=== PATIENT | male | born 1965 | race Hispanic/Latino ===

== ENCOUNTER 2023-04-19 12:43 | Emergency (ER) | payer BC ==
[~2023-04-19] VITALS: Ht 170.2 cm; Wt 105.7 kg
[~2023-04-19 12:43] MED LIST: AEC81 PO; ATOR40TA69 PO; CARV3.1262 PO; FURO40TA7 PO; GLIP1TAB5 PO; GLUC-29 PO; SACU1TAB PO; SPIR25TA6 PO; TRIP30O TP
[2023-04-19 15:43] VITALS: BP 123/72
== END 2023-04-19 15:51 | disposition home or self-care (01) ==
LOC: EDH 12:43
DX: Z89.421 Acquired absence of other right toe(s) (principal); Z48.00 Encounter for change or removal of nonsurgical wound dressing; I11.0 Hypertensive heart disease with heart failure; I50.9 Heart failure, unspecified; E11.9 Type 2 diabetes mellitus without complications; Z79.82 Long term (current) use of aspirin; Z79.899 Other long term (current) drug therapy; Z90.49 Acquired absence of other specified parts of digestive tract; Z98.890 Other specified postprocedural states; Z88.0 Allergy status to penicillin
CPT/HCPCS: 99281; 99282

== ENCOUNTER 2023-12-05 15:11 | Inpatient (IN) | payer BC ==
[~2023-12-05] VITALS: Ht 170.2 cm; Wt 106.7 kg
[~2023-12-05 15:11] MED LIST changes: -AEC81 PO; -ATOR40TA69 PO; +CARV-158 PO; -CARV3.1262 PO; +FURO40TA5 PO; -FURO40TA7 PO; -SPIR25TA6 PO
[2023-12-05 22:46] LABS: BASOPHILS # (AUTO) 0.04 K/uL (0.00-0.20); BASOPHILS % (AUTO) 0.5 % (0.0-5.0); EOSINOPHILS # (AUTO) 0.09 K/uL (0.00-0.70); HEMATOCRIT 47.6 % (42-54); IMMATURE GRANULOCYTE ABSOLUTE 0.05 K/uL (0-1); LYMPHOCYTES # (AUTO) 1.4 K/uL (1.0-4.8); LYMPHOCYTES % (AUTO) 15.7 % (21.0-51.0); MEAN CORPUSCULAR HGB CONC 32.1 g/dL (32.0-36.0); MEAN CORPUSCULAR VOLUME 96.4 fL (79-99); MONOCYTES # (AUTO) 0.8 K/uL (0.1-1.0); MONOCYTES % (AUTO) 8.9 % (3.0-13.0); NEUTROPHILS # (AUTO) 6.4 K/uL (1.8-7.7); NEUTROPHILS % (AUTO) 73.3 % (40.0-77.0); PLATELET COUNT (AUTO) 155 K/uL (130-400); RED BLOOD CELL COUNT(AUTO) 4.94 MIL/uL (4.50-6.20); RED CELL DISTRIBUTION WIDTH 14.4 % (11.0-15.5); WHITE BLOOD COUNT (AUTO) 8.7 K/uL (4.8-10.8)
[2023-12-05] MEDS ORDERED: POTASSIUM CHLORIDE 20MEQ/100ML 100 ML IV PRN (23:00)
[2023-12-05] MEDS ORDERED: POTASSIUM CHLORIDE 10% ELIXIR 20 MEQ/15 ML UDCUP PO PRN (23:00)
[2023-12-05 23:17] LABS: ALBUMIN 3.6 g/dL (3.5-5.0); BILIRUBIN,TOTAL 0.9 mg/dL (0.2-1.0); CREATININE 1.3 mg/dL (0.5-1.5); MAGNESIUM 2.2 mg/dL (1.80-2.40); POTASSIUM 5.9 mmol/L (3.5-5.1); TOTAL PROTEIN, SERUM 7.4 g/dL (6.0-8.3)
[2023-12-05] MEDS ORDERED: DEXTROSE 50%-WATER 50 ML DISP.SYRIN IV PRN (23:30)
[2023-12-05] MEDS ORDERED: GLUCAGON 1MG KIT 1 MG ML IM PRN (23:30)
[2023-12-06] VITALS (13 sets, daily range): BP systolic 114–139; BP diastolic 72–91; PULSE 67–101; RESP 16–20; O2SAT 94–100
[2023-12-06 00:02] LABS: B-TYPE NATRIURETIC PEPTIDE 2720 pg/mL (0-100)
[2023-12-06] MEDS: FUROSEMIDE 100MG VIAL 100 MG in 0.9%NACL 100ML 100 ML IV SCH (01:02)
[2023-12-06] MEDS: FUROSEMIDE 100MG VIAL ONE (01:02)
[2023-12-06 04:58] LABS: BASOPHILS # (AUTO) 0.05 K/uL (0.00-0.20); BASOPHILS % (AUTO) 0.5 % (0.0-5.0); EOSINOPHILS % (AUTO) 1.1 % (0.0-8.0); HEMATOCRIT 48.5 % (42-54); IMMATURE GRANULOCYTE ABSOLUTE 0.05 K/uL (0-1); LYMPHOCYTES # (AUTO) 1.6 K/uL (1.0-4.8); LYMPHOCYTES % (AUTO) 17.2 % (21.0-51.0); MEAN CORPUSCULAR HEMOGLOBIN 31.3 pg (27.0-33.0); MEAN CORPUSCULAR HGB CONC 32.2 g/dL (32.0-36.0); MEAN CORPUSCULAR VOLUME 97.2 fL (79-99); MONOCYTES # (AUTO) 0.9 K/uL (0.1-1.0); MONOCYTES % (AUTO) 10.2 % (3.0-13.0); NEUTROPHILS # (AUTO) 6.4 K/uL (1.8-7.7); NEUTROPHILS % (AUTO) 70.5 % (40.0-77.0); PLATELET COUNT (AUTO) 161 K/uL (130-400); RED BLOOD CELL COUNT(AUTO) 4.99 MIL/uL (4.50-6.20); RED CELL DISTRIBUTION WIDTH 14.6 % (11.0-15.5); WHITE BLOOD COUNT (AUTO) 9.1 K/uL (4.8-10.8)
[2023-12-06 05:11] LABS: ALBUMIN 3.7 g/dL (3.5-5.0); BILIRUBIN,TOTAL 1.2 mg/dL (0.2-1.0); CREATININE 1.3 mg/dL (0.5-1.5); MAGNESIUM 2.2 mg/dL (1.80-2.40); POTASSIUM 5.3 mmol/L (3.5-5.1); TOTAL PROTEIN, SERUM 7.5 g/dL (6.0-8.3)
[2023-12-06 05:22] LABS: B-TYPE NATRIURETIC PEPTIDE 3190 pg/mL (0-100)
[2023-12-06] MEDS: INSULIN HUMULIN R 100 UNIT/ML 3ML SQ SCH (06:32)
[2023-12-06] MEDS ORDERED: FLUT16H NASAL (07:03)
[2023-12-06] MEDS: SACUBITRIL/VALSARTAN 1 EACH TABLET PO ONE (13:03)
[2023-12-07] VITALS (8 sets, daily range): BP systolic 116–123; BP diastolic 78–90; PULSE 84–94; RESP 16–20; O2SAT 97–99
[2023-12-07 04:13] LABS: HEMATOCRIT 47.1 % (42-54); MEAN CORPUSCULAR HEMOGLOBIN 30.8 pg (27.0-33.0); MEAN CORPUSCULAR HGB CONC 32.1 g/dL (32.0-36.0); MEAN CORPUSCULAR VOLUME 95.9 fL (79-99); RED BLOOD CELL COUNT(AUTO) 4.91 MIL/uL (4.50-6.20); RED CELL DISTRIBUTION WIDTH 14.4 % (11.0-15.5); WHITE BLOOD COUNT (AUTO) 9.8 K/uL (4.8-10.8)
[2023-12-07 04:38] LABS: ALBUMIN 3.3 g/dL (3.5-5.0); BILIRUBIN,TOTAL 1.1 mg/dL (0.2-1.0); CREATININE 1.1 mg/dL (0.5-1.5); MAGNESIUM 1.9 mg/dL (1.80-2.40); POTASSIUM 4.5 mmol/L (3.5-5.1); TOTAL PROTEIN, SERUM 7.1 g/dL (6.0-8.3)
[2023-12-08] VITALS (7 sets, daily range): BP systolic 115–131; BP diastolic 70–95; PULSE 87–99; RESP 18–22; O2SAT 100
[2023-12-08 04:53] LABS: HEMATOCRIT 47.5 % (42-54); MEAN CORPUSCULAR HGB CONC 31.8 g/dL (32.0-36.0); MEAN CORPUSCULAR VOLUME 97.5 fL (79-99); RED BLOOD CELL COUNT(AUTO) 4.87 MIL/uL (4.50-6.20); RED CELL DISTRIBUTION WIDTH 14.5 % (11.0-15.5); WHITE BLOOD COUNT (AUTO) 8.7 K/uL (4.8-10.8)
[2023-12-08 05:12] LABS: ALBUMIN 3.3 g/dL (3.5-5.0); BILIRUBIN,TOTAL 1.2 mg/dL (0.2-1.0); CREATININE 1.2 mg/dL (0.5-1.5); MAGNESIUM 1.9 mg/dL (1.80-2.40); POTASSIUM 4.3 mmol/L (3.5-5.1); TOTAL PROTEIN, SERUM 7.1 g/dL (6.0-8.3)
[2023-12-08] MEDS: SACUBITRIL/VALSARTAN 1 EACH TABLET PO SCH (14:23)
[2023-12-08] MEDS: CARVEDILOL 3.125 MG TABLET PO SCH (21:24)
[2023-12-09] VITALS (8 sets, daily range): BP systolic 102–137; BP diastolic 75–88; PULSE 77–89; RESP 18–20; O2SAT 99–100
[2023-12-09 05:40] LABS: HEMATOCRIT 43.4 % (42-54); MEAN CORPUSCULAR HEMOGLOBIN 31.3 pg (27.0-33.0); MEAN CORPUSCULAR HGB CONC 33.4 g/dL (32.0-36.0); MEAN CORPUSCULAR VOLUME 93.7 fL (79-99); RED BLOOD CELL COUNT(AUTO) 4.63 MIL/uL (4.50-6.20); RED CELL DISTRIBUTION WIDTH 14.4 % (11.0-15.5); WHITE BLOOD COUNT (AUTO) 7.4 K/uL (4.8-10.8)
[2023-12-09 06:00] LABS: ALBUMIN 3.1 g/dL (3.5-5.0); BILIRUBIN,TOTAL 1.3 mg/dL (0.2-1.0); MAGNESIUM 1.9 mg/dL (1.80-2.40); POTASSIUM 3.8 mmol/L (3.5-5.1); TOTAL PROTEIN, SERUM 6.6 g/dL (6.0-8.3)
[2023-12-09] MEDS: SACUBITRIL/VALSARTAN 1 EACH TABLET PO SCH (10:12)
[2023-12-09] MEDS: KCL 20 MEQ ERTAB PO PRN (12:27)
[2023-12-09] MEDS: MAGNESIUM 2GM PREMIX 50ML 50 ML IV PRN (16:45)
[2023-12-09] MEDS: FUROSEMIDE 40MG VIAL IV SCH (19:48)
[2023-12-10] VITALS (9 sets, daily range): BP systolic 103–126; BP diastolic 69–89; PULSE 58–94; RESP 17–19; O2SAT 99–100
[2023-12-10 05:42] LABS: HEMATOCRIT 45.7 % (42-54); MEAN CORPUSCULAR HEMOGLOBIN 31.2 pg (27.0-33.0); MEAN CORPUSCULAR HGB CONC 32.6 g/dL (32.0-36.0); MEAN CORPUSCULAR VOLUME 95.8 fL (79-99); RED BLOOD CELL COUNT(AUTO) 4.77 MIL/uL (4.50-6.20); RED CELL DISTRIBUTION WIDTH 14.4 % (11.0-15.5); WHITE BLOOD COUNT (AUTO) 7.6 K/uL (4.8-10.8)
[2023-12-10 06:05] LABS: ALBUMIN 3.2 g/dL (3.5-5.0); BILIRUBIN,TOTAL 1.2 mg/dL (0.2-1.0); CREATININE 1.2 mg/dL (0.5-1.5); MAGNESIUM 2.1 mg/dL (1.80-2.40); TOTAL PROTEIN, SERUM 6.6 g/dL (6.0-8.3)
[2023-12-10] MEDS: FUROSEMIDE 40MG VIAL IV SCH (15:03)
[2023-12-11] VITALS (7 sets, daily range): BP systolic 109–124; BP diastolic 76–88; PULSE 75–84; RESP 16–18; O2SAT 96–97
[2023-12-11 04:34] LABS: BASOPHILS # (AUTO) 0.05 K/uL (0.00-0.20); BASOPHILS % (AUTO) 0.6 % (0.0-5.0); EOSINOPHILS # (AUTO) 0.11 K/uL (0.00-0.70); EOSINOPHILS % (AUTO) 1.4 % (0.0-8.0); HEMATOCRIT 45.7 % (42-54); IMMATURE GRANULOCYTE ABSOLUTE 0.05 K/uL (0-1); LYMPHOCYTES # (AUTO) 1.6 K/uL (1.0-4.8); LYMPHOCYTES % (AUTO) 19.9 % (21.0-51.0); MEAN CORPUSCULAR HGB CONC 32.4 g/dL (32.0-36.0); MEAN CORPUSCULAR VOLUME 95.8 fL (79-99); MONOCYTES # (AUTO) 0.8 K/uL (0.1-1.0); MONOCYTES % (AUTO) 9.7 % (3.0-13.0); NEUTROPHILS # (AUTO) 5.3 K/uL (1.8-7.7); NEUTROPHILS % (AUTO) 67.8 % (40.0-77.0); PLATELET COUNT (AUTO) 142 K/uL (130-400); RED BLOOD CELL COUNT(AUTO) 4.77 MIL/uL (4.50-6.20); RED CELL DISTRIBUTION WIDTH 14.3 % (11.0-15.5); WHITE BLOOD COUNT (AUTO) 7.8 K/uL (4.8-10.8)
[2023-12-11 04:42] LABS: ALBUMIN 3.2 g/dL (3.5-5.0); BILIRUBIN,TOTAL 1.2 mg/dL (0.2-1.0); CREATININE 1.3 mg/dL (0.5-1.5); MAGNESIUM 2.1 mg/dL (1.80-2.40); POTASSIUM 3.9 mmol/L (3.5-5.1); TOTAL PROTEIN, SERUM 6.7 g/dL (6.0-8.3)
[2023-12-11 04:45] LABS: B-TYPE NATRIURETIC PEPTIDE 1340 pg/mL (0-100)
[2023-12-11] MEDS ORDERED: VANCOMYCIN PROTOCOL PER PHARMACY IV SCH (14:00)
[2023-12-11] MEDS: VANCOMYCIN 2GM/500 ML BAG 500 ML IV SCH (14:55)
[2023-12-11] MEDS: FUROSEMIDE 40MG VIAL IV ONE (14:55)
[2023-12-11] MEDS: CEFEPIME HCL 1 GM VIAL IVPB SCH (14:55)
[2023-12-11] MEDS: FUROSEMIDE 80 MG TABLET PO SCH (17:38)
[2023-12-12] VITALS (8 sets, daily range): BP systolic 115–147; BP diastolic 78–94; PULSE 66–85; RESP 18–19; O2SAT 96–99
[2023-12-12] MEDS: SPIRONOLACTONE 25 MG TAB PO SCH (08:34)
[2023-12-12 08:46] LABS: CREATININE 1.1 mg/dL (0.5-1.5); POTASSIUM 3.8 mmol/L (3.5-5.1)
[2023-12-13 04:42] VITALS: BP 122/86; PULSE 76; RESP 18
[2023-12-13 05:11] LABS: BASOPHILS # (AUTO) 0.04 K/uL (0.00-0.20); BASOPHILS % (AUTO) 0.6 % (0.0-5.0); EOSINOPHILS # (AUTO) 0.11 K/uL (0.00-0.70); EOSINOPHILS % (AUTO) 1.6 % (0.0-8.0); HEMATOCRIT 47.4 % (42-54); IMMATURE GRANULOCYTE ABSOLUTE 0.05 K/uL (0-1); LYMPHOCYTES # (AUTO) 0.8 K/uL (1.0-4.8); LYMPHOCYTES % (AUTO) 11.8 % (21.0-51.0); MEAN CORPUSCULAR HGB CONC 32.9 g/dL (32.0-36.0); MEAN CORPUSCULAR VOLUME 94.2 fL (79-99); MONOCYTES # (AUTO) 0.7 K/uL (0.1-1.0); MONOCYTES % (AUTO) 9.7 % (3.0-13.0); NEUTROPHILS # (AUTO) 5.1 K/uL (1.8-7.7); NEUTROPHILS % (AUTO) 75.6 % (40.0-77.0); PLATELET COUNT (AUTO) 118 K/uL (130-400); RED BLOOD CELL COUNT(AUTO) 5.03 MIL/uL (4.50-6.20); RED CELL DISTRIBUTION WIDTH 14.6 % (11.0-15.5); WHITE BLOOD COUNT (AUTO) 6.8 K/uL (4.8-10.8)
[2023-12-13 05:30] LABS: B-TYPE NATRIURETIC PEPTIDE 2330 pg/mL (0-100)
[2023-12-13 05:41] LABS: BILIRUBIN,TOTAL 1.2 mg/dL (0.2-1.0); CREATININE 1.3 mg/dL (0.5-1.5); MAGNESIUM 1.9 mg/dL (1.80-2.40); POTASSIUM 3.8 mmol/L (3.5-5.1); TOTAL PROTEIN, SERUM 6.5 g/dL (6.0-8.3)
[2023-12-13 08:00] VITALS: O2SAT 99
[2023-12-13 08:22] VITALS: BP 117/82; PULSE 81; RESP 18
[2023-12-13] MEDS: MAGNESIUM OXIDE 400 MG TABLET PO SCH (09:43)
[2023-12-13 11:37] VITALS: BP 132/76; PULSE 86; RESP 18
[2023-12-13 16:44] VITALS: BP 116/82; PULSE 76; RESP 18
[2023-12-13 18:18] LABS: INR 1.25 (0.85-1.15); PROTHROMBIN TIME 14.3 SEC (9.6-11.6)
[2023-12-13 20:00] VITALS: BP_SYST 122; BP_SYST 125; BP_DIAS 69; BP_DIAS 86; PULSE 91; PULSE 92; RESP 18; O2SAT 100
== END 2023-12-13 22:06 | DRG 637 ==
LOC: EDH 15:11 → DIRECT 15:12 → 2AH 12-06 03:23 → 4DH 12-09 18:30
PROVIDERS: ADMIT Internal Medicine; ATTEND Internal Medicine
DX: E11.69 Type 2 diabetes mellitus with other specified complication (principal); I50.43 Acute on chronic combined systolic (congestive) and diastolic (congestive) heart failure; M00.9 Pyogenic arthritis, unspecified; L97.919 Non-pressure chronic ulcer of unspecified part of right lower leg with unspecified severity; L97.929 Non-pressure chronic ulcer of unspecified part of left lower leg with unspecified severity; M86.8X6 Other osteomyelitis, lower leg; I11.0 Hypertensive heart disease with heart failure; S91.104A Unspecified open wound of right lesser toe(s) without damage to nail, initial encounter; I25.10 Atherosclerotic heart disease of native coronary artery without angina pectoris; F19.90 Other psychoactive substance use, unspecified, uncomplicated; E66.01 Morbid (severe) obesity due to excess calories; E78.5 Hyperlipidemia, unspecified; Z53.20 Procedure and treatment not carried out because of patient's decision for unspecified reasons; Z82.0 Family history of epilepsy and other diseases of the nervous system; Z79.899 Other long term (current) drug therapy; Z82.3 Family history of stroke; Z82.5 Family history of asthma and other chronic lower respiratory diseases; Z82.49 Family history of ischemic heart disease and other diseases of the circulatory system; Z83.3 Family history of diabetes mellitus; Z89.421 Acquired absence of other right toe(s); Y99.8 Other external cause status; Z68.36 Body mass index [BMI] 36.0-36.9, adult
CPT/HCPCS: 36415; 71045; 73630; 73718; 80048; 80053; 80202; 82948; 83735; 83880; 85025; 85027; 85610; 87070; 87077; 87186; 93970; G0378; J0692; J1815; J1940; J3475; J3370

== ENCOUNTER → 2024-02-25 | Outpatient (CLI) | payer BC ==
[~2024-02-25] MED LIST changes: -CARV-158 PO; +CARV3.1262 PO; +FLUT16H NASAL; -GLUC-29 PO; -TRIP30O TP
[2024-02-25 12:32] LABS: ALBUMIN 3.7 g/dL (3.5-5.0); BILIRUBIN,TOTAL 1.2 mg/dL (0.2-1.0); CREATININE 1.6 mg/dL (0.5-1.3); POTASSIUM 5.3 mmol/L (3.5-5.1); TOTAL PROTEIN, SERUM 7.6 g/dL (6.0-8.3)
== END | disposition home or self-care (01) ==
LOC: LAB 09:46
PROVIDERS: ATTEND Student in an Organized Health Care Education/Training Program
DX: I11.0 Hypertensive heart disease with heart failure (principal); I50.43 Acute on chronic combined systolic (congestive) and diastolic (congestive) heart failure; M25.512 Pain in left shoulder; I25.10 Atherosclerotic heart disease of native coronary artery without angina pectoris; E78.5 Hyperlipidemia, unspecified; I25.5 Ischemic cardiomyopathy
CPT/HCPCS: 36415; 80053; 80061

== ENCOUNTER → 2024-03-17 | Outpatient (CLI) | payer BC ==
[2024-03-17 12:50] LABS: CREATININE 1.5 mg/dL (0.5-1.3); POTASSIUM 5.4 mmol/L (3.5-5.1)
== END | disposition home or self-care (01) ==
LOC: LAB 10:47
PROVIDERS: ATTEND Student in an Organized Health Care Education/Training Program
DX: I10 Essential (primary) hypertension (principal); M25.512 Pain in left shoulder; E78.5 Hyperlipidemia, unspecified
CPT/HCPCS: 36415; 80048

== ENCOUNTER → 2024-03-19 | Outpatient (CLI) | payer BC ==
[~2024-03-19] MED LIST changes: +IOHEXOL 350 MG/ML 100ML INFUS..BTL IV ONE; +METOPROLOL TARTRATE 1 MG/ML 5ML VIAL IV ONE
== END | disposition home or self-care (01) ==
LOC: RAH 08:10
PROVIDERS: ATTEND Student in an Organized Health Care Education/Training Program
DX: I25.10 Atherosclerotic heart disease of native coronary artery without angina pectoris (principal); I25.5 Ischemic cardiomyopathy; M47.815 Spondylosis without myelopathy or radiculopathy, thoracolumbar region; I51.7 Cardiomegaly
CPT/HCPCS: 75574; J3490; Q9967

== ENCOUNTER → 2024-04-16 | Outpatient (CLI) | payer BC ==
[~2024-04-16] MED LIST changes: -IOHEXOL 350 MG/ML 100ML INFUS..BTL IV ONE; -METOPROLOL TARTRATE 1 MG/ML 5ML VIAL IV ONE
== END | disposition home or self-care (01) ==
LOC: RAH 10:44
PROVIDERS: ATTEND Student in an Organized Health Care Education/Training Program
DX: M47.812 Spondylosis without myelopathy or radiculopathy, cervical region (principal); M50.21 Other cervical disc displacement, high cervical region; M48.02 Spinal stenosis, cervical region; M54.6 Pain in thoracic spine; M54.50 Low back pain, unspecified
CPT/HCPCS: 72141

== ENCOUNTER → 2024-04-17 | Outpatient (CLI) | payer BC | END | disposition home or self-care (01) | LOC: RAH 10:30 | PROVIDERS: ATTEND Student in an Organized Health Care Education/Training Program | DX: M47.814 Spondylosis without myelopathy or radiculopathy, thoracic region (principal); M54.6 Pain in thoracic spine; M54.50 Low back pain, unspecified | CPT/HCPCS: 72146 ==

== ENCOUNTER → 2024-06-26 | Outpatient (CLI) | payer BC | END | disposition home or self-care (01) | LOC: RAH 11:12 | PROVIDERS: ATTEND Student in an Organized Health Care Education/Training Program | DX: S46.002A Unspecified injury of muscle(s) and tendon(s) of the rotator cuff of left shoulder, initial encounter (principal); M19.012 Primary osteoarthritis, left shoulder; M25.712 Osteophyte, left shoulder; M25.412 Effusion, left shoulder; X58.XXXA Exposure to other specified factors, initial encounter; Y93.89 Activity, other specified; Y92.89 Other specified places as the place of occurrence of the external cause; Y99.8 Other external cause status | CPT/HCPCS: 73221 ==

== ENCOUNTER → 2024-07-29 | Outpatient (CLI) | payer BC ==
[2024-07-29 12:07] LABS: BASOPHILS # (AUTO) 0.06 K/uL (0.00-0.20); BASOPHILS % (AUTO) 0.7 % (0.0-5.0); EOSINOPHILS # (AUTO) 0.16 K/uL (0.00-0.70); HEMATOCRIT 42.6 % (42-54); IMMATURE GRANULOCYTE ABSOLUTE 0.05 K/uL (0-1); LYMPHOCYTES # (AUTO) 1.4 K/uL (1.0-4.8); LYMPHOCYTES % (AUTO) 17.6 % (21.0-51.0); MEAN CORPUSCULAR HEMOGLOBIN 32.6 pg (27.0-33.0); MEAN CORPUSCULAR HGB CONC 33.1 g/dL (32.0-36.0); MEAN CORPUSCULAR VOLUME 98.4 fL (79-99); MONOCYTES # (AUTO) 0.9 K/uL (0.1-1.0); MONOCYTES % (AUTO) 11.4 % (3.0-13.0); NEUTROPHILS # (AUTO) 5.5 K/uL (1.8-7.7); NEUTROPHILS % (AUTO) 67.7 % (40.0-77.0); PLATELET COUNT (AUTO) 153 K/uL (130-400); RED BLOOD CELL COUNT(AUTO) 4.33 MIL/uL (4.50-6.20); RED CELL DISTRIBUTION WIDTH 13.5 % (11.0-15.5); WHITE BLOOD COUNT (AUTO) 8.1 K/uL (4.8-10.8)
[2024-07-29 12:20] LABS: ALBUMIN 3.4 g/dL (3.5-5.0); BILIRUBIN,TOTAL 1.2 mg/dL (0.2-1.0); CREATININE 1.4 mg/dL (0.5-1.3); MAGNESIUM 1.7 mg/dL (1.80-2.40); POTASSIUM 4.5 mmol/L (3.5-5.1); TOTAL PROTEIN, SERUM 7.1 g/dL (6.0-8.3)
[2024-07-29 12:35] LABS: B-TYPE NATRIURETIC PEPTIDE 1020 pg/mL (0-100)
== END | disposition home or self-care (01) ==
LOC: LAB 10:14
PROVIDERS: ATTEND Student in an Organized Health Care Education/Training Program
DX: I50.21 Acute systolic (congestive) heart failure (principal)
CPT/HCPCS: 36415; 80053; 83735; 83880; 85025

== ENCOUNTER → 2024-08-12 | Outpatient (CLI) | payer BC ==
--- NOTE | 2024-08-12 15:05 | HMCIMG ---
MR KNEE LEFT WO HISTORY: Chronic pain COMPARISON: None TECHNIQUE: MRI of the left knee was performed utilizing multiple pulse sequences in axial, coronal and sagittal planes. Patient was not given contrast through intravenous route. FINDINGS: There are degenerative changes with osteophytes formation. No abnormal signal intensity is seen of the visualized bony structure. There is anterior cruciate ligament tear. There is posterior cruciate ligament sprain. There is medial collateral ligament sprain. Lateral collateral ligament is intact. Quadriceps tendon and patellar tendon are within normal limits. There is intrasubstance tear involving the medial and lateral menisci. There is medial meniscal tear involving posterior horn with both superior and inferior articular extension. Small joint effusion is seen. Small Yeh's cyst is seen. IMPRESSION: 1. Anterior cruciate ligament tear and posterior cruciate ligament and medial collateral ligament sprains. Medial meniscal tear. Small joint effusion. Small Yeh's cyst.
== END | disposition home or self-care (01) ==
LOC: RAH 12:37
PROVIDERS: ATTEND Student in an Organized Health Care Education/Training Program
DX: S83.512A Sprain of anterior cruciate ligament of left knee, initial encounter (principal); S83.522A Sprain of posterior cruciate ligament of left knee, initial encounter; S83.242A Other tear of medial meniscus, current injury, left knee, initial encounter; S83.282A Other tear of lateral meniscus, current injury, left knee, initial encounter; S83.412A Sprain of medial collateral ligament of left knee, initial encounter; M17.12 Unilateral primary osteoarthritis, left knee; M25.462 Effusion, left knee; M71.22 Synovial cyst of popliteal space [Baker], left knee; M25.762 Osteophyte, left knee; G89.29 Other chronic pain; M25.562 Pain in left knee; X58.XXXA Exposure to other specified factors, initial encounter; Y93.89 Activity, other specified; Y92.89 Other specified places as the place of occurrence of the external cause; Y99.8 Other external cause status
CPT/HCPCS: 73721

== ENCOUNTER 2024-10-05 10:00 | Emergency (ER) | payer BC ==
[~2024-10-05] VITALS: Ht 170.2 cm; Wt 103.0 kg
--- NOTE | 2024-10-05 10:14 | ERN ---
ED Note History of Present Illness Stated Complaint: NAUSEA Chief Complaint: Nausea,Vomiting,Diarrhea Time Seen by MD: 10:11 Dictation: PATIENT COMING IN TODAY WITH THE ACUTE ONSET OF NAUSEA APPROXIMATELY 2 HOURS PRIOR TO ARRIVAL. NO ABDOMINAL PAIN NO CHEST PAIN NO BACK PAIN NO SOB. STATES THIS IS THE EXACT SAME WAY WHEN I HAD MY HEART ATTACK 12 YEARS AGO[address] PATIENT HAD [address]. SHANNAN SORIANO Allergies: Coded Allergies: amoxicillin (Unverified Allergy, Unknown, 12/05/21) Home Meds Active Scripts Furosemide (Furosemide) 40 Mg Tablet, 40 MG PO BID for 30 Days, #60 TAB 0 Refills Prov:JT LOVE MD 10/29/23 Sacubitril/Valsartan (Entresto 24 mg-26 mg Tablet) 1 Each Tablet, 1 EACH PO BID for 30 Days, #60 TAB 0 Refills Prov:LAKHWINDER SR MD 12/10/21 Carvedilol (Coreg) 3.125 Mg Tablet, 3.125 MG PO BID for 30 Days, #60 TAB 0 Refills Prov:LAKHWINDER SR MD 12/10/21 Reported Medications Fluticasone Propionate (Flonase Nasal Axson) 50 Mcg/Actuation Axson, 50 MCG NASAL HS, SPRAY 12/06/23 Glipizide/Metformin HCl (Glipizide-Metformin 2.5-500 mg) 1 Each Tablet, 1 EACH PO BIDMEALS, TAB 12/05/21 Past Medical History Past Medical History: CHF, Diabetes-Type II, Heart Disease, MS Surgical History: Cholecystectomy, Other Surgical History Other: RT TOE AMPUTATION Family History: CAD Social History: ETOH, Lives with family RN Note Reviewed/Agreed w/PFSH: Yes Review of System Dictation CONSTITUTIONAL: NEGATIVE EXCEPT FOR HPI HEAD/FACE: NEGATIVE EXCEPT FOR HPI EENT: NEGATIVE EXCEPT FOR HPI RESPIRATORY: NEGATIVE EXCEPT FOR HPI GASTROINTESTINAL/ABDOMINAL: NEGATIVE EXCEPT FOR HPI NAUSEA GENITOURINARY: NEGATIVE EXCEPT FOR HPI MUSCULOSKELETAL: NEGATIVE EXCEPT FOR HPI INTEGUMENTARY: NEGATIVE EXCEPT FOR HPI NEUROLOGICAL/PSYCH: NEGATIVE EXCEPT FOR HPI HEMATOLOGIC/LYMPHATIC: NEGATIVE EXCEPT FOR HPI ALL SYSTEMS NEGATIVE, EXCEPT NOTED ABOVE. 13 POINT REVIEW OF SYSTEMS ASSESSED AND ALL NEGATIVE EXCEPT FOR ABOVE. Initial Vital Sign VS Vital Signs Date Time Temp Pulse Resp B/P (MAP) Pulse Ox O2 Delivery O2 Flow Rate FiO2 12/29/24 10:11 97.5 107 18 147/106 100 Room Air 0 10/05/24 10:16 21 Physical Exam Dictation VITAL SIGNS REVIEWED GENERAL APPEARANCE: ALERT, ORIENTED X 3, NO ACUTE DISTRESS, WELL DEVELOPED, NOURISHED. HEAD AND FACE: NON-TRAUMATIC. EYES: PERRL, PINK CONJUNCTIVAS, EYELID NO TRAUMA, ANTERIOR CHAMBER WITH ARCUS SENILIS. EARS: PINNAS INTACT AND NO SIGNS OF TRAUMA OR ERYTHEMA EAR CANALS CLEAR AND NO DISCHARGE TM NO ERYTHEMA NOSE: NO DISCHARGE, NO BLEEDING. OROPHARYNX: MOUTH NORMAL, TONGUE PINK, PHARYNX CLEAR,NO ERYTHEMA, TONSILS NO EXUDATES, NO ABSCESSES NOTED, MUCOUS MEMBRANE MOIST NECK: SUPPLE, NON-TENDER, NO THYROMEGALY, NO MASSES, NO JVD, NO BRUITS BREAST:DEFERRED CHEST:NO TENDERNESS, NO CREPITUS, NO PARADOXICAL MOVEMENT, NO RETRACTIONS LUNGS:CLEAR, WELL-VENTILATED, SYMMETRIC, NO RALES, NO WHEEZING, NO RHONCHI, NO STRIDOR, GOOD BREATH SOUNDS BILATERALLY HEART: REGULAR RATE, REGULAR RHYTHM, NO MURMUR, NO GALLOPS VASCULAR: NO PERIPHERAL EDEMA, ABDOMEN: SOFT, POSITIVE BOWEL SOUNDS, NONDISTENDED, NO GUARDING, NONTENDER, NO REBOUND, NO MASSES NO HEPATOMEGALY, NO SPLENOMEGALY, NO BUCKNER'S SIGN, NO HERNIAS. RECTAL: DEFERRED GENITAL: DEFERRED NEUROLOGICAL: NORMAL SPEECH, MOTOR FUNCTION INTACT, SENSORY FUNCTION INTACT MUSCULOSKELETAL: NECK NONTENDER, FULL RANGE OF MOTION, BACK NONTENDER, FULL RANGE OF MOTION, EXTREMITIES: NONTENDER, FULL RANGE OF MOTION SKIN: COLOR PINK, DRY, NO TURGOR, NO RASH, NO LACERATIONS, NO ABRASIONS, NO CONTUSIONS. LYMPHATIC: DEFERRED Results (Laboratory/Radiology) Laboratory/Radiology Laboratory Tests Test 10/05/24 10:27 White Blood Count 8.9 K/uL (4.8-10.8) Red Blood Count 4.27 MIL/uL (4.50-6.20) L Hemoglobin 14.1 g/dL (14.0-18.0) Hematocrit 42.6 % (42-54) Mean Corpuscular Volume 99.8 fL (79-99) H Mean Corpuscular Hemoglobin 33.0 pg (27.0-33.0) Mean Corpuscular Hemoglobin Concent 33.1 g/dL (32.0-36.0) Red Cell Distribution Width 13.2 % (11.0-15.5) Platelet Count 145 K/uL (130-400) Mean Platelet Volume 11.5 fL (7.5-10.5) H Immature Granulocyte % (Auto) 0.7 % (0-1) Neutrophils (%) (Auto) 79.5 % (40.0-77.0) H Lymphocytes (%) (Auto) 10.5 % (21.0-51.0) L Monocytes (%) (Auto) 7.7 % (3.0-13.0) Eosinophils (%) (Auto) 1.0 % (0.0-8.0) Basophils (%) (Auto) 0.6 % (0.0-5.0) Neutrophils # (Auto) 7.1 K/uL (1.8-7.7) Lymphocytes # (Auto) 0.9 K/uL (1.0-4.8) L Monocytes # (Auto) 0.7 K/uL (0.1-1.0) Eosinophils # (Auto) 0.09 K/uL (0.00-0.70) Basophils # (Auto) 0.05 K/uL (0.00-0.20) Absolute Immature Granulocyte (auto 0.06 K/uL (0-1) Nucleated Red Blood Cells 0.0 % (0.0-0.19) Sodium Level 144 mmol/L (136-145) Potassium Level 5.5 mmol/L (3.5-5.1) H Chloride Level 108 mmol/L (101-111) Carbon Dioxide Level 26 mmol/L (21-32) Blood Urea Nitrogen 28 mg/dL (7-18) H Creatinine 1.4 mg/dL (0.5-1.3) H Glomerular Filtration Rate Calc 57 mL/min (>90) Random Glucose 175 mg/dL (70-105) H Total Calcium 9.6 mg/dL (8.5-10.1) Troponin I High Sensitivity < 4 ng/L (4-75) L Lipase 32 U/L (16-77) Labs Reviewed?: Yes EKG Comment: EKG SINUS TACHYCARDIA/HEART RATE 106/0 CHANGES NOTED TO LEADS TWO AND THREE. NO ACUTE CHANGE ED Course ED Course Orders Procedure Category Date Status Time Cbc With Differential LAB 10/05/24 Complete 10:11 Troponin I High LAB 10/05/24 Complete Sensitivity 10:11 12 Lead Ekg Tracing- EKG 10/05/24 Logged Technical 10:11 Ondansetron 4mg Inj PHA 10/05/24 Complete (Zofran 4mg Inj) 10:30 Lipase LAB 10/05/24 Complete 10:11 Basic Metabolic Panel LAB 10/05/24 Complete 10:11 Current Medications Medications (Trade) Dose Ordered Sig/Da Route PRN Reason Start Time Stop Time Status Last Admin Dose Admin Ondansetron HCl (zoFRAN 4MG INJ) 4 mg ONCE ONCE IVP 10/05/24 10:30 10/05/24 10:31 DC Vital Signs Date Time Temp Pulse Resp B/P (MAP) Pulse Ox O2 Delivery O2 Flow Rate FiO2 10/05/24 10:16 97.5 107 18 147/106 100 Room Air* 0 21 10/05/24 10:11 97.5 107 18 147/106 100 Room Air 0 1336, PATIENT HEMODYNAMICALLY STABLE CARDIAC WORKUP NEGATIVE PATIENT WILL BE D ISCHARGED HOME WITH NAUSEA ATYPICAL CHEST PAIN TOLD TO FOLLOW UP WITH HIS PRIMARY CARE DOCTOR. HEART Score Response (Comments) Value Age: 45-65yrs (+1) 1 Risk Factors: 3+ risk factors (+2) 2 Initial Troponin: Normal limit (0) 0 Total 3 Medical Decision Making MDM MDM: DIFFERENTIAL DIAGNOSIS: ACS/AMI/ELECTROLYTE IMBALANCE/DEHYDRATION/NAUSEA VOMITING RATIONALE: TESTS CONSIDERED AND ORDERED SECONDARY TO SHARED DECISION MAKING INCLUDE: EKG/LABS PREVIOUS OUTSIDE RECORDS REVIEWED: OLD ER VISITS. REVIEWED RISK OF COMPLICATION AND/OR MORBIDITY OR MORTALITY OF PATIENT MANAGEMENT: NONE MEDICATIONS-PER MEDICATION RECONCILIATION SEE NURSE'S NOTES NEED FOR HOSPITALIZATION: PATIENT DOES NOT MEET CRITERIA FOR HOSPITALIZATION. NO NEED FOR EMERGENCY MAJOR/MINOR SURGERY: NO THERE ARE NO SOCIAL CONCERNS WITH THIS PATIENT. PRESCRIPTION DRUG MANAGEMENT NONE PRESCRIPTIONS WILL INCLUDE SYMPTOMATIC CARE PATIENT'S PRIOR EXTERNAL MEDICAL RECORDS FROM OTHER ER VISITS WERE REVIEWED BY ME INDICATED. PRIOR TESTING AND RESULTS FROM PREVIOUS VISITS WERE REVIEWED. PRIOR TESTS WERE TAKEN INTO ACCOUNT WITH MEDICAL DECISION MAKING AND RESOURCE UTILIZATION, INDEPENDENT HISTORIAN/HISTORIANS WERE USED TO OBTAIN COMPLETE MEDICAL HISTORY. I INDEPENDENTLY INTERPRETED THE TEST THAT WERE PERFORMED, RESULTS WERE REVIEWED BY ME AND CONSIDERED FINDINGS ON RADIOLOGY IF ORDERED. MEDICAL MANAGEMENT AND EXAMINATION INTERPRETATION DISCUSSIONS WERE HAD BY ME WITH OTHER QUALIFIED HEALTHCARE PROFESSIONALS INDICATED FOR THE PATIENT'S CARE. DX & DISP Disposition: Discharge Departure Impression: Primary Impression: Nausea Additional Impressions: Uncontrolled diabetes mellitus, Atypical chest pain, Dehydration Condition: Stable Additional Instructions: FOLLOW-UP WITH PRIMARY CARE PROVIDER IN 1 TO 2 DAYS. TAKE MEDICATIONS D IRECTED HERE IN THE EMERGENCY ROOM. OKAY TO CONTINUE HOME MEDICATIONS UNLESS OTHERWISE DISCUSSED DURING YOUR VISIT IN THE EMERGENCY ROOM TODAY. RETURN TO YOUR NEAREST EMERGENCY ROOM IF SYMPTOMS WORSEN OR IF THERE IS NO IMPROVEMENT. CALL 911 IF YOU NEED IMMEDIATE ASSISTANCE. TAKE TYLENOL OR MOTRIN [id number] NEEDED AND IF NO CONTRAINDICATIONS ARE PRESENT. INCREASE ORAL HYDRATION. A WOUND CULTURE OR URINE CULTURE WAS ORDERED HERE IN THE EMERGENCY ROOM DEPARTMENT PLEASE FOLLOW-UP WITH PRIMARY CARE PROVIDER AND ADVISE THEM TO GET REPEAT PORTS FROM OUR FACILITY. IF YOU HAD ANY BRADLEY WRAP/SPLINTS THAT WERE APPLIED HERE, PLEASE DO NOT REMOVE THEM UNTIL YOU SEE YOUR PRIMARY CARE OR SPECIALTY. SEE YOUR PRIMARY CARE DOCTOR IN 1-2 DAYS FOR FOLLOW UP. Referrals: EMBER SORIANO MD (PCP) Time of Disposition: 13:38 I have reviewed the case, and I agree with, Diagnosis and Plan SHINE BLAKE NP Oct 05, 2024 10:13
[2024-10-05] MEDS: ondanSETRON 4MG INJ IVP ONE (10:30)
[2024-10-05 10:34] LABS: BASOPHILS # (AUTO) 0.05 K/uL (0.00-0.20); BASOPHILS % (AUTO) 0.6 % (0.0-5.0); EOSINOPHILS # (AUTO) 0.09 K/uL (0.00-0.70); HEMATOCRIT 42.6 % (42-54); IMMATURE GRANULOCYTE ABSOLUTE 0.06 K/uL (0-1); LYMPHOCYTES # (AUTO) 0.9 K/uL (1.0-4.8); LYMPHOCYTES % (AUTO) 10.5 % (21.0-51.0); MEAN CORPUSCULAR HGB CONC 33.1 g/dL (32.0-36.0); MEAN CORPUSCULAR VOLUME 99.8 fL (79-99); MONOCYTES # (AUTO) 0.7 K/uL (0.1-1.0); MONOCYTES % (AUTO) 7.7 % (3.0-13.0); NEUTROPHILS # (AUTO) 7.1 K/uL (1.8-7.7); NEUTROPHILS % (AUTO) 79.5 % (40.0-77.0); PLATELET COUNT (AUTO) 145 K/uL (130-400); RED BLOOD CELL COUNT(AUTO) 4.27 MIL/uL (4.50-6.20); RED CELL DISTRIBUTION WIDTH 13.2 % (11.0-15.5); WHITE BLOOD COUNT (AUTO) 8.9 K/uL (4.8-10.8)
[2024-10-05 10:46] LABS: CREATININE 1.4 mg/dL (0.5-1.3); POTASSIUM 5.5 mmol/L (3.5-5.1)
[2024-10-05] MEDS: ondanSETRON 4MG INJ ONE (15:15)
--- NOTE | 2024-10-05 15:27 | EKG ---
[facility] Test Date: 2024-10-05 Test Time: 10:21:12 Pat Name: LILI HUFF Department: ED Room: Gender: M Mobile Home [employer]icer: [id number] : [id number] Requested By: SHINE BLAKE Order Number: [id number] Reading MD: Omar Burgess Measurements Intervals [place] Rate: 106 P: 34 UT: 209 QRS: -42 QRSD: 97 T: 115 QT: 348 QTc: 462 Interpretive Statements Sinus tachycardia Borderline prolonged UT interval Inferior infarct, old Anterolateral infarct, age indeterminate Compared to ECG 12/06/2023 07:00:13 Sinus rhythm no longer present Myocardial infarct finding still present Electronically Signed On 10-05-2024 17:02:32 DAIRY BAR MANAGER by Omar Burgess Please click the below link to view image of tracing.
[2024-10-05 15:56] VITALS: BP 128/75; PULSE 98; RESP 16; TEMP 98; O2SAT 97
== END 2024-10-05 15:57 | disposition home or self-care (01) ==
LOC: EDH 10:00
DX: E11.65 Type 2 diabetes mellitus with hyperglycemia (principal); R11.2 Nausea with vomiting, unspecified; R07.89 Other chest pain; E86.0 Dehydration; I50.9 Heart failure, unspecified; Z79.899 Other long term (current) drug therapy; Z88.0 Allergy status to penicillin; Z90.49 Acquired absence of other specified parts of digestive tract
CPT/HCPCS: 99284; 96374; 84484; 80048; 83690; 85025; 36415; 93005; J2405

== ENCOUNTER → 2024-12-27 | Outpatient (CLI) | payer BC ==
[~2024-12-27] MED LIST changes: +BUME1TAB6 PO; +METF-444 PO; +SPIR25TA6 PO
== END | disposition home or self-care (01) ==
LOC: SHCH 09:35
PROVIDERS: ATTEND Student in an Organized Health Care Education/Training Program
DX: I70.202 Unspecified atherosclerosis of native arteries of extremities, left leg (principal); L98.499 Non-pressure chronic ulcer of skin of other sites with unspecified severity
CPT/HCPCS: 93925

== ENCOUNTER 2025-06-23 00:47 | Inpatient (IN) | payer BC ==
[~2025-06-23] VITALS: Ht 170.2 cm; Wt 109.3 kg
[~2025-06-23 00:47] MED LIST changes: +APIX5TAB PO; -CARV3.1262 PO; -FLUT16H NASAL; -FURO40TA5 PO; -GLIP1TAB5 PO; -METF-444 PO; +METO25TA3 PO; -SACU1TAB PO; -SPIR25TA6 PO
--- NOTE | 2025-06-23 01:02 | NUR ---
SEPSIS ALERT CALLED OVERHEAD FOR ROOM 20; PT WITH TEMP OF 102.3, PULSE OF 128
--- NOTE | 2025-06-23 01:09 | ERN ---
ED Note History of Present Illness Stated Complaint: C/O SWELLING TO LOWER EXTREMITIES,SOB,DIZZINESS Chief Complaint: Lower Extremity Pain/Injury Time Seen by MD: 00:53 Dictation: This is a 59-year-old male who has multiple medical problems presented to the emergency room with the complaints of feeling very dizzy shortness of breath and he has chronic lower extremity swelling. She started developing chills and rigors over the past 24 hours and initially he thought he was having Parkinson's tremors and he decided to come over to the ER for further evaluation. He stated that spironolactone and carvedilol were discontinued due to severe hyperkalemia in the past. Sunday he was instructed by Cardiology to take a dose of spironolactone along with his Bumex. Patient stated that he also changed the dressing of his chronic leg ulcers and he does have pain on the lateral aspect of the right lower extremity ulcer. No nausea vomitings diarrhea. No cough sputum or hemoptysis. No URI symptoms. Temperature 102.3 pulse 128 respirations 24 blood pressure 122/87 with a pulse oximetry of 100% on room air His chronic medical problems include- hypertension, hyperlipidemia, advanced ischemic cardiomyopathy with LVEF less than 20%, stage III CKD, history of multivessel obstructive CAD, history of pulmonary embolism, DVT, history of chronic anticoagulation with [employer]-Dr. Lindy Cartwright. Allergies: Coded Allergies: amoxicillin (Unverified Allergy, Unknown, 12/05/21) Home Meds Active Scripts Metoprolol Succinate (Toprol Xl) 25 Mg Tab.er.24h, 25 MG PO DAILY, #30 TAB Prov:ISIDRO BROWN MD 02/27/25 Bumetanide (Bumetanide) 1 Mg Tablet, 1 MG PO BID, #60 TAB Prov:JUHI DEL CID APRN 02/19/25 Reported Medications Apixaban (Eliquis) 5 Mg Tablet, 5 MG PO BID, TAB 02/15/25 Past Medical History Past Medical History: CHF, Diabetes-Type II, Heart Disease, Hypertension Additional Past Medical Hx: CHRONIC BACK PAIN, pulmonary thromboembolism, DVT, THROMBOSIS Surgical History: Other Surgical History Other: RT 2ND TOE AMPUTATION Family History: CAD Social History: ETOH, Lives with family RN Note Reviewed/Agreed w/PFSH: Yes Review of System Dictation Constitutional: Positive for fever,chills, and denied weight loss Eyes: Negative for injury, pain,redness, and discharge ENT: Negative for injury,pain or swelling Cardiovascular: Negative for chest pain, palpitations, and edema Respiratory: Positive for shortness of breath, denied cough, and wheezing, Abdomen/GI: Negative for abdominal pain, nausea, vomiting, diarrhea, and constipation Back: Negative for injury and pain : Negative for injury, bleeding and discharge MS/Extremity: Negative for injury and deformity positive for bilateral lower extremity edema and pain Skin: Negative for rash, and discoloration Neuro: Negative for headache, weakness, numbness, tingling, and seizure Psych: Negative for suicide ideation, homicidal ideation, and hallucinations Initial Vital Sign VS Vital Signs Date Time Temp Pulse Resp B/P (MAP) Pulse Ox O2 Delivery O2 Flow Rate FiO2 06/23/25 00:51 102.4 128 24 122/87 100 Room Air 06/23/25 01:17 0 21 Physical Exam Dictation General: awake, alert, NAD obese male, PND orthopneic, chronically ill-appearing Head/Face: Normocephalic, atraumatic Eyes: PERRL, EOMI, vision at baseline ENT: oral cavity clear, TMs clear, no signs of infection Neck: Trachea midline, supple, no nuchal rigidity Cardiovascular: RRR, normal S1/S2, No MRGs, positive JVD Respiratory: Decreased breath sounds bilaterally at the bases with a crackle, no respiratory distress, No rales or wheezes Abdomen: Soft, non-tender, non-distended, normal bowel sounds, no guarding or rebound. Skin: Warm, dry, normal turgor, no rash MS/Extremity: Pulses equal, no cyanosis, neurovascular intact, FROM extensive Poncho wrapping on his lower extremities Neuro: COAx4, GCS 15, strength 5/5, CN 2-12 intact, normal cerebellar exam, normal gait, Psych: Normal behavior, mood, and affect normal Extremities-1 to 2+ edema without any palpable cords, Homans sign is negative Results (Laboratory/Radiology) Laboratory/Radiology Laboratory Tests Test 06/23/25 01:16 06/23/25 01:32 06/23/25 02:02 White Blood Count 20.1 K/uL (4.8-10.8) H Red Blood Count 4.61 MIL/uL (4.50-6.20) Hemoglobin 15.3 g/dL (14.0-18.0) Hematocrit 45.4 % (42-54) Mean Corpuscular Volume 98.5 fL (79-99) Mean Corpuscular Hemoglobin 33.2 pg (27.0-33.0) H Mean Corpuscular Hemoglobin Concent 33.7 g/dL (32.0-36.0) Red Cell Distribution Width 15.9 % (11.0-15.5) H Platelet Count 209 K/uL (130-400) Mean Platelet Volume 11.6 fL (7.5-10.5) H Immature Granulocyte % (Auto) 0.6 % (0-1) Neutrophils (%) (Auto) 88.2 % (40.0-77.0) H Lymphocytes (%) (Auto) 4.5 % (21.0-51.0) L Monocytes (%) (Auto) 6.0 % (3.0-13.0) Eosinophils (%) (Auto) 0.2 % (0.0-8.0) Basophils (%) (Auto) 0.5 % (0.0-5.0) Neutrophils # (Auto) 17.7 K/uL (1.8-7.7) H Lymphocytes # (Auto) 0.9 K/uL (1.0-4.8) L Monocytes # (Auto) 1.2 K/uL (0.1-1.0) H Eosinophils # (Auto) 0.05 K/uL (0.00-0.70) Basophils # (Auto) 0.10 K/uL (0.00-0.20) Absolute Immature Granulocyte (auto 0.12 K/uL (0-1) Nucleated Red Blood Cells 0.0 % (0.0-0.19) White Cell Morphology Comment See comments Sodium Level 135 mmol/L (136-145) L Potassium Level 4.6 mmol/L (3.5-5.1) Chloride Level 96 mmol/L (101-111) L Carbon Dioxide Level 24 mmol/L (21-32) Blood Urea Nitrogen 47 mg/dL (7-18) H Creatinine 1.9 mg/dL (0.5-1.3) H Glomerular Filtration Rate Calc 40 mL/min (>90) Random Glucose 174 mg/dL (70-105) H Lactic Acid Level 6.3 mmol/L (0.8-2.5) H Total Calcium 9.1 mg/dL (8.5-10.1) Total Creatine Kinase 107 U/L (21-232) # Troponin I High Sensitivity 9 ng/L (4-75) B-Type Natriuretic Peptide 1550 pg/mL (0-100) H Influenza Type A Antigen Negative For Type A Influenza Type B Antigen Negative For Type B SARS-CoV-2 Antigen (Rapid) PRESUMPTIVE NEGATIVE Group A Streptococcus Rapid negative (NEGATIVE) Urine Color YELLOW (YELLOW) Urine Appearance CLEAR (CLEAR) Urine pH 5.5 (5.0-8.0) Urine Specific [place] 1.017 (1.001-1.031) Urine Protein 30 mg/dL (NEGATIVE) H Urine Glucose (UA) >=1000 mg/dL (NEGATIVE) H Urine Ketones NEGATIVE mg/dL (NEGATIVE) Urine Occult Blood SMALL (NEGATIVE) H Urine Nitrate NEGATIVE (NEGATIVE) Urine Bilirubin NEGATIVE mg/dL (NEGATIVE) Urine Urobilinogen 0.2 mg/dL (0.2-1.0) Urine Leukocyte Esterase NEGATIVE Mack/uL Urine RBC 2-5 /HPF (0-1) H Urine WBC 0-1 /HPF (0-1) Urine Squamous Epithelial Cells RARE /HPF (0-2) Urine Bacteria RARE /HPF (None Seen) Labs Reviewed?: Yes EKG Comment: Twelve lead EKG done on 06/23/2025 at 1:37 a.m. a.m. shows a heart rate of 120 NE interval 91, QRS 107, QT/QTC 4 to 0/594 Impression sinus tachycardia old inferior and anterior infarcts nonspecific STT wave changes in the lateral leads poor progression of the R-waves. Very prolonged QT interval. EKG rhythm strip shows normal sinus rhythm somewhat of a low voltage and prolonged QT interval Interpreted by ER MD Dr. Zepeda X-RAY Comment: REASON: sepsis ORDERING PHYSICIAN: SOLEDAD ZEPEDA MD PROCEDURE: CXR1VW - CHEST 1VW EXAM: CR Chest, 1 view CLINICAL HISTORY: Sepsis. COMPARISON: Chest radiograph dated 02/24/2025. FINDINGS: Mild cardiomegaly. No acute infiltrate, effusion, or pneumothorax. No acute osseous abnormality. IMPRESSION: Interval development of mild cardiomegaly. No acute infiltrate, effusion, or pneumothorax. /[facility] DICTATED BY: TATE MURILLO Jr., MD DATE: 06/23/25307 ELECTRONICALLY SIGNED BY: TATE MURILLO Jr., MD DATE: 06/23/25307 ED Course ED Course Orders Procedure Category Date Status Time Iv Insertion CPOE 06/23/25 Transmitted 01:03 Pulse Ox(Continuous) RT 06/23/25 Transmitted 01:03 Vital Signs Per CPOE 06/23/25 Transmitted Routine 01:03 12 Lead Ekg Tracing- EKG 06/23/25 Logged Technical 01:03 Cbc With Differential LAB 06/23/25 Complete 01:03 Blood Cult JAMIE 06/23/25 In Process 01:03 Urinalysis Profile LAB 06/23/25 Complete 01:03 Culture Urine JAMIE 06/23/25 In Process 01:03 Creatine Kinase, Total LAB 06/23/25 Complete 01:03 Troponin I High LAB 06/23/25 Complete Sensitivity 01:03 Lactic Acid LAB 06/23/25 Complete 01:03 Basic Metabolic Panel LAB 06/23/25 Complete 01:03 0.9%Nacl 1000ml (Ns PHA 06/23/25 In Process 1000ml) 01:30 Chest 1vw RAD 06/23/25 Resulted 01:02 Influenza Type A & B, LAB 06/23/25 Complete Rapid 01:02 Covid19 (Sars Antigen LAB 06/23/25 Complete Rapid) 01:02 Rapid (Group A Strep) LAB 06/23/25 Complete 01:02 B-Type Natriuretic LAB 06/23/25 Complete Peptide 01:07 Acetaminophen 500mg PHA 06/23/25 Complete Tab (Tylenol 500mg T 01:30 Morphine 4mg Syg PHA 06/23/25 Complete (Morphine 4mg Syg) 02:00 Vancomycin 1g/250ml PHA 06/23/25 Complete Kit (Vancomycin 1g/2 02:00 Cefepime Hcl 1 Gm PHA 06/23/25 In Process Vial (Maxipime 1 Gm Vi 02:00 Cefepime Hcl 1 Gm PHA 06/23/25 Complete Vial (Maxipime 1 Gm Vi 02:07 Edm Admit Bridge Order ADM 06/23/25 Verified 02:26 Current Medications Medications (Trade) Dose Ordered Sig/Da Route PRN Reason Start Time Stop Time Status Last Admin Dose Admin Acetaminophen (TYLenol 500MG TAB) 1,000 mg ONCE ONCE PO 06/23/25 01:30 06/23/25 01:31 DC 06/23/25 01:50 Cefepime HCl (MAXipime 1 GM vial) 1 gm ONCE IVPB 06/23/25 02:00 07/03/25 01:59 06/23/25 02:19 Cefepime HCl (MAXipime 1 GM vial) 1 gm STK-MED ONCE .ROUTE 06/23/25 02:07 06/23/25 02:07 DC Morphine Sulfate (morPHINE 4MG SYG) 4 mg ONCE ONCE IVP 06/23/25 02:00 06/23/25 02:01 DC 06/23/25 01:51 Sodium Chloride 3,210 ml @ 1,070 mls/hr ONCE ONCE IV 06/23/25 01:30 06/23/25 04:29 06/23/25 01:49 Vancomycin HCl (Vancomycin 1g/ 250ml Kit) 1 gm ONCE ONCE IV 06/23/25 02:00 06/23/25 02:08 DC 06/23/25 02:22 Vital Signs Date Time Temp Pulse Resp B/P (MAP) Pulse Ox O2 Delivery O2 Flow Rate FiO2 06/23/25 01:50 102.4 06/23/25 01:17 124 18 124/60 100 Room Air* 0 21 06/23/25 00:51 102.4 128 24 122/87 100 Room Air We will perform diagnostic labs, advanced imaging and administer medications according to the patient's complaint. Once the results are available, will review and personally interpreted the labs to rule out any acute life- threatening emergency the trach require immediate intervention and treatment. I will then re-evaluate the patient after treatment and diagnostic exams have return to determine whether the patient requires any further testing, can safely be discharged home or need further admission to hospital for additional treatment and evaluation. 2:00 a.m. labs [place] [address] hemoglobin 15.3 platelets 209. BNP 7 shows a sodium of 135 chloride 96 BUN and creatinine are 47 and 1.9 Lactic acid 6.3, troponins negative. Brain natriuretic peptide 1550. Chest x- ray pain 2:19 a.m. swabs for COVID influenza and strep were all negative. Chest x-ray cardiomegaly but no acute pleural effusions or infiltrate noted. I recommended admission to the hospital in view of systemic inflammatory syndrome and severe sepsis and patient is agreeable Swabs for influenza COVID and strep are all negative. 2:25 a.m. patient accepted by [facility] mid-level provider for [facility] hospitalist group for admission and further management. Medical Decision Making MDM Differential diagnosis: Sepsis secondary to infected lower extremity ulcers, pneumonia, UTI, influenza, COVID, Rationale: Tests considered and ordered secondary to shared decision making include: labs, ECG and radiology Previous outside records reviewed: Old ER visits. Risk of complication and/or morbidity or mortality of patient management: None Medications-Per medication reconciliation Need for hospitalization: Patient does meet criteria for hospitalization. Need for emergency major/minor surgery: No There are no social concerns with this patient. Prescription drug management Prescriptions will include symptomatic care Patient's prior external medical records from other ER visits were reviewed by me as indicated. Prior testing and results from previous visits were reviewed. Prior tests were taken into account with medical decision making and resource utilization, independent historian/historians were used to obtain complete medical history. I independently interpreted the test that were performed, results were reviewed by me and considered findings on radiology if ordered. Medical management and examination interpretation discussions were had by me with other qualified healthcare professionals as indicated for the patient's care. Problem List Problem List: (1) Severe sepsis (2) Infected stasis ulcer of right lower extremity (3) Lactic acidosis (4) Cardiomyopathy (5) Leukocytosis (6) [id number] kidney injury (7) Hyponatremia (8) Hyperkalemia Critical Care Note Critical Time: 45 minutes Comment(s) Life-threatening illness; severe sepsis likely from infected leg ulcers, leukocytosis, dehydration, acute on chronic kidney injury. Risk of morbidity mortality-high Complexity of medical decision making-high (X) high probability of sudden clinically significant deterioration in the patient's condition required the highest level of my preparedness to intervene urgently. I provided critical care services requiring my direct and personal management as noted below; (x) chart data review (x) reviewing nurse's notes and/charts (x) documentation time (x) consultation collaboration on findings and therapy options (x) medication orders and management (x) re-evaluations (x) care, transfer of care, and discharge plans (x) ordering and interpreting studies (x) ordering and reviewing labs (x) obtaining necessary history from family, EMS, residential, private MD, surrogate decision makers because patient was unable to give history due to limitations in the mental status (x) aggregate critical care time was ( 45 ) minutes. This includes only time during which I was engaged in work directly related to the patient's care as described above whether at the bedside or elsewhere in the ER while the patient was critical. My time did not include minutes spent treating any other patients simultaneously or on activities that did not directly contribute to the patient's treatment. It did not include time spent performing other reported procedures or services of residents if any. Soledad Zepeda MDFCCP DX & DISP Disposition: Inpatient Decision to Admit Time: 01:52 Departure Impression: Primary Impression: Severe sepsis Additional Impressions: Infected stasis ulcer of right lower extremity, Lactic acidosis, Leukocytosis, Hyponatremia, Hyperkalemia, Cardiomyopathy, [id number] kidney injury Condition: Stable Additional Instructions: Patient was informed of all the diagnostic labs and procedures conducted in the emergency room today and demonstrated understanding of the results. I personally reviewed and interpreted all the diagnostic exams performed in the ER today. The patient will be admitted to the hospital for further treatment and evaluation. Disposition-admit to facility Condition-stable/guarded Course-uncertain at this time Pain status-decreased Assessment-exam unchanged Admission Certification- I certify that the patients status is appropriate and is based on my best clinical judgment and the patient's condition as documented in the medical records Referrals: MICHI VARGHESE MD (PCP) SOLEDAD ZEPEDA MD Jun 23, 2025 01:09
[2025-06-23 01:30] LABS: IMMATURE GRANULOCYTE ABSOLUTE 0.12 K/uL (0-1); NUCLEATED RED BLOOD CELLS 0.0 % (0.0-0.19); PLATELET COUNT (AUTO) 209 K/uL (130-400); RED BLOOD CELL COUNT(AUTO) 4.61 MIL/uL (4.50-6.20); RED CELL DISTRIBUTION WIDTH 15.9 % (11.0-15.5); WHITE BLOOD COUNT (AUTO) 20.1 K/uL (4.8-10.8)
[2025-06-23 01:40] LABS: CREATININE 1.9 mg/dL (0.5-1.3); GLOMERULAR FILTR. RATE CALC 40.0 mL/min (>90); GLUCOSE,RANDOM 174.0 mg/dL (70-105); SODIUM SERUM 135.0 mmol/L (136-145); UREA NITROGEN, BLOOD 47.0 mg/dL (7-18)
[2025-06-23 01:45] LABS: CREATINE KINASE, TOTAL 107.0 U/L (21-232)
[2025-06-23] MEDS: 0.9%NACL 1000ML 3,210 ML IV ONE (01:49)
[2025-06-23 01:50] VITALS: TEMP 102.4
[2025-06-23 01:55] LABS: RAPID GROUP A STREP negative (NEGATIVE)
[2025-06-23 02:05] LABS: COVID19 (SARS ANTIGEN RAPID) PRESUMPTIVE NEGATIVE (NEGATIVE); INFLUENZA TYPE A Negative For Type A (NEGATIVE); INFLUENZA TYPE B Negative For Type B (NEGATIVE)
--- NOTE | 2025-06-23 02:10 | HMCIMG ---
EXAM: CR Chest, 1 view CLINICAL HISTORY: Sepsis. COMPARISON: Chest radiograph dated 02/24/2025. FINDINGS: Mild cardiomegaly. No acute infiltrate, effusion, or pneumothorax. No acute osseous abnormality. IMPRESSION: Interval development of mild cardiomegaly. No acute infiltrate, effusion, or pneumothorax. /[facility]
[2025-06-23 02:17] LABS: APPEARANCE,URINE CLEAR (CLEAR); GLUCOSE, URINE (UA) >=1000 mg/dL (NEGATIVE); LEUKOCYTE ESTERASE ,URINE NEGATIVE Leu/uL (NEGATIVE); NITRATE,URINE NEGATIVE (NEGATIVE); OCCULT BLOOD,URINE SMALL (NEGATIVE)
[2025-06-23 02:19] LABS: ADD UA MICROSCOPIC YES
[2025-06-23 02:22] LABS: SQUAMOUS EPITHELIAL CELL,UR RARE /HPF (0-2)
[2025-06-23] MEDS: VANCOMYCIN KIT 1 GM/250 ML IV.KIT IV ONE (02:22)
--- NOTE | 2025-06-23 02:26 | HP ---
[facility] HISTORY AND PHYSICAL Date of Service: Jun 23, 2025 Time of Service: 02:26 PCP: Saravanan Ly HISTORY OF PRESENT ILLNESS: This is a 59 year old male,a reliable historian with pasat medical history of hypertension, diabetes, hyperlipidemia, CHF with advanced ischemic cardiomyopathy EF 20% stage 3 CKD multivessel obstructive CAD ,DVT to left leg and pulmonary embolism on chronic Eliquis ,chronic back pain,bilateral lower extremity ulcers and morbid obesity who presents to the ED for complaints of feeling dizzy,shortness of breath and patient has a chronic lower extremity that has ulcers and it has been swollen and oozing fluids.Patient also reports chills and rigors which started today while changing his wound dressing and he first though he was having parkinson's tremors so he decided to come to the ED for evaluation.Patient states he was fairly doing fine unitl 8 days ago last Sunday he stopped taking his Spironolactone and Losartan because it was discontinued byher his safety council director due to severe hyperkalemia .Patient reports he was seen by a safety council director from [place] by the name of and he told the safety council director that he is not voiding much than what he used to ,before he approximately voided 1600 and now it is only 500 and he noticed that his legs are becoming swollen ever since he stopped taking his Spironolactone and Losartan he feels he is gaining more weight and he was advised to take a dose of Spironolactone for today and he did after a few hours he said he felt dizzy and lightheaded and as he was changing his wound dressing he feels the chills and rigors so he decided to come to the ED for evaluation.Upon ER arrival V/SA T102.4,HR 128,BP 122/87 Sat 100% RA RR 24.ECG result revealed Sinus ectopic or atrial Tachycardia HR 120 Prob left atrial enlargement,inferior infarct old,anterior infarct old,nonspecific T abnormalities ,lateral leads prolonged QT interval. Seen and examined patient in the ER awake,alert and coherent,appears comfortable,in no apparent distress.Patient denies cough,shortness of breath,chest pain,palpitation,abdominal pain,nausea,vomiting and syncope.Labs WBC 20 with negative left shift of neutrophils 88,Hgb 15,Hct 45,platelet 209.Na 135,K4.6,K4.6,Chloride 96,BUN47,Creat 1.9,GFR 40,Glucose 174 ,lactic acid 6.3,BNP 1550.Urinalysis remarkable for protein 30,glucose more than 1000,small hematuria and urine RBC 2-5 .Serology test for influenza Type A&B negative SARS COV_2 negative and Group A strep negative.CXR result revealed interval development of mild cardiomegaly.No acute infiltrate ,effusion or pneumothorax.While in the ER patient received Fluid resuscitation of 30ml/kg over 3 hours ,Tylenol 1000 mg po,Morphine 4mg IV, Cefepime and Vancomycin IV.Will admit patient for further medical management. REVIEW OF SYSTEMS CONSTITUTIONAL:complain ed of chills and rigors + fever Denies night sweats. No unintentional weight loss reported. NEUROLOGICAL: complained of dizziness and lightheadedness Denies headache, amaurosis fugax, gait abnormalities, or tremors. ENT: No hearing loss, otalgia, otorrhea, rhinitis, rhinorrhea, hoarseness, or sore throat. CARDIOVASCULAR: Denies any exertional angina, dyspnea on exertion, orthopnea, paroxysmal nocturnal dyspnea, palpitations, life-threatening arrhythmias, claudication. PULMONARY: Denies any shortness of breath, cough, phlegm/sputum, hemoptysis, pleuritic chest pain. SLEEP: Denies morning headaches, daytime somnolence or napping. Denies difficulty falling asleep, staying asleep, waking from sleep. Denies knowledge of snoring. GASTROINTESTINAL: Denies any type of dysphagia to either liquids or solids. Denies nausea, vomiting, pyrosis, early satiety, abdominal pain, diarrhea, constipation, or changes in stool consistency or caliber. Denies coffee-ground emesis, hematemesis, hematochezia, or melanotic stools. GENITOURINARY: Denies frequency, urgency, nocturia, hematuria or incontinence (Storage/Irritative symptoms.) Low urinary stream, straining to void, urinary intermittency or hesitancy, splitting of the voiding stream, terminal dribbling. ENDOCRINOLOGIC: Denies polyuria, polydipsia, polyphagia or heat/cold intolerances. HEMATOLOGIC: Denies thrombophilia/previous clots, or coagulopathy/bleeding disorders. ONCOLOGIC: Denies personal history of malignancy. DERMATOLOGIC: chronic wound ulcer to right lower extremity Denies rashes or pruritus. PSYCHIATRIC: Denies any suicidal or homicidal ideation. Denies hallucinations. PAST MEDICAL HISTORY: [ hypertension, diabetes, hyperlipidemia, CHF with advanced ischemic cardiomyopathy EF 20% stage 3 CKD multivessel obstructive CAD ,DVT to left leg and pulmonary embolism on chronic Eliquis ,chronic back pain,bilateral lower extremity ulcers and morbid obesity ] PAST SURGICAL HISTORY: [ Cholecystectomy bilateral cataract surgery and Right 2nd toe amputation] PAST SOCIAL HISTORY: [ Patient lives with .Patient denies alcohol,cigarette and recreational drug use ] FAMILY HISTORY: [ Diabetes,hypertension,cancer,Alzheimers,COPD & stroke ] Coded Allergies: amoxicillin (Unverified Allergy, Unknown, 12/05/21) PHYSICAL EXAM GENERAL APPEARANCE: The patient is awake, alert, and oriented, in no acute cardiopulmonary distress. NEUROLOGICAL: Cranial nerves II-XII grossly intact. Motor is 5/5 in bilateral upper and lower extremities proximal to distal. No sensory deficits. HEENT: Face is symmetric. Pupils are equal and reactive. Extraocular movements are intact. NECK: Supple. No JVD. No thyromegaly. No submental, submandibular, pre- /postauricular, occipital or supraclavicular lymphadenopathy. CHEST: Normal chest expansion. No Telemetry. LUNGS: crackles to bilateral lower bases per auscultation CARDIOVASCULAR: Tachycardic Regular. S1 and S2 normal. No appreciable rubs, murmurs or gallops. ABDOMEN: Soft, nontender, and nondistended. There is no rebound, voluntary guarding, or rigidity. : Deferred. No [place]. EXTREMITIES: 2=edema to bilateral lower extremities SKIN: Draining Wound ulcers to right lower extremity Vital Sign (Last 24 Hours) 06/23/25 06/23/25 01:17 01:50 Temp 102.4 Pulse 124 Resp 18 B/P (MAP) 124/60 Pulse Ox 100 O2 Delivery Room Air* O2 Flow Rate 0 FiO2 21 LABS: Laboratory: Test 06/23/25 02:02 06/23/25 01:32 06/23/25 01:16 Range/Units Urine Color YELLOW YELLOW Urine Appearance CLEAR CLEAR Urine pH 5.5 5.0-8.0 Urine Specific Maynard 1.017 1.001-1.031 Urine Protein 30 H NEGATIVE mg/dL Urine Glucose (UA) >=1000 H NEGATIVE mg/dL Urine Ketones NEGATIVE NEGATIVE mg/dL Urine Occult Blood SMALL H NEGATIVE Urine Nitrate NEGATIVE NEGATIVE Urine Bilirubin NEGATIVE NEGATIVE mg/dL Urine Urobilinogen 0.2 0.2-1.0 mg/dL Urine Leukocyte Esterase NEGATIVE NEGATIVE Mack/uL Urine RBC 2-5 H 0-1 /HPF Urine WBC 0-1 0-1 /HPF Urine Squamous Epithelial Cells RARE 0-2 /HPF Urine Bacteria RARE None Seen /HPF Influenza Type A Antigen Negative For Type A NEGATIVE Influenza Type B Antigen Negative For Type B NEGATIVE SARS-CoV-2 Antigen (Rapid) PRESUMPTIVE NEGATIVE NEGATIVE Group A Streptococcus Rapid negative NEGATIVE White Blood Count 20.1 H 4.8-10.8 K/uL Red Blood Count 4.61 4.50-6.20 MIL/uL Hemoglobin 15.3 14.0-18.0 g/dL Hematocrit 45.4 42-54 % Mean Corpuscular Volume 98.5 79-99 fL Mean Corpuscular Hemoglobin 33.2 H 27.0-33.0 pg Mean Corpuscular Hemoglobin Concent 33.7 32.0-36.0 g/dL Red Cell Distribution Width 15.9 H 11.0-15.5 % Platelet Count 209 130-400 K/uL Mean Platelet Volume 11.6 H 7.5-10.5 fL Immature Granulocyte % (Auto) 0.6 0-1 % Neutrophils (%) (Auto) 88.2 H 40.0-77.0 % Lymphocytes (%) (Auto) 4.5 L 21.0-51.0 % Monocytes (%) (Auto) 6.0 3.0-13.0 % Eosinophils (%) (Auto) 0.2 0.0-8.0 % Basophils (%) (Auto) 0.5 0.0-5.0 % Neutrophils # (Auto) 17.7 H 1.8-7.7 K/uL Lymphocytes # (Auto) 0.9 L 1.0-4.8 K/uL Monocytes # (Auto) 1.2 H 0.1-1.0 K/uL Eosinophils # (Auto) 0.05 0.00-0.70 K/uL Basophils # (Auto) 0.10 0.00-0.20 K/uL Absolute Immature Granulocyte (auto 0.12 0-1 K/uL Nucleated Red Blood Cells 0.0 0.0-0.19 % White Cell Morphology Comment See comments Sodium Level 135 L 136-145 mmol/L Potassium Level 4.6 3.5-5.1 mmol/L Chloride Level 96 L 101-111 mmol/L Carbon Dioxide Level 24 21-32 mmol/L Blood Urea Nitrogen 47 H 7-18 mg/dL Creatinine 1.9 H 0.5-1.3 mg/dL Glomerular Filtration Rate Calc 40 >90 mL/min Random Glucose 174 H 70-105 mg/dL Lactic Acid Level 6.3 H 0.8-2.5 mmol/L Total Calcium 9.1 8.5-10.1 mg/dL Total Creatine Kinase 107 # 21-232 U/L Troponin I High Sensitivity 9 4-75 ng/L B-Type Natriuretic Peptide 1550 H 0-100 pg/mL Current Medications Medications (Trade) Dose Ordered Sig/Da Route PRN Reason Start Time Stop Time Status Last Admin Dose Admin Cefepime HCl (MAXipime 1 GM vial) 1 gm ONCE IVPB 06/23/25 02:00 07/03/25 01:59 06/23/25 02:19 1 GM DIAGNOSTICS / RADIOLOGY: [ ] ASSESSMENT: Severe sepsis POA Infected stasis ulcer of right lower extremity POA Acute kidney injury on chronic kidney disease POA Acute on chronic CHF with cardiomyopathy POA Acute leukocytosis POA Lactic Acidosis POA Hyponatremia POA Hypochloremia POA Uncontrolled diabetes POA Hypertension POA Hyperlipidemia POA History of Left lower extremity DVT on Eliquis POA History of pulmonary embolism on chronic anticoaguylation POA PLAN: We will admit patient in PCCU We will start on consistent carb diet Patient received fluid resuscitation 30 mL/kilogram over 3 hours while at the ER We will start on famotidine 20 mg p.o. daily for GI prophylaxis We will continue cefepime and vancomycin IV for broad-spectrum coverage We will replace electrolytes as needed per protocol We will start on insulin sliding scale AC & HS with hypoglycemia protocol We will add prn medication for fever,pain,cough , nausea and vomiting We will reconcile home meds once medlist available We will request daily weight and strict I&O We will restrict fluid 1.5 L per day We will request case management service We will seek Infectious Disease consultation We will seek Cardiology consultation We will seek wound care eval and management consultation We will follow up blood culture and urine culture result We will request labs in am Further orders to follow depending on above results Case discussed with attending physician and came up with above treatment and plan of care. ADVANCED CARE PLANNING 1. Which of the following were discussed? Hospice Care - No Therapeutic options - Yes Advance Directives - No Other discussions - 2. Discussed with who? Patient 3. Voluntary nature of this service was explained to the patient? Yes 4. Amount of time spent - _25 min 5. Reviewed by Physician? (if this service was performed by NPP) Yes Patient seen and examined by me. Agree with note by [employer] INST[employer]ER SEE ADDITIONAL ORDERS PER CHART DISCUSSED WITH NURSING STAFF JONAH GOMES TABLE CUT OFF SAW OPERATOR Jun 23, 2025 02:26
[2025-06-23] MEDS ORDERED: PoTASSium chl 10% ELIXIR 20MEQ 20 MEQ/15 ML UDCUP PO PRN (03:30)
[2025-06-23] MEDS ORDERED: MAGNESIUM 2GM PREMIX 50ML 50 ML IV PRN (03:30)
[2025-06-23] MEDS ORDERED: DEXTROSE 50%-WATER 50 ML DISP.SYRIN IV PRN (03:30)
[2025-06-23] MEDS ORDERED: VANCOMYCIN 1G/250ML KIT 250 ML IV SCH (03:30)
[2025-06-23] MEDS ORDERED: GLUCAGON 1MG KIT 1 MG ML IM PRN (03:30)
--- NOTE | 2025-06-23 04:56 | EKG ---
[facility] Test Date: 2025-06-23 Test Time: 01:37:41 Pat Name: LILI HUFF Department: EDHIP Room: ED 20 Gender: M Pricing Intern: [id number] : 1965 Requested By: ZACH FIGUEROA Order Number: [id number] Reading MD: Abdias García Measurements Intervals [place] Rate: 120 P: -89 UT: 91 QRS: -39 QRSD: 107 T: 86 QT: 420 QTc: 594 Interpretive Statements Sinus or ectopic atrial tachycardia Probable left atrial enlargement Inferior infarct, old Anterior infarct, old Nonspecific T abnormalities, lateral leads Prolonged QT interval Compared to ECG 02/25/2025 01:49:22 No significant changes Electronically Signed On 06-23-2025 07:34:48 CDT by Abdias García Please click the below link to view image of tracing.
[2025-06-23] MEDS: VANCOMYCIN 1G/250ML KIT 250 ML IV ONE (06:24)
[2025-06-23 06:30] LABS: IMMATURE GRANULOCYTE ABSOLUTE 0.20 K/uL (0-1); NUCLEATED RED BLOOD CELLS 0.0 % (0.0-0.19); PLATELET COUNT (AUTO) 149 K/uL (130-400); RED BLOOD CELL COUNT(AUTO) 4.18 MIL/uL (4.50-6.20); RED CELL DISTRIBUTION WIDTH 15.9 % (11.0-15.5); WHITE BLOOD COUNT (AUTO) 24.5 K/uL (4.8-10.8)
[2025-06-23 06:47] LABS: ASPARTATE AMINOTRANSFERASE 20.0 U/L (10-37); CREATININE 1.8 mg/dL (0.5-1.3); GLOMERULAR FILTR. RATE CALC 42.0 mL/min (>90); GLUCOSE,RANDOM 116.0 mg/dL (70-105); SODIUM SERUM 135.0 mmol/L (136-145); TOTAL PROTEIN, SERUM 6.4 g/dL (6.0-8.3); UREA NITROGEN, BLOOD 44.0 mg/dL (7-18)
[2025-06-23] MEDS: BUMETANIDE 1 MG TAB PO SCH (09:46)
[2025-06-23] MEDS: FAMOTIDINE 20MG TAB PO SCH (09:46)
--- NOTE | 2025-06-23 11:55 | NUR ---
[facility] Consult: Patient assessed by wound healing team. See wound assessment. Assessment and recommendations provided to primary nurse. Education provided. Addendum: 06/23/25 at 1452 by PHOENIX VILLAFANA RN RN/ Amended: Links added.
--- NOTE | 2025-06-23 14:39 | NUR ---
DCP:HOME Pt currently lives at home with his Mellissa Winters [phone]. Pt does have a walker at home that he uses to ambulate. pt does not have any home health or provider services. Pt is able to complete ADLs independently. PCP is Dr. Malachi Coe and uses [facility] for any RX needs. At [place] pt will want to go home and family can assist with transportation. Addendum: 06/23/25 at 1445 by ESTEBAN HAINES SS Amended: Links added.
--- NOTE | 2025-06-23 16:34 | NUR ---
CALLED AND REPORTED LACTIC ACID OF 4.[address] BROWN, STATED HE "WILL LET TH RESIDENTS KNOW" PATIENT RESTING IN BED, CALL LIGHT IN REACH
--- NOTE | 2025-06-23 16:42 | PN ---
[facility] PROGRESS NOTE Date of Service: Jun 23, 2025 Time of Service: 16:42 SUBJECTIVE: This is a 59 year old male,a reliable historian with pasat medical history of hypertension, diabetes, hyperlipidemia, CHF with advanced ischemic cardiomyopathy EF 20% stage 3 CKD multivessel obstructive CAD ,DVT to left leg and pulmonary embolism on chronic Eliquis ,chronic back pain,bilateral lower extremity ulcers and morbid obesity who presents to the ED for complaints of feeling dizzy,shortness of breath and patient has a chronic lower extremity that has ulcers and it has been swollen and oozing fluids.Patient also reports chills and rigors which started today while changing his wound dressing and he first though he was having parkinson's tremors so he decided to come to the ED for evaluation.Patient states he was fairly doing fine unitl 8 days ago last Sunday he stopped taking his Spironolactone and Losartan because it was discontinued byher his geoscience professor due to severe hyperkalemia .Patient reports he was seen by a geoscience professor from [place] by the name of and he told the geoscience professor that he is not voiding much than what he used to ,before he approximately voided 1600 and now it is only 500 and he noticed that his legs are becoming swollen ever since he stopped taking his Spironolactone and Losartan he feels he is gaining more weight and he was advised to take a dose of Spironolactone for today and he did after a few hours he said he felt dizzy and lightheaded and as he was changing his wound dressing he feels the chills and rigors so he decided to come to the ED for evaluation.Upon ER arrival V/SA T102.4,HR 128,BP 122/87 Sat 100% RA RR 24.ECG result revealed Sinus ectopic or atrial Tachycardia HR 120 Prob left atrial enlargement,inferior infarct old,anterior infarct old,nonspecific T abnormalities ,lateral leads prolonged QT interval. Seen and examined patient in the ER awake,alert and coherent,appears comfortable,in no apparent distress.Patient denies cough,shortness of breath,chest pain,palpitation,abdominal pain,nausea,vomiting and syncope.Labs WBC 20 with negative left shift of neutrophils 88,Hgb 15,Hct 45,platelet 209.Na 135,K4.6,K4.6,Chloride 96,BUN47,Creat 1.9,GFR 40,Glucose 174 ,lactic acid 6.3,BNP 1550.Urinalysis remarkable for protein 30,glucose more than 1000,small hematuria and urine RBC 2-5 .Serology test for influenza Type A&B negative SARS COV_2 negative and Group A strep negative.CXR result revealed interval development of mild cardiomegaly.No acute infiltrate ,effusion or pneumothorax.While in the ER patient received Fluid resuscitation of 30ml/kg over 3 hours ,Tylenol 1000 mg po,Morphine 4mg IV, Cefepime and Vancomycin IV.Will admit patient for further medical management. 06/23/25: Patient is seen at bedside in ER 5. Patient denies cough, chest pain, palpitation, abdominal pain, chills. Patient is started on nasal cannula due to shortness of breath. Patient's remaining vitals stable with temperature at 98.4, pulse at 98, respiratory rate of 22, blood pressure 109/79. Patient's labs showed an increase in WBC to 24.5, hemoglobin at 13.9, sodium at 135, lactic acid improved to 4.3. Continue the patient on vancomycin and cefepime IV. Cardiology and Infectious Disease have been consulted, along with critical care. Patient's BNP has improved to 851. Patient has no new complaints. Patient started on soft hydration. Cardiology ordered a 2D echo and venous Doppler ultrasound bilaterally to rule out DVT. REVIEW OF SYSTEMS CONSTITUTIONAL: No more complaints of chills and rigors Denies night sweats. No unintentional weight loss reported. NEUROLOGICAL: complained of dizziness and lightheadedness Denies headache, amaurosis fugax, gait abnormalities, or tremors. ENT: No hearing loss, otalgia, otorrhea, rhinitis, rhinorrhea, hoarseness, or sore throat. CARDIOVASCULAR: Denies any exertional angina, dyspnea on exertion, orthopnea, paroxysmal nocturnal dyspnea, palpitations, life-threatening arrhythmias, claudication. PULMONARY: Denies any shortness of breath, cough, phlegm/sputum, hemoptysis, pleuritic chest pain. SLEEP: Denies morning headaches, daytime somnolence or napping. Denies difficulty falling asleep, staying asleep, waking from sleep. Denies knowledge of snoring. GASTROINTESTINAL: Denies any type of dysphagia to either liquids or solids. Denies nausea, vomiting, pyrosis, early satiety, abdominal pain, diarrhea, constipation, or changes in stool consistency or caliber. Denies coffee-ground e mesis, hematemesis, hematochezia, or melanotic stools. GENITOURINARY: Denies frequency, urgency, nocturia, hematuria or incontinence (Storage/Irritative symptoms.) Low urinary stream, straining to void, urinary intermittency or hesitancy, splitting of the voiding stream, terminal dribbling. ENDOCRINOLOGIC: Denies polyuria, polydipsia, polyphagia or heat/cold intolerances. HEMATOLOGIC: Denies thrombophilia/previous clots, or coagulopathy/bleeding disorders. ONCOLOGIC: Denies personal history of malignancy. DERMATOLOGIC: chronic wound ulcer to right lower extremity Denies rashes or pruritus. PSYCHIATRIC: Denies any suicidal or homicidal ideation. Denies hallucinations. PHYSICAL EXAM GENERAL APPEARANCE: The patient is awake, alert, and oriented, in no acute cardiopulmonary distress. NEUROLOGICAL: Cranial nerves II-XII grossly intact. Motor is 5/5 in bilateral upper and lower extremities proximal to distal. No sensory deficits. HEENT: Face is symmetric. Pupils are equal and reactive. Extraocular movements are intact. NECK: Supple. No JVD. No thyromegaly. No submental, submandibular, pre- /postauricular, occipital or supraclavicular lymphadenopathy. CHEST: Normal chest expansion. No Telemetry. LUNGS: crackles to bilateral lower bases per auscultation CARDIOVASCULAR: Tachycardic Regular. S1 and S2 normal. No appreciable rubs, murmurs or gallops. ABDOMEN: Soft, nontender, and nondistended. There is no rebound, voluntary guarding, or rigidity. : Deferred. No [place]. EXTREMITIES: 2=edema to bilateral lower extremities SKIN: Draining Wound ulcers to right lower extremity Vital Signs (last 8hr) Date Time Temp Pulse Resp B/P (MAP) Pulse Ox O2 Delivery O2 Flow Rate FiO2 06/23/25 12:00 98.4 98 22 109/79 98 Room Air* 0 21 LABS: Laboratory: Test 06/23/25 16:11 06/23/25 11:31 06/23/25 06:17 06/23/25 02:02 Range/Units Lactic Acid Level 4.6 H 0.8-2.5 mmol/L Whole Blood Glucose 172 H 70-110 MG/DL White Blood Count 24.5 H 4.8-10.8 K/uL Red Blood Count 4.18 L 4.50-6.20 MIL/uL Hemoglobin 13.9 L 14.0-18.0 g/dL Hematocrit 43.2 42-54 % Mean Corpuscular Volume 103.3 H 79-99 fL Mean Corpuscular Hemoglobin 33.3 H 27.0-33.0 pg Mean Corpuscular Hemoglobin Concent 32.2 32.0-36.0 g/dL Red Cell Distribution Width 15.9 H 11.0-15.5 % Platelet Count 149 # 130-400 K/uL Mean Platelet Volume 11.1 H 7.5-10.5 fL Immature Granulocyte % (Auto) 0.8 0-1 % Neutrophils (%) (Auto) 89.5 H 40.0-77.0 % Lymphocytes (%) (Auto) 3.0 L 21.0-51.0 % Monocytes (%) (Auto) 6.4 3.0-13.0 % Eosinophils (%) (Auto) 0.0 0.0-8.0 % Basophils (%) (Auto) 0.3 0.0-5.0 % Neutrophils # (Auto) 21.9 H 1.8-7.7 K/uL Lymphocytes # (Auto) 0.7 L 1.0-4.8 K/uL Monocytes # (Auto) 1.6 H 0.1-1.0 K/uL Eosinophils # (Auto) 0.00 0.00-0.70 K/uL Basophils # (Auto) 0.08 0.00-0.20 K/uL Absolute Immature Granulocyte (auto 0.20 0-1 K/uL Nucleated Red Blood Cells 0.0 0.0-0.19 % Sodium Level 135 L 136-145 mmol/L Potassium Level 3.6 3.5-5.1 mmol/L Chloride Level 99 L 101-111 mmol/L Carbon Dioxide Level 23 21-32 mmol/L Blood Urea Nitrogen 44 H 7-18 mg/dL Creatinine 1.8 H 0.5-1.3 mg/dL Glomerular Filtration Rate Calc 42 >90 mL/min Random Glucose 116 H 70-105 mg/dL Total Calcium 8.4 L 8.5-10.1 mg/dL Magnesium Level 1.90 1.80-2.40 mg/dL Total Bilirubin 1.9 H 0.2-1.0 mg/dL Aspartate Amino Transf (AST/SGOT) 20 10-37 U/L Alanine Aminotransferase (ALT/SGPT) 18 12-78 U/L Alkaline Phosphatase 80 50-136 U/L B-Type Natriuretic Peptide 851 H 0-100 pg/mL Total Protein 6.4 6.0-8.3 g/dL Albumin 2.9 L 3.5-5.0 g/dL Procalcitonin 0.48 0.05-0.5 ng/mL Urine Color YELLOW YELLOW Urine Appearance CLEAR CLEAR Urine pH 5.5 5.0-8.0 Urine Specific [place] 1.017 1.001-1.031 Urine Protein 30 H NEGATIVE mg/dL Urine Glucose (UA) >=1000 H NEGATIVE mg/dL Urine Ketones NEGATIVE NEGATIVE mg/dL Urine Occult Blood SMALL H NEGATIVE Urine Nitrate NEGATIVE NEGATIVE Urine Bilirubin NEGATIVE NEGATIVE mg/dL Urine Urobilinogen 0.2 0.2-1.0 mg/dL Urine Leukocyte Esterase NEGATIVE NEGATIVE Mack/uL Urine RBC 2-5 H 0-1 /HPF Urine WBC 0-1 0-1 /HPF Urine Squamous Epithelial Cells RARE 0-2 /HPF Urine Bacteria RARE None Seen /HPF Test 06/23/25 01:32 06/23/25 01:16 Range/Units Influenza Type A Antigen Negative For Type A NEGATIVE Influenza Type B Antigen Negative For Type B NEGATIVE SARS-CoV-2 Antigen (Rapid) PRESUMPTIVE NEGATIVE NEGATIVE Group A Streptococcus Rapid negative NEGATIVE White Cell Morphology Comment See comments Total Creatine Kinase 107 # 21-232 U/L Troponin I High Sensitivity 9 4-75 ng/L Current Medications Medications (Trade) Dose Ordered Sig/Da Route PRN Reason Start Time Stop Time Status Last Admin Dose Admin Acetaminophen (TYLenol 325MG TAB) 650 mg Q4H PRN PO MILD PAIN (1-3) 06/23/25 03:30 07/23/25 03:29 Acetaminophen (TYLenol 325MG TAB) 650 mg Q6H PRN PO TEMPERATURE GREATER THAN 101.5 06/23/25 03:30 07/23/25 03:29 Apixaban (EliquIS) 5 mg BID PO 06/23/25 09:00 07/23/25 08:59 06/23/25 09:45 5 MG Bumetanide (Bumex 1mg Tab) 1 mg BID PO 06/23/25 09:00 07/23/25 08:59 06/23/25 09:46 1 MG Cefepime HCl (MAXipime 1 GM vial) 1 gm ONCE IVPB 06/23/25 02:00 06/23/25 04:01 DC 06/23/25 02:19 1 GM Cefepime HCl (MAXipime 1 GM vial) 1 gm Q12H IVPB 06/23/25 10:00 07/03/25 09:59 06/23/25 09:53 1 GM Dextrose (D50w) 50 ml AD PRN IV HYPOGLYCEMIA PROTOCOL 06/23/25 03:30 07/23/25 03:29 Famotidine (Pepcid 20mg Tab) 20 mg DAILY PO 06/23/25 09:00 07/23/25 08:59 06/23/25 09:46 20 MG Glucagon (Glucagon 1mg Kit) 1 mg AD PRN IM HYPOGLYCEMIA PROTOCOL 06/23/25 03:30 07/23/25 03:29 Insulin Human Regular (humuLIN R 100 UNIT/ML 3ML) INSULIN SLIDING SCAL... ACHS SQ 06/23/25 07:30 07/23/25 07:29 Leptospermum Honey (Medihoney) 1 APPL DAILY17 TP 06/23/25 17:00 07/23/25 16:59 Magnesium Sulfate 50 ml @ 0 mls/hr PROTOCOL PRN IV OTHER [SEE ORDER COMMENTS] 06/23/25 03:30 07/23/25 03:29 Metoprolol Succinate (TopROL XL) 25 mg DAILY PO 06/23/25 09:00 07/23/25 08:59 06/23/25 12:11 25 MG Morphine Sulfate (morPHINE 2MG SYG) 2 mg Q6H6 PRN IVP PAIN LEVEL 7 TO 10 06/23/25 11:00 06/30/25 10:59 Mupirocin (Bactroban Oint) apply to bilateral lo... DAILY17 TP 06/23/25 17:00 07/23/25 16:59 Ondansetron HCl (zoFRAN 4MG INJ) 4 mg Q6H PRN IV NAUSEA/VOMITING 06/23/25 03:30 07/23/25 03:29 Potassium Chloride 100 ml @ 100 mls/hr AD PRN IV POTASSIUM PROTOCOL 06/23/25 03:30 07/23/25 03:29 Potassium Chloride (K-Dur/Klor-Con 20meq) 20 meq AD PRN PO POTASSIUM PROTOCOL 06/23/25 03:30 07/23/25 03:29 Potassium Chloride (KCl 10% Elixir 20meq/15ml) 20 meq AD PRN PO POTASSIUM PROTOCOL 06/23/25 03:30 07/23/25 03:29 Vancomycin HCl 250 ml @ 125 mls/hr ONCE IV 06/23/25 03:30 06/23/25 03:44 DC Vancomycin HCl 250 ml @ 125 mls/hr Q24H IV 06/24/25 05:00 07/04/25 04:59 DIAGNOSTICS / RADIOLOGY: [facility] [address] [place] [address] IMAGING REPORT Signed PATIENT: LILI HUFF MR#: [id number] : 1965 SEX: M AGE: 59 LOCATION: [facility] ORDER 4 STATUS: REG ER REPORT#: [id number] SERVICE 1 REASON: sepsis ORDERING PHYSICIAN: ZACH FIGUEROA MD PROCEDURE: CXR1VW - CHEST 1VW EXAM: CR Chest, 1 view CLINICAL HISTORY: Sepsis. COMPARISON: Chest radiograph dated 02/24/2025. FINDINGS: Mild cardiomegaly. No acute infiltrate, effusion, or pneumothorax. No acute osseous abnormality. IMPRESSION: Interval development of mild cardiomegaly. No acute infiltrate, effusion, or pneumothorax. /[place] DICTATED BY: TATE MURILLO Jr., MD DATE: 06/23/25307 ELECTRONICALLY SIGNED BY: TATE MURILLO Jr., MD DATE: 06/23/25307 ASSESSMENT: Severe sepsis POA Infected stasis ulcer of right lower extremity POA Acute kidney injury on chronic kidney disease POA Acute on chronic CHF with cardiomyopathy POA Acute leukocytosis POA Lactic Acidosis POA Hyponatremia POA Hypochloremia POA Uncontrolled diabetes POA Hypertension POA Hyperlipidemia POA History of Left lower extremity DVT on Eliquis POA History of pulmonary embolism on chronic anticoaguylation POA PLAN: Severe sepsis POA: * Patient started on vancomycin and cefepime * Patient's lactic acid trending down at 4.3 * Patient started on soft hydrate * We will follow up blood culture and urine culture result * Infectious disease critical care consult placed Infected stasis ulcer of right lower extremity POA: * Cardiology on board and recommended venous Doppler ultrasound bilaterally to rule out DVT * Wound care consult placed * We will follow their recommendations for further treatment Acute kidney injury on chronic kidney disease POA: * Placed on daily weight and strict I&O * Started on soft hydration on 1000 mL at 50 mL/hour * restrict fluid 1.5 L per day Acute on chronic CHF with cardiomyopathy POA: * Cardiology consult placed, who ordered an 2D echo * Patient already on metoprolol succinate and Bumex * Follow the recommendation further treatment We will request case management service We will request labs in am Further orders to follow depending on above results ATTESTATION BY PHYSICIAN I have seen and examined the patient. I reviewed the documentation, medical decision making, and treatment plan as noted by the resident provider above. I agree with the findings and plan of care. Buck Monae MD, ABHINAV MD Jun 23, 2025 16:42
--- NOTE | 2025-06-23 16:55 | CONS ---
CONSULTATION NOTE Date of Service: Jun 23, 2025 Reason for Consultation: [Ulcer to Right lower extremity ] Requesting Physician: [ Victor Manuel VERDUZCO ] HISTORY OF PRESENT ILLNESS: Patient is evaluated at bedside in room ED 20 for wound care consult for ulcer right lower leg. Patient is a 59 year old male with a past medical history of hypertension, diabetes, hyperlipidemia, CHF with advanced ischemic cardiomyopathy EF 20% stage 3 CKD multivessel obstructive CAD ,DVT to left leg and pulmonary embolism on chronic Eliquis ,chronic back pain,bilateral lower extremity ulcers and morbid obesity who presents to the ED with complaints of feeling dizzy,shortness of breath and patient has a chronic lower extremity that has ulcers and it has been swollen and oozing fluids.Patient also reports chills and rigors which started today while changing his wound dressing and he first though he was having Parkinson's tremors so he decided to come to the ED for evaluation.Patient states he was fairly doing fine until [address] opped taking his Spironolactone and Losartan because it was discontinued by his salvage winder and inspector due to severe hyperkalemia. Patient reports he was seen by a salvage winder and inspector from [place] by the name of and he told the salvage winder and inspector that he is not voiding much than what he used to ,before he approximately voided 1600 and now it is only 500 and he noticed that his legs are becoming swollen ever since he stopped taking his Spironolactone and Losartan he feels he is gaining more weight and he was advised to take a dose of Spironolactone for today and he did after a few hours he said he felt dizzy and lightheaded and as he was changing his wound dressing he feels the chills and rigors so he decided to come to the ED for evaluation. Upon ER arrival V/SA T1 02.4,HR 128,BP 122/87 Sat 100% RA RR 24.ECG result revealed Sinus ectopic or atrial Tachycardia HR 120 Prob left atrial enlargement,inferior infarct old,anterior infarct old,nonspecific T abnormalities ,lateral leads prolonged QT interval. Patient was admitted for further medical management. Rt lower leg wound culture collected pending results. REVIEW OF SYSTEMS CONSTITUTIONAL: Positive for fever, chills, or fatigue. HEAD/FACE: No signs of trauma. EENT: Denies eye pain, blurred vision, double vision, or light sensitivity. RESPIRATORY: Denies shortness of breath, cough, wheezing CARDIOVASCULAR: Denies chest pain, palpitation, syncope, +2 edema to bilateral lower legs GASTROINTESTINAL/ABDOMINAL: Denies abdominal pain, constipation, diarrhea, nausea or vomiting GENITOURINARY: Denies dysuria or hematuria. MUSCULOSKELETAL: Denies joint pain, tenderness, or trauma. INTEGUMENTARY: ulcer to lower extremities NEUROLOGICAL/PSYCH: Denies anxiety, depression, heat or cold intolerance. PAST MEDICAL HISTORY: [ hypertension, diabetes, hyperlipidemia, CHF with advanced ischemic cardiomyopathy EF 20% stage 3 CKD multivessel obstructive CAD ,DVT to left leg and pulmonary embolism on chronic Eliquis ,chronic back pain,bilateral lower extremity ulcers and morbid obesity ] PAST SURGICAL HISTORY: [ Cholecystectomy bilateral cataract surgery and Right 2nd toe amputation] PAST SOCIAL HISTORY: [ Patient lives with .Patient denies alcohol,cigarette and recreational drug use ] FAMILY HISTORY: [ Diabetes,hypertension,cancer,Alzheimers,COPD & stroke ] Coded Allergies: amoxicillin (Unverified Allergy, Unknown, 12/05/21) PHYSICAL EXAM EYES: Anicteric. Pupils equal and reactive. HENT: No oral thrush seen, moist Oral mucosa NECK: Supple, no JVD or thyromegaly. LUNGS: Good air entry. No rales, no rhonchi. CARDIOVASCULAR: S1, S2 regular. No murmur heard. ABDOMEN: Soft, non tender, bowel sounds present, no organomegaly CENTRAL NERVOUS SYSTEM: Awake, alert, oriented x 3. No focal deficits. SKIN: Right lower leg noted with ulceration to pretibial, lateral,and medial leg noted with 100% granulation with large amount of serous drainage, no foul odor noted. Left lower leg noted with ulceration to pretibial region with 100% granulation with minimal drainage. LYMPHATICS: No peripheral lymphadenopathy MUSCULOSKELETAL: No joint swelling, erythema or tenderness. EXTREMITIES: +2 edema to bilateral lower extremities. BACK: No deformity, no pressure ulcer. GENITOURINARY: No dysuria or hematuria Vital Sign (Last 24 Hours) 06/23/25 12:00 Temp 98.4 Pulse 98 Resp 22 B/P (MAP) 109/79 Pulse Ox 98 O2 Delivery Room Air* O2 Flow Rate 0 FiO2 21 LABS: Laboratory: Test 06/23/25 16:11 06/23/25 11:31 06/23/25 06:17 06/23/25 02:02 Range/Units Lactic Acid Level 4.6 H 0.8-2.5 mmol/L Whole Blood Glucose 172 H 70-110 MG/DL White Blood Count 24.5 H 4.8-10.8 K/uL Red Blood Count 4.18 L 4.50-6.20 MIL/uL Hemoglobin 13.9 L 14.0-18.0 g/dL Hematocrit 43.2 42-54 % Mean Corpuscular Volume 103.3 H 79-99 fL Mean Corpuscular Hemoglobin 33.3 H 27.0-33.0 pg Mean Corpuscular Hemoglobin Concent 32.2 32.0-36.0 g/dL Red Cell Distribution Width 15.9 H 11.0-15.5 % Platelet Count 149 # 130-400 K/uL Mean Platelet Volume 11.1 H 7.5-10.5 fL Immature Granulocyte % (Auto) 0.8 0-1 % Neutrophils (%) (Auto) 89.5 H 40.0-77.0 % Lymphocytes (%) (Auto) 3.0 L 21.0-51.0 % Monocytes (%) (Auto) 6.4 3.0-13.0 % Eosinophils (%) (Auto) 0.0 0.0-8.0 % Basophils (%) (Auto) 0.3 0.0-5.0 % Neutrophils # (Auto) 21.9 H 1.8-7.7 K/uL Lymphocytes # (Auto) 0.7 L 1.0-4.8 K/uL Monocytes # (Auto) 1.6 H 0.1-1.0 K/uL Eosinophils # (Auto) 0.00 0.00-0.70 K/uL Basophils # (Auto) 0.08 0.00-0.20 K/uL Absolute Immature Granulocyte (auto 0.20 0-1 K/uL Nucleated Red Blood Cells 0.0 0.0-0.19 % Sodium Level 135 L 136-145 mmol/L Potassium Level 3.6 3.5-5.1 mmol/L Chloride Level 99 L 101-111 mmol/L Carbon Dioxide Level 23 21-32 mmol/L Blood Urea Nitrogen 44 H 7-18 mg/dL Creatinine 1.8 H 0.5-1.3 mg/dL Glomerular Filtration Rate Calc 42 >90 mL/min Random Glucose 116 H 70-105 mg/dL Total Calcium 8.4 L 8.5-10.1 mg/dL Magnesium Level 1.90 1.80-2.40 mg/dL Total Bilirubin 1.9 H 0.2-1.0 mg/dL Aspartate Amino Transf (AST/SGOT) 20 10-37 U/L Alanine Aminotransferase (ALT/SGPT) 18 12-78 U/L Alkaline Phosphatase 80 50-136 U/L B-Type Natriuretic Peptide 851 H 0-100 pg/mL Total Protein 6.4 6.0-8.3 g/dL Albumin 2.9 L 3.5-5.0 g/dL Procalcitonin 0.48 0.05-0.5 ng/mL Urine Color YELLOW YELLOW Urine Appearance CLEAR CLEAR Urine pH 5.5 5.0-8.0 Urine Specific [place] 1.017 1.001-1.031 Urine Protein 30 H NEGATIVE mg/dL Urine Glucose (UA) >=1000 H NEGATIVE mg/dL Urine Ketones NEGATIVE NEGATIVE mg/dL Urine Occult Blood SMALL H NEGATIVE Urine Nitrate NEGATIVE NEGATIVE Urine Bilirubin NEGATIVE NEGATIVE mg/dL Urine Urobilinogen 0.2 0.2-1.0 mg/dL Urine Leukocyte Esterase NEGATIVE NEGATIVE Mack/uL Urine RBC 2-5 H 0-1 /HPF Urine WBC 0-1 0-1 /HPF Urine Squamous Epithelial Cells RARE 0-2 /HPF Urine Bacteria RARE None Seen /HPF Test 06/23/25 01:32 06/23/25 01:16 Range/Units Influenza Type A Antigen Negative For Type A NEGATIVE Influenza Type B Antigen Negative For Type B NEGATIVE SARS-CoV-2 Antigen (Rapid) PRESUMPTIVE NEGATIVE NEGATIVE Group A Streptococcus Rapid negative NEGATIVE White Cell Morphology Comment See comments Total Creatine Kinase 107 # 21-232 U/L Troponin I High Sensitivity 9 4-75 ng/L PROBLEM LIST : Medical Problems: Chronic venous hypertension with ulcer to bilateral lower extremities Non pressure chronic ulcer to right lower extremity Non pressure chronic ulcer to left lower extremity Bilateral lower extremities cellulitis. PLAN: Wound care to Bilateral lower extremities: Cleanse with normal saline, pat dry, apply medihoney and mupirocin 1:1, cover with adaptic/vaseline gauze, gauze, wrap with kerlix secure with tape change daily and prn Keep wounds clean and dry Offloading/reposition q 2 hours Continue IV antibiotics per ID Comorbidities per primary care team Further Management per hospital course. Thank You for the consult and allowing us to participate in the care of this patient. ATTESTATION BY PHYSICIAN I have seen and examined the patient. I reviewed the documentation, medical decision making, and treatment plan as noted by the mid-level provider above. I agree with the findings and plan of care. ERIKA MONCADA MD, MICHELLE A NP Jun 23, 2025 16:55 ERIKA MONCADA MD Jul 06, 2025 14:29
[2025-06-23] MEDS: HONEY 1 APPL/ML TUBE TP SCH (17:00)
[2025-06-23] MEDS: MUPIROCIN OINTMENT 22 GM TUBE TP SCH (17:00)
[2025-06-23] MEDS: 0.9%NACL 1000ML 1,000 ML IV SCH (17:19)
--- NOTE | 2025-06-23 17:21 | CONS ---
[facility] CARDIOLOGY CONSULTATION NOTE Date Patient Seen: Jun 23, 2025 Time of Visit: 17:12 Reason for Consultation: [Possible CHF exacerbation ] History of Present Illness: [This is a 59 year old male with past medical history of hypertension, diabetes, hyperlipidemia, CHF with advanced ischemic cardiomyopathy EF 20%, stage 3 CKD, multivessel obstructive CAD not amendable to revascularization, DVT to left leg and pulmonary embolism on chronic Eliquis ,chronic back pain, bilateral lower extremity ulcers and morbid obesity who presents to the ED for complaints of feeling dizzy,shortness of breath and patient has a chronic lower extremity that has ulcers and it has been swollen and oozing fluids. Patient also reports chills and rigors which started yesterday. Upon ER arrival V/SA T102.4,HR 128,BP 122/87 Sat 100% RA RR 24. ECG result revealed Sinus ectopic or atrial Tachycardia HR 120 Prob left atrial enlargement,inferior infarct old,anterior infarct old,nonspecific T abnormalities ,lateral leads prolonged QT interval. Labs WBC 20 with negative left shift of neutrophils 88,Hgb 15,Hct 45,platelet 209.Na 135,K4.6,K4.6,Chloride 96,BUN47,Creat 1.9,GFR 40,Glucose 174 ,lactic acid 6.3,BNP 1550.Urinalysis remarkable for protein 30,glucose more than 1000,small hematuria and urine RBC 2-5 .Serology test for influenza Type A&B negative SARS COV_2 negative and Group A strep negative. CXR result revealed interval development of mild cardiomegaly.No acute infiltrate ,effusion or pneumothorax. Past Medical History: [ ] Past Surgical History: [ ] Family History: [ ] Social History: [ ] Habits: [Never] smoker. [Denies] alcohol consumption. [Denies] illicit drug use Home Meds: [ ] Current Meds: [ ] Review of Systems: CONSTITUTIONAL:complain ed of chills and rigors + fever Denies night sweats. No unintentional weight loss reported. NEUROLOGICAL: complained of dizziness and lightheadedness Denies headache, amaurosis fugax, gait abnormalities, or tremors. ENT: No hearing loss, otalgia, otorrhea, rhinitis, rhinorrhea, hoarseness, or sore throat. CARDIOVASCULAR: Denies any exertional angina, dyspnea on exertion, orthopnea, paroxysmal nocturnal dyspnea, palpitations, life-threatening arrhythmias, claudication. PULMONARY: Denies any shortness of breath, cough, phlegm/sputum, hemoptysis, pleuritic chest pain. SLEEP: Denies morning headaches, daytime somnolence or napping. Denies difficulty falling asleep, staying asleep, waking from sleep. Denies knowledge of snoring. GASTROINTESTINAL: Denies any type of dysphagia to either liquids or solids. Denies nausea, vomiting, pyrosis, early satiety, abdominal pain, diarrhea, constipation, or changes in stool consistency or caliber. Denies coffee-ground emesis, hematemesis, hematochezia, or melanotic stools. GENITOURINARY: Denies frequency, urgency, nocturia, hematuria or incontinence (Storage/Irritative symptoms.) Low urinary stream, straining to void, urinary intermittency or hesitancy, splitting of the voiding stream, terminal dribbling. ENDOCRINOLOGIC: Denies polyuria, polydipsia, polyphagia or heat/cold intolerances. HEMATOLOGIC: Denies thrombophilia/previous clots, or coagulopathy/bleeding dis orders. ONCOLOGIC: Denies personal history of malignancy. DERMATOLOGIC: chronic wound ulcer to right lower extremity Denies rashes or pruritus. PSYCHIATRIC: Denies any suicidal or homicidal ideation. Denies hallucinations. ] Physical Examination: GENERAL: [No acute distress.] HEAD: [Normal with no signs of head trauma.] EYES: [PERRLA, EOMI, conjunctiva and sclera normal.] ENT: [Hearing grossly intact, normal oropharynx.] NECK: [Supple without JVD. There is no tenderness, lymphadenopathy, or masses. No thyromegaly. Normal carotid upstrokes without bruits.] LUNGS: [Clear breath sounds bilaterally. There are right basilar rales one third of the way up the chest. No wheezes, or rhonchi.] HEART: [Normal rate and rhythm. Normal S1 and S2 without mumurs, gallop or rub.] VASC: [Peripheral pulses +2 bilaterally.] ABD: [Bowel sounds normal, soft, nontender, no masses, no organomegaly. No audible bruits.] : [Not examined] LYMPH: [No lymphadenopathy noted.] EXT: [bilateral lower extremity edema, stable wounds.] NEURO: [Awake, alert, and oriented x3. No focal sensory or strength deficits noted.] Vital Signs (last 8hr) Date Time Temp Pulse Resp B/P (MAP) Pulse Ox O2 Delivery O2 Flow Rate FiO2 06/23/25 12:00 98.4 98 22 109/79 98 Room Air* 0 21 Laboratory: [ ] Hematology Labs: Test 06/23/25 06:17 06/23/25 01:16 Range/Units White Blood Count 24.5 H 4.8-10.8 K/uL Red Blood Count 4.18 L 4.50-6.20 MIL/uL Hemoglobin 13.9 L 14.0-18.0 g/dL Hematocrit 43.2 42-54 % Mean Corpuscular Volume 103.3 H 79-99 fL Mean Corpuscular Hemoglobin 33.3 H 27.0-33.0 pg Mean Corpuscular Hemoglobin Concent 32.2 32.0-36.0 g/dL Red Cell Distribution Width 15.9 H 11.0-15.5 % Platelet Count 149 # 130-400 K/uL Mean Platelet Volume 11.1 H 7.5-10.5 fL Immature Granulocyte % (Auto) 0.8 0-1 % Neutrophils (%) (Auto) 89.5 H 40.0-77.0 % Lymphocytes (%) (Auto) 3.0 L 21.0-51.0 % Monocytes (%) (Auto) 6.4 3.0-13.0 % Eosinophils (%) (Auto) 0.0 0.0-8.0 % Basophils (%) (Auto) 0.3 0.0-5.0 % Neutrophils # (Auto) 21.9 H 1.8-7.7 K/uL Lymphocytes # (Auto) 0.7 L 1.0-4.8 K/uL Monocytes # (Auto) 1.6 H 0.1-1.0 K/uL Eosinophils # (Auto) 0.00 0.00-0.70 K/uL Basophils # (Auto) 0.08 0.00-0.20 K/uL Absolute Immature Granulocyte (auto 0.20 0-1 K/uL Nucleated Red Blood Cells 0.0 0.0-0.19 % White Cell Morphology Comment See comments Chemistry Labs: Test 06/23/25 16:11 06/23/25 11:31 06/23/25 06:17 06/23/25 01:16 Range/Units Lactic Acid Level 4.6 H 0.8-2.5 mmol/L Whole Blood Glucose 172 H 70-110 MG/DL Sodium Level 135 L 136-145 mmol/L Potassium Level 3.6 3.5-5.1 mmol/L Chloride Level 99 L 101-111 mmol/L Carbon Dioxide Level 23 21-32 mmol/L Blood Urea Nitrogen 44 H 7-18 mg/dL Creatinine 1.8 H 0.5-1.3 mg/dL Glomerular Filtration Rate Calc 42 >90 mL/min Random Glucose 116 H 70-105 mg/dL Total Calcium 8.4 L 8.5-10.1 mg/dL Magnesium Level 1.90 1.80-2.40 mg/dL Total Bilirubin 1.9 H 0.2-1.0 mg/dL Aspartate Amino Transf (AST/SGOT) 20 10-37 U/L Alanine Aminotransferase (ALT/SGPT) 18 12-78 U/L Alkaline Phosphatase 80 50-136 U/L B-Type Natriuretic Peptide 851 H 0-100 pg/mL Total Protein 6.4 6.0-8.3 g/dL Albumin 2.9 L 3.5-5.0 g/dL Procalcitonin 0.48 0.05-0.5 ng/mL Total Creatine Kinase 107 # 21-232 U/L Troponin I High Sensitivity 9 4-75 ng/L Diagnostics / Radiology: [Copy/Paste Echos/Imaging Report here] Assessment: [ ] Plan: [ #RLE edema and pain -ordered venous US to rule out DVT #Leukocytosis -recently recovered from two sinus infections -2d echo ordered -F/u urine Cx -f/u wound cx -consider imaging of spine given ongoing lower back pain #HFrEF, severe 20% LVEF -hold losartan -bumex 1 mg bid, jardiance 1/2 tablet 5 mg bid -BNP 847 02/2025, now it is 851, stable #H/o PE -c/w eliquis 5 mg bid Lindy Cartwright MD] LINDY CARTWRIGHT MD Jun 23, 2025 17:21
--- NOTE | 2025-06-23 17:33 | PN ---
[facility] PROGRESS NOTE Date of Service: Jun 23, 2025 Time of Service: 17:33 SUBJECTIVE: [ ] REVIEW OF SYSTEMS CONSTITUTIONAL:complain ed of chills and rigors + fever Denies night sweats. No unintentional weight loss reported. NEUROLOGICAL: complained of dizziness and lightheadedness Denies headache, amaurosis fugax, gait abnormalities, or tremors. ENT: No hearing loss, otalgia, otorrhea, rhinitis, rhinorrhea, hoarseness, or sore throat. CARDIOVASCULAR: Denies any exertional angina, dyspnea on exertion, orthopnea, p aroxysmal nocturnal dyspnea, palpitations, life-threatening arrhythmias, claudication. PULMONARY: Denies any shortness of breath, cough, phlegm/sputum, hemoptysis, pleuritic chest pain. SLEEP: Denies morning headaches, daytime somnolence or napping. Denies difficulty falling asleep, staying asleep, waking from sleep. Denies knowledge of snoring. GASTROINTESTINAL: Denies any type of dysphagia to either liquids or solids. Denies nausea, vomiting, pyrosis, early satiety, abdominal pain, diarrhea, constipation, or changes in stool consistency or caliber. Denies coffee-ground emesis, hematemesis, hematochezia, or melanotic stools. GENITOURINARY: Denies frequency, urgency, nocturia, hematuria or incontinence (Storage/Irritative symptoms.) Low urinary stream, straining to void, urinary intermittency or hesitancy, splitting of the voiding stream, terminal dribbling. ENDOCRINOLOGIC: Denies polyuria, polydipsia, polyphagia or heat/cold intolerances. HEMATOLOGIC: Denies thrombophilia/previous clots, or coagulopathy/bleeding disorders. ONCOLOGIC: Denies personal history of malignancy. DERMATOLOGIC: chronic wound ulcer to right lower extremity Denies rashes or pruritus. PSYCHIATRIC: Denies any suicidal or homicidal ideation. Denies hallucinations. PHYSICAL EXAM GENERAL APPEARANCE: The patient is awake, alert, and oriented, in no acute cardiopulmonary distress. NEUROLOGICAL: Cranial nerves II-XII grossly intact. Motor is 5/5 in bilateral upper and lower extremities proximal to distal. No sensory deficits. HEENT: Face is symmetric. Pupils are equal and reactive. Extraocular movements are intact. NECK: Supple. No JVD. No thyromegaly. No submental, submandibular, pre- /postauricular, occipital or supraclavicular lymphadenopathy. CHEST: Normal chest expansion. No Telemetry. LUNGS: crackles to bilateral lower bases per auscultation CARDIOVASCULAR: Tachycardic Regular. S1 and S2 normal. No appreciable rubs, murmurs or gallops. ABDOMEN: Soft, nontender, and nondistended. There is no rebound, voluntary guarding, or rigidity. : Deferred. No [place]. EXTREMITIES: 2=edema to bilateral lower extremities SKIN: Draining Wound ulcers to right lower extremity Vital Signs (last 8hr) Date Time Temp Pulse Resp B/P (MAP) Pulse Ox O2 Delivery O2 Flow Rate FiO2 06/23/25 12:00 98.4 98 22 109/79 98 Room Air* 0 21 LABS: Laboratory: Test 06/23/25 17:12 06/23/25 16:11 06/23/25 06:17 06/23/25 02:02 Range/Units Whole Blood Glucose 203 H 70-110 MG/DL Lactic Acid Level 4.6 H 0.8-2.5 mmol/L White Blood Count 24.5 H 4.8-10.8 K/uL Red Blood Count 4.18 L 4.50-6.20 MIL/uL Hemoglobin 13.9 L 14.0-18.0 g/dL Hematocrit 43.2 42-54 % Mean Corpuscular Volume 103.3 H 79-99 fL Mean Corpuscular Hemoglobin 33.3 H 27.0-33.0 pg Mean Corpuscular Hemoglobin Concent 32.2 32.0-36.0 g/dL Red Cell Distribution Width 15.9 H 11.0-15.5 % Platelet Count 149 # 130-400 K/uL Mean Platelet Volume 11.1 H 7.5-10.5 fL Immature Granulocyte % (Auto) 0.8 0-1 % Neutrophils (%) (Auto) 89.5 H 40.0-77.0 % Lymphocytes (%) (Auto) 3.0 L 21.0-51.0 % Monocytes (%) (Auto) 6.4 3.0-13.0 % Eosinophils (%) (Auto) 0.0 0.0-8.0 % Basophils (%) (Auto) 0.3 0.0-5.0 % Neutrophils # (Auto) 21.9 H 1.8-7.7 K/uL Lymphocytes # (Auto) 0.7 L 1.0-4.8 K/uL Monocytes # (Auto) 1.6 H 0.1-1.0 K/uL Eosinophils # (Auto) 0.00 0.00-0.70 K/uL Basophils # (Auto) 0.08 0.00-0.20 K/uL Absolute Immature Granulocyte (auto 0.20 0-1 K/uL Nucleated Red Blood Cells 0.0 0.0-0.19 % Sodium Level 135 L 136-145 mmol/L Potassium Level 3.6 3.5-5.1 mmol/L Chloride Level 99 L 101-111 mmol/L Carbon Dioxide Level 23 21-32 mmol/L Blood Urea Nitrogen 44 H 7-18 mg/dL Creatinine 1.8 H 0.5-1.3 mg/dL Glomerular Filtration Rate Calc 42 >90 mL/min Random Glucose 116 H 70-105 mg/dL Total Calcium 8.4 L 8.5-10.1 mg/dL Magnesium Level 1.90 1.80-2.40 mg/dL Total Bilirubin 1.9 H 0.2-1.0 mg/dL Aspartate Amino Transf (AST/SGOT) 20 10-37 U/L Alanine Aminotransferase (ALT/SGPT) 18 12-78 U/L Alkaline Phosphatase 80 50-136 U/L B-Type Natriuretic Peptide 851 H 0-100 pg/mL Total Protein 6.4 6.0-8.3 g/dL Albumin 2.9 L 3.5-5.0 g/dL Procalcitonin 0.48 0.05-0.5 ng/mL Urine Color YELLOW YELLOW Urine Appearance CLEAR CLEAR Urine pH 5.5 5.0-8.0 Urine Specific [place] 1.017 1.001-1.031 Urine Protein 30 H NEGATIVE mg/dL Urine Glucose (UA) >=1000 H NEGATIVE mg/dL Urine Ketones NEGATIVE NEGATIVE mg/dL Urine Occult Blood SMALL H NEGATIVE Urine Nitrate NEGATIVE NEGATIVE Urine Bilirubin NEGATIVE NEGATIVE mg/dL Urine Urobilinogen 0.2 0.2-1.0 mg/dL Urine Leukocyte Esterase NEGATIVE NEGATIVE Mack/uL Urine RBC 2-5 H 0-1 /HPF Urine WBC 0-1 0-1 /HPF Urine Squamous Epithelial Cells RARE 0-2 /HPF Urine Bacteria RARE None Seen /HPF Test 06/23/25 01:32 06/23/25 01:16 Range/Units Influenza Type A Antigen Negative For Type A NEGATIVE Influenza Type B Antigen Negative For Type B NEGATIVE SARS-CoV-2 Antigen (Rapid) PRESUMPTIVE NEGATIVE NEGATIVE Group A Streptococcus Rapid negative NEGATIVE White Cell Morphology Comment See comments Total Creatine Kinase 107 # 21-232 U/L Troponin I High Sensitivity 9 4-75 ng/L Current Medications Medications (Trade) Dose Ordered Sig/Da Route PRN Reason Start Time Stop Time Status Last Admin Dose Admin Acetaminophen (TYLenol 325MG TAB) 650 mg Q4H PRN PO MILD PAIN (1-3) 06/23/25 03:30 07/23/25 03:29 Acetaminophen (TYLenol 325MG TAB) 650 mg Q6H PRN PO TEMPERATURE GREATER THAN 101.5 06/23/25 03:30 07/23/25 03:29 Apixaban (EliquIS) 5 mg BID PO 06/23/25 09:00 07/23/25 08:59 06/23/25 09:45 5 MG Bumetanide (Bumex 1mg Tab) 1 mg BID PO 06/23/25 09:00 07/23/25 08:59 06/23/25 09:46 1 MG Cefepime HCl (MAXipime 1 GM vial) 1 gm ONCE IVPB 06/23/25 02:00 06/23/25 04:01 DC 06/23/25 02:19 1 GM Cefepime HCl (MAXipime 1 GM vial) 1 gm Q12H IVPB 06/23/25 10:00 07/03/25 09:59 06/23/25 09:53 1 GM Dextrose (D50w) 50 ml AD PRN IV HYPOGLYCEMIA PROTOCOL 06/23/25 03:30 07/23/25 03:29 Famotidine (Pepcid 20mg Tab) 20 mg DAILY PO 06/23/25 09:00 07/23/25 08:59 06/23/25 09:46 20 MG Glucagon (Glucagon 1mg Kit) 1 mg AD PRN IM HYPOGLYCEMIA PROTOCOL 06/23/25 03:30 07/23/25 03:29 Insulin Human Regular (humuLIN R 100 UNIT/ML 3ML) INSULIN SLIDING SCAL... ACHS SQ 06/23/25 07:30 07/23/25 07:29 06/23/25 17:18 3 UNIT Leptospermum Honey ([facility]) 1 APPL DAILY17 TP 06/23/25 17:00 07/23/25 16:59 Magnesium Sulfate 50 ml @ 0 mls/hr PROTOCOL PRN IV OTHER [SEE ORDER COMMENTS] 06/23/25 03:30 07/23/25 03:29 Metoprolol Succinate (TopROL XL) 25 mg DAILY PO 06/23/25 09:00 07/23/25 08:59 06/23/25 12:11 25 MG Morphine Sulfate (morPHINE 2MG SYG) 2 mg Q6H6 PRN IVP PAIN LEVEL 7 TO 10 06/23/25 11:00 06/30/25 10:59 Mupirocin (Bactroban Oint) apply to bilateral lo... DAILY17 TP 06/23/25 17:00 07/23/25 16:59 Ondansetron HCl (zoFRAN 4MG INJ) 4 mg Q6H PRN IV NAUSEA/VOMITING 06/23/25 03:30 07/23/25 03:29 Potassium Chloride 100 ml @ 100 mls/hr AD PRN IV POTASSIUM PROTOCOL 06/23/25 03:30 07/23/25 03:29 Potassium Chloride (K-Dur/Klor-Con 20meq) 20 meq AD PRN PO POTASSIUM PROTOCOL 06/23/25 03:30 07/23/25 03:29 Potassium Chloride (KCl 10% Elixir 20meq/15ml) 20 meq AD PRN PO POTASSIUM PROTOCOL 06/23/25 03:30 07/23/25 03:29 Sodium Chloride 1,000 ml @ 50 mls/hr Q20H IV 06/23/25 17:30 07/23/25 17:29 06/23/25 17:19 50 MLS/HR Vancomycin HCl 250 ml @ 125 mls/hr ONCE IV 06/23/25 03:30 06/23/25 03:44 DC Vancomycin HCl 250 ml @ 125 mls/hr Q24H IV 06/24/25 05:00 07/04/25 04:59 DIAGNOSTICS / RADIOLOGY: [ ] ASSESSMENT: Severe sepsis POA Infected stasis ulcer of right lower extremity POA Acute kidney injury on chronic kidney disease POA Acute on chronic CHF with cardiomyopathy POA Acute leukocytosis POA Lactic Acidosis POA Hyponatremia POA Hypochloremia POA Uncontrolled diabetes POA Hypertension POA Hyperlipidemia POA History of Left lower extremity DVT on Eliquis POA History of pulmonary embolism on chronic anticoaguylation POA PLAN: We will admit patient in PCCU We will start on consistent carb diet Patient received fluid resuscitation 30 mL/kilogram over 3 hours while at the ER We will start on famotidine 20 mg p.o. daily for GI prophylaxis We will continue cefepime and vancomycin IV for broad-spectrum coverage We will replace electrolytes as needed per protocol We will start on insulin sliding scale AC & HS with hypoglycemia protocol We will add prn medication for fever,pain,cough , nausea and vomiting We will reconcile home meds once medlist available We will request daily weight and strict I&O We will restrict fluid 1.5 L per day We will request case management service We will seek Infectious Disease consultation We will seek Cardiology consultation We will seek wound care eval and management consultation We will follow up blood culture and urine culture result We will request labs in am Further orders to follow depending on above results Case discussed with attending physician and came up with above treatment and plan of care. LISS MANN MD Jun 23, 2025 17:33
--- NOTE | 2025-06-23 18:33 | HMCIMG ---
EXAM: US Duplex Right Lower Extremity Veins. CLINICAL HISTORY: 59-year-old male with leg swelling. TECHNIQUE: Real-time ultrasound scan of the veins of the right lower extremity with color Doppler flow, spectral waveform analysis and compression. COMPARISON: Compared to prior US venous Doppler from 12/06/2023 at 4:28 pm, the findings are similar. FINDINGS: DEEP VEINS: The common femoral, femoral, and popliteal veins are echolucent and compressible. These vessels demonstrate respiratory variation and augmentation. There is normal color Doppler flow throughout, however, pulsatile flow is noted. The visualized calf veins are also patent. SUPERFICIAL VEINS: The visualized greater saphenous vein is patent. SOFT TISSUES: No popliteal fossa cyst or other abnormalities. IMPRESSION: 1. No deep venous thrombosis in the right lower extremity. 2. Pulsatile flow, similar to prior study from 12/06/2023. EXAM: US Duplex Left Lower Extremity Veins. CLINICAL HISTORY: 59-year-old male with leg swelling. TECHNIQUE: Real-time ultrasound scan of the veins of the left lower extremity with color Doppler flow, spectral waveform analysis and compression. COMPARISON: Compared to prior US venous Doppler from 12/06/2023 at 4:28 pm, the findings are similar. FINDINGS: DEEP VEINS: The common femoral, femoral, and popliteal veins are echolucent and compressible. These vessels demonstrate respiratory variation and augmentation. There is normal color Doppler flow throughout, however, pulsatile flow is noted. The visualized calf veins are also patent. SUPERFICIAL VEINS: The visualized greater saphenous vein is patent. SOFT TISSUES: No popliteal fossa cyst or other abnormalities. IMPRESSION: 1. No deep venous thrombosis in the left lower extremity. 2. Pulsatile flow, similar to prior study from 12/06/2023. /[place]
[2025-06-23] MEDS ORDERED: MULT-1203 PO (19:39)
[2025-06-23] MEDS ORDERED: EMPA10TA PO (19:39)
[2025-06-23] MEDS ORDERED: GLIP1TAB5 PO (19:39)
[2025-06-23] MEDS ORDERED: LOSA25TA41 PO (19:39)
[2025-06-23] MEDS ORDERED: METF-444 PO (19:39)
--- NOTE | 2025-06-23 20:49 | NUR ---
CALLED HOSPITALIST MOTION PICTURE SET GRIP REGARDING PT'S LACTIC ACID OF 5.7. PER RICK VERDUZCO, GIVE 1983ML NS FLUID TO BE GIVEN OVER 6 HRS. Addendum: 06/23/25 at 2052 by GONZALES CORRECTION: 1983 ML LACTATED RINGERS TO BE GIVEN OVER 6 HRS
[2025-06-23] MEDS: LACTATED RINGERS 1000ML 1,983 ML IV ONE (21:09)
[2025-06-24] MEDS: VANCOMYCIN 1.25 GM/250 ML BAG 250 ML IV SCH (05:52)
[2025-06-24 06:47] LABS: IMMATURE GRANULOCYTE ABSOLUTE 0.12 K/uL (0-1); NUCLEATED RED BLOOD CELLS 0.0 % (0.0-0.19); PLATELET COUNT (AUTO) 175 K/uL (130-400); RED BLOOD CELL COUNT(AUTO) 4.20 MIL/uL (4.50-6.20); RED CELL DISTRIBUTION WIDTH 15.7 % (11.0-15.5); WHITE BLOOD COUNT (AUTO) 18.4 K/uL (4.8-10.8)
[2025-06-24 07:20] LABS: ASPARTATE AMINOTRANSFERASE 254.0 U/L (10-37); CREATININE 1.9 mg/dL (0.5-1.3); GLOMERULAR FILTR. RATE CALC 40.0 mL/min (>90); GLUCOSE,RANDOM 128.0 mg/dL (70-105); SODIUM SERUM 133.0 mmol/L (136-145); TOTAL PROTEIN, SERUM 6.5 g/dL (6.0-8.3); UREA NITROGEN, BLOOD 51.0 mg/dL (7-18)
--- NOTE | 2025-06-24 10:16 | PN ---
[facility] PROGRESS NOTE Date of Service: Jun 24, 2025 Time of Service: 10:12 SUBJECTIVE: This is a 59 year old male,a reliable historian with pasat medical history of hypertension, diabetes, hyperlipidemia, CHF with advanced ischemic cardiomyopathy EF 20% stage 3 CKD multivessel obstructive CAD ,DVT to left leg and pulmonary embolism on chronic Eliquis ,chronic back pain,bilateral lower extremity ulcers and morbid obesity who presents to the ED for complaints of feeling dizzy,shortness of breath and patient has a chronic lower extremity that has ulcers and it has been swollen and oozing fluids.Patient also reports chills and rigors which started today while changing his wound dressing and he first though he was having parkinson's tremors so he decided to come to the ED for evaluation.Patient states he was fairly doing fine unitl 8 days ago last Sunday he stopped taking his Spironolactone and Losartan because it was discontinued byher his director e learning due to severe hyperkalemia .Patient reports he was seen by a director e learning from [place] by the name of and he told the director e learning that he is not voiding much than what he used to ,before he approximately voided 1600 and now it is only 500 and he noticed that his legs are becoming swollen ever since he stopped taking his Spironolactone and Losartan he feels he is gaining more weight and he was advised to take a dose of Spironolactone for today and he did after a few hours he said he felt dizzy and lightheaded and as he was changing his wound dressing he feels the chills and rigors so he decided to come to the ED for evaluation.Upon ER arrival V/SA T102.4,HR 128,BP 122/87 Sat 100% RA RR 24.ECG result revealed Sinus ectopic or atrial Tachycardia HR 120 Prob left atrial enlargement,inferior infarct old,anterior infarct old,nonspecific T abnormalities ,lateral leads prolonged QT interval. Seen and examined patient in the ER awake,alert and coherent,appears comfortable,in no apparent distress.Patient denies cough,shortness of breath,chest pain,palpitation,abdominal pain,nausea,vomiting and syncope.Labs WBC 20 with negative left shift of neutrophils 88,Hgb 15,Hct 45,platelet 209.Na 135,K4.6,K4.6,Chloride 96,BUN47,Creat 1.9,GFR 40,Glucose 174 ,lactic acid 6.3,BNP 1550.Urinalysis remarkable for protein 30,glucose more than 1000,small hematuria and urine RBC 2-5 .Serology test for influenza Type A&B negative SARS COV_2 negative and Group A strep negative.CXR result revealed interval development of mild cardiomegaly.No acute infiltrate ,effusion or pneumothorax.While in the ER patient received Fluid resuscitation of 30ml/kg over 3 hours ,Tylenol 1000 mg po,Morphine 4mg IV, Cefepime and Vancomycin IV.Will admit patient for further medical management. 06/23/25: Patient is seen at bedside in ER 5. Patient denies cough, chest pain, palpitation, abdominal pain, chills. Patient is started on nasal cannula due to shortness of breath. Patient's remaining vitals stable with temperature at 98.4, pulse at 98, respiratory rate of 22, blood pressure 109/79. Patient's labs showed an increase in WBC to 24.5, hemoglobin at 13.9, sodium at 135, lactic acid improved to 4.3. Continue the patient on vancomycin and cefepime IV. Cardiology and Infectious Disease have been consulted, along with critical care. Patient's BNP has improved to 851. Patient has no new complaints. Patient started on soft hydration. Cardiology ordered a 2D echo and venous Doppler ultrasound bilaterally to rule out DVT. 06/24/25: Patient is seen at bedside in ER 5. Patient is doing much better, off of nasal cannula and breathing room air. Patient denies cough, chest pain, palpitations, abdominal pain, chills. Patient's temperature currently at 98.8, pulse at 89 respiratory rate at 18, blood pressure 102/58. Patient's labs have improved with his WBC trending down to 18.4, his creatinine remains around 1.9, his lactic acid has trended down to 2.7. He does have an increase in his liver function tests with AST going up to 254 and ALT increasing to 152. His BNP has also increased to to 2110. Cardiology recommended to hold losartan, start him on Bumex 1 mg b.i.d., Jardiance half tablet 5 mg b.i.d. and continue with Eliquis 5 mg b.i.d. His venous Doppler study showed no DVTs bilaterally. Patient's urine culture came back positive for Gram-negative rods, going to wait for specificity and sensitivity to change his medication. He is currently on vancomycin and cefepime. REVIEW OF SYSTEMS CONSTITUTIONAL: No more complaints of chills and rigors Denies night sweats. No unintentional weight loss reported. NEUROLOGICAL: Denies headache, gait abnormalities, or tremors. ENT: No hearing loss, otalgia, otorrhea, rhinitis, rhinorrhea, hoarseness, or sore throat. CARDIOVASCULAR: Denies any exertional angina, dyspnea on exertion, orthopnea, paroxysmal nocturnal dyspnea, palpitations, life-threatening arrhythmias, claudication. PULMONARY: Denies any shortness of breath, cough, phlegm/sputum, hemoptysis, pleuritic chest pain. SLEEP: Denies morning headaches, daytime somnolence or napping. Denies difficulty falling asleep, staying asleep, waking from sleep. Denies knowledge of snoring. GASTROINTESTINAL: Denies any type of dysphagia to either liquids or solids. Denies nausea, vomiting, pyrosis, early satiety, abdominal pain, diarrhea, constipation, or changes in stool consistency or caliber. GENITOURINARY: Denies frequency, urgency, nocturia, hematuria or incontinence ENDOCRINOLOGIC: Denies polyuria, polydipsia, polyphagia or heat/cold intolerances. HEMATOLOGIC: Denies thrombophilia/previous clots, or coagulopathy/bleeding disorders. ONCOLOGIC: Denies personal history of malignancy. DERMATOLOGIC: chronic wound ulcer to right lower extremity Denies rashes or pruritus. PSYCHIATRIC: Denies any suicidal or homicidal ideation. Denies hallucinations. PHYSICAL EXAM GENERAL APPEARANCE: The patient is awake, alert, and oriented, in no acute cardiopulmonary distress. NEUROLOGICAL: Cranial nerves II-XII grossly intact. Motor is 5/5 in bilateral upper and lower extremities proximal to distal. No sensory deficits. HEENT: Face is symmetric. Pupils are equal and reactive. Extraocular movements are intact. NECK: Supple. No JVD. No thyromegaly. No submental, submandibular, pre- /postauricular, occipital or supraclavicular lymphadenopathy. CHEST: Normal chest expansion. No Telemetry. LUNGS: Sound clear CARDIOVASCULAR: Tachycardic Regular. S1 and S2 normal. No appreciable rubs, murmurs or gallops. ABDOMEN: Soft, nontender, and nondistended. There is no rebound, voluntary guarding, or rigidity. : Deferred. No [place]. EXTREMITIES: 2+edema to bilateral lower extremities SKIN: Draining Wound ulcers to right lower extremity Vital Signs (last 8hr) Date Time Temp Pulse Resp B/P (MAP) Pulse Ox O2 Delivery O2 Flow Rate FiO2 06/24/25 08:45 98.8 89 18 102/58 99 Nasal Cannula* 2 28 06/24/25 06:50 98 25 98/69 100 Nasal Cannula* 3 32 06/24/25 03:36 102 29 108/79 100 Nasal Cannula* 3 32 LABS: Laboratory: Test 06/24/25 06:58 06/24/25 06:25 06/23/25 20:59 06/23/25 06:17 Range/Units Sodium Level 133 L 136-145 mmol/L Potassium Level 3.7 3.5-5.1 mmol/L Chloride Level 97 L 101-111 mmol/L Carbon Dioxide Level 25 21-32 mmol/L Blood Urea Nitrogen 51 H 7-18 mg/dL Creatinine 1.9 H 0.5-1.3 mg/dL Glomerular Filtration Rate Calc 40 >90 mL/min Random Glucose 128 H 70-105 mg/dL Total Calcium 8.8 8.5-10.1 mg/dL Total Bilirubin 2.1 H 0.2-1.0 mg/dL Aspartate Amino Transf (AST/SGOT) 254 H 10-37 U/L Alanine Aminotransferase (ALT/SGPT) 152 H 12-78 U/L Alkaline Phosphatase 89 50-136 U/L Total Protein 6.5 6.0-8.3 g/dL Albumin 2.9 L 3.5-5.0 g/dL White Blood Count 18.4 H 4.8-10.8 K/uL Red Blood Count 4.20 L 4.50-6.20 MIL/uL Hemoglobin 13.7 L 14.0-18.0 g/dL Hematocrit 41.4 L 42-54 % Mean Corpuscular Volume 98.6 79-99 fL Mean Corpuscular Hemoglobin 32.6 27.0-33.0 pg Mean Corpuscular Hemoglobin Concent 33.1 32.0-36.0 g/dL Red Cell Distribution Width 15.7 H 11.0-15.5 % Platelet Count 175 130-400 K/uL Mean Platelet Volume 11.5 H 7.5-10.5 fL Immature Granulocyte % (Auto) 0.7 0-1 % Neutrophils (%) (Auto) 87.0 H 40.0-77.0 % Lymphocytes (%) (Auto) 4.1 L 21.0-51.0 % Monocytes (%) (Auto) 7.8 3.0-13.0 % Eosinophils (%) (Auto) 0.1 0.0-8.0 % Basophils (%) (Auto) 0.3 0.0-5.0 % Neutrophils # (Auto) 16.0 H 1.8-7.7 K/uL Lymphocytes # (Auto) 0.8 L 1.0-4.8 K/uL Monocytes # (Auto) 1.4 H 0.1-1.0 K/uL Eosinophils # (Auto) 0.01 0.00-0.70 K/uL Basophils # (Auto) 0.06 0.00-0.20 K/uL Absolute Immature Granulocyte (auto 0.12 0-1 K/uL Nucleated Red Blood Cells 0.0 0.0-0.19 % Lactic Acid Level 3.7 H 0.8-2.5 mmol/L B-Type Natriuretic Peptide 2110 H 0-100 pg/mL Whole Blood Glucose 204 H 70-110 MG/DL Magnesium Level 1.90 1.80-2.40 mg/dL Procalcitonin 0.48 0.05-0.5 ng/mL Test 06/23/25 02:02 06/23/25 01:32 06/23/25 01:16 Range/Units Urine Color YELLOW YELLOW Urine Appearance CLEAR CLEAR Urine pH 5.5 5.0-8.0 Urine Specific [facility] 1.017 1.001-1.031 Urine Protein 30 H NEGATIVE mg/dL Urine Glucose (UA) >=1000 H NEGATIVE mg/dL Urine Ketones NEGATIVE NEGATIVE mg/dL Urine Occult Blood SMALL H NEGATIVE Urine Nitrate NEGATIVE NEGATIVE Urine Bilirubin NEGATIVE NEGATIVE mg/dL Urine Urobilinogen 0.2 0.2-1.0 mg/dL Urine Leukocyte Esterase NEGATIVE NEGATIVE Mack/uL Urine RBC 2-5 H 0-1 /HPF Urine WBC 0-1 0-1 /HPF Urine Squamous Epithelial Cells RARE 0-2 /HPF Urine Bacteria RARE None Seen /HPF Influenza Type A Antigen Negative For Type A NEGATIVE Influenza Type B Antigen Negative For Type B NEGATIVE SARS-CoV-2 Antigen (Rapid) PRESUMPTIVE NEGATIVE NEGATIVE Group A Streptococcus Rapid negative NEGATIVE White Cell Morphology Comment See comments Total Creatine Kinase 107 # 21-232 U/L Troponin I High Sensitivity 9 4-75 ng/L Current Medications Medications (Trade) Dose Ordered Sig/Da Route PRN Reason Start Time Stop Time Status Last Admin Dose Admin Acetaminophen (TYLenol 325MG TAB) 650 mg Q4H PRN PO MILD PAIN (1-3) 06/23/25 03:30 07/23/25 03:29 Acetaminophen (TYLenol 325MG TAB) 650 mg Q6H PRN PO TEMPERATURE GREATER THAN 101.5 06/23/25 03:30 07/23/25 03:29 Apixaban (EliquIS) 5 mg BID PO 06/23/25 09:00 07/23/25 08:59 06/24/25 09:24 5 MG Bumetanide (Bumex 1mg Tab) 1 mg BID PO 06/23/25 09:00 07/23/25 08:59 06/24/25 09:21 1 MG Cefepime HCl (MAXipime 1 GM vial) 1 gm ONCE IVPB 06/23/25 02:00 06/23/25 04:01 DC 06/23/25 02:19 1 GM Cefepime HCl (MAXipime 1 GM vial) 1 gm Q12H IVPB 06/23/25 10:00 07/03/25 09:59 06/24/25 09:26 1 GM Dextrose (D50w) 50 ml AD PRN IV HYPOGLYCEMIA PROTOCOL 06/23/25 03:30 07/23/25 03:29 Empaglifozin (Jardiance 10mg) 5 mg BID PO 06/24/25 21:00 07/24/25 20:59 Famotidine (Pepcid 20mg Tab) 20 mg DAILY PO 06/23/25 09:00 07/23/25 08:59 06/24/25 09:25 20 MG Glucagon (Glucagon 1mg Kit) 1 mg AD PRN IM HYPOGLYCEMIA PROTOCOL 06/23/25 03:30 07/23/25 03:29 Insulin Human Regular (humuLIN R 100 UNIT/ML 3ML) INSULIN SLIDING SCAL... ACHS SQ 06/23/25 07:30 07/23/25 07:29 06/23/25 21:09 3 UNIT Leptospermum Honey ([facility]) 1 APPL DAILY17 TP 06/23/25 17:00 07/23/25 16:59 Magnesium Sulfate 50 ml @ 0 mls/hr PROTOCOL PRN IV OTHER [SEE ORDER COMMENTS] 06/23/25 03:30 07/23/25 03:29 Metoprolol Succinate (TopROL XL) 25 mg DAILY PO 06/23/25 09:00 07/23/25 08:59 06/24/25 09:25 25 MG Morphine Sulfate (morPHINE 2MG SYG) 2 mg Q6H6 PRN IVP PAIN LEVEL 7 TO 10 06/23/25 11:00 06/30/25 10:59 Multivitamins Therapeutic (Multivitamin Tablet) 1 tab DAILY PO 06/25/25 09:00 07/25/25 08:59 Mupirocin (Bactroban Oint) apply to bilateral lo... DAILY17 TP 06/23/25 17:00 07/23/25 16:59 Ondansetron HCl (zoFRAN 4MG INJ) 4 mg Q6H PRN IV NAUSEA/VOMITING 06/23/25 03:30 07/23/25 03:29 Potassium Chloride 100 ml @ 100 mls/hr AD PRN IV POTASSIUM PROTOCOL 06/23/25 03:30 07/23/25 03:29 Potassium Chloride (K-Dur/Klor-Con 20meq) 20 meq AD PRN PO POTASSIUM PROTOCOL 06/23/25 03:30 07/23/25 03:29 Potassium Chloride (KCl 10% Elixir 20meq/15ml) 20 meq AD PRN PO POTASSIUM PROTOCOL 06/23/25 03:30 07/23/25 03:29 Sodium Chloride 1,000 ml @ 50 mls/hr Q20H IV 06/23/25 17:30 06/24/25 09:35 DC 06/23/25 17:19 50 MLS/HR Vancomycin HCl 250 ml @ 125 mls/hr ONCE IV 06/23/25 03:30 06/23/25 03:44 DC Vancomycin HCl 250 ml @ 125 mls/hr Q24H IV 06/24/25 05:00 07/04/25 04:59 06/24/25 05:52 125 MLS/HR DIAGNOSTICS / RADIOLOGY: [place] [address] [place] [id number] IMAGING REPORT Signed PATIENT: LILI HUFF MR#: [id number] : 1965 SEX: M AGE: 59 LOCATION: [facility] ORDER 14 [facility] REPORT#: [id number] SERVICE 13 REASON: rule out dvt ORDERING PHYSICIAN: EMBER SORIANO MD PROCEDURE: VENOUS ZACH - US VENOUS DOPPLER BILATERAL EXAM: US Duplex Right Lower Extremity Veins. CLINICAL HISTORY: 59-year-old male with leg swelling. TECHNIQUE: Real-time ultrasound scan of the veins of the right lower extremity with color Doppler flow, spectral waveform analysis and compression. COMPARISON: Compared to prior US venous Doppler from 12/06/2023 at 4:28 pm, the findings are similar. FINDINGS: DEEP VEINS: The common femoral, femoral, and popliteal veins are echolucent and compressible. These vessels demonstrate respiratory variation and augmentation. There is normal color Doppler flow throughout, however, pulsatile flow is noted. The visualized calf veins are also patent. SUPERFICIAL VEINS: The visualized greater saphenous vein is patent. SOFT TISSUES: No popliteal fossa cyst or other abnormalities. IMPRESSION: 1. No deep venous thrombosis in the right lower extremity. 2. Pulsatile flow, similar to prior study from 12/06/2023. EXAM: US Duplex Left Lower Extremity Veins. CLINICAL HISTORY: 59-year-old male with leg swelling. TECHNIQUE: Real-time ultrasound scan of the veins of the left lower extremity with color Doppler flow, spectral waveform analysis and compression. COMPARISON: Compared to prior US venous Doppler from 12/06/2023 at 4:28 pm, the findings are similar. FINDINGS: DEEP VEINS: The common femoral, femoral, and popliteal veins are echolucent and compressible. These vessels demonstrate respiratory variation and augmentation. There is normal color Doppler flow throughout, however, pulsatile flow is noted. The visualized calf veins are also patent. SUPERFICIAL VEINS: The visualized greater saphenous vein is patent. SOFT TISSUES: No popliteal fossa cyst or other abnormalities. IMPRESSION: 1. No deep venous thrombosis in the left lower extremity. 2. Pulsatile flow, similar to prior study from 12/06/2023. /[facility] DICTATED BY: VERENA ALLAN MD DATE: 06/23/251931 ELECTRONICALLY SIGNED BY: VERENA ALLAN MD DATE: 06/23/251931 ASSESSMENT: Severe sepsis POA UTI, POA Infected stasis ulcer of right lower extremity POA Acute kidney injury on chronic kidney disease POA Acute on chronic CHF with cardiomyopathy POA Acute leukocytosis POA Lactic Acidosis POA Hyponatremia POA Hypochloremia POA Transaminases elevated Uncontrolled diabetes POA Hypertension POA Hyperlipidemia POA History of Left lower extremity DVT on Eliquis POA History of pulmonary embolism on chronic anticoaguylation POA PLAN: Severe sepsis POA: * Patient started on vancomycin and cefepime * Patient's lactic acid trending down at 2.7 * We will follow up blood culture and urine culture result, initial urine cult ure shows Gram-negative rods, we will wait for sensitivity and specificity to change medication * Infectious disease and critical care consult placed Infected stasis ulcer of right lower extremity POA: * Cardiology on board and recommended venous Doppler ultrasound bilaterally to rule out DVT, ultrasound came back negative for DVT bilaterally * Wound care consult placed * We will follow their recommendations for further treatment Acute kidney injury on chronic kidney disease POA: * Placed on daily weight and strict I&O * Stopped fluids * restrict fluid 1.5 L per day Acute on chronic CHF with cardiomyopathy POA: * Cardiology consult placed, who ordered an 2D echo * Cardiology also recommended to hold losartan, start him on Bumex 1 mg b.i.d., Jardiance half tablet 5 mg b.i.d. and continue with Eliquis 5 mg b.i.d. * Follow the recommendations for further treatment UTI, POA: * Patient's urine culture came back positive for Gram-negative rods * Waiting on sensitivity and specificity for further treatment changes We will request case management service We will request labs in am Further orders to follow depending on above results ATTESTATION BY PHYSICIAN I have seen and examined the patient. I reviewed the documentation, medical decision making, and treatment plan as noted by the resident provider above. I agree with the findings and plan of care. Buck Monae MD, ABHINAV MD Jun 24, 2025 10:16
--- NOTE | 2025-06-24 13:55 | HMCSR ---
APPROVED REPORT EXAM: Two-dimensional and M-mode echocardiogram with Doppler and color Doppler. INDICATION ICD: Congestive heart failure 2D Dimensions RVDd4.9 cmLVEF(%)12.9 (>50%)LVED Vol(simp.)223.0 mL IVSd0.9 (0.7-1.1cm)FS(%)6 %LVES Vol(simp.)197.0 mL LVDd6.5 (3.8-5.6cm)LA (2D)5.2 (1.6-4.0cm)LVEF(%, simp.)11 % PWd0.9 (0.7-1.1cm)Ao Root(2D)3.4 (2.0-3.7cm)LA ESV INDEX (BP)36.36 mL/m2 IVSs1.1 cmLVOT diam2.4 (1.8-2.4cm) LVDs6.1 (2.5-4.0cm)IVC diam2.6 cm PWs0.9 cm Deformation Strain Apical 4-2.8 % Apical 2-4.4 % Apical 3-1.3 % Global Strain-2.9 % M-Mode Dimensions EPSS2.0 cm LA (MM)5.1 (1.6-4.0cm) Ao Root(MM)3.4 (2.0-3.7cm) Aortic Valve AoV Vmax0.8 m/Gisela Peak GR2.8 mmHgLVOT Vmax0.4 m/s AoV VTI0.1 mAo Mean GR1.7 mmHgLVOT VTI0.05 m STEVEN (VMAX)2.10 cm2AVA (VTI) 1.8 cm2 Mitral Valve MV E Vmax63.9 cm/sDECEL Cdfc431 ms P 1/2 T29 ms MVA (PHT)7.5 cm2 TDI E/E' Qdpfbr09.9E/E' Ipwglgt03.5 Medial E' Peak V2.29 cm/sLateral E' Peak V5.13 cm/s Pulmonary Valve PV Vmax0.5 m/sPI End Deidra. Jone 151.0 cm/s PV Peak GR1.1 mmHg Tricuspid Valve TR Vmax2.9 m/sRAP (EST) 15 pbKpHSYI68.6 mmHg TR Peak GR36.6 mmHg Left Ventricle The left ventricle is severely dilated. Severely reduced GLS -3.0% Severe global hypokinesis left krystyna tricular wall motion. There is normal left ventricular wall thickness. Severely reduced LVEF is <20%. The left ventricular diastolic function is normal. Right Ventricle The right ventricle is severely dilated. Right ventricular systolic function is severely reduced. Atria The left atrium size is normal. The right atrium is moderately dilated. Aortic Valve Aortic valve is trileaflet, thickened and opens well. Nodular calcification on the right coronary cus p leaflet. No aortic regurgitation is present. There is no aortic valvular stenosis. Mitral Valve The mitral valve is normal in structure. There is trace of mitral valve regurgitation noted. There is no mitral valve stenosis. Tricuspid Valve The tricuspid valve is normal in structure. There is moderate tricuspid valve regurgitation noted by color flow Doppler. RVSP 52mmHg. Pulmonic Valve The pulmonary valve is normal in structure. There is mild pulmonic valvular regurgitation. Great Vessels The aortic root is normal in size. IVC is dilated and collapses <50% with inspiration. Pericardium There is no pericardial effusion. Other Information Quality : Adequate Conclusion The left ventricle is severely dilated. Severely reduced LVEF is <20%. Severely reduced GLS -3.0% Severe global hypokinesis left ventricular wall motion. The right ventricle is severely dilated. Right ventricular systolic function is severely reduced. Aortic valve is trileaflet, thickened and opens well. Nodular calcification on the right coronary cus p leaflet. There is no aortic valvular stenosis. There is trace of mitral valve regurgitation noted. There is moderate tricuspid valve regurgitation noted by color flow Doppler. RVSP 52mmHg. There is mild pulmonic valvular regurgitation.
--- NOTE | 2025-06-24 14:06 | CONS ---
[facility] CONSULTATION NOTE Date Patient Seen: Jun 24, 2025 Time of Visit: 14:04 Supervising Physician: Dr Bri Garcia Reason for Consultation: Medical management Primary Care Physician: [ ] Outpatient Specialists: [ ] Inpatient Consults: [ ] PROBLEM LIST: Severe sepsis HFrEF, severe 20% LVEF Infected stasis ulcer of right lower extremity Acute kidney injury on chronic kidney disease Hyponatremia POA Hypochloremia POA Uncontrolled diabetes POA Hypertension POA Hyperlipidemia POA History of Left lower extremity DVT on Eliquis History of pulmonary embolism HPI: 59 year old male history of hypertension, diabetes, hyperlipidemia, CHF with advanced ischemic cardiomyopathy EF 20% stage 3 CKD multivessel obstructive CAD ,DVT to left leg and pulmonary embolism on chronic Eliquis ,chronic back pain,bilateral lower extremity ulcers and morbid obesity who presents to the ED for complaints of feeling dizzy,shortness of breath and patient has a chronic lower extremity that has ulcers and it has been swollen and oozing fluids.Patient also reports chills and rigors which started today while changing his wound dressing. Cardiology and Infectious Disease have been consulted, along with critical care. Patient's BNP has improved to 851. Patient has no new complaints. Patient started on soft hydration. Cardiology ordered a 2D echo and venous Doppler ultrasound bilaterally to rule out DVT. PAST MEDICAL HX: see above PAST SURGICAL HX: noncontributory SOCIAL HISTORY: No tobacco, ETOH, or illicit drug use Coded Allergies: amoxicillin (Unverified Allergy, Unknown, 12/05/21) REVIEW OF SYSTEMS: 12 point ROS reviewed with patient. Pertinent positives mentioned above. Otherwise negative. PHYSICAL EXAM: GENERAL: alert, weak, awake oriented x 3 HEENT: EOMI, Sclera non icteric, moist mucosa NECK: Supple, no JVD, trachea midline LUNGS: Clear breath sounds bilaterally. No wheezes HEART: Regular rate and rhythm. Normal S1 and S2, without murmurs ABD: Abdomen soft, nontender. Bowel sounds present EXT: No clubbing cyanosis or edema NEURO: Alert and oriented to person, follows commands Vital Signs (last 8hr) Date Time Temp Pulse Resp B/P (MAP) Pulse Ox O2 Delivery O2 Flow Rate FiO2 06/24/25 08:45 98.8 89 18 102/58 99 Nasal Cannula* 2 28 06/24/25 06:50 98 25 98/69 100 Nasal Cannula* 3 32 LABS: Hematology Labs: Test 06/24/25 06:25 06/23/25 01:16 Range/Units White Blood Count 18.4 H 4.8-10.8 K/uL Red Blood Count 4.20 L 4.50-6.20 MIL/uL Hemoglobin 13.7 L 14.0-18.0 g/dL Hematocrit 41.4 L 42-54 % Mean Corpuscular Volume 98.6 79-99 fL Mean Corpuscular Hemoglobin 32.6 27.0-33.0 pg Mean Corpuscular Hemoglobin Concent 33.1 32.0-36.0 g/dL Red Cell Distribution Width 15.7 H 11.0-15.5 % Platelet Count 175 130-400 K/uL Mean Platelet Volume 11.5 H 7.5-10.5 fL Immature Granulocyte % (Auto) 0.7 0-1 % Neutrophils (%) (Auto) 87.0 H 40.0-77.0 % Lymphocytes (%) (Auto) 4.1 L 21.0-51.0 % Monocytes (%) (Auto) 7.8 3.0-13.0 % Eosinophils (%) (Auto) 0.1 0.0-8.0 % Basophils (%) (Auto) 0.3 0.0-5.0 % Neutrophils # (Auto) 16.0 H 1.8-7.7 K/uL Lymphocytes # (Auto) 0.8 L 1.0-4.8 K/uL Monocytes # (Auto) 1.4 H 0.1-1.0 K/uL Eosinophils # (Auto) 0.01 0.00-0.70 K/uL Basophils # (Auto) 0.06 0.00-0.20 K/uL Absolute Immature Granulocyte (auto 0.12 0-1 K/uL Nucleated Red Blood Cells 0.0 0.0-0.19 % White Cell Morphology Comment See comments Chemistry Labs: Test 06/24/25 10:03 06/24/25 06:58 06/24/25 06:25 06/23/25 20:59 Range/Units Lactic Acid Level 2.7 H 0.8-2.5 mmol/L Sodium Level 133 L 136-145 mmol/L Potassium Level 3.7 3.5-5.1 mmol/L Chloride Level 97 L 101-111 mmol/L Carbon Dioxide Level 25 21-32 mmol/L Blood Urea Nitrogen 51 H 7-18 mg/dL Creatinine 1.9 H 0.5-1.3 mg/dL Glomerular Filtration Rate Calc 40 >90 mL/min Random Glucose 128 H 70-105 mg/dL Total Calcium 8.8 8.5-10.1 mg/dL Total Bilirubin 2.1 H 0.2-1.0 mg/dL Aspartate Amino Transf (AST/SGOT) 254 H 10-37 U/L Alanine Aminotransferase (ALT/SGPT) 152 H 12-78 U/L Alkaline Phosphatase 89 50-136 U/L Total Protein 6.5 6.0-8.3 g/dL Albumin 2.9 L 3.5-5.0 g/dL B-Type Natriuretic Peptide 2110 H 0-100 pg/mL Whole Blood Glucose 204 H 70-110 MG/DL Test 06/23/25 06:17 06/23/25 01:16 Range/Units Magnesium Level 1.90 1.80-2.40 mg/dL Procalcitonin 0.48 0.05-0.5 ng/mL Total Creatine Kinase 107 # 21-232 U/L Troponin I High Sensitivity 9 4-75 ng/L DIAGNOSTICS / RADIOLOGY RESULTS: [ ] PLAN Follow cardiology recs Wound care Antibiotics Follow I&Os, continue diuresis, repeat labs, Follow pending ultrasound follow echocardiogram NEURO: Minimize central acting medications as possible. Fall Precautions. Well lighted room through the day and minimize interruptions through the night to prevent acute delirium. PULMONARY: Supplemental 02 as needed Titrate Fio2 to keep Spo2 > or = 90% DuoNebs and CPT as needed IS hourly while awake for pulmonary hygiene Out of bed to chair as tolerated VAP Bundle Vent/BIPAP Settings: [ ] Driving pressure: [ ] P Plat: [ ] Static C: [ ] Static R: [ ] P/F Ratio: [ ] CARDIOVASCULAR: Follow hemodynamics. Titrate vasopressor to keep MAP >65 or systolic blood pressure >95mmHg DIPS: [ ] LINES: [ ] GI & NUTRITION: Continue nutritional support Aspirations precautions Prokinetic agents and laxatives as needed KIDNEYS & ELECTROLYTES: Strict monitoring of intake and output Daily weights Avoid nephrotoxic agents Monitor electrolytes and replace as needed Goal urine output of 30mL/hr or 0.5mL/kg/hr Urine output: [ ] Fluid Balance: [ ] ENDOCRINE: Maintain blood glucose between 100-180 at all times. Insulin sliding scale for blood glucose management INFECTIOUS DISEASE: Trend temperature. Leigh-culture if febrile. Micro: [ ] Antibiotics: [ ] HEMATOLOGY & COAGULATION: Monitor H&H. Keep Hgb > 7 Transfuse 1 unit of PRBC for Hgb < 7 Transfuse 1 pack of platelets of platelets < 20, 000 Watch for any signs and symptoms of bleeding SKIN: Pressure ulcer prevention per facility protocol Rehab: PT/OT Prophylaxis: GI: [ ] DVT: [ ] Code Status: Full Resuscitation Disposition: [ ] Other: Total patient care time exceeds 35 minutes excluding all procedures. Case was discussed and seen with my supervising physician. The above plan was formulated and agreed upon. BRIA LEWIS Jun 24, 2025 14:06
[2025-06-24] MEDS: DOXYCYCLINE 100MG+NS 250ML 250 ML IV SCH (16:37)
--- NOTE | 2025-06-24 17:44 | PN ---
[facility] CARDIOLOGY PROGRESS NOTE Date Patient Seen: Jun 24, 2025 Time of Visit: 17:42 Interval History: [ LA and WBC improved] Physical Examination: GENERAL: [No acute distress.] HEAD: [Normal with no signs of head trauma.] EYES: [PERRLA, EOMI, conjunctiva and sclera normal.] ENT: [Hearing grossly intact, normal oropharynx.] NECK: [Supple without JVD. There is no tenderness, lymphadenopathy, or masses. No thyromegaly. Normal carotid upstrokes without bruits.] LUNGS: [Clear breath sounds bilaterally. There are right basilar rales one third of the way up the chest. No wheezes, or rhonchi.] HEART: [Normal rate and rhythm. Normal S1 and S2 without mumurs, gallop or rub.] VASC: [Peripheral pulses +2 bilaterally.] ABD: [Bowel sounds normal, soft, nontender, no masses, no organomegaly. No audible bruits.] : [Not examined] LYMPH: [No lymphadenopathy noted.] EXT: [bilateral lower extremity edema, stable wounds.] NEURO: [Awake, alert, and oriented x3. No focal sensory or strength deficits noted.] Laboratory: [ ] Hematology Labs: Test 06/24/25 06:25 06/23/25 01:16 Range/Units White Blood Count 18.4 H 4.8-10.8 K/uL Red Blood Count 4.20 L 4.50-6.20 MIL/uL Hemoglobin 13.7 L 14.0-18.0 g/dL Hematocrit 41.4 L 42-54 % Mean Corpuscular Volume 98.6 79-99 fL Mean Corpuscular Hemoglobin 32.6 27.0-33.0 pg Mean Corpuscular Hemoglobin Concent 33.1 32.0-36.0 g/dL Red Cell Distribution Width 15.7 H 11.0-15.5 % Platelet Count 175 130-400 K/uL Mean Platelet Volume 11.5 H 7.5-10.5 fL Immature Granulocyte % (Auto) 0.7 0-1 % Neutrophils (%) (Auto) 87.0 H 40.0-77.0 % Lymphocytes (%) (Auto) 4.1 L 21.0-51.0 % Monocytes (%) (Auto) 7.8 3.0-13.0 % Eosinophils (%) (Auto) 0.1 0.0-8.0 % Basophils (%) (Auto) 0.3 0.0-5.0 % Neutrophils # (Auto) 16.0 H 1.8-7.7 K/uL Lymphocytes # (Auto) 0.8 L 1.0-4.8 K/uL Monocytes # (Auto) 1.4 H 0.1-1.0 K/uL Eosinophils # (Auto) 0.01 0.00-0.70 K/uL Basophils # (Auto) 0.06 0.00-0.20 K/uL Absolute Immature Granulocyte (auto 0.12 0-1 K/uL Nucleated Red Blood Cells 0.0 0.0-0.19 % White Cell Morphology Comment See comments Chemistry Labs: Test 06/24/25 16:53 06/24/25 10:03 06/24/25 06:58 06/24/25 06:25 Range/Units Whole Blood Glucose 163 H 70-110 MG/DL Lactic Acid Level 2.7 H 0.8-2.5 mmol/L Sodium Level 133 L 136-145 mmol/L Potassium Level 3.7 3.5-5.1 mmol/L Chloride Level 97 L 101-111 mmol/L Carbon Dioxide Level 25 21-32 mmol/L Blood Urea Nitrogen 51 H 7-18 mg/dL Creatinine 1.9 H 0.5-1.3 mg/dL Glomerular Filtration Rate Calc 40 >90 mL/min Random Glucose 128 H 70-105 mg/dL Total Calcium 8.8 8.5-10.1 mg/dL Total Bilirubin 2.1 H 0.2-1.0 mg/dL Aspartate Amino Transf (AST/SGOT) 254 H 10-37 U/L Alanine Aminotransferase (ALT/SGPT) 152 H 12-78 U/L Alkaline Phosphatase 89 50-136 U/L Total Protein 6.5 6.0-8.3 g/dL Albumin 2.9 L 3.5-5.0 g/dL B-Type Natriuretic Peptide 2110 H 0-100 pg/mL Test 06/23/25 06:17 06/23/25 01:16 Range/Units Magnesium Level 1.90 1.80-2.40 mg/dL Procalcitonin 0.48 0.05-0.5 ng/mL Total Creatine Kinase 107 # 21-232 U/L Troponin I High Sensitivity 9 4-75 ng/L Diagnostics / Radiology: [Copy/Paste Echos/Imaging Report here] Impression and Plan: [#RLE edema and pain -venous US negative for DVT #Leukocytosis -recently recovered from two sinus infections -F/u urine Cx -f/u wound cx -consider imaging of spine given ongoing lower back pain -agree with IVF 50 cc/hr #End stage heart failure 20% LVEF due to Ischemic CM not amendable to PCI -hold losartan -bumex 1 mg bid, jardiance 1/2 tablet 5 mg bid -BNP 847 02/2025, now it is 851, stable -2d echo with severe BiV failure #H/o PE -c/w eliquis 5 mg bid Lindy Cartwright MD] ] LINDY CARTWRIGHT MD Jun 24, 2025 17:44
[2025-06-24] MEDS: EMPAGLIFLOZIN 10MG TABLET PO SCH (21:13)
[2025-06-24 22:54] VITALS: BP 134/77; PULSE 102; RESP 18; TEMP 98.4
[2025-06-24 23:00] VITALS: O2SAT 98
--- NOTE | 2025-06-25 | HMCIMG ---
EXAM: CR Chest, single view CLINICAL HISTORY: PP COMPARISON: Prior chest radiograph dated June 23, 2025. FINDINGS: The lungs show no infiltrate or other acute findings. No pleural effusion or pneumothorax. Borderline cardiomegaly. No acute osseous abnormality. IMPRESSION: Borderline cardiomegaly. No acute infiltrates or effusion. Compared to the prior study, there is no significant interval change. /[place]
[2025-06-25 03:30] VITALS: BP 107/57; PULSE 93; RESP 18; TEMP 98.1
[2025-06-25 04:18] LABS: IMMATURE GRANULOCYTE ABSOLUTE 0.16 K/uL (0-1); NUCLEATED RED BLOOD CELLS 0.0 % (0.0-0.19); PLATELET COUNT (AUTO) 191 K/uL (130-400); RED BLOOD CELL COUNT(AUTO) 4.45 MIL/uL (4.50-6.20); RED CELL DISTRIBUTION WIDTH 15.4 % (11.0-15.5); WHITE BLOOD COUNT (AUTO) 16.2 K/uL (4.8-10.8)
[2025-06-25 04:27] LABS: ASPARTATE AMINOTRANSFERASE 367.0 U/L (10-37); CREATININE 2.0 mg/dL (0.5-1.3); GLOMERULAR FILTR. RATE CALC 37.0 mL/min (>90); GLUCOSE,RANDOM 155.0 mg/dL (70-105); SODIUM SERUM 134.0 mmol/L (136-145); TOTAL PROTEIN, SERUM 7.1 g/dL (6.0-8.3); UREA NITROGEN, BLOOD 57.0 mg/dL (7-18)
--- NOTE | 2025-06-25 07:43 | CONS ---
INFECTIOUS DISEASE CONSULTATION NOTE DATE OF SERVICE: 06/24/2025. REQUESTING PHYSICIAN: Vidya Rush NP. REASON FOR CONSULTATION: Sepsis and leg ulcer. HISTORY OF PRESENT ILLNESS: This is a 59-year-old male with history of hypertension, diabetes mellitus, CHF, ischemic cardiomyopathy and chronic kidney disease, who presented to the hospital with shortness of breath, fever, and bilateral leg swelling. The patient's symptoms started suddenly. The patient has a history of ischemic cardiomyopathy with EF of about 20%. The patient also complains of chills and fever. T-max in the Emergency Room was 102. BP was 97/79. No sick contact, no recent travel. No dysuria. No diarrhea. No abdominal pain. No bleeding tendencies. No rashes. PAST MEDICAL HISTORY: * Hypertension. * Diabetes mellitus. * Dyslipidemia. * CHF. * Ischemic cardiomyopathy. * Chronic kidney disease. * Coronary artery disease. * Left pulmonary embolism. * Obesity. * DVT. PAST SURGICAL HISTORY: * Cholecystectomy. * Cataract surgery. * Right second toe amputation. ALLERGIES: AMOXICILLIN. CURRENT MEDICATIONS: Reviewed, include: * Vancomycin. * Cefepime. * Bumex. * Eliquis. * Toprol. * Insulin. * Tylenol. SOCIAL HISTORY: No alcohol, tobacco, or illicit drug use. FAMILY HISTORY: Positive for diabetes mellitus. REVIEW OF SYSTEMS: Greater than 10 systems were reviewed, negative except as documented above. PHYSICAL EXAMINATION: GENERAL: Elderly male, awake. VITAL SIGNS: Temperature 98.8, pulse 80, respiratory rate 18, BP 102/58. EYES: No icterus. Pupils equal and reactive. HENT: No oral thrush seen. Moist oral mucosa. NECK: Supple. No JVD or thyromegaly. LUNGS: Good air entry. Few crackles bilaterally. CARDIOVASCULAR SYSTEM: S1 and S2, regular. No murmur heard. ABDOMEN: Obese, soft, nontender. Bowel sound is present. CENTRAL NERVOUS SYSTEM: Awake, alert, oriented x 3. No focal deficits. SKIN: No rashes. No itchiness. LYMPHATIC: No peripheral lymphadenopathy. BACK: No deformity. No pressure ulcer. EXTREMITIES: Ulcer involving both lower legs with some drainage. HEMATOLOGIC: No bleeding or petechial lesions present. LABORATORY DATA: WBC 18.5, hemoglobin 13.7, platelets 175. Sodium 132, potassium 3.7, BUN 51, creatinine 1.9. Urinalysis negative. Influenza antigen negative. Blood culture, no growth for one day. RADIOLOGY: Chest x-ray unremarkable. show no venous thrombosis. ASSESSMENT: A 59-year-old male admitted with fever and swelling of the leg. CURRENT PROBLEMS: Include: * Severe sepsis. * Left leg ulcer. * Right leg ulcer. * Bilateral lower extremities cellulitis. * Hypoxemic respiratory failure. * Acute on chronic heart failure. * Debility. PLAN: * Continue vancomycin. * Continue wound care. * Continue pain management. * Continue nutritional support. * Monitor electrolyte. * Continue DVT prophylaxis. * Followup culture. * Continue Eliquis. * Monitor renal function. * The patient will be followed up closely. Thank you for allowing me to participate in the care of this patient. TID: [id number] RECEIPT: [id number]
[2025-06-25 07:53] VITALS: BP 107/81; PULSE 90; RESP 20; TEMP 97.8
[2025-06-25 08:00] VITALS: O2SAT 99
--- NOTE | 2025-06-25 08:07 | PN ---
[facility] CARDIOLOGY PROGRESS NOTE Date Patient Seen: Jun 25, 2025 Time of Visit: 08:05 Interval History: [ LA and WBC improved] Physical Examination: GENERAL: [No acute distress.] HEAD: [Normal with no signs of head trauma.] EYES: [PERRLA, EOMI, conjunctiva and sclera normal.] ENT: [Hearing grossly intact, normal oropharynx.] NECK: [Supple without JVD. There is no tenderness, lymphadenopathy, or masses. No thyromegaly. Normal carotid upstrokes without bruits.] LUNGS: [Clear breath sounds bilaterally. There are right basilar rales one third of the way up the chest. No wheezes, or rhonchi.] HEART: [Normal rate and rhythm. Normal S1 and S2 without mumurs, gallop or rub.] VASC: [Peripheral pulses +2 bilaterally.] ABD: [Bowel sounds normal, soft, nontender, no masses, no organomegaly. No audible bruits.] : [Not examined] LYMPH: [No lymphadenopathy noted.] EXT: [bilateral lower extremity edema, stable wounds.] NEURO: [Awake, alert, and oriented x3. No focal sensory or strength deficits noted.] Laboratory: [ ] Hematology Labs: Test 06/25/25 03:41 Range/Units White Blood Count 16.2 H 4.8-10.8 K/uL Red Blood Count 4.45 L 4.50-6.20 MIL/uL Hemoglobin 14.5 14.0-18.0 g/dL Hematocrit 44.8 42-54 % Mean Corpuscular Volume 100.7 H 79-99 fL Mean Corpuscular Hemoglobin 32.6 27.0-33.0 pg Mean Corpuscular Hemoglobin Concent 32.4 32.0-36.0 g/dL Red Cell Distribution Width 15.4 11.0-15.5 % Platelet Count 191 130-400 K/uL Mean Platelet Volume 11.3 H 7.5-10.5 fL Immature Granulocyte % (Auto) 1.0 0-1 % Neutrophils (%) (Auto) 82.6 H 40.0-77.0 % Lymphocytes (%) (Auto) 6.2 L 21.0-51.0 % Monocytes (%) (Auto) 9.6 3.0-13.0 % Eosinophils (%) (Auto) 0.2 0.0-8.0 % Basophils (%) (Auto) 0.4 0.0-5.0 % Neutrophils # (Auto) 13.4 H 1.8-7.7 K/uL Lymphocytes # (Auto) 1.0 1.0-4.8 K/uL Monocytes # (Auto) 1.6 H 0.1-1.0 K/uL Eosinophils # (Auto) 0.04 0.00-0.70 K/uL Basophils # (Auto) 0.07 0.00-0.20 K/uL Absolute Immature Granulocyte (auto 0.16 0-1 K/uL Nucleated Red Blood Cells 0.0 0.0-0.19 % Chemistry Labs: Test 06/25/25 05:19 06/25/25 03:41 06/24/25 10:03 06/24/25 06:25 Range/Units Whole Blood Glucose 160 H 70-110 MG/DL Sodium Level 134 L 136-145 mmol/L Potassium Level 3.6 3.5-5.1 mmol/L Chloride Level 97 L 101-111 mmol/L Carbon Dioxide Level 24 21-32 mmol/L Blood Urea Nitrogen 57 H 7-18 mg/dL Creatinine 2.0 H 0.5-1.3 mg/dL Glomerular Filtration Rate Calc 37 >90 mL/min Random Glucose 155 H 70-105 mg/dL Total Calcium 9.2 8.5-10.1 mg/dL Total Bilirubin 2.0 H 0.2-1.0 mg/dL Aspartate Amino Transf (AST/SGOT) 367 H 10-37 U/L Alanine Aminotransferase (ALT/SGPT) 302 #H 12-78 U/L Alkaline Phosphatase 142 #H 50-136 U/L Total Protein 7.1 6.0-8.3 g/dL Albumin 3.1 L 3.5-5.0 g/dL Lactic Acid Level 2.7 H 0.8-2.5 mmol/L B-Type Natriuretic Peptide 2110 H 0-100 pg/mL Diagnostics / Radiology: [Copy/Paste Echos/Imaging Report here] Impression and Plan: [#RLE edema and pain -venous US negative for DVT #Leukocytosis -recently recovered from two sinus infections -+ urine Cx Klebsiella, ID following -f/u wound cx -agree with IVF 50 cc/hr #End stage heart failure 20% LVEF due to Ischemic CM not amendable to PCI -hold losartan -bumex 1 mg bid, jardiance 1/2 tablet 5 mg bid, metoprolol succ 25 mg qd -BNP 847 02/2025, now it is 851, stable -2d echo with severe BiV failure #H/o PE -c/w eliquis 5 mg bid Lindy Cartwright MD] ] LINDY CARTWRIGHT MD Jun 25, 2025 08:07
[2025-06-25] MEDS ORDERED: BUMETANIDE 1MG/4ML VIAL IVP SCH (09:00)
[2025-06-25] MEDS: BUMETANIDE 1MG/4ML VIAL IVP SCH (09:01)
[2025-06-25] MEDS: MULTIVITAMIN TABLET PO SCH (09:01)
[2025-06-25 12:00] VITALS: BP 111/83; PULSE 66; RESP 20; TEMP 97.8
--- NOTE | 2025-06-25 12:50 | PN ---
[facility] PROGRESS NOTE Date of Service: Jun 25, 2025 Time of Service: 12:50 SUBJECTIVE: This is a 59 year old male,a reliable historian with pasat medical history of hypertension, diabetes, hyperlipidemia, CHF with advanced ischemic cardiomyopathy EF 20% stage 3 CKD multivessel obstructive CAD ,DVT to left leg and pulmonary embolism on chronic Eliquis ,chronic back pain,bilateral lower extremity ulcers and morbid obesity who presents to the ED for complaints of feeling dizzy,shortness of breath and patient has a chronic lower extremity that has ulcers and it has been swollen and oozing fluids.Patient also reports chills and rigors which started today while changing his wound dressing and he first though he was having parkinson's tremors so he decided to come to the ED for evaluation.Patient states he was fairly doing fine unitl 8 days ago last Sunday he stopped taking his Spironolactone and Losartan because it was discontinued byher his edi coordinator due to severe hyperkalemia .Patient reports he was seen by a edi coordinator from [facility] by the name of and he told the edi coordinator that he is not voiding much than what he used to ,before he approximately voided 1600 and now it is only 500 and he noticed that his legs are becoming swollen ever since he stopped taking his Spironolactone and Losartan he feels he is gaining more weight and he was advised to take a dose of Spironolactone for today and he did after a few hours he said he felt dizzy and lightheaded and as he was changing his wound dressing he feels the chills and rigors so he decided to come to the ED for evaluation.Upon ER arrival V/SA T102.4,HR 128,BP 122/87 Sat 100% RA RR 24.ECG result revealed Sinus ectopic or atrial Tachycardia HR 120 Prob left atrial enlargement,inferior infarct old,anterior infarct old,nonspecific T abnormalities ,lateral leads prolonged QT interval. Seen and examined patient in the ER awake,alert and coherent,appears comfortable,in no apparent distress.Patient denies cough,shortness of breath,chest pain,palpitation,abdominal pain,nausea,vomiting and syncope.Labs WBC 20 with negative left shift of neutrophils 88,Hgb 15,Hct 45,platelet 209.Na 135,K4.6,K4.6,Chloride 96,BUN47,Creat 1.9,GFR 40,Glucose 174 ,lactic acid 6.3,BNP 1550.Urinalysis remarkable for protein 30,glucose more than 1000,small hematuria and urine RBC 2-5 .Serology test for influenza Type A&B negative SARS COV_2 negative and Group A strep negative.CXR result revealed interval development of mild cardiomegaly.No acute infiltrate ,effusion or pneumothorax.While in the ER patient received Fluid resuscitation of 30ml/kg over 3 hours ,Tylenol 1000 mg po,Morphine 4mg IV, Cefepime and Vancomycin IV.Will admit patient for further medical management. 06/23/25: Patient is seen at bedside in ER 5. Patient denies cough, chest pain, palpitation, abdominal pain, chills. Patient is started on nasal cannula due to shortness of breath. Patient's remaining vitals stable with temperature at 98.4, pulse at 98, respiratory rate of 22, blood pressure 109/79. Patient's labs showed an increase in WBC to 24.5, hemoglobin at 13.9, sodium at 135, lactic acid improved to 4.3. Continue the patient on vancomycin and cefepime IV. Cardiology and Infectious Disease have been consulted, along with critical care. Patient's BNP has improved to 851. Patient has no new complaints. Patient started on soft hydration. Cardiology ordered a 2D echo and venous Doppler ultrasound bilaterally to rule out DVT. 06/24/25: Patient is seen at bedside in ER 5. Patient is doing much better, off of nasal cannula and breathing room air. Patient denies cough, chest pain, palpitations, abdominal pain, chills. Patient's temperature currently at 98.8, pulse at 89 respiratory rate at 18, blood pressure 102/58. Patient's labs have improved with his WBC trending down to 18.4, his creatinine remains around 1.9, his lactic acid has trended down to 2.7. He does have an increase in his liver function tests with AST going up to 254 and ALT increasing to 152. His BNP has also increased to to 2110. Cardiology recommended to hold losartan, start him on Bumex 1 mg b.i.d., Jardiance half tablet 5 mg b.i.d. and continue with Eliquis 5 mg b.i.d. His venous Doppler study showed no DVTs bilaterally. Patient's urine culture came back positive for Gram-negative rods, going to wait for specificity and sensitivity to change his medication. He is currently on vancomycin and cefepime. 06/25/25: Patient is seen at bedside now in room 227. Patient is seen by infectious disease doctor who recommended to continue vancomycin follow up with wound culture. Cardiology increase the patient's Bumex to t.i.d. patient's lactic acid remained at 2.7 His BNP increased to 2206. An ankle-brachial index test has been ordered. Patient's urine culture showed Klebsiella pneumoniae sensitive to most antibiotics. His preliminary wound care results show Gram- negative rods. Blood culture still no growth after 48 hours. Continuing the patient's vancomycin and cefepime. Patient's WBC went down to 16.2 today. He continues to have an increase in his liver function tests with AST going up to 367 and ALT increasing to 302. His alkaline phosphatase also increased to 142 today. We will keep an eye on his liver functions. REVIEW OF SYSTEMS CONSTITUTIONAL: Denies chills, fever and night sweats. unintentional weight gain reported. Complains of back pain which is chronic NEUROLOGICAL: Denies headache, gait abnormalities, or tremors. ENT: No hearing loss, otalgia, otorrhea, rhinitis, rhinorrhea, hoarseness, or sore throat. CARDIOVASCULAR: dyspnea on exertion, orthopnea, paroxysmal nocturnal dyspnea. Denies any exertional angina, palpitations, life-threatening arrhythmias. PULMONARY: Shortness of breath improved. denies cough, phlegm/sputum, hemoptysis, pleuritic chest pain. GASTROINTESTINAL: Denies any type of dysphagia to either liquids or solids. Denies nausea, vomiting, abdominal pain, diarrhea, constipation, or changes in stool consistency or caliber. GENITOURINARY: Denies frequency, urgency, nocturia, hematuria or incontinence ENDOCRINOLOGIC: Denies polyuria, polydipsia, polyphagia or heat/cold intolerances. ONCOLOGIC: Denies personal history of malignancy. DERMATOLOGIC: chronic wound ulcer to right lower extremity Denies rashes or pruritus. PHYSICAL EXAM GENERAL APPEARANCE: The patient is awake, alert, and oriented, in no acute cardiopulmonary distress. NEUROLOGICAL: Cranial nerves II-XII grossly intact. Motor is 5/5 in bilateral upper and lower extremities proximal to distal. No sensory deficits. HEENT: Face is symmetric. Pupils are equal and reactive. Extraocular movements are intact. NECK: Supple. No JVD. No thyromegaly. No submental, submandibular, pre- /postauricular, occipital or supraclavicular lymphadenopathy. CHEST: Normal chest expansion. No Telemetry. LUNGS: Sound clear CARDIOVASCULAR: Tachycardic improved Regular. S1 and S2 normal. No appreciable rubs, murmurs or gallops. ABDOMEN: Soft, nontender, and nondistended. There is no rebound, voluntary guarding, or rigidity. : Deferred. No Strat[place]. EXTREMITIES: 2+edema to bilateral lower extremities SKIN: Draining Wound ulcers to right lower extremity Vital Signs (last 8hr) Date Time Temp Pulse Resp B/P (MAP) Pulse Ox O2 Delivery O2 Flow Rate FiO2 06/25/25 12:00 97.9 66 20 111/83 98 Room Air 06/25/25 07:53 97.9 90 20 107/81 99 Room Air LABS: Laboratory: Test 06/25/25 11:52 06/25/25 09:10 06/25/25 03:41 Range/Units Whole Blood Glucose 193 H 70-110 MG/DL Lactic Acid Level 2.7 H 0.8-2.5 mmol/L White Blood Count 16.2 H 4.8-10.8 K/uL Red Blood Count 4.45 L 4.50-6.20 MIL/uL Hemoglobin 14.5 14.0-18.0 g/dL Hematocrit 44.8 42-54 % Mean Corpuscular Volume 100.7 H 79-99 fL Mean Corpuscular Hemoglobin 32.6 27.0-33.0 pg Mean Corpuscular Hemoglobin Concent 32.4 32.0-36.0 g/dL Red Cell Distribution Width 15.4 11.0-15.5 % Platelet Count 191 130-400 K/uL Mean Platelet Volume 11.3 H 7.5-10.5 fL Immature Granulocyte % (Auto) 1.0 0-1 % Neutrophils (%) (Auto) 82.6 H 40.0-77.0 % Lymphocytes (%) (Auto) 6.2 L 21.0-51.0 % Monocytes (%) (Auto) 9.6 3.0-13.0 % Eosinophils (%) (Auto) 0.2 0.0-8.0 % Basophils (%) (Auto) 0.4 0.0-5.0 % Neutrophils # (Auto) 13.4 H 1.8-7.7 K/uL Lymphocytes # (Auto) 1.0 1.0-4.8 K/uL Monocytes # (Auto) 1.6 H 0.1-1.0 K/uL Eosinophils # (Auto) 0.04 0.00-0.70 K/uL Basophils # (Auto) 0.07 0.00-0.20 K/uL Absolute Immature Granulocyte (auto 0.16 0-1 K/uL Nucleated Red Blood Cells 0.0 0.0-0.19 % Sodium Level 134 L 136-145 mmol/L Potassium Level 3.6 3.5-5.1 mmol/L Chloride Level 97 L 101-111 mmol/L Carbon Dioxide Level 24 21-32 mmol/L Blood Urea Nitrogen 57 H 7-18 mg/dL Creatinine 2.0 H 0.5-1.3 mg/dL Glomerular Filtration Rate Calc 37 >90 mL/min Random Glucose 155 H 70-105 mg/dL Total Calcium 9.2 8.5-10.1 mg/dL Total Bilirubin 2.0 H 0.2-1.0 mg/dL Aspartate Amino Transf (AST/SGOT) 367 H 10-37 U/L Alanine Aminotransferase (ALT/SGPT) 302 #H 12-78 U/L Alkaline Phosphatase 142 #H 50-136 U/L B-Type Natriuretic Peptide 2200 H 0-100 pg/mL Total Protein 7.1 6.0-8.3 g/dL Albumin 3.1 L 3.5-5.0 g/dL Current Medications Medications (Trade) Dose Ordered Sig/Da Route PRN Reason Start Time Stop Time Status Last Admin Dose Admin Acetaminophen (TYLenol 325MG TAB) 650 mg Q4H PRN PO MILD PAIN (1-3) 06/23/25 03:30 07/23/25 03:29 Acetaminophen (TYLenol 325MG TAB) 650 mg Q6H PRN PO TEMPERATURE GREATER THAN 101.5 06/23/25 03:30 07/23/25 03:29 Apixaban (EliquIS) 5 mg BID PO 06/23/25 09:00 07/23/25 08:59 06/25/25 09:01 5 MG Bumetanide (Bumex 1mg Tab) 1 mg BID PO 06/23/25 09:00 06/25/25 08:32 DC 06/24/25 21:13 1 MG Bumetanide (Bumex 1mg Vial) 1 mg BID IVP 06/25/25 09:00 06/25/25 08:41 DC Bumetanide (Bumex 1mg Vial) 1 mg TID IVP 06/25/25 09:00 07/25/25 08:59 06/25/25 09:01 1 MG Cefepime HCl (MAXipime 1 GM vial) 1 gm ONCE IVPB 06/23/25 02:00 06/23/25 04:01 DC 06/23/25 02:19 1 GM Cefepime HCl (MAXipime 1 GM vial) 1 gm Q12H IVPB 06/23/25 10:00 07/03/25 09:59 06/25/25 09:02 1 GM Dextrose (D50w) 50 ml AD PRN IV HYPOGLYCEMIA PROTOCOL 06/23/25 03:30 07/23/25 03:29 Dobutamine HCl/ Dextrose 250 ml @ 0 mls/hr PROTOCOL IV 06/24/25 16:00 07/24/25 15:59 Doxycycline Hyclate 250 ml @ 125 mls/hr Q12H IV 06/24/25 16:00 07/04/25 15:59 06/25/25 03:32 125 MLS/HR Empaglifozin (Jardiance 10mg) 5 mg BID PO 06/24/25 21:00 07/24/25 20:59 06/25/25 09:01 5 MG Famotidine (Pepcid 20mg Tab) 20 mg DAILY PO 06/23/25 09:00 07/23/25 08:59 06/25/25 09:01 20 MG Glucagon (Glucagon 1mg Kit) 1 mg AD PRN IM HYPOGLYCEMIA PROTOCOL 06/23/25 03:30 07/23/25 03:29 Insulin Human Regular (humuLIN R 100 UNIT/ML 3ML) INSULIN SLIDING SCAL... ACHS SQ 06/23/25 07:30 07/23/25 07:29 06/25/25 12:18 2 UNIT Leptospermum Honey ([facility]) 1 APPL DAILY17 TP 06/23/25 17:00 07/23/25 16:59 06/24/25 17:15 1 APPL Magnesium Sulfate 50 ml @ 0 mls/hr PROTOCOL PRN IV OTHER [SEE ORDER COMMENTS] 06/23/25 03:30 07/23/25 03:29 Metoprolol Succinate (TopROL XL) 25 mg DAILY PO 06/23/25 09:00 07/23/25 08:59 06/25/25 09:01 25 MG Morphine Sulfate (morPHINE 2MG SYG) 2 mg Q6H6 PRN IVP PAIN LEVEL 7 TO 10 06/23/25 11:00 06/30/25 10:59 06/24/25 16:03 2 MG Multivitamins Therapeutic (Multivitamin Tablet) 1 tab DAILY PO 06/25/25 09:00 07/25/25 08:59 06/25/25 09:01 1 TAB Mupirocin (Bactroban Oint) apply to bilateral lo... DAILY17 TP 06/23/25 17:00 07/23/25 16:59 06/24/25 17:15 1 APPL Ondansetron HCl (zoFRAN 4MG INJ) 4 mg Q6H PRN IV NAUSEA/VOMITING 06/23/25 03:30 07/23/25 03:29 Oxycodone HCl (ROXicoDONE) 10 mg Q8H PRN PO SEVERE PAIN (7-10) 06/25/25 11:00 06/30/25 10:59 06/25/25 11:47 10 MG Potassium Chloride 100 ml @ 100 mls/hr AD PRN IV POTASSIUM PROTOCOL 06/23/25 03:30 07/23/25 03:29 Potassium Chloride (K-Dur/Klor-Con 20meq) 20 meq AD PRN PO POTASSIUM PROTOCOL 06/23/25 03:30 07/23/25 03:29 Potassium Chloride (KCl 10% Elixir 20meq/15ml) 20 meq AD PRN PO POTASSIUM PROTOCOL 06/23/25 03:30 07/23/25 03:29 Sodium Chloride 1,000 ml @ 50 mls/hr Q20H IV 06/23/25 17:30 06/24/25 09:35 DC 06/23/25 17:19 50 MLS/HR Vancomycin HCl 250 ml @ 125 mls/hr ONCE IV 06/23/25 03:30 06/23/25 03:44 DC Vancomycin HCl 250 ml @ 125 mls/hr Q24H IV 06/24/25 05:00 07/04/25 04:59 06/25/25 05:21 125 MLS/HR DIAGNOSTICS / RADIOLOGY: [place] [id number] [address] IMAGING REPORT Signed PATIENT: LILI HUFF MR#: [id number] : 1965 SEX: M AGE: 59 LOCATION: 2DH ORDER 2300 STATUS: ADM IN REPORT#: [id number] SERVICE 0600 REASON: pp ORDERING PHYSICIAN: BRIA LEWIS PROCEDURE: CXR1VW - CHEST 1VW CHEST 1VW REASON: pp COMPARISON: Radiograph from 06/24/2025 is available. FINDINGS: Single view of the chest was obtained. Lungs are clear there is mild global cardiomegaly which is unchanged from prior study.. There is no pulmonary vascular congestion. Mediastinum and bony thorax appear unremarkable. IMPRESSION: 1. Mild global cardiomegaly 2. No evidence of airspace consolidation or pulmonary venous congestion DICTATED BY: MIRYAM HOSKINS MD DATE: 06/25/251544 ELECTRONICALLY SIGNED BY: MIRYAM HOSKINS MD DATE: 06/25/251548 ASSESSMENT: Severe sepsis POA UTI, POA Infected stasis ulcer of right lower extremity POA Acute kidney injury on chronic kidney disease POA Acute on chronic systolic CHF with cardiomyopathy POA Acute leukocytosis POA Lactic Acidosis POA Hyponatremia POA Hypochloremia POA Transaminases elevated Uncontrolled diabetes POA Hypertension POA Hyperlipidemia POA History of Left lower extremity DVT on Eliquis POA History of pulmonary embolism on chronic anticoaguylation POA PLAN: Severe sepsis POA: * Patient started on vancomycin and cefepime * Patient's lactic acid trending down at 2.7 * We will follow up blood culture and urine culture result, initial urine culture shows Gram-negative rods, we will wait for sensitivity and specificity to change medication * Infectious disease and critical care consult placed Infected stasis ulcer of right lower extremity POA: * Cardiology on board and recommended venous Doppler ultrasound bilaterally to rule out DVT, ultrasound came back negative for DVT bilaterally * Wound care consult placed * We will follow their recommendations for further treatment Acute kidney injury on chronic kidney disease POA: * Placed on daily weight and strict I&O * Stopped fluids * restrict fluid 1.5 L per day Acute on chronic systolic CHF with cardiomyopathy POA: * Cardiology consult placed, who ordered an 2D echo which showed severely reduced LVEF of less than 20% * Cardiology also recommended to hold losartan, start him on Bumex 1 mg b.i.d., Jardiance half tablet 5 mg b.i.d. and continue with Eliquis 5 mg b.i.d. increased the frequency of Bumex to t.i.d. * Follow the recommendations for further treatment UTI, POA: * Patient's urine culture came back positive for Gram-negative rods * Sensitivity and specificity showed Klebsiella pneumoniae sensitive to most antibiotics * Continuing the patient on vancomycin and cefepime We will request labs in am Further orders to follow depending on above results ATTESTATION BY PHYSICIAN I have seen and examined the patient. I reviewed the documentation, medical decision making, and treatment plan as noted by the resident provider above. I a gree with the findings and plan of care. Buck Monae MD, ABHINAV MD Jun 25, 2025 12:50
--- NOTE | 2025-06-25 15:49 | HMCIMG ---
CHEST 1VW REASON: pp COMPARISON: Radiograph from 06/24/2025 is available. FINDINGS: Single view of the chest was obtained. Lungs are clear there is mild global cardiomegaly which is unchanged from prior study.. There is no pulmonary vascular congestion. Mediastinum and bony thorax appear unremarkable. IMPRESSION: 1. Mild global cardiomegaly 2. No evidence of airspace consolidation or pulmonary venous congestion
[2025-06-25 16:00] VITALS: BP 109/75; PULSE 65; RESP 20; TEMP 98.7
--- NOTE | 2025-06-25 17:51 | PN ---
INFECTIOUS DISEASE PROGRESS NOTE Date of Service: Jun 25, 2025 SUBJECTIVE: This is a 59-year-old male patient with a history of congestive heart failure with advanced ischemic cardiomyopathy with EF of 20%, multivessel CAD, chronic back pain, DVT to the left lower extremity and pulmonary embolism who presented to the hospital with chief complaint of dizziness, shortness of breaths and chronic lower extremity ulcers with swelling. Patient was found with a fever of 102.4, a WBC of 20.1 and a lactic acid of 6.3. The BNP was elevated at 1550. Patient is currently on Bumex. Patient is saturating 98% on room air. The right lower extremity preliminary wound cultures is growing Gram-negative rods. No fever today, temperature is 97.9 and the WBC is still slightly elevated at 16.2. We will follow up on the final culture results. PHYSICAL EXAM EYES: Anicteric. Pupils equal and reactive. HENT: No oral thrush seen, moist Oral mucosa. NECK: Supple, no JVD or thyromegaly. LUNGS: Good air entry. No rales, no rhonchi. CARDIOVASCULAR: S1, S2 regular. No murmur heard. ABDOMEN: Soft, non tender, bowel sounds present, no organomegaly. CENTRAL NERVOUS SYSTEM: Awake, alert, oriented x 3. SKIN: Bilateral lower extremity wounds. LYMPHATICS: No peripheral lymphadenopathy. MUSCULOSKELETAL: No joint swelling, erythema or tenderness. EXTREMITIES: No cyanosis or clubbing. Bilateral lower extremity edema. BACK: No deformity, no pressure ulcer. GENITOURINARY: No dysuria or hematuria. Vital Sign (Last 12 Hours) 06/25/25 06/25/25 06/25/25 06/25/25 07:53 08:00 12:00 16:00 Temp 97.9 97.9 98.8 Pulse 90 66 65 Resp 20 20 20 B/P (MAP) 107/81 111/83 109/75 Pulse Ox 99 99 98 98 O2 Delivery Room Air Room Air* Room Air Room Air O2 Flow Rate 0 FiO2 21 Intake & Output (last 24hrs) 06/24/25 06/24/25 06/25/25 15:00 23:00 07:00 Intake Total 500.0 ml Output Total 700 ml Balance -200.0 ml LABS: Laboratory: Test 06/25/25 15:53 06/25/25 12:54 9/18/25 03:41 Range/Units Whole Blood Glucose 197 H 70-110 MG/DL Lactic Acid Level 3.4 H 0.8-2.5 mmol/L White Blood Count 16.2 H 4.8-10.8 K/uL Red Blood Count 4.45 L 4.50-6.20 MIL/uL Hemoglobin 14.5 14.0-18.0 g/dL Hematocrit 44.8 42-54 % Mean Corpuscular Volume 100.7 H 79-99 fL Mean Corpuscular Hemoglobin 32.6 27.0-33.0 pg Mean Corpuscular Hemoglobin Concent 32.4 32.0-36.0 g/dL Red Cell Distribution Width 15.4 11.0-15.5 % Platelet Count 191 130-400 K/uL Mean Platelet Volume 11.3 H 7.5-10.5 fL Immature Granulocyte % (Auto) 1.0 0-1 % Neutrophils (%) (Auto) 82.6 H 40.0-77.0 % Lymphocytes (%) (Auto) 6.2 L 21.0-51.0 % Monocytes (%) (Auto) 9.6 3.0-13.0 % Eosinophils (%) (Auto) 0.2 0.0-8.0 % Basophils (%) (Auto) 0.4 0.0-5.0 % Neutrophils # (Auto) 13.4 H 1.8-7.7 K/uL Lymphocytes # (Auto) 1.0 1.0-4.8 K/uL Monocytes # (Auto) 1.6 H 0.1-1.0 K/uL Eosinophils # (Auto) 0.04 0.00-0.70 K/uL Basophils # (Auto) 0.07 0.00-0.20 K/uL Absolute Immature Granulocyte (auto 0.16 0-1 K/uL Nucleated Red Blood Cells 0.0 0.0-0.19 % Sodium Level 134 L 136-145 mmol/L Potassium Level 3.6 3.5-5.1 mmol/L Chloride Level 97 L 101-111 mmol/L Carbon Dioxide Level 24 21-32 mmol/L Blood Urea Nitrogen 57 H 7-18 mg/dL Creatinine 2.0 H 0.5-1.3 mg/dL Glomerular Filtration Rate Calc 37 >90 mL/min Random Glucose 155 H 70-105 mg/dL Total Calcium 9.2 8.5-10.1 mg/dL Total Bilirubin 2.0 H 0.2-1.0 mg/dL Aspartate Amino Transf (AST/SGOT) 367 H 10-37 U/L Alanine Aminotransferase (ALT/SGPT) 302 #H 12-78 U/L Alkaline Phosphatase 142 #H 50-136 U/L B-Type Natriuretic Peptide 2200 H 0-100 pg/mL Total Protein 7.1 6.0-8.3 g/dL Albumin 3.1 L 3.5-5.0 g/dL DIAGNOSTICS / RADIOLOGY: PATIENT: LILI HUFF ACCT: [id number] LOC: [facility] U: [id number] AGE/SX: 59/M ROOM: [facility] RE06/23/[address]: CHELA ARGUETA MD : 1965 BED: 1 DIS: STATUS: ADM IN TLOC: SPEC: [id number] ANDREINA: 06/23/25 STATUS: COMP REQ: [id number] RECD: 06/24/[address]: ZACH FIGUEROA MD SOURCE: [facility] 06/24/[address]: MICHI VARGHESE MD SPDESC: CLEAN CAT ORDERED: AERO ID & SENS Procedure Result Nemesio Date-Time AEROBIC ID & SENSITIVITIES Final 06/25/25-0734 [facility] DESCRIPTION: DAY 1: COLONY COUNT: >100,000 CFU/ML GRAM NEGATIVE RODS IDENTIFICATION AND SENSITIVITY TO FOLLOW KLEBSIELLA PNEUMONIAE K PNEUMO M.I.C. RX --------- ---- AZTREONAM <=4 S CEFAZOLIN <=2 S CEFTAZIDIME/AVIBACTAM <=8 S GENTAMICIN <=2 S LEVOFLOXACIN <=0.5 S NITROFURANTOIN 64 I MEROPENEM <=1 S PIPERACILLIN/TAZOBACTAM <=8 S TRIMETHOPRIM/SUFLAMETHOXAZOLE <=2/38 S PATIENT: LILI HUFF ACCT: [id number] LOC: [facility] U: [id number] AGE/SX: 59/M ROOM: [facility] RE06/23/[address]: CHELA ARGUETA MD : 1965 BED: 1 DIS: STATUS: ADM IN TLOC: SPEC: [id number] ANDREINA: 06/23/25 STATUS: RES REQ: [id number] RECD: 06/23/25-[address]: ERIKA MONCADA MD SOURCE: [facility]: 06/23/[address] [facility] [address]: CLAUDIA FRANKEL MD SPDESC: RIGHT CHELA ARGUETA MD, ASIM MD MAGNO, FERDINAND L MD STONE, DANIELLE M MD ORDERED: NAIF CULTURE, AEROBIC CULTURE Procedure Result Nemesio Date-Time ANAEROBIC CULTURE Preliminary 06/25/25 [facility] DESCRIPTION: REPORT 1: NO ANAEROBES AT 24-35 HOURS; STUDIES TO CONTINUE Test(s) performed by: [facility] [address] [place] [address] AEROBIC CULTURE Preliminary 06/25/25 [facility] DESCRIPTION: REPORT 1: 2+ GRAM NEGATIVE RODS IDENTIFICATION AND SENSITIVITY TO FOLLOW ASSESSMENT: Acute hypoxic respiratory failure. Bilateral lower extremity ulcers. Bilateral lower extremities cellulitis. Sepsis. Leukocytosis. Urinary tract infection with Klebsiella pneumoniae. Acute on chronic renal failure. Diabetes mellitus. Congestive heart failure. Generalized debility. PLAN: Continue cefepime. Continue doxycycline. Continue pain management. Continue diuretics. Continue GI prophylaxis. Continue wound care. Continue oxygen support as needed. This case was reviewed and discussed with my supervising physician Dr. Frankel and the above assessment and plan was formulated and agreed upon. ATTESTATION BY PHYSICIAN I have seen and examined the patient. I reviewed the documentation, medical decision making, and treatment plan as noted by the mid-level provider above. I agree with the findings and plan of care. CLAUDIA FRANKEL MD, MIRTA L [facility] Jun 25, 2025 17:51
--- NOTE | 2025-06-25 18:49 | NUR ---
Patient encouraged and offered assistance to shower or cleanse with CHG wipes. Patient refused x2.
[2025-06-25 20:00] VITALS: BP 107/59; PULSE 58; RESP 18; TEMP 97.3; O2SAT 98
[2025-06-26] VITALS (9 sets, daily range): BP systolic 112–126; BP diastolic 69–91; PULSE 65–98; RESP 18–22; TEMP 97–98.7; O2SAT 96–99
[2025-06-26 04:33] LABS: IMMATURE GRANULOCYTE ABSOLUTE 0.17 K/uL (0-1); NUCLEATED RED BLOOD CELLS 0.2 % (0.0-0.19); PLATELET COUNT (AUTO) 198 K/uL (130-400); RED BLOOD CELL COUNT(AUTO) 4.68 MIL/uL (4.50-6.20); RED CELL DISTRIBUTION WIDTH 15.9 % (11.0-15.5); WHITE BLOOD COUNT (AUTO) 13.0 K/uL (4.8-10.8)
[2025-06-26 04:49] LABS: ASPARTATE AMINOTRANSFERASE 201.0 U/L (10-37); CREATININE 1.9 mg/dL (0.5-1.3); GLOMERULAR FILTR. RATE CALC 40.0 mL/min (>90); GLUCOSE,RANDOM 152.0 mg/dL (70-105); SODIUM SERUM 137.0 mmol/L (136-145); TOTAL PROTEIN, SERUM 7.0 g/dL (6.0-8.3); UREA NITROGEN, BLOOD 57.0 mg/dL (7-18); VANCOMYCIN TROUGH 24.2 UG/ML (10.0-20.0)
--- NOTE | 2025-06-26 05:08 | NUR ---
HELD 0500 VANCOMYCIN DUE TO HIGH TROUGH.
[2025-06-26] MEDS: PoTASSium chloRIDE 20MEQ ER 20 MEQ ERTAB PO PRN (06:12)
--- NOTE | 2025-06-26 07:29 | PN ---
[facility] CARDIOLOGY PROGRESS NOTE Date Patient Seen: Jun 26, 2025 Time of Visit: 07:28 Interval History: [ LA and WBC improved] Physical Examination: GENERAL: [No acute distress.] HEAD: [Normal with no signs of head trauma.] EYES: [PERRLA, EOMI, conjunctiva and sclera normal.] ENT: [Hearing grossly intact, normal oropharynx.] NECK: [Supple without JVD. There is no tenderness, lymphadenopathy, or masses. No thyromegaly. Normal carotid upstrokes without bruits.] LUNGS: [Clear breath sounds bilaterally. There are right basilar rales one third of the way up the chest. No wheezes, or rhonchi.] HEART: [Normal rate and rhythm. Normal S1 and S2 without mumurs, gallop or rub.] VASC: [Peripheral pulses +2 bilaterally.] ABD: [Bowel sounds normal, soft, nontender, no masses, no organomegaly. No audible bruits.] : [Not examined] LYMPH: [No lymphadenopathy noted.] EXT: [bilateral lower extremity edema, stable wounds.] NEURO: [Awake, alert, and oriented x3. No focal sensory or strength deficits noted.] Laboratory: [ ] Hematology Labs: Test 06/26/25 04:26 Range/Units White Blood Count 13.0 H 4.8-10.8 K/uL Red Blood Count 4.68 4.50-6.20 MIL/uL Hemoglobin 15.2 14.0-18.0 g/dL Hematocrit 46.6 42-54 % Mean Corpuscular Volume 99.6 H 79-99 fL Mean Corpuscular Hemoglobin 32.5 27.0-33.0 pg Mean Corpuscular Hemoglobin Concent 32.6 32.0-36.0 g/dL Red Cell Distribution Width 15.9 H 11.0-15.5 % Platelet Count 198 130-400 K/uL Mean Platelet Volume 11.2 H 7.5-10.5 fL Immature Granulocyte % (Auto) 1.3 H 0-1 % Neutrophils (%) (Auto) 79.8 H 40.0-77.0 % Lymphocytes (%) (Auto) 8.2 L 21.0-51.0 % Monocytes (%) (Auto) 8.8 3.0-13.0 % Eosinophils (%) (Auto) 1.2 0.0-8.0 % Basophils (%) (Auto) 0.7 0.0-5.0 % Neutrophils # (Auto) 10.4 H 1.8-7.7 K/uL Lymphocytes # (Auto) 1.1 1.0-4.8 K/uL Monocytes # (Auto) 1.1 H 0.1-1.0 K/uL Eosinophils # (Auto) 0.15 0.00-0.70 K/uL Basophils # (Auto) 0.09 0.00-0.20 K/uL Absolute Immature Granulocyte (auto 0.17 0-1 K/uL Nucleated Red Blood Cells 0.2 H 0.0-0.19 % Chemistry Labs: Test 06/26/25 06:02 06/26/25 04:26 Range/Units Whole Blood Glucose 138 H 70-110 MG/DL Sodium Level 137 136-145 mmol/L Potassium Level 3.4 L 3.5-5.1 mmol/L Chloride Level 101 101-111 mmol/L Carbon Dioxide Level 25 21-32 mmol/L Blood Urea Nitrogen 57 H 7-18 mg/dL Creatinine 1.9 H 0.5-1.3 mg/dL Glomerular Filtration Rate Calc 40 >90 mL/min Random Glucose 152 H 70-105 mg/dL Lactic Acid Level 3.1 H 0.8-2.5 mmol/L Total Calcium 8.9 8.5-10.1 mg/dL Total Bilirubin 1.4 H 0.2-1.0 mg/dL Aspartate Amino Transf (AST/SGOT) 201 H 10-37 U/L Alanine Aminotransferase (ALT/SGPT) 284 H 12-78 U/L Alkaline Phosphatase 168 H 50-136 U/L B-Type Natriuretic Peptide 3330 H 0-100 pg/mL Total Protein 7.0 6.0-8.3 g/dL Albumin 2.9 L 3.5-5.0 g/dL Diagnostics / Radiology: [Copy/Paste Echos/Imaging Report here] Impression and Plan: [#RLE edema and pain -venous US negative for DVT #Leukocytosis -recently recovered from two sinus infections -+ urine Cx Klebsiella, ID following -f/u wound cx -agree with IVF 50 cc/hr #End stage heart failure 20% LVEF due to Ischemic CM not amendable to PCI -hold losartan -bumex 1 mg bid po changed yesterday to IV bumex 1 mg tid -jardiance 1/2 tablet 5 mg bid, metoprolol succ 25 mg qd -BNP 847 02/2025, now it is 851, stable -2d echo with severe BiV failure #H/o PE -c/w eliquis 5 mg bid Lindy Cartwright MD] ] LINDY CARTWRIGHT MD Jun 26, 2025 07:29
[2025-06-26] MEDS: BUMETANIDE 1MG/4ML VIAL IVP SCH (10:21)
--- NOTE | 2025-06-26 12:37 | PN ---
[facility] PROGRESS NOTE Date of Service: Jun 26, 2025 Time of Service: 12:14 SUBJECTIVE: This is a 59 year old male,a reliable historian with pasat medical history of hypertension, diabetes, hyperlipidemia, CHF with advanced ischemic cardiomyopathy EF 20% stage 3 CKD multivessel obstructive CAD ,DVT to left leg and pulmonary embolism on chronic Eliquis ,chronic back pain,bilateral lower extremity ulcers and morbid obesity who presents to the ED for complaints of feeling dizzy,shortness of breath and patient has a chronic lower extremity that has ulcers and it has been swollen and oozing fluids.Patient also reports chills and rigors which started today while changing his wound dressing and he first though he was having parkinson's tremors so he decided to come to the ED for evaluation.Patient states he was fairly doing fine unitl 8 days ago last Sunday he stopped taking his Spironolactone and Losartan because it was discontinued byher his electronics engineering professor due to severe hyperkalemia .Patient reports he was seen by a electronics engineering professor from [place] by the name of and he told the electronics engineering professor that he is not voiding much than what he used to ,before he approximately voided 1600 and now it is only 500 and he noticed that his legs are becoming swollen ever since he stopped taking his Spironolactone and Losartan he feels he is gaining more weight and he was advised to take a dose of Spironolactone for today and he did after a few hours he said he felt dizzy and lightheaded and as he was changing his wound dressing he feels the chills and rigors so he decided to come to the ED for evaluation.Upon ER arrival V/SA T102.4,HR 128,BP 122/87 Sat 100% RA RR 24.ECG result revealed Sinus ectopic or atrial Tachycardia HR 120 Prob left atrial enlargement,inferior infarct old,anterior infarct old,nonspecific T abnormalities ,lateral leads prolonged QT interval. Seen and examined patient in the ER awake,alert and coherent,appears comfortable,in no apparent distress.Patient denies cough,shortness of breath,chest pain,palpitation,abdominal pain,nausea,vomiting and syncope.Labs WBC 20 with negative left shift of neutrophils 88,Hgb 15,Hct 45,platelet 209.Na 135,K4.6,K4.6,Chloride 96,BUN47,Creat 1.9,GFR 40,Glucose 174 ,lactic acid 6.3,BNP 1550.Urinalysis remarkable for protein 30,glucose more than 1000,small hematuria and urine RBC 2-5 .Serology test for influenza Type A&B negative SARS COV_2 negative and Group A strep negative.CXR result revealed interval development of mild cardiomegaly.No acute infiltrate ,effusion or pneumothorax.While in the ER patient received Fluid resuscitation of 30ml/kg over 3 hours ,Tylenol 1000 mg po,Morphine 4mg IV, Cefepime and Vancomycin IV.Will admit patient for further medical management. 06/23/25: Patient is seen at bedside in ER 5. Patient denies cough, chest pain, palpitation, abdominal pain, chills. Patient is started on nasal cannula due to shortness of breath. Patient's remaining vitals stable with temperature at 98.4, pulse at 98, respiratory rate of 22, blood pressure 109/79. Patient's labs showed an increase in WBC to 24.5, hemoglobin at 13.9, sodium at 135, lactic acid improved to 4.3. Continue the patient on vancomycin and cefepime IV. Cardiology and Infectious Disease have been consulted, along with critical care. Patient's BNP has improved to 851. Patient has no new complaints. Patient started on soft hydration. Cardiology ordered a 2D echo and venous Doppler ultrasound bilaterally to rule out DVT. 06/24/25: Patient is seen at bedside in ER 5. Patient is doing much better, off of nasal cannula and breathing room air. Patient denies cough, chest pain, palpitations, abdominal pain, chills. Patient's temperature currently at 98.8, pulse at 89 respiratory rate at 18, blood pressure 102/58. Patient's labs have improved with his WBC trending down to 18.4, his creatinine remains around 1.9, his lactic acid has trended down to 2.7. He does have an increase in his liver function tests with AST going up to 254 and ALT increasing to 152. His BNP has also increased to to 2110. Cardiology recommended to hold losartan, start him on Bumex 1 mg b.i.d., Jardiance half tablet 5 mg b.i.d. and continue with Eliquis 5 mg b.i.d. His venous Doppler study showed no DVTs bilaterally. Patient's urine culture came back positive for Gram-negative rods, going to wait for specificity and sensitivity to change his medication. He is currently on vancomycin and cefepime. 06/25/25: Patient is seen at bedside now in room 227. Patient is seen by infectious disease doctor who recommended to continue vancomycin follow up with wound culture. Cardiology increase the patient's Bumex to t.i.d. patient's lactic acid remained at 2.7 His BNP increased to 2206. An ankle-brachial index test has been ordered. Patient's urine culture showed Klebsiella pneumoniae sensitive to most antibiotics. His preliminary wound care results show Gram- negative rods. Blood culture still no growth after 48 hours. Continuing the patient's vancomycin and cefepime. Patient's WBC went down to 16.2 today. He continues to have an increase in his liver function tests with AST going up to 367 and ALT increasing to 302. His alkaline phosphatase also increased to 142 today. We will keep an eye on his liver functions. : Patient is seen and examined at bedside in room 227. Patient stable breathing comfortably on room air. Patient still complains of orthopnea, dyspnea on exertion, paroxysmal nocturnal dyspnea. Cardiology followed up with the patient and increased his Bumex to 2 mg b.i.d. Patient is on a strict in and out of 1.5 L. patient's wound culture came back positive for Serratia marcescens susceptible to most antibiotics. We will let Infectious Disease decide if they want to change antibiotics. Ankle-brachial index test has been ordered yesterday waiting on results. Chest x-ray has been ordered along with thoracic and lumbar spine CT. Patient's liver functions have improved with AST dropping to 201 and ALT dropping to 284. Patient's BNP is high at 3330. REVIEW OF SYSTEMS CONSTITUTIONAL: Denies chills, fever and night sweats. unintentional weight gain reported. Complains of back pain which is chronic NEUROLOGICAL: Denies headache, gait abnormalities, or tremors. ENT: No hearing loss, otalgia, otorrhea, rhinitis, rhinorrhea, hoarseness, or sore throat. CARDIOVASCULAR: dyspnea on exertion, orthopnea, paroxysmal nocturnal dyspnea. Denies any exertional angina, palpitations, life-threatening arrhythmias. PULMONARY: Shortness of breath improved. denies cough, phlegm/sputum, hemoptysis, pleuritic chest pain. GASTROINTESTINAL: Denies any type of dysphagia to either liquids or solids. Denies nausea, vomiting, abdominal pain, diarrhea, constipation, or changes in stool consistency or caliber. GENITOURINARY: Denies frequency, urgency, nocturia, hematuria or incontinence ENDOCRINOLOGIC: Denies polyuria, polydipsia, polyphagia or heat/cold intolerances. ONCOLOGIC: Denies personal history of malignancy. DERMATOLOGIC: chronic wound ulcer to right lower extremity Denies rashes or pruritus. PHYSICAL EXAM GENERAL APPEARANCE: The patient is awake, alert, and oriented, in no acute cardiopulmonary distress. NEUROLOGICAL: Cranial nerves II-XII grossly intact. Motor is 5/5 in bilateral upper and lower extremities proximal to distal. No sensory deficits. HEENT: Face is symmetric. Pupils are equal and reactive. Extraocular movements are intact. NECK: Supple. No JVD. No thyromegaly. No submental, submandibular, pre- /postauricular, occipital or supraclavicular lymphadenopathy. CHEST: Normal chest expansion. No Telemetry. LUNGS: Sounds clear CARDIOVASCULAR: Regular rate and rhythm. S1 and S2 normal. No appreciable rubs, murmurs or gallops. ABDOMEN: Soft, nontender, and nondistended. There is no rebound, voluntary guarding, or rigidity. : Deferred. No [place]. EXTREMITIES: 2+edema to bilateral lower extremities SKIN: Draining Wound ulcers to right lower extremity Vital Signs (last 8hr) Date Time Temp Pulse Resp B/P (MAP) Pulse Ox O2 Delivery O2 Flow Rate FiO2 06/26/25 07:55 97.9 65 20 120/75 96 Room Air LABS: Laboratory: Test 06/26/25 11:00 06/26/25 10:01 06/26/25 04:26 Range/Units Whole Blood Glucose 218 #H 70-110 MG/DL Lactic Acid Level 3.3 H 0.8-2.5 mmol/L White Blood Count 13.0 H 4.8-10.8 K/uL Red Blood Count 4.68 4.50-6.20 MIL/uL Hemoglobin 15.2 14.0-18.0 g/dL Hematocrit 46.6 42-54 % Mean Corpuscular Volume 99.6 H 79-99 fL Mean Corpuscular Hemoglobin 32.5 27.0-33.0 pg Mean Corpuscular Hemoglobin Concent 32.6 32.0-36.0 g/dL Red Cell Distribution Width 15.9 H 11.0-15.5 % Platelet Count 198 130-400 K/uL Mean Platelet Volume 11.2 H 7.5-10.5 fL Immature Granulocyte % (Auto) 1.3 H 0-1 % Neutrophils (%) (Auto) 79.8 H 40.0-77.0 % Lymphocytes (%) (Auto) 8.2 L 21.0-51.0 % Monocytes (%) (Auto) 8.8 3.0-13.0 % Eosinophils (%) (Auto) 1.2 0.0-8.0 % Basophils (%) (Auto) 0.7 0.0-5.0 % Neutrophils # (Auto) 10.4 H 1.8-7.7 K/uL Lymphocytes # (Auto) 1.1 1.0-4.8 K/uL Monocytes # (Auto) 1.1 H 0.1-1.0 K/uL Eosinophils # (Auto) 0.15 0.00-0.70 K/uL Basophils # (Auto) 0.09 0.00-0.20 K/uL Absolute Immature Granulocyte (auto 0.17 0-1 K/uL Nucleated Red Blood Cells 0.2 H 0.0-0.19 % Sodium Level 137 136-145 mmol/L Potassium Level 3.4 L 3.5-5.1 mmol/L Chloride Level 101 101-111 mmol/L Carbon Dioxide Level 25 21-32 mmol/L Blood Urea Nitrogen 57 H 7-18 mg/dL Creatinine 1.9 H 0.5-1.3 mg/dL Glomerular Filtration Rate Calc 40 >90 mL/min Random Glucose 152 H 70-105 mg/dL Total Calcium 8.9 8.5-10.1 mg/dL Total Bilirubin 1.4 H 0.2-1.0 mg/dL Aspartate Amino Transf (AST/SGOT) 201 H 10-37 U/L Alanine Aminotransferase (ALT/SGPT) 284 H 12-78 U/L Alkaline Phosphatase 168 H 50-136 U/L B-Type Natriuretic Peptide 3330 H 0-100 pg/mL Total Protein 7.0 6.0-8.3 g/dL Albumin 2.9 L 3.5-5.0 g/dL Vancomycin Level Trough 24.2 #H 10.0-20.0 UG/ML Current Medications Medications (Trade) Dose Ordered Sig/Da Route PRN Reason Start Time Stop Time Status Last Admin Dose Admin Acetaminophen (TYLenol 325MG TAB) 650 mg Q4H PRN PO MILD PAIN (1-3) 06/23/25 03:30 07/23/25 03:29 Acetaminophen (TYLenol 325MG TAB) 650 mg Q6H PRN PO TEMPERATURE GREATER THAN 101.5 06/23/25 03:30 07/23/25 03:29 Apixaban (EliquIS) 5 mg BID PO 06/23/25 09:00 07/23/25 08:59 06/26/25 10:20 5 MG Bumetanide (Bumex 1mg Tab) 1 mg BID PO 06/23/25 09:00 06/25/25 08:32 DC 06/24/25 21:13 1 MG Bumetanide (Bumex 1mg Vial) 1 mg BID IVP 06/25/25 09:00 06/25/25 08:41 DC Bumetanide (Bumex 1mg Vial) 1 mg TID IVP 06/25/25 09:00 06/26/25 08:34 DC 06/25/25 21:29 1 MG Bumetanide (Bumex 1mg Vial) 2 mg BID IVP 06/26/25 09:00 07/25/25 08:59 06/26/25 10:21 2 MG Cefepime HCl (MAXipime 1 GM vial) 1 gm ONCE IVPB 06/23/25 02:00 06/23/25 04:01 DC 06/23/25 02:19 1 GM Cefepime HCl (MAXipime 1 GM vial) 1 gm Q12H IVPB 06/23/25 10:00 07/03/25 09:59 06/26/25 10:21 1 GM Dextrose (D50w) 50 ml AD PRN IV HYPOGLYCEMIA PROTOCOL 06/23/25 03:30 07/23/25 03:29 Dobutamine HCl/ Dextrose 250 ml @ 0 mls/hr PROTOCOL IV 06/24/25 16:00 07/24/25 15:59 Doxycycline Hyclate 250 ml @ 125 mls/hr Q12H IV 06/24/25 16:00 07/04/25 15:59 06/26/25 03:23 125 MLS/HR Empaglifozin (Jardiance 10mg) 5 mg BID PO 06/24/25 21:00 07/24/25 20:59 06/26/25 10:20 5 MG Famotidine (Pepcid 20mg Tab) 20 mg DAILY PO 06/23/25 09:00 07/23/25 08:59 06/26/25 10:20 20 MG Glucagon (Glucagon 1mg Kit) 1 mg AD PRN IM HYPOGLYCEMIA PROTOCOL 06/23/25 03:30 07/23/25 03:29 Insulin Human Regular (humuLIN R 100 UNIT/ML 3ML) INSULIN SLIDING SCAL... ACHS SQ 06/23/25 07:30 07/23/25 07:29 06/26/25 12:08 3 UNIT Leptospermum Honey (Medihoney) 1 APPL DAILY17 TP 06/23/25 17:00 07/23/25 16:59 06/25/25 17:55 1 APPL Magnesium Sulfate 50 ml @ 0 mls/hr PROTOCOL PRN IV OTHER [SEE ORDER COMMENTS] 06/23/25 03:30 07/23/25 03:29 Metoprolol Succinate (TopROL XL) 25 mg DAILY PO 06/23/25 09:00 07/23/25 08:59 06/26/25 10:20 25 MG Morphine Sulfate (morPHINE 2MG SYG) 2 mg Q6H6 PRN IVP PAIN LEVEL 7 TO 10 06/23/25 11:00 06/30/25 10:59 06/24/25 16:03 2 MG Multivitamins Therapeutic (Multivitamin Tablet) 1 tab DAILY PO 06/25/25 09:00 07/25/25 08:59 06/26/25 10:20 1 TAB Mupirocin (Bactroban Oint) apply to bilateral lo... DAILY17 TP 06/23/25 17:00 07/23/25 16:59 06/25/25 17:55 1 APPL Ondansetron HCl (zoFRAN 4MG INJ) 4 mg Q6H PRN IV NAUSEA/VOMITING 06/23/25 03:30 07/23/25 03:29 Oxycodone HCl (ROXicoDONE) 10 mg Q8H PRN PO SEVERE PAIN (7-10) 06/25/25 11:00 06/30/25 10:59 06/25/25 11:47 10 MG Potassium Chloride 100 ml @ 100 mls/hr AD PRN IV POTASSIUM PROTOCOL 06/23/25 03:30 07/23/25 03:29 Potassium Chloride (K-Dur/Klor-Con 20meq) 20 meq AD PRN PO POTASSIUM PROTOCOL 06/23/25 03:30 07/23/25 03:29 06/26/25 10:19 20 MEQ Potassium Chloride (KCl 10% Elixir 20meq/15ml) 20 meq AD PRN PO POTASSIUM PROTOCOL 06/23/25 03:30 07/23/25 03:29 Sodium Chloride 1,000 ml @ 50 mls/hr Q20H IV 06/23/25 17:30 06/24/25 09:35 DC 06/23/25 17:19 50 MLS/HR Vancomycin HCl 250 ml @ 125 mls/hr ONCE IV 06/23/25 03:30 06/23/25 03:44 DC Vancomycin HCl 250 ml @ 125 mls/hr Q24H IV 06/24/25 05:00 07/04/25 04:59 Hold 06/25/25 05:21 125 MLS/HR DIAGNOSTICS / RADIOLOGY: [ ] ASSESSMENT: Severe sepsis POA UTI, POA Infected stasis ulcer of right lower extremity POA Acute kidney injury on chronic kidney disease POA Acute on chronic systolic CHF with cardiomyopathy POA Acute leukocytosis POA Lactic Acidosis POA Hyponatremia POA Hypochloremia POA Transaminases elevated Uncontrolled diabetes POA Hypertension POA Hyperlipidemia POA History of Left lower extremity DVT on Eliquis POA History of pulmonary embolism on chronic anticoaguylation POA PLAN: Severe sepsis POA: * Continue patient on vancomycin and cefepime, doxycycline * Patient's lactic acid trending down at 2.7 * We will follow up blood culture and urine culture result, initial urine cult ure shows Gram-negative rods, we will wait for sensitivity and specificity to change medication * Infectious disease and critical care consult placed Infected stasis ulcer of right lower extremity POA: * Cardiology on board and recommended venous Doppler ultrasound bilaterally to rule out DVT, ultrasound came back negative for DVT bilaterally * Wound care culture came back positive for Serratia marcescens a Gram-negative bacteria susceptible to most antibiotics * We will follow their recommendations for further treatment * Infectious disease is on the case Acute kidney injury on chronic kidney disease POA: * Placed on daily weight and strict I&O * Stopped fluids * restrict fluid 1.5 L per day Acute on chronic systolic CHF with cardiomyopathy POA: * Cardiology consult placed, who ordered an 2D echo which showed severely reduced LVEF of less than 20% * Cardiology also recommended to hold losartan, start him on Bumex 1 mg b.i.d., Jardiance half tablet 5 mg b.i.d. and continue with Eliquis 5 mg b.i.d. increased the frequency of Bumex to 2 mg b.i.d. * Follow the recommendations for further treatment UTI, POA: * Patient's urine culture came back positive for Gram-negative rods * Sensitivity and specificity showed Klebsiella pneumoniae sensitive to most antibiotics * Continuing the patient on vancomycin and cefepime * Infectious disease is on the case We will request labs in am Further orders to follow depending on above results ATTESTATION BY PHYSICIAN I have seen and examined the patient. I reviewed the documentation, medical decision making, and treatment plan as noted by the resident provider above. I agree with the findings and plan of care. Buck Monae MD, ABHINAV MD Jun 26, 2025 12:37
--- NOTE | 2025-06-26 12:38 | HMCIMG ---
CHEST 1VW REASON: pulmonary edema COMPARISON: None. FINDINGS: Single view of the chest was obtained. Lungs are clear. There is mild to moderate cardiomegaly with left ventricular contour. There is uncoiling atherosclerotic change of thoracic ureter. There is no pulmonary vascular congestion. Mediastinum and bony thorax appear unremarkable. IMPRESSION: 1. Mild to moderate cardiomegaly 2. No evidence of airspace consolidation or pulmonary venous congestion.
--- NOTE | 2025-06-26 15:25 | NUR ---
[facility] Follow-up: Patient re-assessed by wound healing team, Wound improving. Assessment and recommendations provided to primary nurse Education provided. Addendum: 06/26/25 at 1716 by PHOENIX VILLAFANA RN RN/ Amended: Links added.
--- NOTE | 2025-06-26 16:04 | HMCIMG ---
EXAM: CT Thoracic Spine Without IV contrast. CLINICAL HISTORY: spinal stenosis TECHNIQUE: Axial computed tomography images of the thoracic spine without intravenous contrast. Sagittal and coronal reformatted images were generated. CONTRAST: None. COMPARISON: None provided. FINDINGS: BONES: No acute fracture or aggressive appearing osseous lesion. ALIGNMENT: Bony alignment is anatomic. DEGENERATIVE CHANGES: Degenerative changes in the form of multilevel Schmorl's nodes, vacuum phenomenon and anterior vertebral spurring. Reduced disc spaces and endplate irregularities in the visualized lower cervical spine. No significant central canal or neural foraminal stenosis. SOFT TISSUES: Mild right sided pleural effusion. The soft tissues are unremarkable. IMPRESSION: No acute fracture or dislocation in the thoracic spine. Mild degenerative change. No significant central canal or neural foraminal stenosis. Mild right-sided pleural effusion. /[place]
--- NOTE | 2025-06-26 17:42 | PN ---
PROGRESS NOTE Date of Service: Jun 26, 2025 Time of Service: 17:42 SUBJECTIVE: Patient is being evaluated at bedside in room 227 for wound care evaluation of chronic wounds to bilateral lower extremities. Patient is awake, alert, and oriented. Patient denies any complaints at this time. No signs of distress noted. Wound culture of right lower leg positive for serratia marcescens. REVIEW OF SYSTEMS CONSTITUTIONAL: Denies fever, chills, or fatigue. HEAD/FACE: No signs of trauma. EENT: Denies eye pain, blurred vision, double vision, or light sensitivity. RESPIRATORY: Denies shortness of breath, cough, wheezing CARDIOVASCULAR: Denies chest pain, palpitation, syncope, + 2 edema to bilateral lower legs GASTROINTESTINAL/ABDOMINAL: Denies abdominal pain, constipation, diarrhea, nausea or vomiting GENITOURINARY: Denies dysuria or hematuria. MUSCULOSKELETAL: Denies joint pain, tenderness, or trauma. INTEGUMENTARY: Denies rash or itchiness NEUROLOGICAL/PSYCH: Denies anxiety, depression, heat or cold intolerance. PHYSICAL EXAM EYES: Anicteric. Pupils equal and reactive. HENT: No oral thrush seen, moist Oral mucosa NECK: Supple, no JVD or thyromegaly. LUNGS: Good air entry. No rales, no rhonchi. CARDIOVASCULAR: S1, S2 regular. No murmur heard. ABDOMEN: Soft, non tender, bowel sounds present, no organomegaly CENTRAL NERVOUS SYSTEM: Awake, alert, oriented x 3. No focal deficits. SKIN: Right lower leg noted with ulceration to pretibial, latera, and medial leg noted with 100% granulation with moderate amount of serous drainage, no foul odor noted. Left lower leg noted with ulceration to pretibial region with 100% granulation with minimal drainage. LYMPHATICS: No peripheral lymphadenopathy MUSCULOSKELETAL: No joint swelling, erythema or tenderness. EXTREMITIES: + 2 edema noted to bilateral lower legs. BACK: No deformity, no pressure ulcer. GENITOURINARY: No dysuria or hematuria Vital Signs (last 8hr) Date Time Temp Pulse Resp B/P (MAP) Pulse Ox O2 Delivery O2 Flow Rate FiO2 06/26/25 16:00 98.8 76 20 124/91 99 Room Air 06/26/25 12:00 98.8 76 20 124/91 99 Room Air LABS: Laboratory: Test 06/26/25 17:05 06/26/25 16:09 06/26/25 10:01 06/26/25 04:26 Range/Units Vancomycin Level Trough 18.6 # 10.0-20.0 UG/ML Whole Blood Glucose 192 H 70-110 MG/DL Lactic Acid Level 3.3 H 0.8-2.5 mmol/L White Blood Count 13.0 H 4.8-10.8 K/uL Red Blood Count 4.68 4.50-6.20 MIL/uL Hemoglobin 15.2 14.0-18.0 g/dL Hematocrit 46.6 42-54 % Mean Corpuscular Volume 99.6 H 79-99 fL Mean Corpuscular Hemoglobin 32.5 27.0-33.0 pg Mean Corpuscular Hemoglobin Concent 32.6 32.0-36.0 g/dL Red Cell Distribution Width 15.9 H 11.0-15.5 % Platelet Count 198 130-400 K/uL Mean Platelet Volume 11.2 H 7.5-10.5 fL Immature Granulocyte % (Auto) 1.3 H 0-1 % Neutrophils (%) (Auto) 79.8 H 40.0-77.0 % Lymphocytes (%) (Auto) 8.2 L 21.0-51.0 % Monocytes (%) (Auto) 8.8 3.0-13.0 % Eosinophils (%) (Auto) 1.2 0.0-8.0 % Basophils (%) (Auto) 0.7 0.0-5.0 % Neutrophils # (Auto) 10.4 H 1.8-7.7 K/uL Lymphocytes # (Auto) 1.1 1.0-4.8 K/uL Monocytes # (Auto) 1.1 H 0.1-1.0 K/uL Eosinophils # (Auto) 0.15 0.00-0.70 K/uL Basophils # (Auto) 0.09 0.00-0.20 K/uL Absolute Immature Granulocyte (auto 0.17 0-1 K/uL Nucleated Red Blood Cells 0.2 H 0.0-0.19 % Sodium Level 137 136-145 mmol/L Potassium Level 3.4 L 3.5-5.1 mmol/L Chloride Level 101 101-111 mmol/L Carbon Dioxide Level 25 21-32 mmol/L Blood Urea Nitrogen 57 H 7-18 mg/dL Creatinine 1.9 H 0.5-1.3 mg/dL Glomerular Filtration Rate Calc 40 >90 mL/min Random Glucose 152 H 70-105 mg/dL Total Calcium 8.9 8.5-10.1 mg/dL Total Bilirubin 1.4 H 0.2-1.0 mg/dL Aspartate Amino Transf (AST/SGOT) 201 H 10-37 U/L Alanine Aminotransferase (ALT/SGPT) 284 H 12-78 U/L Alkaline Phosphatase 168 H 50-136 U/L B-Type Natriuretic Peptide 3330 H 0-100 pg/mL Total Protein 7.0 6.0-8.3 g/dL Albumin 2.9 L 3.5-5.0 g/dL PROBLEM LIST : Medical Problems: Chronic venous hypertension with ulcer to bilateral lower extremities Non pressure chronic ulcer to right lower extremity Non pressure chronic ulcer to left lower extremity Bilateral lower extremities cellulitis. PLAN: Change Wound care to Bilateral lower extremities: Cleanse with normal saline, pat dry, apply medihoney and gentamicin 1:1, cover with adaptic/vaseline gauze, gauze, wrap with kerlix secure with tape change daily and prn Keep wounds clean and dry Offloading/reposition q 2 hours Continue IV antibiotics per ID Comorbidities per primary care team Further Management per hospital course. Thank You for the consult and allowing us to participate in the care of this patient. ATTESTATION BY PHYSICIAN I have seen and examined the patient. I reviewed the documentation, medical decision making, and treatment plan as noted by the mid-level provider above. I agree with the findings and plan of care. ERIKA MONCADA MD, MICHELLE A NP Jun 26, 2025 17:42 ERIKA MONCADA MD Jul 06, 2025 14:30
--- NOTE | 2025-06-26 19:49 | HMCIMG ---
EXAM: CT Lumbar Spine Without IV contrast. CLINICAL HISTORY: spinal stenosis TECHNIQUE: Axial computed tomography images of the lumbar spine without intravenous contrast. Sagittal and coronal reformatted images were generated. COMPARISON: None provided. FINDINGS: ALIGNMENT: Bony alignment is anatomic. DISCS/DEGENERATIVE CHANGES: Reduced disc space with vacuum phenomena at the L5-S1 and T12-L1 level with minimal retrolisthesis of L5 over S1. Multilevel Schmorl's node present No significant degenerative disease. BONES: No acute fracture or aggressive appearing osseous lesion. SOFT TISSUES: The soft tissues are unremarkable. IMPRESSION: 1. No acute osseous injury. 2. Reduced disc space with vacuum phenomena at L5-S1 and T12-L1 levels, with minimal retrolisthesis of L5 over S1. /[place]
[2025-06-26] MEDS: VANCOMYCIN 1G/250ML KIT 250 ML IV SCH (22:09)
--- NOTE | 2025-06-26 22:13 | PN ---
INFECTIOUS DISEASE PROGRESS NOTE Date of Service: Jun 26, 2025 SUBJECTIVE: This is a 59-year-old male patient who was seen and examined at bedside in room 227. Patient is awake, alert and oriented x3. Sitting up on the edge of the bed and no dyspnea observe. Continues with swelling to bilateral lower extremities, the Bumex was increased. Patient is pending an ankle and brachial index study. The final wound culture results from the right leg came back positive for Serratia marcescens. No more fevers reported and the WBC has trended down to 13.0. We will continue on cefepime and vancomycin. PHYSICAL EXAM EYES: Anicteric. Pupils equal and reactive. HENT: No oral thrush seen, moist Oral mucosa. NECK: Supple, no JVD or thyromegaly. LUNGS: Good air entry. No rales, no rhonchi. CARDIOVASCULAR: S1, S2 regular. No murmur heard. ABDOMEN: Soft, non tender, bowel sounds present, no organomegaly. CENTRAL NERVOUS SYSTEM: Awake, alert, oriented x 3. SKIN: Bilateral lower extremity wounds. LYMPHATICS: No peripheral lymphadenopathy. MUSCULOSKELETAL: No joint swelling, erythema or tenderness. EXTREMITIES: No cyanosis or clubbing. Bilateral lower extremity edema. BACK: No deformity, no pressure ulcer. GENITOURINARY: No dysuria or hematuria. Vital Sign (Last 12 Hours) 06/26/25 06/26/25 12:00 16:00 Temp 98.8 98.8 Pulse 76 76 Resp 20 20 B/P (MAP) 124/91 124/91 Pulse Ox 99 99 O2 Delivery Room Air Room Air Intake & Output (last 24hrs) 06/25/25 06/25/25 06/26/25 15:00 23:00 07:00 Intake Total 0 ml 1550.0 ml 490.0 ml Output Total 800 ml 1800 ml Balance 0 ml 750.0 ml -1310.0 ml LABS: Laboratory: Test 06/26/25 21:01 06/26/25 17:05 06/26/25 10:01 06/26/25 04:26 Range/Units Whole Blood Glucose 170 H 70-110 MG/DL Vancomycin Level Trough 18.6 # 10.0-20.0 UG/ML Lactic Acid Level 3.3 H 0.8-2.5 mmol/L White Blood Count 13.0 H 4.8-10.8 K/uL Red Blood Count 4.68 4.50-6.20 MIL/uL Hemoglobin 15.2 14.0-18.0 g/dL Hematocrit 46.6 42-54 % Mean Corpuscular Volume 99.6 H 79-99 fL Mean Corpuscular Hemoglobin 32.5 27.0-33.0 pg Mean Corpuscular Hemoglobin Concent 32.6 32.0-36.0 g/dL Red Cell Distribution Width 15.9 H 11.0-15.5 % Platelet Count 198 130-400 K/uL Mean Platelet Volume 11.2 H 7.5-10.5 fL Immature Granulocyte % (Auto) 1.3 H 0-1 % Neutrophils (%) (Auto) 79.8 H 40.0-77.0 % Lymphocytes (%) (Auto) 8.2 L 21.0-51.0 % Monocytes (%) (Auto) 8.8 3.0-13.0 % Eosinophils (%) (Auto) 1.2 0.0-8.0 % Basophils (%) (Auto) 0.7 0.0-5.0 % Neutrophils # (Auto) 10.4 H 1.8-7.7 K/uL Lymphocytes # (Auto) 1.1 1.0-4.8 K/uL Monocytes # (Auto) 1.1 H 0.1-1.0 K/uL Eosinophils # (Auto) 0.15 0.00-0.70 K/uL Basophils # (Auto) 0.09 0.00-0.20 K/uL Absolute Immature Granulocyte (auto 0.17 0-1 K/uL Nucleated Red Blood Cells 0.2 H 0.0-0.19 % Sodium Level 137 136-145 mmol/L Potassium Level 3.4 L 3.5-5.1 mmol/L Chloride Level 101 101-111 mmol/L Carbon Dioxide Level 25 21-32 mmol/L Blood Urea Nitrogen 57 H 7-18 mg/dL Creatinine 1.9 H 0.5-1.3 mg/dL Glomerular Filtration Rate Calc 40 >90 mL/min Random Glucose 152 H 70-105 mg/dL Total Calcium 8.9 8.5-10.1 mg/dL Total Bilirubin 1.4 H 0.2-1.0 mg/dL Aspartate Amino Transf (AST/SGOT) 201 H 10-37 U/L Alanine Aminotransferase (ALT/SGPT) 284 H 12-78 U/L Alkaline Phosphatase 168 H 50-136 U/L B-Type Natriuretic Peptide 3330 H 0-100 pg/mL Total Protein 7.0 6.0-8.3 g/dL Albumin 2.9 L 3.5-5.0 g/dL DIAGNOSTICS / RADIOLOGY: PATIENT: LILI HUFF ACCT: [id number] LOC: [facility] U: [id number] AGE/SX: 59/M ROOM: 227 RE06/23/[address]: CHELA ARGUETA MD : 1965 BED: 1 DIS: STATUS: ADM IN TLOC: ----- ------- SPEC: [id number] ANDREINA: 06/23/25 STATUS: RES REQ: [id number] RECD: 06/23/25-[address]: ERIKA MONCADA MD SOURCE: LEG ENTR: 06/23/25-[address] [facility] [address]: CLAUDIA FRANKEL MD SPDESC: RIGHT CHELA ARGUETA MD, ASIM MD MAGNO, FERDINAND L MD STONE, DANIELLE M MD ORDERED: NAIF CULTURE, AEROBIC CULTURE Procedure Result [place] Date-Time ANAEROBIC CULTURE Preliminary 06/26/25 [facility] DESCRIPTION: REPORT 1: NO ANAEROBES AT 24-35 HOURS; STUDIES TO CONTINUE REPORT 2: NO ANAEROBES AT 48-59 HOURS; STUDIES TO CONTINUE Test(s) performed by: [facility] [address] [place] [address] AEROBIC CULTURE Final 06/26/25 [facility] DESCRIPTION: REPORT 1: 2+ GRAM NEGATIVE RODS IDENTIFICATION AND SENSITIVITY TO FOLLOW REPORT 2: NO FURTHER WORK-UP DONE [facility]ATIA [facility] RX --------- ---- AZTREONAM <=4 S CEFTAZIDIME <=1 S CEFTAZIDIME/AVIBACTAM <=8 S GENTAMICIN <=2 S LEVOFLOXACIN <=0.5 S MEROPENEM <=1 S PIPERACILLIN/TAZOBACTAM <=8 S TRIMETHOPRIM/SUFLAMETHOXAZOLE <=2/38 S ASSESSMENT: Acute hypoxic respiratory failure. Right lower extremity ulcer infection with Serratia marcescens.. Bilateral lower extremities cellulitis. Sepsis. Leukocytosis. Urinary tract infection with Klebsiella pneumoniae. Acute on chronic renal failure. Diabetes mellitus. Congestive heart failure. Generalized debility. PLAN: Continue cefepime. Continue doxycycline. Continue pain management. Continue diuretics. Continue GI prophylaxis. Continue wound care. Continue oxygen support as needed. This case was reviewed and discussed with my supervising physician Dr. Frankel and the above assessment and plan was formulated and agreed upon. ATTESTATION BY PHYSICIAN I have seen and examined the patient. I reviewed the documentation, medical decision making, and treatment plan as noted by the mid-level provider above. I agree with the findings and plan of care. CLAUDIA FRANKEL MD, MIRTA L [facility] Jun 26, 2025 22:13
[2025-06-27 03:45] VITALS: BP 125/86; PULSE 82; RESP 20; TEMP 97.4
[2025-06-27 05:34] LABS: IMMATURE GRANULOCYTE ABSOLUTE 0.20 K/uL (0-1); NUCLEATED RED BLOOD CELLS 0.2 % (0.0-0.19); PLATELET COUNT (AUTO) 187 K/uL (130-400); RED BLOOD CELL COUNT(AUTO) 4.38 MIL/uL (4.50-6.20); RED CELL DISTRIBUTION WIDTH 15.8 % (11.0-15.5); WHITE BLOOD COUNT (AUTO) 11.6 K/uL (4.8-10.8)
[2025-06-27 06:05] LABS: ASPARTATE AMINOTRANSFERASE 168.0 U/L (10-37); CREATININE 1.8 mg/dL (0.5-1.3); GLOMERULAR FILTR. RATE CALC 42.0 mL/min (>90); GLUCOSE,RANDOM 153.0 mg/dL (70-105); SODIUM SERUM 138.0 mmol/L (136-145); TOTAL PROTEIN, SERUM 6.6 g/dL (6.0-8.3); UREA NITROGEN, BLOOD 52.0 mg/dL (7-18)
[2025-06-27 08:11] VITALS: BP 105/78; PULSE 91; RESP 16; TEMP 97
[2025-06-27 08:40] VITALS: O2SAT 100
[2025-06-27 12:11] VITALS: BP 116/81; PULSE 74; RESP 16; TEMP 97.6
--- NOTE | 2025-06-27 12:30 | PN ---
[facility] PROGRESS NOTE Date of Service: Jun 27, 2025 Time of Service: 11:54 SUBJECTIVE: This is a 59 year old male,a reliable historian with pasat medical history of hypertension, diabetes, hyperlipidemia, CHF with advanced ischemic cardiomyopathy EF 20% stage 3 CKD multivessel obstructive CAD ,DVT to left leg and pulmonary embolism on chronic Eliquis ,chronic back pain,bilateral lower extremity ulcers and morbid obesity who presents to the ED for complaints of feeling dizzy,shortness of breath and patient has a chronic lower extremity that has ulcers and it has been swollen and oozing fluids.Patient also reports chills and rigors which started today while changing his wound dressing and he first though he was having parkinson's tremors so he decided to come to the ED for evaluation.Patient states he was fairly doing fine unitl 8 days ago last Sunday he stopped taking his Spironolactone and Losartan because it was discontinued byher his circular saw operator due to severe hyperkalemia .Patient reports he was seen by a circular saw operator from [place] by the name of and he told the circular saw operator that he is not voiding much than what he used to ,before he approximately voided 1600 and now it is only 500 and he noticed that his legs are becoming swollen ever since he stopped taking his Spironolactone and Losartan he feels he is gaining more weight and he was advised to take a dose of Spironolactone for today and he did after a few hours he said he felt dizzy and lightheaded and as he was changing his wound dressing he feels the chills and rigors so he decided to come to the ED for evaluation.Upon ER arrival V/SA T102.4,HR 128,BP 122/87 Sat 100% RA RR 24.ECG result revealed Sinus ectopic or atrial Tachycardia HR 120 Prob left atrial enlargement,inferior infarct old,anterior infarct old,nonspecific T abnormalities ,lateral leads prolonged QT interval. Seen and examined patient in the ER awake,alert and coherent,appears comfortable,in no apparent distress.Patient denies cough,shortness of breath,chest pain,palpitation,abdominal pain,nausea,vomiting and syncope.Labs WBC 20 with negative left shift of neutrophils 88,Hgb 15,Hct 45,platelet 209.Na 135,K4.6,K4.6,Chloride 96,BUN47,Creat 1.9,GFR 40,Glucose 174 ,lactic acid 6.3,BNP 1550.Urinalysis remarkable for protein 30,glucose more than 1000,small hematuria and urine RBC 2-5 .Serology test for influenza Type A&B negative SARS COV_2 negative and Group A strep negative.CXR result revealed interval development of mild cardiomegaly.No acute infiltrate ,effusion or pneumothorax.While in the ER patient received Fluid resuscitation of 30ml/kg over 3 hours ,Tylenol 1000 mg po,Morphine 4mg IV, Cefepime and Vancomycin IV.Will admit patient for further medical management. 06/23/25: Patient is seen at bedside in ER 5. Patient denies cough, chest pain, palpitation, abdominal pain, chills. Patient is started on nasal cannula due to shortness of breath. Patient's remaining vitals stable with temperature at 98.4, pulse at 98, respiratory rate of 22, blood pressure 109/79. Patient's labs showed an increase in WBC to 24.5, hemoglobin at 13.9, sodium at 135, lactic acid improved to 4.3. Continue the patient on vancomycin and cefepime IV. Cardiology and Infectious Disease have been consulted, along with critical care. Patient's BNP has improved to 851. Patient has no new complaints. Patient started on soft hydration. Cardiology ordered a 2D echo and venous Doppler ultrasound bilaterally to rule out DVT. 06/24/25: Patient is seen at bedside in ER 5. Patient is doing much better, off of nasal cannula and breathing room air. Patient denies cough, chest pain, palpitations, abdominal pain, chills. Patient's temperature currently at 98.8, pulse at 89 respiratory rate at 18, blood pressure 102/58. Patient's labs have improved with his WBC trending down to 18.4, his creatinine remains around 1.9, his lactic acid has trended down to 2.7. He does have an increase in his liver function tests with AST going up to 254 and ALT increasing to 152. His BNP has also increased to to 2110. Cardiology recommended to hold losartan, start him on Bumex 1 mg b.i.d., Jardiance half tablet 5 mg b.i.d. and continue with Eliquis 5 mg b.i.d. His venous Doppler study showed no DVTs bilaterally. Patient's urine culture came back positive for Gram-negative rods, going to wait for specificity and sensitivity to change his medication. He is currently on vancomycin and cefepime. 06/25/25: Patient is seen at bedside now in room 227. Patient is seen by infectious disease doctor who recommended to continue vancomycin follow up with wound culture. Cardiology increase the patient's Bumex to t.i.d. patient's lactic acid remained at 2.7 His BNP increased to 2206. An ankle-brachial index test has been ordered. Patient's urine culture showed Klebsiella pneumoniae sensitive to most antibiotics. His preliminary wound care results show Gram- negative rods. Blood culture still no growth after 48 hours. Continuing the patient's vancomycin and cefepime. Patient's WBC went down to 16.2 today. He continues to have an increase in his liver function tests with AST going up to 367 and ALT increasing to 302. His alkaline phosphatase also increased to 142 today. We will keep an eye on his liver functions. : Patient is seen and examined at bedside in room 227. Patient stable breathing comfortably on room air. Patient still complains of orthopnea, dyspnea on exertion, paroxysmal nocturnal dyspnea. Cardiology followed up with the patient and increased his Bumex to 2 mg b.i.d. Patient is on a strict in and out of 1.5 L. patient's wound culture came back positive for Serratia marcescens susceptible to most antibiotics. We will let Infectious Disease decide if they want to change antibiotics. Ankle-brachial index test has been ordered yesterday waiting on results. Chest x-ray has been ordered along with thoracic and lumbar spine CT. Patient's liver functions have improved with AST dropping to 201 and ALT dropping to 284. Patient's BNP is high at 3330. 06/27/25: Patient seen and examined today morning at bedside. The patient ex pressed concern about gaining extra weight and his clothes won't even fit him well. Intake 2590. Patient says his breathing is better when he is sitting or lying in bed at 45 degrees. Labs showed decreased in WBC from 13 to 11.6, platelets 187, BUN 52 and creatinine 1.8. Total bilirubin 1.3, AST came down to 168 from 201, ALT 263 from 284, ALP 178. BNP is down to 2700 from 3330. Lactic acid went up from 2.3-2.7. Infectious Disease recommended to continue vanco and cefepime. Cardio recommended to continue Bumex IV 2 mg b.i.d. REVIEW OF SYSTEMS CONSTITUTIONAL: Denies chills, fever and night sweats. unintentional weight gain reported. Complains of back pain which is chronic NEUROLOGICAL: Denies headache, gait abnormalities, or tremors. ENT: No hearing loss, otalgia, otorrhea, rhinitis, rhinorrhea, hoarseness, or sore throat. CARDIOVASCULAR: dyspnea on exertion, orthopnea, paroxysmal nocturnal dyspnea. Denies any exertional angina, palpitations, life-threatening arrhythmias. PULMONARY: Shortness of breath improved. denies cough, phlegm/sputum, hemoptysis, pleuritic chest pain. GASTROINTESTINAL: Denies any type of dysphagia to either liquids or solids. Denies nausea, vomiting, abdominal pain, diarrhea, constipation, or changes in stool consistency or caliber. GENITOURINARY: Denies frequency, urgency, nocturia, hematuria or incontinence ENDOCRINOLOGIC: Denies polyuria, polydipsia, polyphagia or heat/cold intolerances. ONCOLOGIC: Denies personal history of malignancy. DERMATOLOGIC: chronic wound ulcer to right lower extremity Denies rashes or pruritus. PHYSICAL EXAM GENERAL APPEARANCE: The patient is awake, alert, and oriented, in no acute cardiopulmonary distress. NEUROLOGICAL: Cranial nerves II-XII grossly intact. Motor is 5/5 in bilateral upper and lower extremities proximal to distal. No sensory deficits. HEENT: Face is symmetric. Pupils are equal and reactive. Extraocular movements are intact. NECK: Supple. No JVD. No thyromegaly. No submental, submandibular, pre- /postauricular, occipital or supraclavicular lymphadenopathy. CHEST: Normal chest expansion. No Telemetry. LUNGS: Sounds clear CARDIOVASCULAR: Regular rate and rhythm. S1 and S2 normal. No appreciable rubs, murmurs or gallops. ABDOMEN: Soft, nontender, and nondistended. There is no rebound, voluntary guarding, or rigidity. : Deferred. No [place]. EXTREMITIES: 2+edema to bilateral lower extremities SKIN: Draining Wound ulcers to right lower extremity Vital Signs (last 8hr) Date Time Temp Pulse Resp B/P (MAP) Pulse Ox O2 Delivery O2 Flow Rate FiO2 06/27/25 08:40 100 Room Air* 0 21 06/27/25 08:11 97.0 91 16 105/78 99 Room Air LABS: Laboratory: Test 06/27/25 11:12 06/27/25 09:09 06/27/25 05:23 06/26/25 17:05 Range/Units Whole Blood Glucose 158 H 70-110 MG/DL Lactic Acid Level 2.7 H 0.8-2.5 mmol/L White Blood Count 11.6 H 4.8-10.8 K/uL Red Blood Count 4.38 L 4.50-6.20 MIL/uL Hemoglobin 14.2 14.0-18.0 g/dL Hematocrit 44.4 42-54 % Mean Corpuscular Volume 101.4 H 79-99 fL Mean Corpuscular Hemoglobin 32.4 27.0-33.0 pg Mean Corpuscular Hemoglobin Concent 32.0 32.0-36.0 g/dL Red Cell Distribution Width 15.8 H 11.0-15.5 % Platelet Count 187 130-400 K/uL Mean Platelet Volume 11.1 H 7.5-10.5 fL Immature Granulocyte % (Auto) 1.7 H 0-1 % Neutrophils (%) (Auto) 78.6 H 40.0-77.0 % Lymphocytes (%) (Auto) 7.8 L 21.0-51.0 % Monocytes (%) (Auto) 10.2 3.0-13.0 % Eosinophils (%) (Auto) 1.1 0.0-8.0 % Basophils (%) (Auto) 0.6 0.0-5.0 % Neutrophils # (Auto) 9.1 H 1.8-7.7 K/uL Lymphocytes # (Auto) 0.9 L 1.0-4.8 K/uL Monocytes # (Auto) 1.2 H 0.1-1.0 K/uL Eosinophils # (Auto) 0.13 0.00-0.70 K/uL Basophils # (Auto) 0.07 0.00-0.20 K/uL Absolute Immature Granulocyte (auto 0.20 0-1 K/uL Nucleated Red Blood Cells 0.2 H 0.0-0.19 % Sodium Level 138 136-145 mmol/L Potassium Level 4.5 3.5-5.1 mmol/L Chloride Level 101 101-111 mmol/L Carbon Dioxide Level 26 21-32 mmol/L Blood Urea Nitrogen 52 H 7-18 mg/dL Creatinine 1.8 H 0.5-1.3 mg/dL Glomerular Filtration Rate Calc 42 >90 mL/min Random Glucose 153 H 70-105 mg/dL Total Calcium 8.8 8.5-10.1 mg/dL Total Bilirubin 1.3 H 0.2-1.0 mg/dL Aspartate Amino Transf (AST/SGOT) 168 H 10-37 U/L Alanine Aminotransferase (ALT/SGPT) 265 H 12-78 U/L Alkaline Phosphatase 178 H 50-136 U/L B-Type Natriuretic Peptide 2700 H 0-100 pg/mL Total Protein 6.6 6.0-8.3 g/dL Albumin 2.8 L 3.5-5.0 g/dL Vancomycin Level Trough 18.6 # 10.0-20.0 UG/ML Current Medications Medications (Trade) Dose Ordered Sig/Da Route PRN Reason Start Time Stop Time Status Last Admin Dose Admin Acetaminophen (TYLenol 325MG TAB) 650 mg Q4H PRN PO MILD PAIN (1-3) 06/23/25 03:30 07/23/25 03:29 Acetaminophen (TYLenol 325MG TAB) 650 mg Q6H PRN PO TEMPERATURE GREATER THAN 101.5 06/23/25 03:30 07/23/25 03:29 Apixaban (EliquIS) 5 mg BID PO 06/23/25 09:00 07/23/25 08:59 06/27/25 08:32 5 MG Bumetanide (Bumex 1mg Tab) 1 mg BID PO 06/23/25 09:00 06/25/25 08:32 DC 06/24/25 21:13 1 MG Bumetanide (Bumex 1mg Vial) 1 mg BID IVP 06/25/25 09:00 06/25/25 08:41 DC Bumetanide (Bumex 1mg Vial) 1 mg TID IVP 06/25/25 09:00 06/26/25 08:34 DC 06/25/25 21:29 1 MG Bumetanide (Bumex 1mg Vial) 2 mg BID IVP 06/26/25 09:00 07/25/25 08:59 06/27/25 08:30 2 MG Cefepime HCl (MAXipime 1 GM vial) 1 gm ONCE IVPB 06/23/25 02:00 06/23/25 04:01 DC 06/23/25 02:19 1 GM Cefepime HCl (MAXipime 1 GM vial) 1 gm Q12H IVPB 06/23/25 10:00 07/03/25 09:59 06/27/25 08:36 1 GM Dextrose (D50w) 50 ml AD PRN IV HYPOGLYCEMIA PROTOCOL 06/23/25 03:30 07/23/25 03:29 Dobutamine HCl/ Dextrose 250 ml @ 0 mls/hr PROTOCOL IV 06/24/25 16:00 07/24/25 15:59 Doxycycline Hyclate 250 ml @ 125 mls/hr Q12H IV 06/24/25 16:00 07/04/25 15:59 06/27/25 03:55 125 MLS/HR Empaglifozin (Jardiance 10mg) 5 mg BID PO 06/24/25 21:00 07/24/25 20:59 06/27/25 08:31 5 MG Famotidine (Pepcid 20mg Tab) 20 mg DAILY PO 06/23/25 09:00 07/23/25 08:59 06/27/25 08:31 20 MG Gentamicin Sulfate (GENTAmicin SULFate 15 gm cream) APPLY DIRECTED DAILY18 TP 06/26/25 18:00 07/10/25 17:59 06/26/25 17:26 1 APPL Glucagon (Glucagon 1mg Kit) 1 mg AD PRN IM HYPOGLYCEMIA PROTOCOL 06/23/25 03:30 07/23/25 03:29 Insulin Human Regular (humuLIN R 100 UNIT/ML 3ML) INSULIN SLIDING SCAL... ACHS SQ 06/23/25 07:30 07/23/25 07:29 06/26/25 17:42 2 UNIT Leptospermum Honey ([facility]) 1 APPL DAILY17 TP 06/23/25 17:00 07/23/25 16:59 06/26/25 16:15 1 APPL Magnesium Sulfate 50 ml @ 0 mls/hr PROTOCOL PRN IV OTHER [SEE ORDER COMMENTS] 06/23/25 03:30 07/23/25 03:29 Metoprolol Succinate (TopROL XL) 25 mg DAILY PO 06/23/25 09:00 07/23/25 08:59 06/27/25 08:32 25 MG Morphine Sulfate (morPHINE 2MG SYG) 2 mg Q6H6 PRN IVP PAIN LEVEL 7 TO 10 06/23/25 11:00 06/30/25 10:59 06/24/25 16:03 2 MG Multivitamins Therapeutic (Multivitamin Tablet) 1 tab DAILY PO 06/25/25 09:00 07/25/25 08:59 06/27/25 08:32 1 TAB Mupirocin (Bactroban Oint) apply to bilateral lo... DAILY17 TP 06/23/25 17:00 06/26/25 16:51 DC 06/26/25 16:15 1 APPL Ondansetron HCl (zoFRAN 4MG INJ) 4 mg Q6H PRN IV NAUSEA/VOMITING 06/23/25 03:30 07/23/25 03:29 Oxycodone HCl (ROXicoDONE) 10 mg Q8H PRN PO SEVERE PAIN (7-10) 06/25/25 11:00 06/30/25 10:59 06/26/25 16:01 10 MG Potassium Chloride 100 ml @ 100 mls/hr AD PRN IV POTASSIUM PROTOCOL 06/23/25 03:30 07/23/25 03:29 Potassium Chloride (K-Dur/Klor-Con 20meq) 20 meq AD PRN PO POTASSIUM PROTOCOL 06/23/25 03:30 07/23/25 03:29 06/26/25 10:19 20 MEQ Potassium Chloride (KCl 10% Elixir 20meq/15ml) 20 meq AD PRN PO POTASSIUM PROTOCOL 06/23/25 03:30 07/23/25 03:29 Sodium Chloride 1,000 ml @ 50 mls/hr Q20H IV 06/23/25 17:30 06/24/25 09:35 DC 06/23/25 17:19 50 MLS/HR Vancomycin HCl 250 ml @ 125 mls/hr HS IV 06/26/25 21:00 07/06/25 20:59 06/26/25 22:09 125 MLS/HR Vancomycin HCl 250 ml @ 125 mls/hr ONCE IV 06/23/25 03:30 06/23/25 03:44 DC Vancomycin HCl 250 ml @ 125 mls/hr Q24H IV 06/24/25 05:00 06/26/25 20:09 DC 06/25/25 05:21 125 MLS/HR DIAGNOSTICS / RADIOLOGY: [facility] [address] [place], [place] [id number] IMAGING REPORT Signed PATIENT: LILI HUFF MR#: [id number] : 1965 SEX: M AGE: 59 LOCATION: 2DH ORDER 0934 STATUS: ADM IN REPORT#: [id number] SERVICE 3 REASON: pulmonary edema ORDERING PHYSICIAN: LISS MANN MD PROCEDURE: CXR1VW - CHEST 1VW CHEST 1VW REASON: pulmonary edema COMPARISON: None. FINDINGS: Single view of the chest was obtained. Lungs are clear. There is mild to moderate cardiomegaly with left ventricular contour. There is uncoiling atherosclerotic change of thoracic ureter. There is no pulmonary vascular congestion. Mediastinum and bony thorax appear unremarkable. IMPRESSION: 1. Mild to moderate cardiomegaly 2. No evidence of airspace consolidation or pulmonary venous congestion. DICTATED BY: MIRYAM HOSKINS MD DATE: 06/26/25 1233 ELECTRONICALLY SIGNED BY: MIRYAM HOSKINS MD DATE: 06/26/25 1238 [facility] [address] [place] [id number] IMAGING REPORT Signed PATIENT: LILI HUFF MR#: [id number] : 1965 SEX: M AGE: 59 LOCATION: 2DH ORDER 0833 STATUS: ADM IN REPORT#: [id number] SERVICE 0831 REASON: spinal stenosis ORDERING PHYSICIAN: EMBER SORIANO MD PROCEDURE: T SPINE WO - CT THORACIC SPINE W/O CONTRAST EXAM: CT Thoracic Spine Without IV contrast. CLINICAL HISTORY: spinal stenosis TECHNIQUE: Axial computed tomography images of the thoracic spine without intravenous contrast. Sagittal and coronal reformatted images were generated. CONTRAST: None. COMPARISON: None provided. FINDINGS: BONES: No acute fracture or aggressive appearing osseous lesion. ALIGNMENT: Bony alignment is anatomic. DEGENERATIVE CHANGES: Degenerative changes in the form of multilevel Schmorl's nodes, vacuum phenomenon and anterior vertebral spurring. Reduced disc spaces and endplate irregularities in the visualized lower cervical spine. No significant central canal or neural foraminal stenosis. SOFT TISSUES: Mild right sided pleural effusion. The soft tissues are unremarkable. IMPRESSION: No acute fracture or dislocation in the thoracic spine. Mild degenerative change. No significant central canal or neural foraminal stenosis. Mild right-sided pleural effusion. /[place] DICTATED BY: ARIA CAMPOS MD DATE: 06/26/251702 ELECTRONICALLY SIGNED BY: ARIA CAMPOS MD DATE: 06/26/251702 [place] [address] IMAGING REPORT Signed PATIENT: LILI HUFF MR#: [id number] : 1965 SEX: M AGE: 59 LOCATION: [facility] ORDER 2 [facility] REPORT#: [id number] SERVICE 0 REASON: spinal stenosis ORDERING PHYSICIAN: EMBER SORIANO MD PROCEDURE: L SPIN WO - CT LUMBAR SPINE W/O CONTRAST EXAM: CT Lumbar Spine Without IV contrast. CLINICAL HISTORY: spinal stenosis TECHNIQUE: Axial computed tomography images of the lumbar spine without intravenous contrast. Sagittal and coronal reformatted images were generated. COMPARISON: None provided. FINDINGS: ALIGNMENT: Bony alignment is anatomic. DISCS/DEGENERATIVE CHANGES: Reduced disc space with vacuum phenomena at the L5-S1 and T12-L1 level with minimal retrolisthesis of L5 over S1. Multilevel Schmorl's node present No significant degenerative disease. BONES: No acute fracture or aggressive appearing osseous lesion. SOFT TISSUES: The soft tissues are unremarkable. IMPRESSION: 1. No acute osseous injury. 2. Reduced disc space with vacuum phenomena at L5-S1 and T12-L1 levels, with minimal retrolisthesis of L5 over S1. /[place] DICTATED BY: ARIA CAMPOS MD DATE: 06/26/252047 ELECTRONICALLY SIGNED BY: ARIA CAMPOS MD DATE: 06/26/252047 ASSESSMENT: Severe sepsis POA UTI, POA Infected stasis ulcer of right lower extremity POA Acute kidney injury on chronic kidney disease POA Acute on chronic systolic CHF with cardiomyopathy POA Acute leukocytosis POA Lactic Acidosis POA Transaminases elevated Lumbar spondylosis/degenerative changes Hyponatremia POA Hypochloremia POA Uncontrolled diabetes POA Hypertension POA Hyperlipidemia POA History of Left lower extremity DVT on Eliquis POA History of pulmonary embolism on chronic anticoagulation POA PLAN: Severe sepsis POA: * Continue patient on vancomycin and cefepime, doxycycline * Patient's lactic acid trending up from 2.3 to 2.7 today. WBC came down to 11.6 from 13. * Blood culture negative, urine culture positive for Klebsiella pneumoniae. * Infectious disease and critical care consult appreciated and will follow their recommendations. Infected stasis ulcer of right lower extremity POA: * Cardiology on board and recommended venous Doppler ultrasound bilaterally to rule out DVT, ultrasound came back negative for DVT bilaterally * Wound care culture came back positive for Serratia marcescens a Gram-negative bacteria susceptible to most antibiotics * We will follow their recommendations for further treatment * Infectious disease recommended to continue IV cefepime and vancomycin. Acute kidney injury on chronic kidney disease POA: * Placed on daily weight and strict I&O * BUN 52, creatinine 1.8. * restrict fluid 1.5 L per day * Avoid NSAIDs or nephrotoxic agents. Acute on chronic systolic CHF with cardiomyopathy POA: * Cardiology consult placed, who ordered an 2D echo which showed severely reduced LVEF of less than 20% * Cardiology also recommended to hold losartan, Jardiance half tablet 5 mg b.i.d. and continue with Eliquis 5 mg b.i.d. increased Bumex to 2 mg b.i.d. * Follow the recommendations for further treatment. * I will add 5 mg Metolazone before his night dose Bumex and again 1 in tomorrow morning. UTI, POA: * Patient's urine culture came back positive for Gram-negative rods * Sensitivity and specificity showed Klebsiella pneumoniae sensitive to most antibiotics * Continuing the patient on vancomycin and cefepime * Infectious disease is on the case Lumbar spondylosis/degenerative changes : * CT lumbar showed lumbar degerative disc disease with reduced disc space and vacuum phenomenon at L5-S1 and T12-L1 levels with minimal retrolisthesis of L5 on S1. * Continue with PRN pain medications. We will request labs in am Further orders to follow depending on above results ATTESTATION BY PHYSICIAN I have seen and examined the patient. I reviewed the documentation, medical decision making, and treatment plan as noted by the resident provider above. I agree with the findings and plan of care. ISIDRO BROWN MD, KRUPALI P MD Jun 27, 2025 12:30
--- NOTE | 2025-06-27 13:48 | PN ---
[facility] CARDIOLOGY PROGRESS NOTE Date Patient Seen: Jun 27, 2025 Time of Visit: 13:28 Interval History: This is a 59 year old Latin-Z[place]an male with a past medical history of hypertension, type 2 diabetes, hyperlipidemia, chronic kidney disease stage 3, end-stage ischemic cardiomyopathy with an LVEF of less than 20% (refused LifeVest) and followed also by Dr. 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 He reports his carvedilol, spironolactone and Entresto were previously withdrawn due to severe hyperkalemia. He had been transitioned over to losartan but feels losartan and his diuretic therapy was not as effective as Entresto and diuretic therapy as he noted less urine output. He began developing lower extremity edema. On admission, he also complained of chills. He has been managed for right lower extremity cellulitis and acute on chronic HFrEF. His Bumex has been intensified to 2 mg IV q.12 hours due to weight gain and evidence of anasarca. He reports he used to take metolazone 2.5 mg on an as-needed basis as an outpatient. He offers no chest pain, palpitations or any significant orthopnea. Physical Examination: GENERAL: No acute distress. HEAD: Normal with no signs of head trauma. EYES: PERRLA, EOMI, conjunctiva and sclera normal. NECK: Supple without JVD. There is no tenderness, lymphadenopathy, or masses. No thyromegaly. Normal carotid upstrokes without bruits. LUNGS: Bibasilar rales. HEART: Normal rate and rhythm. Normal S1 and S2 without murmurs, gallop or rub. VASC: Peripheral pulses not palpable, his feet are cool and there is chronic discoloration. There are dressings to the pretibial areas bilaterally with sero us drainage to the right lower extremity. EXT: No clubbing, cyanosis, there is pitting edema to the sacrum and lower abdomen and 2+ to the thighs NEURO: Awake, alert, and oriented x3. No focal neurological deficits noted. Laboratory: Hematology Labs: Test 06/27/25 05:23 Range/Units White Blood Count 11.6 H 4.8-10.8 K/uL Red Blood Count 4.38 L 4.50-6.20 MIL/uL Hemoglobin 14.2 14.0-18.0 g/dL Hematocrit 44.4 42-54 % Mean Corpuscular Volume 101.4 H 79-99 fL Mean Corpuscular Hemoglobin 32.4 27.0-33.0 pg Mean Corpuscular Hemoglobin Concent 32.0 32.0-36.0 g/dL Red Cell Distribution Width 15.8 H 11.0-15.5 % Platelet Count 187 130-400 K/uL Mean Platelet Volume 11.1 H 7.5-10.5 fL Immature Granulocyte % (Auto) 1.7 H 0-1 % Neutrophils (%) (Auto) 78.6 H 40.0-77.0 % Lymphocytes (%) (Auto) 7.8 L 21.0-51.0 % Monocytes (%) (Auto) 10.2 3.0-13.0 % Eosinophils (%) (Auto) 1.1 0.0-8.0 % Basophils (%) (Auto) 0.6 0.0-5.0 % Neutrophils # (Auto) 9.1 H 1.8-7.7 K/uL Lymphocytes # (Auto) 0.9 L 1.0-4.8 K/uL Monocytes # (Auto) 1.2 H 0.1-1.0 K/uL Eosinophils # (Auto) 0.13 0.00-0.70 K/uL Basophils # (Auto) 0.07 0.00-0.20 K/uL Absolute Immature Granulocyte (auto 0.20 0-1 K/uL Nucleated Red Blood Cells 0.2 H 0.0-0.19 % Chemistry Labs: Test 06/27/25 11:12 06/27/25 09:09 06/27/25 05:23 Range/Units Whole Blood Glucose 158 H 70-110 MG/DL Lactic Acid Level 2.7 H 0.8-2.5 mmol/L Sodium Level 138 136-145 mmol/L Potassium Level 4.5 3.5-5.1 mmol/L Chloride Level 101 101-111 mmol/L Carbon Dioxide Level 26 21-32 mmol/L Blood Urea Nitrogen 52 H 7-18 mg/dL Creatinine 1.8 H 0.5-1.3 mg/dL Glomerular Filtration Rate Calc 42 >90 mL/min Random Glucose 153 H 70-105 mg/dL Total Calcium 8.8 8.5-10.1 mg/dL Total Bilirubin 1.3 H 0.2-1.0 mg/dL Aspartate Amino Transf (AST/SGOT) 168 H 10-37 U/L Alanine Aminotransferase (ALT/SGPT) 265 H 12-78 U/L Alkaline Phosphatase 178 H 50-136 U/L B-Type Natriuretic Peptide 2700 H 0-100 pg/mL Total Protein 6.6 6.0-8.3 g/dL Albumin 2.8 L 3.5-5.0 g/dL Diagnostics / Radiology: 2D echocardiogram 06/24/2025: Conclusion The left ventricle is severely dilated. Severely reduced LVEF is <20%. Severely reduced GLS -3.0% Severe global hypokinesis left ventricular wall motion. The right ventricle is severely dilated. Right ventricular systolic function is severely reduced. Aortic valve is trileaflet, thickened and opens well. Nodular calcification on the right coronary cusp leaflet. There is no aortic valvular stenosis. There is trace of mitral valve regurgitation noted. There is moderate tricuspid valve regurgitation noted by color flow Doppler. RVSP 52mmHg. There is mild pulmonic valvular regurgitation. Impression and Plan: Sepsis: Bilateral lower extremity cellulitis: Right lower extremity ulcer infection with Serratia marcescens: -continue antibiotic therapy Acute on chronic HFrEF (LVEF of less than 20%): End-stage ischemic cardiomyopathy with an LVEF of less than 20% by follow-up 2D echocardiogram 06/24/2025, followed by Dr. Chalino Shaw (advanced heart failure management program): -agree with continued IV Bumex 2 mg b.i.d. -a follow-up chest x-ray today demonstrates slightly improved CHF changes -continues with edema to the lower abdomen and sacral area -metolazone 2.5 mg today and monitor urine output -begin Milrinone infusion at 0.25 mcg/kg per minute fixed rate -attempt accurate I&Os and standing daily weights -has refused LifeVest in the past -we will trend basic metabolic panel and consider resumption of Entresto in 24- 48 hours but we will hold on resumption of spironolactone given concern for prior hyperkalemia -trend CMP Multivessel coronary artery disease felt not amendable to revascularization: -continue beta-anastasiia therapy -has continued on long-term anticoagulation with Eliquis for prior history of DVT and PE -statin therapy on hold given elevated LFTs Transaminitis likely secondary to acute on chronic HFrEF: -continue to trend Comorbidities: Chronic kidney disease stage 3 Type 2 diabetes mellitus Hypertension Hyperlipidemia Multivessel coronary artery disease not amenable to revascularization Prior DVT to the left lower extremity and PE on long-term Eliquis anti coagulation Chronic back pain PHYSICIAN ATTESTATION OF PHYSICIAN ADMINISTRATIVE OPERATIONS COORDINATOR DOCUMENTATION: I attest that I was physically present for the serra portions of the service and evaluated the patient with the Physician Hull And Deck Remover, and I reviewed and discussed the case with the Physician Hull And Deck Remover and made modifications to the Physician Hull And Deck Remover's findings and plans of care as documented above KALIN KYLE Jun 27, 2025 13:48 SUSAN PETIT MD Jun 28, 2025 14:06
[2025-06-27 16:15] VITALS: BP 106/65; PULSE 62; RESP 16; TEMP 97.4
[2025-06-27] MEDS: MILRINONE-D5W 20 MG/100 ML 100 ML IV SCH (16:33)
[2025-06-27 20:00] VITALS: BP 108/80; PULSE 100; RESP 20; TEMP 98; O2SAT 98
[2025-06-27 22:15] LABS: INR 1.69 (0.85-1.15)
[2025-06-28] VITALS (9 sets, daily range): BP systolic 103–135; BP diastolic 52–86; PULSE 62–109; RESP 16–20; TEMP 97.5–98; O2SAT 98
--- NOTE | 2025-06-28 02:06 | HMCIMG ---
EXAM: CR Chest, 1 view CLINICAL HISTORY: PICC line placement. COMPARISON: Chest radiograph dated 06/27/2025. FINDINGS: The left side PICC line tip overlies the distal SVC. Mild to moderate cardiomegaly. The bilateral CP angles are occluded from the image. The lungs show no infiltrates or other acute findings. No pleural effusion or pneumothorax. No acute osseous abnormality. IMPRESSION: The left side PICC line tip overlies the distal SVC. Mild to moderate cardiomegaly. Compared to the prior study, there is no significant interval change. /[place]
[2025-06-28 04:35] LABS: IMMATURE GRANULOCYTE ABSOLUTE 0.26 K/uL (0-1); NUCLEATED RED BLOOD CELLS 0.2 % (0.0-0.19); PLATELET COUNT (AUTO) 194 K/uL (130-400); RED BLOOD CELL COUNT(AUTO) 4.20 MIL/uL (4.50-6.20); RED CELL DISTRIBUTION WIDTH 15.3 % (11.0-15.5); WHITE BLOOD COUNT (AUTO) 12.5 K/uL (4.8-10.8)
[2025-06-28 04:54] LABS: ASPARTATE AMINOTRANSFERASE 117.0 U/L (10-37); CREATININE 1.5 mg/dL (0.5-1.3); GLOMERULAR FILTR. RATE CALC 53.0 mL/min (>90); GLUCOSE,RANDOM 117.0 mg/dL (70-105); SODIUM SERUM 139.0 mmol/L (136-145); TOTAL PROTEIN, SERUM 6.3 g/dL (6.0-8.3); UREA NITROGEN, BLOOD 49.0 mg/dL (7-18)
--- NOTE | 2025-06-28 08:40 | HMCIMG ---
EXAM: CR Chest, 1 View. CLINICAL HISTORY: elevated BNP and lactic acid COMPARISON: Radiograph from June 26, 2025. FINDINGS: LUNGS: The lungs show no infiltrate or other acute finding. PLEURAL SPACES: No evidence of pleural effusion or pneumothorax. MEDIASTINUM: Stable cardiomegaly. Pulmonary vasculature and interstitial markings are within normal limits. BONES: No aggressive appearing osseous lesion seen. IMPRESSION: 1. No acute cardiopulmonary findings. 2. Cardiomegaly. /[place]
--- NOTE | 2025-06-28 08:51 | PN ---
INFECTIOUS DISEASE FOLLOWUP NOTE DATE OF SERVICE: 06/27/2025 SUBJECTIVE: The patient is seen and examined at bedside today. The patient has no fever. No . No nausea or vomiting. Continued shortness of breath. The patient has been started on the Primacor infusion. PHYSICAL EXAMINATION: VITAL SIGNS: Temperature today 98.7. EYES: No icterus. Pupils are equal and reactive. HENT: No oral thrush seen. Moist oral mucosa. NECK: Supple. No JVD or thyromegaly. LUNGS: Good air entry. Crackles bilaterally. CARDIOVASCULAR: S1 and S2, regular. No murmur heard. ABDOMEN: Obese, soft, nontender. Bowel sounds are present. CENTRAL NERVOUS SYSTEM: Awake, alert, and oriented x3. No focal deficits. SKIN: No rashes, no itchiness. LYMPHATIC: Bilateral inguinal lymphadenopathy. BACK: No deformity. No pressure ulcers. EXTREMITIES: Ulcer involving both lower extremities. ASSESSMENT: A 59-year-old male with multiple problems, which include: * Sepsis. * Urinary tract infection. * Bilateral leg ulcers. * Acute on chronic heart failure. * Cellulitis. * Hypoxemic respiratory failure. PLAN: * Continue wound care. * Continue Cefepime. * Continue vancomycin. * Continue Eliquis. * Continue doxycycline. * Continue milrinone infusion. * Monitor electrolytes. * The patient will be followed with me closely. TID: [id number] RECEIPT: [id number]
--- NOTE | 2025-06-28 10:35 | PN ---
[facility] CARDIOLOGY PROGRESS NOTE Date Patient Seen: Jun 28, 2025 Time of Visit: 10:30 Interval History: This is a 59 year old Latin-Russian male with a past medical history of hypertension, type 2 diabetes, hyperlipidemia, chronic kidney disease stage 3, end-stage ischemic cardiomyopathy with an LVEF of less than 20% (refused LifeVest) and followed also by Dr. Chalino Shaw advanced heart failure specialist in the [facility], chronic HFrEF, chronic kidney disease stage 3, multivessel coronary artery disease not amenable to revascularization, prior DVT to the left lower extremity and PE on long-term Eliquis anticoagulation, chronic back pain and bilateral lower extremity ulcerations presented to the hospital with worsening lower extremity edema and weeping lesions particularly to the right lower extremity. He reports his carvedilol, spironolactone and Entresto were previously withdrawn due to severe hyperkalemia. He had been transitioned over to losartan but feels losartan and his diuretic therapy was not as effective as Entresto and diuretic therapy as he noted less urine output. He began developing lower extremity edema. On admission, he also complained of chills. He has been managed for right lower extremity cellulitis and acute on chronic HFrEF. His Bumex has been intensified to 2 mg IV q.12 hours due to weight gain and evidence of anasarca. On 06/27/2025, he was initiated on Milrinone at 0.25 mcg/kg per minute and was treated with p.o. metolazone. He actually received 7.5 mg of metolazone and continued on Bumex 2 mg IV q.12 hours. He has diuresed 6 L overnight with continues to have anasarca to the lower abdomen and upper thighs and lower extremity edema. Telemetry has demonstrated a sinus rhythm with a heart rate of 100 beats per minute with occasional PACs and PVCs. Physical Examination: GENERAL: No acute distress. HEAD: Normal with no signs of head trauma. EYES: PERRLA, EOMI, conjunctiva and sclera normal. NECK: Supple without JVD. There is no tenderness, lymphadenopathy, or masses. No thyromegaly. Normal carotid upstrokes without bruits. LUNGS: Only trace bibasilar rales HEART: Normal rate and rhythm. Normal S1 and S2 without murmurs, gallop or rub. VASC: Peripheral pulses not palpable, his feet are cool and there is chronic discoloration. There are dressings to the pretibial areas bilaterally with serous drainage to the right lower extremity. EXT: No clubbing, cyanosis, +2 edema to the thighs and lower abdomen edema NEURO: Awake, alert, and oriented x3. No focal neurological deficits noted. Laboratory: Hematology Labs: Test 06/28/25 04:25 Range/Units White Blood Count 12.5 H 4.8-10.8 K/uL Red Blood Count 4.20 L 4.50-6.20 MIL/uL Hemoglobin 13.7 L 14.0-18.0 g/dL Hematocrit 40.5 L 42-54 % Mean Corpuscular Volume 96.4 79-99 fL Mean Corpuscular Hemoglobin 32.6 27.0-33.0 pg Mean Corpuscular Hemoglobin Concent 33.8 32.0-36.0 g/dL Red Cell Distribution Width 15.3 11.0-15.5 % Platelet Count 194 130-400 K/uL Mean Platelet Volume 10.7 H 7.5-10.5 fL Immature Granulocyte % (Auto) 2.1 H 0-1 % Neutrophils (%) (Auto) 80.0 H 40.0-77.0 % Lymphocytes (%) (Auto) 5.9 L 21.0-51.0 % Monocytes (%) (Auto) 10.2 3.0-13.0 % Eosinophils (%) (Auto) 1.1 0.0-8.0 % Basophils (%) (Auto) 0.7 0.0-5.0 % Neutrophils # (Auto) 10.0 H 1.8-7.7 K/uL Lymphocytes # (Auto) 0.7 L 1.0-4.8 K/uL Monocytes # (Auto) 1.3 H 0.1-1.0 K/uL Eosinophils # (Auto) 0.14 0.00-0.70 K/uL Basophils # (Auto) 0.09 0.00-0.20 K/uL Absolute Immature Granulocyte (auto 0.26 0-1 K/uL Nucleated Red Blood Cells 0.2 H 0.0-0.19 % Chemistry Labs: Test 06/28/25 05:34 06/28/25 04:25 Range/Units Whole Blood Glucose 114 H 70-110 MG/DL Sodium Level 139 136-145 mmol/L Potassium Level 3.0 *L 3.5-5.1 mmol/L Chloride Level 100 L 101-111 mmol/L Carbon Dioxide Level 27 21-32 mmol/L Blood Urea Nitrogen 49 H 7-18 mg/dL Creatinine 1.5 H 0.5-1.3 mg/dL Glomerular Filtration Rate Calc 53 >90 mL/min Random Glucose 117 H 70-105 mg/dL Lactic Acid Level 2.0 0.8-2.5 mmol/L Total Calcium 9.2 8.5-10.1 mg/dL Magnesium Level 1.90 1.80-2.40 mg/dL Total Bilirubin 1.6 #H 0.2-1.0 mg/dL Aspartate Amino Transf (AST/SGOT) 117 H 10-37 U/L Alanine Aminotransferase (ALT/SGPT) 225 H 12-78 U/L Alkaline Phosphatase 160 H 50-136 U/L B-Type Natriuretic Peptide 2130 H 0-100 pg/mL Total Protein 6.3 6.0-8.3 g/dL Albumin 2.7 L 3.5-5.0 g/dL Coagulation Labs: Test 06/27/25 21:56 Range/Units Prothrombin Time 17.0 H 9.6-11.6 SEC Prothromb Time International Ratio 1.69 H 0.85-1.15 Activated Partial Thromboplast Time 35.1 26.3-35.5 SEC Diagnostics / Radiology: 2D echocardiogram 06/24/2025: Conclusion The left ventricle is severely dilated. Severely reduced LVEF is <20%. Severely reduced GLS -3.0% Severe global hypokinesis left ventricular wall motion. The right ventricle is severely dilated. Right ventricular systolic function is severely reduced. Aortic valve is trileaflet, thickened and opens well. Nodular calcification on the right coronary cusp leaflet. There is no aortic valvular stenosis. There is trace of mitral valve regurgitation noted. There is moderate tricuspid valve regurgitation noted by color flow Doppler. RVSP 52mmHg. There is mild pulmonic valvular regurgitation. Impression and Plan: Sepsis: Bilateral lower extremity cellulitis: Right lower extremity ulcer infection with Serratia marcescens: -continue antibiotic therapy Acute on chronic HFrEF (LVEF of less than 20%): End-stage ischemic cardiomyopathy with an LVEF of less than 20% by follow-up 2D echocardiogram 06/24/2025, followed by Dr. Chalino Shaw (advanced heart failure management program): -continue Milrinone infusion at 0.25 mcg/kg per minute for another 24 hours -no further metolazone at this time. Continue slow gradual diuresis. -continue Bumex 2 mg IV q.12 hours -continue with daily weights and intake and output -has refused LifeVest in the past -we will trend basic metabolic panel and consider resumption of Entresto in 24- 48 hours but we will hold on resumption of spironolactone given concern for prior hyperkalemia -trend CMP Multivessel coronary artery disease felt not amendable to revascularization: -continue beta-anastasiia therapy -has continued on long-term anticoagulation with Eliquis for prior history of DVT and PE -statin therapy on hold given elevated LFTs Transaminitis likely secondary to acute on chronic HFrEF: -continue to trend, improving with management of his heart failure History of DVT and PE on long-term Eliquis: -continue therapy unchanged with Eliquis anticoagulation Comorbidities: Chronic kidney disease stage 3 Type 2 diabetes mellitus Hypertension Hyperlipidemia Chronic back pain PHYSICIAN ATTESTATION OF PHYSICIAN REGISTERED PUBLIC SURVEYOR DOCUMENTATION: I attest that I was physically present for the serra portions of the service and evaluated the patient with the Physician Environmental Scientist, and I reviewed and discussed the case with the Physician Environmental Scientist and made modifications to the Physician Environmental Scientist's findings and plans of care as documented above KALIN KYLE Jun 28, 2025 10:34 SUSAN PETIT MD Jun 28, 2025 13:32
--- NOTE | 2025-06-28 13:11 | PN ---
[facility] PROGRESS NOTE Date of Service: Jun 28, 2025 Time of Service: 13:10 SUBJECTIVE: This is a 59 year old male,a reliable historian with pasat medical history of hypertension, diabetes, hyperlipidemia, CHF with advanced ischemic cardiomyopathy EF 20% stage 3 CKD multivessel obstructive CAD ,DVT to left leg and pulmonary embolism on chronic Eliquis ,chronic back pain,bilateral lower extremity ulcers and morbid obesity who presents to the ED for complaints of feeling dizzy,shortness of breath and patient has a chronic lower extremity that has ulcers and it has been swollen and oozing fluids.Patient also reports chills and rigors which started today while changing his wound dressing and he first though he was having parkinson's tremors so he decided to come to the ED for evaluation.Patient states he was fairly doing fine unitl 8 days ago last Sunday he stopped taking his Spironolactone and Losartan because it was discontinued byher his thermal intelligence analyst due to severe hyperkalemia .Patient reports he was seen by a thermal intelligence analyst from [place] by the name of and he told the thermal intelligence analyst that he is not voiding much than what he used to ,before he approximately voided 1600 and now it is only 500 and he noticed that his legs are becoming swollen ever since he stopped taking his Spironolactone and Losartan he feels he is gaining more weight and he was advised to take a dose of Spironolactone for today and he did after a few hours he said he felt dizzy and lightheaded and as he was changing his wound dressing he feels the chills and rigors so he decided to come to the ED for evaluation.Upon ER arrival V/SA T102.4,HR 128,BP 122/87 Sat 100% RA RR 24.ECG result revealed Sinus ectopic or atrial Tachycardia HR 120 Prob left atrial enlargement,inferior infarct old,anterior infarct old,nonspecific T abnormalities ,lateral leads prolonged QT interval. Seen and examined patient in the ER awake,alert and coherent,appears comfortable,in no apparent distress.Patient denies cough,shortness of breath,chest pain,palpitation,abdominal pain,nausea,vomiting and syncope.Labs WBC 20 with negative left shift of neutrophils 88,Hgb 15,Hct 45,platelet 209.Na 135,K4.6,K4.6,Chloride 96,BUN47,Creat 1.9,GFR 40,Glucose 174 ,lactic acid 6.3,BNP 1550.Urinalysis remarkable for protein 30,glucose more than 1000,small hematuria and urine RBC 2-5 .Serology test for influenza Type A&B negative SARS COV_2 negative and Group A strep negative.CXR result revealed interval development of mild cardiomegaly.No acute infiltrate ,effusion or pneumothorax.While in the ER patient received Fluid resuscitation of 30ml/kg over 3 hours ,Tylenol 1000 mg po,Morphine 4mg IV, Cefepime and Vancomycin IV.Will admit patient for further medical management. 06/23/25: Patient is seen at bedside in ER 5. Patient denies cough, chest pain, palpitation, abdominal pain, chills. Patient is started on nasal cannula due to shortness of breath. Patient's remaining vitals stable with temperature at 98.4, pulse at 98, respiratory rate of 22, blood pressure 109/79. Patient's labs showed an increase in WBC to 24.5, hemoglobin at 13.9, sodium at 135, lactic acid improved to 4.3. Continue the patient on vancomycin and cefepime IV. Cardiology and Infectious Disease have been consulted, along with critical care. Patient's BNP has improved to 851. Patient has no new complaints. Patient started on soft hydration. Cardiology ordered a 2D echo and venous Doppler ultrasound bilaterally to rule out DVT. 06/24/25: Patient is seen at bedside in ER 5. Patient is doing much better, off of nasal cannula and breathing room air. Patient denies cough, chest pain, palpitations, abdominal pain, chills. Patient's temperature currently at 98.8, pulse at 89 respiratory rate at 18, blood pressure 102/58. Patient's labs have improved with his WBC trending down to 18.4, his creatinine remains around 1.9, his lactic acid has trended down to 2.7. He does have an increase in his liver function tests with AST going up to 254 and ALT increasing to 152. His BNP has also increased to to 2110. Cardiology recommended to hold losartan, start him on Bumex 1 mg b.i.d., Jardiance half tablet 5 mg b.i.d. and continue with Eliquis 5 mg b.i.d. His venous Doppler study showed no DVTs bilaterally. Patient's urine culture came back positive for Gram-negative rods, going to wait for specificity and sensitivity to change his medication. He is currently on vancomycin and cefepime. 06/25/25: Patient is seen at bedside now in room 227. Patient is seen by infectious disease doctor who recommended to continue vancomycin follow up with wound culture. Cardiology increase the patient's Bumex to t.i.d. patient's lactic acid remained at 2.7 His BNP increased to 2206. An ankle-brachial index test has been ordered. Patient's urine culture showed Klebsiella pneumoniae sensitive to most antibiotics. His preliminary wound care results show Gram- negative rods. Blood culture still no growth after 48 hours. Continuing the patient's vancomycin and cefepime. Patient's WBC went down to 16.2 today. He continues to have an increase in his liver function tests with AST going up to 367 and ALT increasing to 302. His alkaline phosphatase also increased to 142 today. We will keep an eye on his liver functions. : Patient is seen and examined at bedside in room 227. Patient stable breathing comfortably on room air. Patient still complains of orthopnea, dyspnea on exertion, paroxysmal nocturnal dyspnea. Cardiology followed up with the patient and increased his Bumex to 2 mg b.i.d. Patient is on a strict in and out of 1.5 L. patient's wound culture came back positive for Serratia marcescens susceptible to most antibiotics. We will let Infectious Disease decide if they want to change antibiotics. Ankle-brachial index test has been ordered yesterday waiting on results. Chest x-ray has been ordered along with thoracic and lumbar spine CT. Patient's liver functions have improved with AST dropping to 201 and ALT dropping to 284. Patient's BNP is high at 3330. 06/27/25: Patient seen and examined today morning at bedside. The patient ex pressed concern about gaining extra weight and his clothes won't even fit him well. Intake 2590. Patient says his breathing is better when he is sitting or lying in bed at 45 degrees. Labs showed decreased in WBC from 13 to 11.6, platelets 187, BUN 52 and creatinine 1.8. Total bilirubin 1.3, AST came down to 168 from 201, ALT 263 from 284, ALP 178. BNP is down to 2700 from 3330. Lactic acid went up from 2.3-2.7. Infectious Disease recommended to continue vanco and cefepime. Cardio recommended to continue Bumex IV 2 mg b.i.d. 06/28/25: Patient is seen and examined today at bedside in room 227. Patient is improving he is now able to lie back on the bed without any shortness of breath, his leg edema has also improved. His BNP is down to 2130 from 2700. His lactic acid has also gone down to 2.0 from 2.7, AST came down to 117 from 168, ALT 225 from 265, his total bilirubin did go up to 1.6 from 1.3. He had a short episode where his potassium went down to 3.0 but patient already on potassium protocol so was given potassium. Patient given metolazone and also started Milrinone drip yesterday. He is already on Bumex 2 mg b.i.d. He has diuresed 6 L overnight with continues to have anasarca to the lower abdomen and upper thighs and lower extremity edema. Continuing the patient on vancomycin and cefepime. REVIEW OF SYSTEMS CONSTITUTIONAL: Denies chills, fever and night sweats. unintentional weight gain reported. Complains of back pain which is chronic NEUROLOGICAL: Denies headache, gait abnormalities, or tremors. ENT: No hearing loss, otalgia, otorrhea, rhinitis, rhinorrhea, hoarseness, or sore throat. CARDIOVASCULAR: dyspnea on exertion, orthopnea, paroxysmal nocturnal dyspnea. Denies any exertional angina, palpitations, life-threatening arrhythmias. PULMONARY: Shortness of breath improved. denies cough, phlegm/sputum, hemoptysis, pleuritic chest pain. GASTROINTESTINAL: Denies any type of dysphagia to either liquids or solids. Denies nausea, vomiting, abdominal pain, diarrhea, constipation, or changes in stool consistency or caliber. GENITOURINARY: Denies frequency, urgency, nocturia, hematuria or incontinence ENDOCRINOLOGIC: Denies polyuria, polydipsia, polyphagia or heat/cold intolerances. ONCOLOGIC: Denies personal history of malignancy. DERMATOLOGIC: chronic wound ulcer to right lower extremity Denies rashes or pruritus. PHYSICAL EXAM GENERAL APPEARANCE: The patient is awake, alert, and oriented, in no acute cardiopulmonary distress. NEUROLOGICAL: Cranial nerves II-XII grossly intact. Motor is 5/5 in bilateral upper and lower extremities proximal to distal. No sensory deficits. HEENT: Face is symmetric. Pupils are equal and reactive. Extraocular movements are intact. NECK: Supple. No JVD. No thyromegaly. No submental, submandibular, pre- /postauricular, occipital or supraclavicular lymphadenopathy. CHEST: Normal chest expansion. No Telemetry. LUNGS: Sounds clear CARDIOVASCULAR: Regular rate and rhythm. S1 and S2 normal. No appreciable rubs, murmurs or gallops. ABDOMEN: Soft, nontender, and nondistended. There is no rebound, voluntary guarding, or rigidity. : Deferred. No [place]. EXTREMITIES: 2+edema to bilateral lower extremities SKIN: Draining Wound ulcers to right lower extremity Vital Signs (last 8hr) Date Time Temp Pulse Resp B/P (MAP) Pulse Ox O2 Delivery O2 Flow Rate FiO2 06/28/25 12:00 98.1 109 19 112/80 99 Room Air 06/28/25 11:24 98 Room Air* 0 21 06/28/25 08:00 106 19 135/71 98 Room Air LABS: Laboratory: Test 06/28/25 12:00 06/28/25 04:25 06/27/25 21:56 06/26/25 17:05 Range/Units Whole Blood Glucose 195 #H 70-110 MG/DL White Blood Count 12.5 H 4.8-10.8 K/uL Red Blood Count 4.20 L 4.50-6.20 MIL/uL Hemoglobin 13.7 L 14.0-18.0 g/dL Hematocrit 40.5 L 42-54 % Mean Corpuscular Volume 96.4 79-99 fL Mean Corpuscular Hemoglobin 32.6 27.0-33.0 pg Mean Corpuscular Hemoglobin Concent 33.8 32.0-36.0 g/dL Red Cell Distribution Width 15.3 11.0-15.5 % Platelet Count 194 130-400 K/uL Mean Platelet Volume 10.7 H 7.5-10.5 fL Immature Granulocyte % (Auto) 2.1 H 0-1 % Neutrophils (%) (Auto) 80.0 H 40.0-77.0 % Lymphocytes (%) (Auto) 5.9 L 21.0-51.0 % Monocytes (%) (Auto) 10.2 3.0-13.0 % Eosinophils (%) (Auto) 1.1 0.0-8.0 % Basophils (%) (Auto) 0.7 0.0-5.0 % Neutrophils # (Auto) 10.0 H 1.8-7.7 K/uL Lymphocytes # (Auto) 0.7 L 1.0-4.8 K/uL Monocytes # (Auto) 1.3 H 0.1-1.0 K/uL Eosinophils # (Auto) 0.14 0.00-0.70 K/uL Basophils # (Auto) 0.09 0.00-0.20 K/uL Absolute Immature Granulocyte (auto 0.26 0-1 K/uL Nucleated Red Blood Cells 0.2 H 0.0-0.19 % Sodium Level 139 136-145 mmol/L Potassium Level 3.0 *L 3.5-5.1 mmol/L Chloride Level 100 L 101-111 mmol/L Carbon Dioxide Level 27 21-32 mmol/L Blood Urea Nitrogen 49 H 7-18 mg/dL Creatinine 1.5 H 0.5-1.3 mg/dL Glomerular Filtration Rate Calc 53 >90 mL/min Random Glucose 117 H 70-105 mg/dL Lactic Acid Level 2.0 0.8-2.5 mmol/L Total Calcium 9.2 8.5-10.1 mg/dL Magnesium Level 1.90 1.80-2.40 mg/dL Total Bilirubin 1.6 #H 0.2-1.0 mg/dL Aspartate Amino Transf (AST/SGOT) 117 H 10-37 U/L Alanine Aminotransferase (ALT/SGPT) 225 H 12-78 U/L Alkaline Phosphatase 160 H 50-136 U/L B-Type Natriuretic Peptide 2130 H 0-100 pg/mL Total Protein 6.3 6.0-8.3 g/dL Albumin 2.7 L 3.5-5.0 g/dL Prothrombin Time 17.0 H 9.6-11.6 SEC Prothromb Time International Ratio 1.69 H 0.85-1.15 Activated Partial Thromboplast Time 35.1 26.3-35.5 SEC Vancomycin Level Trough 18.6 # 10.0-20.0 UG/ML Current Medications Medications (Trade) Dose Ordered Sig/Da Route PRN Reason Start Time Stop Time Status Last Admin Dose Admin Acetaminophen (TYLenol 325MG TAB) 650 mg Q4H PRN PO MILD PAIN (1-3) 06/23/25 03:30 07/23/25 03:29 Acetaminophen (TYLenol 325MG TAB) 650 mg Q6H PRN PO TEMPERATURE GREATER THAN 101.5 06/23/25 03:30 07/23/25 03:29 Apixaban (EliquIS) 5 mg BID PO 06/23/25 09:00 07/23/25 08:59 06/28/25 08:48 5 MG Bumetanide (Bumex 1mg Tab) 1 mg BID PO 06/23/25 09:00 06/25/25 08:32 DC 06/24/25 21:13 1 MG Bumetanide (Bumex 1mg Vial) 1 mg BID IVP 06/25/25 09:00 06/25/25 08:41 DC Bumetanide (Bumex 1mg Vial) 1 mg TID IVP 06/25/25 09:00 06/26/25 08:34 DC 06/25/25 21:29 1 MG Bumetanide (Bumex 1mg Vial) 2 mg BID IVP 06/26/25 09:00 07/25/25 08:59 06/28/25 08:47 2 MG Cefepime HCl (MAXipime 1 GM vial) 1 gm ONCE IVPB 06/23/25 02:00 06/23/25 04:01 DC 06/23/25 02:19 1 GM Cefepime HCl (MAXipime 1 GM vial) 1 gm Q12H IVPB 06/23/25 10:00 07/03/25 09:59 06/28/25 08:49 1 GM Dextrose (D50w) 50 ml AD PRN IV HYPOGLYCEMIA PROTOCOL 06/23/25 03:30 07/23/25 03:29 Dobutamine HCl/ Dextrose 250 ml @ 0 mls/hr PROTOCOL IV 06/24/25 16:00 06/27/25 15:00 DC Doxycycline Hyclate 250 ml @ 125 mls/hr Q12H IV 06/24/25 16:00 06/27/25 13:35 DC 06/27/25 03:55 125 MLS/HR Empaglifozin (Jardiance 10mg) 5 mg BID PO 06/24/25 21:00 07/24/25 20:59 06/28/25 08:47 5 MG Famotidine (Pepcid 20mg Tab) 20 mg DAILY PO 06/23/25 09:00 07/23/25 08:59 06/28/25 08:46 20 MG Gentamicin Sulfate (GENTAmicin SULFate 15 gm cream) APPLY DIRECTED DAILY18 TP 06/26/25 18:00 07/10/25 17:59 06/27/25 16:34 1 APPL Glucagon (Glucagon 1mg Kit) 1 mg AD PRN IM HYPOGLYCEMIA PROTOCOL 06/23/25 03:30 07/23/25 03:29 Insulin Human Regular (humuLIN R 100 UNIT/ML 3ML) INSULIN SLIDING SCAL... ACHS SQ 06/23/25 07:30 07/23/25 07:29 06/28/25 12:28 2 UNIT Leptospermum Honey (Medihoney) 1 APPL DAILY17 TP 06/23/25 17:00 07/23/25 16:59 06/27/25 16:34 1 APPL Magnesium Sulfate 50 ml @ 0 mls/hr PROTOCOL PRN IV OTHER [SEE ORDER COMMENTS] 06/23/25 03:30 07/23/25 03:29 Metoprolol Succinate (TopROL XL) 25 mg DAILY PO 06/23/25 09:00 07/23/25 08:59 06/28/25 08:47 25 MG Milrinone Lactate/ Dextrose 100 ml @ 0 mls/hr PROTOCOL IV 06/27/25 16:00 07/27/25 15:59 06/28/25 08:45 12.98 MLS/HR Morphine Sulfate (morPHINE 2MG SYG) 2 mg Q6H6 PRN IVP PAIN LEVEL 7 TO 10 06/23/25 11:00 06/30/25 10:59 06/24/25 16:03 2 MG Multivitamins Therapeutic (Multivitamin Tablet) 1 tab DAILY PO 06/25/25 09:00 07/25/25 08:59 06/28/25 08:47 1 TAB Mupirocin (Bactroban Oint) apply to bilateral lo... DAILY17 TP 06/23/25 17:00 06/26/25 16:51 DC 06/26/25 16:15 1 APPL Ondansetron HCl (zoFRAN 4MG INJ) 4 mg Q6H PRN IV NAUSEA/VOMITING 06/23/25 03:30 07/23/25 03:29 Oxycodone HCl (ROXicoDONE) 10 mg Q8H PRN PO SEVERE PAIN (7-10) 06/25/25 11:00 06/30/25 10:59 06/26/25 16:01 10 MG Potassium Chloride 100 ml @ 100 mls/hr AD PRN IV POTASSIUM PROTOCOL 06/23/25 03:30 07/23/25 03:29 Potassium Chloride (K-Dur/Klor-Con 20meq) 20 meq AD PRN PO POTASSIUM PROTOCOL 06/23/25 03:30 07/23/25 03:29 06/28/25 06:57 20 MEQ Potassium Chloride (KCl 10% Elixir 20meq/15ml) 20 meq AD PRN PO POTASSIUM PROTOCOL 06/23/25 03:30 07/23/25 03:29 Sodium Chloride 1,000 ml @ 50 mls/hr Q20H IV 06/23/25 17:30 06/24/25 09:35 DC 06/23/25 17:19 50 MLS/HR Vancomycin HCl 250 ml @ 125 mls/hr HS IV 06/26/25 21:00 07/06/25 20:59 06/27/25 20:35 125 MLS/HR Vancomycin HCl 250 ml @ 125 mls/hr ONCE IV 06/23/25 03:30 06/23/25 03:44 DC Vancomycin HCl 250 ml @ 125 mls/hr Q24H IV 06/24/25 05:00 06/26/25 20:09 DC 06/25/25 05:21 125 MLS/HR DIAGNOSTICS / RADIOLOGY: [place] [address] IMAGING REPORT Signed PATIENT: LILI HUFF MR#: [id number] : 1965 SEX: M AGE: 59 LOCATION: 2DH ORDER STATUS: ADM IN REPORT#: [id number] SERVICE REASON: S/P PICC LINE PLACEMENT ORDERING PHYSICIAN: JONAH GOMES AIRCRAFT ENGINE TECHNICIAN PROCEDURE: CXR1VW - CHEST 1VW EXAM: CR Chest, 1 view CLINICAL HISTORY: PICC line placement. COMPARISON: Chest radiograph dated 06/27/2025. FINDINGS: The left side PICC line tip overlies the distal SVC. Mild to moderate cardiomegaly. The bilateral CP angles are occluded from the image. The lungs show no infiltrates or other acute findings. No pleural effusion or pneumothorax. No acute osseous abnormality. IMPRESSION: The left side PICC line tip overlies the distal SVC. Mild to moderate cardiomegaly. Compared to the prior study, there is no significant interval change. /[place] DICTATED BY: TATE MURLILO Jr., MD DATE: 06/28/25304 ELECTRONICALLY SIGNED BY: TATE MURILLO Jr., MD DATE: 06/28/25304 ASSESSMENT: Severe sepsis POA UTI, POA Infected stasis ulcer of right lower extremity POA Acute kidney injury on chronic kidney disease POA Acute on chronic systolic CHF with cardiomyopathy POA Acute leukocytosis POA Lactic Acidosis POA Transaminases elevated Lumbar spondylosis/degenerative changes Hyponatremia POA Hypochloremia POA Uncontrolled diabetes POA Hypertension POA Hyperlipidemia POA History of Left lower extremity DVT on Eliquis POA History of pulmonary embolism on chronic anticoagulation POA PLAN: Severe sepsis POA: * Continue patient on vancomycin and cefepime, doxycycline * Patient's lactic acid improved to 2.0. WBC at 12.5 * Blood culture negative, urine culture positive for Klebsiella pneumoniae, Wound culture came back positive for Serratia marcescens * Infectious disease and wound care consult appreciated and will follow their recommendations. Infected stasis ulcer of right lower extremity POA: * Cardiology on board and recommended venous Doppler ultrasound bilaterally to rule out DVT, ultrasound came back negative for DVT bilaterally * Wound culture came back positive for Serratia marcescens a Gram-negative bacteria susceptible to most antibiotics * We will follow their recommendations for further treatment * Infectious disease recommended to continue IV cefepime and vancomycin. Acute kidney injury on chronic kidney disease POA: * Placed on daily weight and strict I&O * BUN 49, creatinine 1.5. * restrict fluid 1.5 L per day * Avoid NSAIDs or nephrotoxic agents. Acute on chronic systolic CHF with cardiomyopathy POA: * Cardiology consult placed, who ordered an 2D echo which showed severely reduced LVEF of less than 20% * Cardiology also recommended to hold losartan, Jardiance half tablet 5 mg b.i.d. and continue with Eliquis 5 mg b.i.d. increased Bumex to 2 mg b.i.d. * Follow the recommendations for further treatment. * I will add 5 mg Metolazone before his night dose Bumex and again 1 in tomorrow morning. Also started the patient on Milrinone drip. UTI, POA: * Patient's urine culture came back positive for Gram-negative rods * Sensitivity and specificity showed Klebsiella pneumoniae sensitive to most antibiotics * Continuing the patient on vancomycin and cefepime * Infectious disease is on the case Lumbar spondylosis/degenerative changes : * CT lumbar showed lumbar degerative disc disease with reduced disc space and vacuum phenomenon at L5-S1 and T12-L1 levels with minimal retrolisthesis of L5 on S1. * Continue with PRN pain medications. We will request labs in am Further orders to follow depending on above results ATTESTATION BY PHYSICIAN I have seen and examined the patient. I reviewed the documentation, medical decision making, and treatment plan as noted by the resident provider above. I agree with the findings and plan of care. ISIDRO BROWN MD, ABHINAV MD Jun 28, 2025 13:11
[2025-06-29] VITALS (8 sets, daily range): BP systolic 102–132; BP diastolic 62–81; PULSE 70–110; RESP 18–21; TEMP 97.3–97.9; O2SAT 97–98
[2025-06-29 04:54] LABS: IMMATURE GRANULOCYTE ABSOLUTE 0.27 K/uL (0-1); NUCLEATED RED BLOOD CELLS 0.0 % (0.0-0.19); PLATELET COUNT (AUTO) 211 K/uL (130-400); RED BLOOD CELL COUNT(AUTO) 4.12 MIL/uL (4.50-6.20); RED CELL DISTRIBUTION WIDTH 15.2 % (11.0-15.5); WHITE BLOOD COUNT (AUTO) 12.0 K/uL (4.8-10.8)
[2025-06-29 05:54] LABS: CREATININE 1.7 mg/dL (0.5-1.3); GLOMERULAR FILTR. RATE CALC 45.0 mL/min (>90); GLUCOSE,RANDOM 181.0 mg/dL (70-105); SODIUM SERUM 135.0 mmol/L (136-145); UREA NITROGEN, BLOOD 46.0 mg/dL (7-18)
[2025-06-29 05:58] LABS: ASPARTATE AMINOTRANSFERASE 90.0 U/L (10-37); TOTAL PROTEIN, SERUM 6.4 g/dL (6.0-8.3)
--- NOTE | 2025-06-29 07:03 | PN ---
INFECTIOUS DISEASE FOLLOWUP NOTE DATE OF SERVICE: 06/28/2025 SUBJECTIVE: The patient is seen and examined at bedside today. The patient has had no fever, no chills. No nausea, vomiting. No sore throat, no rhinorrhea. No bleeding tendency. Denies depression or suicidal ideation. ____ on antibiotic. The patient also is still on Primacor infusion. PHYSICAL EXAMINATION: VITAL SIGNS: Temperature 97.3. EYES: No icterus. Pupils equal and reactive. HENT: No oral thrush seen. Moist oral mucosa. NECK: Supple. No JVD or thyromegaly. LUNGS: Good air entry. Crackles bilaterally. CARDIOVASCULAR: S1 and S2, regular. No murmur heard. ABDOMEN: Full, soft, nontender. Obese. No organomegaly. CENTRAL NERVOUS SYSTEM: Awake, alert and oriented x 3. No focal deficits. SKIN: No rashes, no itchiness. LYMPHATIC: No peripheral lymphadenopathy. BACK: No deformity or pressure ulcer. EXTREMITIES: Ulcer involving both lower legs. There is drainage. ASSESSMENT: A 59-year-old male with multiple problems including: * Urinary tract infection. * [id number] heart failure. * Bilateral leg ulcers. * Urinary tract infection. * Obesity. * Cellulitis, bilateral legs. PLAN: * Continue wound care. * Continue pain management. * Continue cefepime. * Continue nutritional support. * Continue GI prophylaxis. * Monitor electrolytes. * Continue DVT prophylaxis. * Continue Eliquis. TID: [id number] RECEIPT: [id number]
[2025-06-29] MEDS ORDERED: VANCOMYCIN 750MG VIAL IVPB SCH (09:00)
--- NOTE | 2025-06-29 15:26 | PN ---
[facility] PROGRESS NOTE Date of Service: Jun 29, 2025 Time of Service: 14:44 SUBJECTIVE: This is a 59 year old male,a reliable historian with pasat medical history of hypertension, diabetes, hyperlipidemia, CHF with advanced ischemic cardiomyopathy EF 20% stage 3 CKD multivessel obstructive CAD ,DVT to left leg and pulmonary embolism on chronic Eliquis ,chronic back pain,bilateral lower extremity ulcers and morbid obesity who presents to the ED for complaints of feeling dizzy,shortness of breath and patient has a chronic lower extremity that has ulcers and it has been swollen and oozing fluids.Patient also reports chills and rigors which started today while changing his wound dressing and he first though he was having parkinson's tremors so he decided to come to the ED for evaluation.Patient states he was fairly doing fine unitl 8 days ago last Sunday he stopped taking his Spironolactone and Losartan because it was discontinued byher his agriculture department chair due to severe hyperkalemia .Patient reports he was seen by a agriculture department chair from [place] by the name of and he told the agriculture department chair that he is not voiding much than what he used to ,before he approximately voided 1600 and now it is only 500 and he noticed that his legs are becoming swollen ever since he stopped taking his Spironolactone and Losartan he feels he is gaining more weight and he was advised to take a dose of Spironolactone for today and he did after a few hours he said he felt dizzy and lightheaded and as he was changing his wound dressing he feels the chills and rigors so he decided to come to the ED for evaluation.Upon ER arrival V/SA T102.4,HR 128,BP 122/87 Sat 100% RA RR 24.ECG result revealed Sinus ectopic or atrial Tachycardia HR 120 Prob left atrial enlargement,inferior infarct old,anterior infarct old,nonspecific T abnormalities ,lateral leads prolonged QT interval. Seen and examined patient in the ER awake,alert and coherent,appears comfortable,in no apparent distress.Patient denies cough,shortness of breath,chest pain,palpitation,abdominal pain,nausea,vomiting and syncope.Labs WBC 20 with negative left shift of neutrophils 88,Hgb 15,Hct 45,platelet 209.Na 135,K4.6,K4.6,Chloride 96,BUN47,Creat 1.9,GFR 40,Glucose 174 ,lactic acid 6.3,BNP 1550.Urinalysis remarkable for protein 30,glucose more than 1000,small hematuria and urine RBC 2-5 .Serology test for influenza Type A&B negative SARS COV_2 negative and Group A strep negative.CXR result revealed interval development of mild cardiomegaly.No acute infiltrate ,effusion or pneumothorax.While in the ER patient received Fluid resuscitation of 30ml/kg over 3 hours ,Tylenol 1000 mg po,Morphine 4mg IV, Cefepime and Vancomycin IV.Will admit patient for further medical management. 06/23/25: Patient is seen at bedside in ER 5. Patient denies cough, chest pain, palpitation, abdominal pain, chills. Patient is started on nasal cannula due to shortness of breath. Patient's remaining vitals stable with temperature at 98.4, pulse at 98, respiratory rate of 22, blood pressure 109/79. Patient's labs showed an increase in WBC to 24.5, hemoglobin at 13.9, sodium at 135, lactic acid improved to 4.3. Continue the patient on vancomycin and cefepime IV. Cardiology and Infectious Disease have been consulted, along with critical care. Patient's BNP has improved to 851. Patient has no new complaints. Patient started on soft hydration. Cardiology ordered a 2D echo and venous Doppler ultrasound bilaterally to rule out DVT. 06/24/25: Patient is seen at bedside in ER 5. Patient is doing much better, off of nasal cannula and breathing room air. Patient denies cough, chest pain, palpitations, abdominal pain, chills. Patient's temperature currently at 98.8, pulse at 89 respiratory rate at 18, blood pressure 102/58. Patient's labs have improved with his WBC trending down to 18.4, his creatinine remains around 1.9, his lactic acid has trended down to 2.7. He does have an increase in his liver function tests with AST going up to 254 and ALT increasing to 152. His BNP has also increased to to 2110. Cardiology recommended to hold losartan, start him on Bumex 1 mg b.i.d., Jardiance half tablet 5 mg b.i.d. and continue with Eliquis 5 mg b.i.d. His venous Doppler study showed no DVTs bilaterally. Patient's urine culture came back positive for Gram-negative rods, going to wait for specificity and sensitivity to change his medication. He is currently on vancomycin and cefepime. 06/25/25: Patient is seen at bedside now in room 227. Patient is seen by infectious disease doctor who recommended to continue vancomycin follow up with wound culture. Cardiology increase the patient's Bumex to t.i.d. patient's lactic acid remained at 2.7 His BNP increased to 2206. An ankle-brachial index test has been ordered. Patient's urine culture showed Klebsiella pneumoniae sensitive to most antibiotics. His preliminary wound care results show Gram- negative rods. Blood culture still no growth after 48 hours. Continuing the patient's vancomycin and cefepime. Patient's WBC went down to 16.2 today. He continues to have an increase in his liver function tests with AST going up to 367 and ALT increasing to 302. His alkaline phosphatase also increased to 142 today. We will keep an eye on his liver functions. : Patient is seen and examined at bedside in room 227. Patient stable breathing comfortably on room air. Patient still complains of orthopnea, dyspnea on exertion, paroxysmal nocturnal dyspnea. Cardiology followed up with the patient and increased his Bumex to 2 mg b.i.d. Patient is on a strict in and out of 1.5 L. patient's wound culture came back positive for Serratia marcescens susceptible to most antibiotics. We will let Infectious Disease decide if they want to change antibiotics. Ankle-brachial index test has been ordered yesterday waiting on results. Chest x-ray has been ordered along with thoracic and lumbar spine CT. Patient's liver functions have improved with AST dropping to 201 and ALT dropping to 284. Patient's BNP is high at 3330. 06/27/25: Patient seen and examined today morning at bedside. The patient ex pressed concern about gaining extra weight and his clothes won't even fit him well. Intake 2590. Patient says his breathing is better when he is sitting or lying in bed at 45 degrees. Labs showed decreased in WBC from 13 to 11.6, platelets 187, BUN 52 and creatinine 1.8. Total bilirubin 1.3, AST came down to 168 from 201, ALT 263 from 284, ALP 178. BNP is down to 2700 from 3330. Lactic acid went up from 2.3-2.7. Infectious Disease recommended to continue vanco and cefepime. Cardio recommended to continue Bumex IV 2 mg b.i.d. 06/28/25: Patient is seen and examined today at bedside in room 227. Patient is improving he is now able to lie back on the bed without any shortness of breath, his leg edema has also improved. His BNP is down to 2130 from 2700. His lactic acid has also gone down to 2.0 from 2.7, AST came down to 117 from 168, ALT 225 from 265, his total bilirubin did go up to 1.6 from 1.3. He had a short episode where his potassium went down to 3.0 but patient already on potassium protocol so was given potassium. Patient given metolazone and also started Milrinone drip yesterday. He is already on Bumex 2 mg b.i.d. He has diuresed 6 L overnight with continues to have anasarca to the lower abdomen and upper thighs and lower extremity edema. Continuing the patient on vancomycin and cefepime. 06/29/25: Patient is seen and examined at bedside in room 227. Patient continues to improve, his leg edema has gone down. His BP is down to 1530 from 2130. His WBCs trending down to 12.0 today. His potassium is low at 3.2 but he is on potassium protocol. Patient's liver functions have improved his AST today is at 90, ALT at 191, alkaline phosphatase at 145. His lactic acid remains at 2. Patient is currently on bumetanide 2 mg and Milrinone drip. He has negative balance today is in is around 4000 ml. He is on vancomycin and cefepime for his UTI and bilateral leg wound infection. REVIEW OF SYSTEMS CONSTITUTIONAL: Denies chills, fever and night sweats. unintentional weight gain reported. Complains of back pain which is chronic. Patient is now losing weight. NEUROLOGICAL: Denies headache, gait abnormalities, or tremors. ENT: No hearing loss, otalgia, otorrhea, rhinitis, rhinorrhea, hoarseness, or sore throat. CARDIOVASCULAR: dyspnea on exertion, orthopnea, paroxysmal nocturnal dyspnea, improving. Denies any exertional angina, palpitations, life-threatening arrhythmias. PULMONARY: Shortness of breath improved. denies cough, phlegm/sputum, hemoptysis, pleuritic chest pain. GASTROINTESTINAL: Denies any type of dysphagia to either liquids or solids. Denies nausea, vomiting, abdominal pain, diarrhea, constipation, or changes in stool consistency or caliber. GENITOURINARY: Denies frequency, urgency, nocturia, hematuria or incontinence ENDOCRINOLOGIC: Denies polyuria, polydipsia, polyphagia or heat/cold intolerances. ONCOLOGIC: Denies personal history of malignancy. DERMATOLOGIC: chronic wound ulcer to right lower extremity Denies rashes or pruritus. PHYSICAL EXAM GENERAL APPEARANCE: The patient is awake, alert, and oriented, in no acute cardiopulmonary distress. NEUROLOGICAL: Cranial nerves II-XII grossly intact. Motor is 5/5 in bilateral upper and lower extremities proximal to distal. No sensory deficits. HEENT: Face is symmetric. Pupils are equal and reactive. Extraocular movements are intact. NECK: Supple. No JVD. No thyromegaly. No submental, submandibular, pre- /postauricular, occipital or supraclavicular lymphadenopathy. CHEST: Normal chest expansion. No Telemetry. LUNGS: Sounds clear CARDIOVASCULAR: Regular rate and rhythm. S1 and S2 normal. No appreciable rubs, murmurs or gallops. ABDOMEN: Soft, nontender, and nondistended. There is no rebound, voluntary guarding, or rigidity. : Deferred. No [place]. EXTREMITIES: 2+edema to bilateral lower extremities SKIN: Draining Wound ulcers to right lower extremity Vital Signs (last 8hr) Date Time Temp Pulse Resp B/P (MAP) Pulse Ox O2 Delivery O2 Flow Rate FiO2 06/29/25 11:00 97.7 110 20 108/68 93 Room Air 06/29/25 10:29 98 Room Air* 0 21 06/29/25 07:00 97.7 78 20 119/81 99 Room Air LABS: Laboratory: Test 06/29/25 11:36 06/29/25 08:31 06/29/25 04:30 06/28/25 20:00 Range/Units Whole Blood Glucose 230 H 70-110 MG/DL Bedside Glucose Comment Notified Nurse Lactic Acid Level 2.0 0.8-2.5 mmol/L Vancomycin Level 21.7 20.0-30.0 mcg/mL White Blood Count 12.0 H 4.8-10.8 K/uL Red Blood Count 4.12 L 4.50-6.20 MIL/uL Hemoglobin 13.3 L 14.0-18.0 g/dL Hematocrit 39.5 L 42-54 % Mean Corpuscular Volume 95.9 79-99 fL Mean Corpuscular Hemoglobin 32.3 27.0-33.0 pg Mean Corpuscular Hemoglobin Concent 33.7 32.0-36.0 g/dL Red Cell Distribution Width 15.2 11.0-15.5 % Platelet Count 211 130-400 K/uL Mean Platelet Volume 10.8 H 7.5-10.5 fL Immature Granulocyte % (Auto) 2.2 H 0-1 % Neutrophils (%) (Auto) 78.6 H 40.0-77.0 % Lymphocytes (%) (Auto) 7.5 L 21.0-51.0 % Monocytes (%) (Auto) 9.8 3.0-13.0 % Eosinophils (%) (Auto) 1.3 0.0-8.0 % Basophils (%) (Auto) 0.6 0.0-5.0 % Neutrophils # (Auto) 9.4 H 1.8-7.7 K/uL Lymphocytes # (Auto) 0.9 L 1.0-4.8 K/uL Monocytes # (Auto) 1.2 H 0.1-1.0 K/uL Eosinophils # (Auto) 0.16 0.00-0.70 K/uL Basophils # (Auto) 0.07 0.00-0.20 K/uL Absolute Immature Granulocyte (auto 0.27 0-1 K/uL Nucleated Red Blood Cells 0.0 0.0-0.19 % Sodium Level 135 L 136-145 mmol/L Potassium Level 3.2 L 3.5-5.1 mmol/L Chloride Level 95 L 101-111 mmol/L Carbon Dioxide Level 30 21-32 mmol/L Blood Urea Nitrogen 46 H 7-18 mg/dL Creatinine 1.7 H 0.5-1.3 mg/dL Glomerular Filtration Rate Calc 45 >90 mL/min Random Glucose 181 H 70-105 mg/dL Total Calcium 9.1 8.5-10.1 mg/dL Total Bilirubin 1.8 H 0.2-1.0 mg/dL Aspartate Amino Transf (AST/SGOT) 90 H 10-37 U/L Alanine Aminotransferase (ALT/SGPT) 191 H 12-78 U/L Alkaline Phosphatase 145 H 50-136 U/L B-Type Natriuretic Peptide 1530 H 0-100 pg/mL Total Protein 6.4 6.0-8.3 g/dL Albumin 2.7 L 3.5-5.0 g/dL Vancomycin Level Trough 24.3 #H 10.0-20.0 UG/ML Test 06/28/25 04:25 06/27/25 21:56 Range/Units Magnesium Level 1.90 1.80-2.40 mg/dL Prothrombin Time 17.0 H 9.6-11.6 SEC Prothromb Time International Ratio 1.69 H 0.85-1.15 Activated Partial Thromboplast Time 35.1 26.3-35.5 SEC Current Medications Medications (Trade) Dose Ordered Sig/Da Route PRN Reason Start Time Stop Time Status Last Admin Dose Admin Acetaminophen (TYLenol 325MG TAB) 650 mg Q4H PRN PO MILD PAIN (1-3) 06/23/25 03:30 07/23/25 03:29 Acetaminophen (TYLenol 325MG TAB) 650 mg Q6H PRN PO TEMPERATURE GREATER THAN 101.5 06/23/25 03:30 07/23/25 03:29 Apixaban (EliquIS) 5 mg BID PO 06/23/25 09:00 07/23/25 08:59 06/29/25 08:52 5 MG Bumetanide (Bumex 1mg Tab) 1 mg BID PO 06/23/25 09:00 06/25/25 08:32 DC 06/24/25 21:13 1 MG Bumetanide (Bumex 1mg Vial) 1 mg BID IVP 06/25/25 09:00 06/25/25 08:41 DC Bumetanide (Bumex 1mg Vial) 1 mg TID IVP 06/25/25 09:00 06/26/25 08:34 DC 06/25/25 21:29 1 MG Bumetanide (Bumex 1mg Vial) 2 mg BID IVP 06/26/25 09:00 07/25/25 08:59 06/29/25 08:55 2 MG Cefepime HCl (MAXipime 1 GM vial) 1 gm ONCE IVPB 06/23/25 02:00 06/23/25 04:01 DC 06/23/25 02:19 1 GM Cefepime HCl (MAXipime 1 GM vial) 1 gm Q12H IVPB 06/23/25 10:00 07/03/25 09:59 06/29/25 10:35 1 GM Dextrose (D50w) 50 ml AD PRN IV HYPOGLYCEMIA PROTOCOL 06/23/25 03:30 07/23/25 03:29 Dobutamine HCl/ Dextrose 250 ml @ 0 mls/hr PROTOCOL IV 06/24/25 16:00 06/27/25 15:00 DC Doxycycline Hyclate 250 ml @ 125 mls/hr Q12H IV 06/24/25 16:00 06/27/25 13:35 DC 06/27/25 03:55 125 MLS/HR Empaglifozin (Jardiance 10mg) 5 mg BID PO 06/24/25 21:00 07/24/25 20:59 06/29/25 08:53 5 MG Famotidine (Pepcid 20mg Tab) 20 mg DAILY PO 06/23/25 09:00 07/23/25 08:59 06/29/25 08:53 20 MG Gentamicin Sulfate (GENTAmicin SULFate 15 gm cream) APPLY DIRECTED DAILY18 TP 06/26/25 18:00 07/10/25 17:59 06/29/25 11:16 1 APPL Glucagon (Glucagon 1mg Kit) 1 mg AD PRN IM HYPOGLYCEMIA PROTOCOL 06/23/25 03:30 07/23/25 03:29 Insulin Human Regular (humuLIN R 100 UNIT/ML 3ML) INSULIN SLIDING SCAL... ACHS SQ 06/23/25 07:30 07/23/25 07:29 06/29/25 11:53 4 UNIT Leptospermum Honey ([facility]) 1 APPL DAILY17 TP 06/23/25 17:00 07/23/25 16:59 06/29/25 11:16 1 APPL Magnesium Sulfate 50 ml @ 0 mls/hr PROTOCOL PRN IV OTHER [SEE ORDER COMMENTS] 06/23/25 03:30 07/23/25 03:29 Metoprolol Succinate (TopROL XL) 25 mg DAILY PO 06/23/25 09:00 07/23/25 08:59 06/29/25 08:54 25 MG Milrinone Lactate/ Dextrose 100 ml @ 0 mls/hr PROTOCOL IV 06/27/25 16:00 07/27/25 15:59 06/29/25 10:42 8.65 MLS/HR Morphine Sulfate (morPHINE 2MG SYG) 2 mg Q6H6 PRN IVP PAIN LEVEL 7 TO 10 06/23/25 11:00 06/28/25 13:59 DC 06/24/25 16:03 2 MG Multivitamins Therapeutic (Multivitamin Tablet) 1 tab DAILY PO 06/25/25 09:00 07/25/25 08:59 06/29/25 08:54 1 TAB Mupirocin (Bactroban Oint) apply to bilateral lo... DAILY17 TP 06/23/25 17:00 06/26/25 16:51 DC 06/26/25 16:15 1 APPL Ondansetron HCl (zoFRAN 4MG INJ) 4 mg Q6H PRN IV NAUSEA/VOMITING 06/23/25 03:30 07/23/25 03:29 Oxycodone HCl (ROXicoDONE) 10 mg Q8H PRN PO SEVERE PAIN (7-10) 06/25/25 11:00 06/30/25 10:59 06/26/25 16:01 10 MG Potassium Chloride 100 ml @ 100 mls/hr AD PRN IV POTASSIUM PROTOCOL 06/23/25 03:30 07/23/25 03:29 Potassium Chloride (K-Dur/Klor-Con 20meq) 20 meq AD PRN PO POTASSIUM PROTOCOL 06/23/25 03:30 07/23/25 03:29 06/29/25 06:59 20 MEQ Potassium Chloride (KCl 10% Elixir 20meq/15ml) 20 meq AD PRN PO POTASSIUM PROTOCOL 06/23/25 03:30 07/23/25 03:29 Sodium Chloride 1,000 ml @ 50 mls/hr Q20H IV 06/23/25 17:30 06/24/25 09:35 DC 06/23/25 17:19 50 MLS/HR Vancomycin HCl 250 ml @ 125 mls/hr HS IV 06/26/25 21:00 06/28/25 20:59 DC 06/27/25 20:35 125 MLS/HR Vancomycin HCl 250 ml @ 125 mls/hr ONCE IV 06/23/25 03:30 06/23/25 03:44 DC Vancomycin HCl 250 ml @ 125 mls/hr Q24H IV 06/24/25 05:00 06/26/25 20:09 DC 06/25/25 05:21 125 MLS/HR Vancomycin HCl (Vancomycin 750mg) 750 mg Q24H IVPB 06/29/25 09:00 06/29/25 09:07 DC Vancomycin HCl (Vancomycin 750mg) 750 mg Q24H IVPB 06/30/25 09:00 07/10/25 08:59 DIAGNOSTICS / RADIOLOGY: [ ] ASSESSMENT: Severe sepsis POA UTI, POA Infected stasis ulcer of right lower extremity POA Acute kidney injury on chronic kidney disease POA Acute on chronic systolic CHF with cardiomyopathy POA Acute leukocytosis POA Lactic Acidosis POA Transaminases elevated Lumbar spondylosis/degenerative changes Hyponatremia POA Hypochloremia POA Uncontrolled diabetes POA Hypertension POA Hyperlipidemia POA History of Left lower extremity DVT on Eliquis POA History of pulmonary embolism on chronic anticoagulation POA PLAN: Severe sepsis POA: * Continue patient on vancomycin and cefepime, doxycycline * Patient's lactic acid improved to 2.0. WBC at 12.0 * Blood culture negative, urine culture positive for Klebsiella pneumoniae, Wound culture came back positive for Serratia marcescens * Infectious disease and wound care consult appreciated and will follow their recommendations. Infected stasis ulcer of right lower extremity POA: * Cardiology on board and recommended venous Doppler ultrasound bilaterally to rule out DVT, ultrasound came back negative for DVT bilaterally * Wound culture came back positive for Serratia marcescens a Gram-negative bacteria susceptible to most antibiotics * We will follow their recommendations for further treatment * Infectious disease recommended to continue IV cefepime and vancomycin. Acute kidney injury on chronic kidney disease POA: * Placed on daily weight and strict I&O * BUN 46, creatinine 1.7. * Avoid NSAIDs or nephrotoxic agents. Acute on chronic systolic CHF with cardiomyopathy POA: * Cardiology consult placed, who ordered an 2D echo which showed severely reduced LVEF of less than 20% * Cardiology also recommended to hold losartan, Jardiance half tablet 5 mg b.i.d. and continue with Eliquis 5 mg b.i.d. increased Bumex to 2 mg b.i.d. * Follow the recommendations for further treatment, restrict fluid 750 ml per day per cardiology * Continue patient on Milrinone drip and Bumex 2 mg UTI, POA: * Patient's urine culture came back positive for Gram-negative rods * Sensitivity and specificity showed Klebsiella pneumoniae sensitive to most antibiotics * Continuing the patient on vancomycin and cefepime * Infectious disease is on the case Lumbar spondylosis/degenerative changes : * CT lumbar showed lumbar degerative disc disease with reduced disc space and vacuum phenomenon at L5-S1 and T12-L1 levels with minimal retrolisthesis of L5 on S1. * Continue with PRN pain medications. We will request labs in am Further orders to follow depending on above results ATTESTATION BY PHYSICIAN I have seen and examined the patient. I reviewed the documentation, medical decision making, and treatment plan as noted by the resident provider above. I agree with the findings and plan of care. ISIDRO BROWN MD, ABHINAV MD Jun 29, 2025 15:26
--- NOTE | 2025-06-29 18:14 | PN ---
[facility] CARDIOLOGY PROGRESS NOTE Date Patient Seen: Jun 29, 2025 Time of Visit: 18:09 Interval History: [ LA and WBC improved] Physical Examination: GENERAL: [No acute distress.] HEAD: [Normal with no signs of head trauma.] EYES: [PERRLA, EOMI, conjunctiva and sclera normal.] ENT: [Hearing grossly intact, normal oropharynx.] NECK: [Supple without JVD. There is no tenderness, lymphadenopathy, or masses. No thyromegaly. Normal carotid upstrokes without bruits.] LUNGS: [Clear breath sounds bilaterally. There are right basilar rales one third of the way up the chest. No wheezes, or rhonchi.] HEART: [Normal rate and rhythm. Normal S1 and S2 without mumurs, gallop or rub.] VASC: [Peripheral pulses +2 bilaterally.] ABD: [Bowel sounds normal, soft, nontender, no masses, no organomegaly. No audible bruits.] : [Not examined] LYMPH: [No lymphadenopathy noted.] EXT: [bilateral lower extremity edema, stable wounds.] NEURO: [Awake, alert, and oriented x3. No focal sensory or strength deficits noted.] Laboratory: [ ] Hematology Labs: Test 06/29/25 04:30 Range/Units White Blood Count 12.0 H 4.8-10.8 K/uL Red Blood Count 4.12 L 4.50-6.20 MIL/uL Hemoglobin 13.3 L 14.0-18.0 g/dL Hematocrit 39.5 L 42-54 % Mean Corpuscular Volume 95.9 79-99 fL Mean Corpuscular Hemoglobin 32.3 27.0-33.0 pg Mean Corpuscular Hemoglobin Concent 33.7 32.0-36.0 g/dL Red Cell Distribution Width 15.2 11.0-15.5 % Platelet Count 211 130-400 K/uL Mean Platelet Volume 10.8 H 7.5-10.5 fL Immature Granulocyte % (Auto) 2.2 H 0-1 % Neutrophils (%) (Auto) 78.6 H 40.0-77.0 % Lymphocytes (%) (Auto) 7.5 L 21.0-51.0 % Monocytes (%) (Auto) 9.8 3.0-13.0 % Eosinophils (%) (Auto) 1.3 0.0-8.0 % Basophils (%) (Auto) 0.6 0.0-5.0 % Neutrophils # (Auto) 9.4 H 1.8-7.7 K/uL Lymphocytes # (Auto) 0.9 L 1.0-4.8 K/uL Monocytes # (Auto) 1.2 H 0.1-1.0 K/uL Eosinophils # (Auto) 0.16 0.00-0.70 K/uL Basophils # (Auto) 0.07 0.00-0.20 K/uL Absolute Immature Granulocyte (auto 0.27 0-1 K/uL Nucleated Red Blood Cells 0.0 0.0-0.19 % Chemistry Labs: Test 06/29/25 16:14 06/29/25 08:31 06/29/25 04:30 06/28/25 04:25 Range/Units Whole Blood Glucose 215 H 70-110 MG/DL Bedside Glucose Comment Notified Nurse Lactic Acid Level 2.0 0.8-2.5 mmol/L Sodium Level 135 L 136-145 mmol/L Potassium Level 3.2 L 3.5-5.1 mmol/L Chloride Level 95 L 101-111 mmol/L Carbon Dioxide Level 30 21-32 mmol/L Blood Urea Nitrogen 46 H 7-18 mg/dL Creatinine 1.7 H 0.5-1.3 mg/dL Glomerular Filtration Rate Calc 45 >90 mL/min Random Glucose 181 H 70-105 mg/dL Total Calcium 9.1 8.5-10.1 mg/dL Total Bilirubin 1.8 H 0.2-1.0 mg/dL Aspartate Amino Transf (AST/SGOT) 90 H 10-37 U/L Alanine Aminotransferase (ALT/SGPT) 191 H 12-78 U/L Alkaline Phosphatase 145 H 50-136 U/L B-Type Natriuretic Peptide 1530 H 0-100 pg/mL Total Protein 6.4 6.0-8.3 g/dL Albumin 2.7 L 3.5-5.0 g/dL Magnesium Level 1.90 1.80-2.40 mg/dL Coagulation Labs: Test 06/27/25 21:56 Range/Units Prothrombin Time 17.0 H 9.6-11.6 SEC Prothromb Time International Ratio 1.69 H 0.85-1.15 Activated Partial Thromboplast Time 35.1 26.3-35.5 SEC Diagnostics / Radiology: [Copy/Paste Echos/Imaging Report here] Impression and Plan: [Sepsis: Bilateral lower extremity cellulitis: Right lower extremity ulcer infection with Serratia marcescens: -continue antibiotic therapy Acute on chronic HFrEF (LVEF of less than 20%): End-stage ischemic cardiomyopathy with an LVEF of less than 20% by follow-up 2D echocardiogram 06/24/2025, followed by Dr. Chalino Shaw (advanced heart failure management program): -I have stopped Milrinone infusion at 0.25 mcg/kg per minute, LFTs improved -no further metolazone at this time. Continue slow gradual diuresis. -due to rise in Cr, i have stopped Bumex 2 mg IV q.12 hours. Will resume in AM pending urine output and Cr -continue with daily weights and intake and output -has refused LifeVest in the past -we will trend basic metabolic panel and consider resumption of Entresto in 24- 48 hours but we will hold on resumption of spironolactone given concern for prior hyperkalemia -trend CMP Multivessel coronary artery disease felt not amendable to revascularization: -continue beta-anastasiia therapy -has continued on long-term anticoagulation with Eliquis for prior history of DVT and PE -statin therapy on hold given elevated LFTs Transaminitis likely secondary to acute on chronic HFrEF: -continue to trend, improving with management of his heart failure History of DVT and PE on long-term Eliquis: -continue therapy unchanged with Eliquis anticoagulation Comorbidities: Chronic kidney disease stage 3 Type 2 diabetes mellitus Hypertension Hyperlipidemia Chronic back pain EMBER SORIANO MD Jun 29, 2025 18:14
--- NOTE | 2025-06-29 21:53 | PN ---
INFECTIOUS DISEASE PROGRESS NOTE Date of Service: Jun 29, 2025 SUBJECTIVE: Patient was seen in room 227. Resting comfortably in bed and no dyspnea observe. No fever, temperature is 97.7. Patient is currently on Milrinone drip. No reports of nausea or vomiting. We will continue on cefepime and vancomycin. PHYSICAL EXAM EYES: Anicteric. Pupils equal and reactive. HENT: No oral thrush seen, moist Oral mucosa. NECK: Supple, no JVD or thyromegaly. LUNGS: Good air entry. No rales, no rhonchi. CARDIOVASCULAR: S1, S2 regular. No murmur heard. ABDOMEN: Soft, non tender, bowel sounds present, no organomegaly. CENTRAL NERVOUS SYSTEM: Awake, alert, oriented x 3. SKIN: Bilateral lower extremity wounds. LYMPHATICS: No peripheral lymphadenopathy. MUSCULOSKELETAL: No joint swelling, erythema or tenderness. EXTREMITIES: No cyanosis or clubbing. Bilateral lower extremity edema. BACK: No deformity, no pressure ulcer. GENITOURINARY: No dysuria or hematuria. Vital Sign (Last 12 Hours) 06/29/25 06/29/25 06/29/25 06/29/25 10:29 11:00 16:00 19:58 Temp 97.7 97.3 97.7 Pulse 110 99 106 Resp 20 20 21 B/P (MAP) 108/68 102/71 103/68 Pulse Ox 98 93 99 94 O2 Delivery Room Air* Room Air Room Air Room Air O2 Flow Rate 0 FiO2 21 Intake & Output (last 24hrs) 06/28/25 06/28/25 06/29/25 15:00 23:00 07:00 Intake Total 273.8 ml 223.8 ml Output Total 700 ml 1650 ml 2950 ml Balance -700 ml -1376.2 ml -2726.2 ml LABS: Laboratory: Test 06/29/25 19:32 06/29/25 16:14 06/29/25 08:31 06/29/25 04:30 Range/Units Whole Blood Glucose 222 H 70-110 MG/DL Bedside Glucose Comment Notified Nurse Lactic Acid Level 2.0 0.8-2.5 mmol/L Vancomycin Level 21.7 20.0-30.0 mcg/mL White Blood Count 12.0 H 4.8-10.8 K/uL Red Blood Count 4.12 L 4.50-6.20 MIL/uL Hemoglobin 13.3 L 14.0-18.0 g/dL Hematocrit 39.5 L 42-54 % Mean Corpuscular Volume 95.9 79-99 fL Mean Corpuscular Hemoglobin 32.3 27.0-33.0 pg Mean Corpuscular Hemoglobin Concent 33.7 32.0-36.0 g/dL Red Cell Distribution Width 15.2 11.0-15.5 % Platelet Count 211 130-400 K/uL Mean Platelet Volume 10.8 H 7.5-10.5 fL Immature Granulocyte % (Auto) 2.2 H 0-1 % Neutrophils (%) (Auto) 78.6 H 40.0-77.0 % Lymphocytes (%) (Auto) 7.5 L 21.0-51.0 % Monocytes (%) (Auto) 9.8 3.0-13.0 % Eosinophils (%) (Auto) 1.3 0.0-8.0 % Basophils (%) (Auto) 0.6 0.0-5.0 % Neutrophils # (Auto) 9.4 H 1.8-7.7 K/uL Lymphocytes # (Auto) 0.9 L 1.0-4.8 K/uL Monocytes # (Auto) 1.2 H 0.1-1.0 K/uL Eosinophils # (Auto) 0.16 0.00-0.70 K/uL Basophils # (Auto) 0.07 0.00-0.20 K/uL Absolute Immature Granulocyte (auto 0.27 0-1 K/uL Nucleated Red Blood Cells 0.0 0.0-0.19 % Sodium Level 135 L 136-145 mmol/L Potassium Level 3.2 L 3.5-5.1 mmol/L Chloride Level 95 L 101-111 mmol/L Carbon Dioxide Level 30 21-32 mmol/L Blood Urea Nitrogen 46 H 7-18 mg/dL Creatinine 1.7 H 0.5-1.3 mg/dL Glomerular Filtration Rate Calc 45 >90 mL/min Random Glucose 181 H 70-105 mg/dL Total Calcium 9.1 8.5-10.1 mg/dL Total Bilirubin 1.8 H 0.2-1.0 mg/dL Aspartate Amino Transf (AST/SGOT) 90 H 10-37 U/L Alanine Aminotransferase (ALT/SGPT) 191 H 12-78 U/L Alkaline Phosphatase 145 H 50-136 U/L B-Type Natriuretic Peptide 1530 H 0-100 pg/mL Total Protein 6.4 6.0-8.3 g/dL Albumin 2.7 L 3.5-5.0 g/dL Test 06/28/25 20:00 06/28/25 04:25 06/27/25 21:56 Range/Units Vancomycin Level Trough 24.3 #H 10.0-20.0 UG/ML Magnesium Level 1.90 1.80-2.40 mg/dL Prothrombin Time 17.0 H 9.6-11.6 SEC Prothromb Time International Ratio 1.69 H 0.85-1.15 Activated Partial Thromboplast Time 35.1 26.3-35.5 SEC ASSESSMENT: Acute hypoxic respiratory failure. Urinary tract infection with Klebsiella pneumoniae. Right lower extremity ulcer infection with Serratia marcescens.. Bilateral lower extremities cellulitis. Sepsis. Leukocytosis. Acute on chronic renal failure. Diabetes mellitus. Acute on chronic heart failure. Generalized debility. PLAN: Continue cefepime. Continue doxycycline. Currently on Milrinone drip. Continue pain management. Continues on diuretics. Continue GI prophylaxis. Continue wound care. Continue oxygen support as needed. This case was reviewed and discussed with my supervising physician Dr. Frankel and the above assessment and plan was formulated and agreed upon. ATTESTATION BY PHYSICIAN I have seen and examined the patient. I reviewed the documentation, medical decision making, and treatment plan as noted by the mid-level provider above. I agree with the findings and plan of care. CLAUDIA FRANKEL MD, [facility] Jun 29, 2025 21:53
[2025-06-30] VITALS (8 sets, daily range): BP systolic 90–158; BP diastolic 67–77; PULSE 66–99; RESP 20; TEMP 97.5–98.8; O2SAT 95–100
[2025-06-30 05:01] LABS: NUCLEATED RED BLOOD CELLS 0.0 % (0.0-0.19); PLATELET COUNT (AUTO) 195.0 K/uL (130-400); RED BLOOD CELL COUNT(AUTO) 4.24 MIL/uL (4.50-6.20); RED CELL DISTRIBUTION WIDTH 15.3 % (11.0-15.5); WHITE BLOOD COUNT (AUTO) 11.8 K/uL (4.8-10.8)
[2025-06-30 05:30] LABS: ASPARTATE AMINOTRANSFERASE 63.0 U/L (10-37); CREATININE 1.8 mg/dL (0.5-1.3); GLOMERULAR FILTR. RATE CALC 42.0 mL/min (>90); GLUCOSE,RANDOM 135.0 mg/dL (70-105); SODIUM SERUM 135.0 mmol/L (136-145); TOTAL PROTEIN, SERUM 6.5 g/dL (6.0-8.3); UREA NITROGEN, BLOOD 51.0 mg/dL (7-18)
--- NOTE | 2025-06-30 08:43 | HMCIMG ---
EXAM: CR Chest, 1 View. CLINICAL HISTORY: chf COMPARISON: None provided. FINDINGS: LUNGS: There is no mass, infiltrate, or acute pulmonary abnormality. PLEURAL SPACES: No evidence of pleural effusion or pneumothorax. MEDIASTINUM: Cardiomegaly. BONES: No acute osseous abnormality. MISCELLANEOUS: Left-sided PICC IMPRESSION: 1. Cardiomegaly. 2. Left-sided PICC line in place. /[place]
[2025-06-30] MEDS: VANCOMYCIN 750MG VIAL IVPB SCH (09:44)
--- NOTE | 2025-06-30 12:34 | HMCIMG ---
EXAM: CR Chest, 1 views. CLINICAL HISTORY: Cough. COMPARISON: None provided. FINDINGS: The lungs show no infiltrate or other acute findings. No pleural effusion or pneumothorax. Mild cardiomegaly is noted. No acute osseous abnormality. IMPRESSION: Mild cardiomegaly is noted. /[place]
--- NOTE | 2025-06-30 13:28 | PN ---
[facility] CARDIOLOGY PROGRESS NOTE Date Patient Seen: Jun 30, 2025 Time of Visit: 13:27 Interval History: [ LA and WBC improved. LFTs downtrended and good urine output, but Cr up to 1.8, holding diuresis] Physical Examination: GENERAL: [No acute distress.] HEAD: [Normal with no signs of head trauma.] EYES: [PERRLA, EOMI, conjunctiva and sclera normal.] ENT: [Hearing grossly intact, normal oropharynx.] NECK: [Supple without JVD. There is no tenderness, lymphadenopathy, or masses. No thyromegaly. Normal carotid upstrokes without bruits.] LUNGS: [Clear breath sounds bilaterally. There are right basilar rales one third of the way up the chest. No wheezes, or rhonchi.] HEART: [Normal rate and rhythm. Normal S1 and S2 without mumurs, gallop or rub.] VASC: [Peripheral pulses +2 bilaterally.] ABD: [Bowel sounds normal, soft, nontender, no masses, no organomegaly. No audible bruits.] : [Not examined] LYMPH: [No lymphadenopathy noted.] EXT: [bilateral lower extremity edema, stable wounds.] NEURO: [Awake, alert, and oriented x3. No focal sensory or strength deficits noted.] Laboratory: [ ] Hematology Labs: Test 06/30/25 04:38 06/29/25 04:30 Range/Units White Blood Count 11.8 H 4.8-10.8 K/uL Red Blood Count 4.24 L 4.50-6.20 MIL/uL Hemoglobin 13.7 L 14.0-18.0 g/dL Hematocrit 40.4 L 42-54 % Mean Corpuscular Volume 95.3 79-99 fL Mean Corpuscular Hemoglobin 32.3 27.0-33.0 pg Mean Corpuscular Hemoglobin Concent 33.9 32.0-36.0 g/dL Red Cell Distribution Width 15.3 11.0-15.5 % Platelet Count 195 130-400 K/uL Mean Platelet Volume 10.9 H 7.5-10.5 fL Nucleated Red Blood Cells 0.0 0.0-0.19 % Immature Granulocyte % (Auto) 2.2 H 0-1 % Neutrophils (%) (Auto) 78.6 H 40.0-77.0 % Lymphocytes (%) (Auto) 7.5 L 21.0-51.0 % Monocytes (%) (Auto) 9.8 3.0-13.0 % Eosinophils (%) (Auto) 1.3 0.0-8.0 % Basophils (%) (Auto) 0.6 0.0-5.0 % Neutrophils # (Auto) 9.4 H 1.8-7.7 K/uL Lymphocytes # (Auto) 0.9 L 1.0-4.8 K/uL Monocytes # (Auto) 1.2 H 0.1-1.0 K/uL Eosinophils # (Auto) 0.16 0.00-0.70 K/uL Basophils # (Auto) 0.07 0.00-0.20 K/uL Absolute Immature Granulocyte (auto 0.27 0-1 K/uL Chemistry Labs: Test 06/30/25 11:14 06/30/25 04:38 06/29/25 16:14 Range/Units Whole Blood Glucose 259 #H 70-110 MG/DL Sodium Level 135 L 136-145 mmol/L Potassium Level 3.4 L 3.5-5.1 mmol/L Chloride Level 95 L 101-111 mmol/L Carbon Dioxide Level 30 21-32 mmol/L Blood Urea Nitrogen 51 H 7-18 mg/dL Creatinine 1.8 H 0.5-1.3 mg/dL Glomerular Filtration Rate Calc 42 >90 mL/min Random Glucose 135 H 70-105 mg/dL Lactic Acid Level 2.0 0.8-2.5 mmol/L Total Calcium 9.2 8.5-10.1 mg/dL Total Bilirubin 1.4 H 0.2-1.0 mg/dL Aspartate Amino Transf (AST/SGOT) 63 H 10-37 U/L Alanine Aminotransferase (ALT/SGPT) 152 H 12-78 U/L Alkaline Phosphatase 137 H 50-136 U/L B-Type Natriuretic Peptide 2060 H 0-100 pg/mL Total Protein 6.5 6.0-8.3 g/dL Albumin 2.8 L 3.5-5.0 g/dL Bedside Glucose Comment Notified Nurse Diagnostics / Radiology: [Copy/Paste Echos/Imaging Report here] Impression and Plan: [Sepsis: Bilateral lower extremity cellulitis: Right lower extremity ulcer infection with Serratia marcescens: -continue antibiotic therapy Acute on chronic HFrEF (LVEF of less than 20%): End-stage ischemic cardiomyopathy with an LVEF of less than 20% by follow-up 2D echocardiogram 06/24/2025, followed by Dr. Chalino Shaw (advanced heart failure management program): -06/29: I have stopped Milrinone infusion at 0.25 mcg/kg per minute, LFTs improved -no further metolazone at this time. Continue slow gradual diuresis. -due to rise in Cr, i have stopped Bumex 2 mg IV q.12 hours. Will resume in AM pending urine output and Cr -continue with daily weights and intake and output -has refused LifeVest in the past -we will trend basic metabolic panel and consider resumption of Entresto in 24- 48 hours but we will hold on resumption of spironolactone given concern for prior hyperkalemia -trend CMP Multivessel coronary artery disease felt not amendable to revascularization: -continue beta-anastasiia therapy -has continued on long-term anticoagulation with Eliquis for prior history of DVT and PE -statin therapy on hold given elevated LFTs Transaminitis likely secondary to acute on chronic HFrEF: -continue to trend, improving with management of his heart failure 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
--- NOTE | 2025-06-30 14:21 | PN ---
[facility] PROGRESS NOTE Date of Service: Jun 30, 2025 Time of Service: 14:09 SUBJECTIVE: This is a 59 year old male,a reliable historian with past medical history of hypertension, diabetes, hyperlipidemia, CHF with advanced ischemic cardiomyopathy EF 20% stage 3 CKD multivessel obstructive CAD ,DVT to left leg and pulmonary embolism on chronic Eliquis ,chronic back pain,bilateral lower extremity ulcers and morbid obesity who presents to the ED for complaints of feeling dizzy,shortness of breath and patient has a chronic lower extremity that has ulcers and it has been swollen and oozing fluids.Patient also reports chills and rigors which started today while changing his wound dressing and he first though he was having parkinson's tremors so he decided to come to the ED for evaluation.Patient states he was fairly doing fine unitl 8 days ago last Sunday he stopped taking his Spironolactone and Losartan because it was discontinued byher his box machine operator due to severe hyperkalemia .Patient reports he was seen by a box machine operator from [place] by the name of and he told the box machine operator that he is not voiding much than what he used to ,before he approximately voided 1600 and now it is only 500 and he noticed that his legs are becoming swollen ever since he stopped taking his Spironolactone and Losartan he feels he is gaining more weight and he was advised to take a dose of Spironolactone for today and he did after a few hours he said he felt dizzy and lightheaded and as he was changing his wound dressing he feels the chills and rigors so he decided to come to the ED for evaluation.Upon ER arrival V/SA T102.4,HR 128,BP 122/87 Sat 100% RA RR 24.ECG result revealed Sinus ectopic or atrial Tachycardia HR 120 Prob left atrial enlargement,inferior infarct old,anterior infarct old,nonspecific T abnormalities ,lateral leads prolonged QT interval. Seen and examined patient in the ER awake,alert and coherent,appears comfortable,in no apparent distress.Patient denies cough,shortness of breath,chest pain,palpitation,abdominal pain,nausea,vomiting and syncope.Labs WBC 20 with negative left shift of neutrophils 88,Hgb 15,Hct 45,platelet 209.Na 135,K4.6,K4.6,Chloride 96,BUN47,Creat 1.9,GFR 40,Glucose 174 ,lactic acid 6.3,BNP 1550.Urinalysis remarkable for protein 30,glucose more than 1000,small hematuria and urine RBC 2-5 .Serology test for influenza Type A&B negative SARS COV_2 negative and Group A strep negative.CXR result revealed interval development of mild cardiomegaly.No acute infiltrate ,effusion or pneumothorax.While in the ER patient received Fluid resuscitation of 30ml/kg over 3 hours ,Tylenol 1000 mg po,Morphine 4mg IV, Cefepime and Vancomycin IV.Will admit patient for further medical management. 06/23/25: Patient is seen at bedside in ER 5. Patient denies cough, chest pain, palpitation, abdominal pain, chills. Patient is started on nasal cannula due to shortness of breath. Patient's remaining vitals stable with temperature at 98.4, pulse at 98, respiratory rate of 22, blood pressure 109/79. Patient's labs showed an increase in WBC to 24.5, hemoglobin at 13.9, sodium at 135, lactic acid improved to 4.3. Continue the patient on vancomycin and cefepime IV. Cardiology and Infectious Disease have been consulted, along with critical care. Patient's BNP has improved to 851. Patient has no new complaints. Patient started on soft hydration. Cardiology ordered a 2D echo and venous Doppler ultrasound bilaterally to rule out DVT. 06/24/25: Patient is seen at bedside in ER 5. Patient is doing much better, off of nasal cannula and breathing room air. Patient denies cough, chest pain, palpitations, abdominal pain, chills. Patient's temperature currently at 98.8, pulse at 89 respiratory rate at 18, blood pressure 102/58. Patient's labs have improved with his WBC trending down to 18.4, his creatinine remains around 1.9, his lactic acid has trended down to 2.7. He does have an increase in his liver function tests with AST going up to 254 and ALT increasing to 152. His BNP has also increased to to 2110. Cardiology recommended to hold losartan, start him on Bumex 1 mg b.i.d., Jardiance half tablet 5 mg b.i.d. and continue with Eliquis 5 mg b.i.d. His venous Doppler study showed no DVTs bilaterally. Patient's urine culture came back positive for Gram-negative rods, going to wait for specificity and sensitivity to change his medication. He is currently on vancomycin and cefepime. 06/25/25: Patient is seen at bedside now in room 227. Patient is seen by infectious disease doctor who recommended to continue vancomycin follow up with wound culture. Cardiology increase the patient's Bumex to t.i.d. patient's lactic acid remained at 2.7 His BNP increased to 2206. An ankle-brachial index test has been ordered. Patient's urine culture showed Klebsiella pneumoniae sensitive to most antibiotics. His preliminary wound care results show Gram- negative rods. Blood culture still no growth after 48 hours. Continuing the patient's vancomycin and cefepime. Patient's WBC went down to 16.2 today. He continues to have an increase in his liver function tests with AST going up to 367 and ALT increasing to 302. His alkaline phosphatase also increased to 142 today. We will keep an eye on his liver functions. : Patient is seen and examined at bedside in room 227. Patient stable breathing comfortably on room air. Patient still complains of orthopnea, dyspnea on exertion, paroxysmal nocturnal dyspnea. Cardiology followed up with the patient and increased his Bumex to 2 mg b.i.d. Patient is on a strict in and out of 1.5 L. patient's wound culture came back positive for Serratia marcescens susceptible to most antibiotics. We will let Infectious Disease decide if they want to change antibiotics. Ankle-brachial index test has been ordered yesterday waiting on results. Chest x-ray has been ordered along with thoracic and lumbar spine CT. Patient's liver functions have improved with AST dropping to 201 and ALT dropping to 284. Patient's BNP is high at 3330. 06/27/25: Patient seen and examined today morning at bedside. The patient exp ressed concern about gaining extra weight and his clothes won't even fit him well. Intake 2590. Patient says his breathing is better when he is sitting or lying in bed at 45 degrees. Labs showed decreased in WBC from 13 to 11.6, platelets 187, BUN 52 and creatinine 1.8. Total bilirubin 1.3, AST came down to 168 from 201, ALT 263 from 284, ALP 178. BNP is down to 2700 from 3330. Lactic acid went up from 2.3-2.7. Infectious Disease recommended to continue vanco and cefepime. Cardio recommended to continue Bumex IV 2 mg b.i.d. 06/28/25: Patient is seen and examined today at bedside in room 227. Patient is improving he is now able to lie back on the bed without any shortness of breath, his leg edema has also improved. His BNP is down to 2130 from 2700. His lactic acid has also gone down to 2.0 from 2.7, AST came down to 117 from 168, ALT 225 from 265, his total bilirubin did go up to 1.6 from 1.3. He had a short episode where his potassium went down to 3.0 but patient already on potassium protocol so was given potassium. Patient given metolazone and also started Milrinone drip yesterday. He is already on Bumex 2 mg b.i.d. He has diuresed 6 L overnight with continues to have anasarca to the lower abdomen and upper thighs and lower extremity edema. Continuing the patient on vancomycin and cefepime. 06/29/25: Patient is seen and examined at bedside in room 227. Patient continues to improve, his leg edema has gone down. His BP is down to 1530 from 2130. His WBCs trending down to 12.0 today. His potassium is low at 3.2 but he is on potassium protocol. Patient's liver functions have improved his AST today is at 90, ALT at 191, alkaline phosphatase at 145. His lactic acid remains at 2. Patient is currently on bumetanide 2 mg and Milrinone drip. He has negative balance today is in is around 4000 ml. He is on vancomycin and cefepime for his UTI and bilateral leg wound infection. 06/30/25: Patient is seen and examined at bedside in room 227. Patient continues to improve, his leg edema has gone down. His WBCs trending down to 11.8 today. Patient's BNP has gone up to 2060 today. Patient has a negative output of about 5000 mL. Patient's weight is at 107.4 kg down from 109.8 yesterday. Patient is improving clinically. Patient off Bumetanide and Milrinone drip per Cardiology. Bumetanide might be restarted tomorrow if his creatinine improves. Patient has chronic kidney disease stage 3 so his creatinine might be baseline. We will talk to Cardiology regarding this tomorrow. Patient continues to be on vancomycin and cefepime for his UTI and bilateral leg wound infection. REVIEW OF SYSTEMS CONSTITUTIONAL: Denies chills, fever and night sweats. unintentional weight gain reported. Complains of back pain which is chronic. Patient is now losing weight. NEUROLOGICAL: Denies headache, gait abnormalities, or tremors. ENT: No hearing loss, otalgia, otorrhea, rhinitis, rhinorrhea, hoarseness, or sore throat. CARDIOVASCULAR: dyspnea on exertion, orthopnea, paroxysmal nocturnal dyspnea, improving. Denies any exertional angina, palpitations, life-threatening arrhythmias. PULMONARY: Shortness of breath improved. denies cough, phlegm/sputum, hemoptysis, pleuritic chest pain. GASTROINTESTINAL: Denies any type of dysphagia to either liquids or solids. Denies nausea, vomiting, abdominal pain, diarrhea, constipation, or changes in stool consistency or caliber. GENITOURINARY: Denies frequency, urgency, nocturia, hematuria or incontinence ENDOCRINOLOGIC: Denies polyuria, polydipsia, polyphagia or heat/cold intolerances. ONCOLOGIC: Denies personal history of malignancy. DERMATOLOGIC: chronic wound ulcer to right lower extremity Denies rashes or pruritus. PHYSICAL EXAM GENERAL APPEARANCE: The patient is awake, alert, and oriented, in no acute cardiopulmonary distress. NEUROLOGICAL: Cranial nerves II-XII grossly intact. Motor is 5/5 in bilateral upper and lower extremities proximal to distal. No sensory deficits. HEENT: Face is symmetric. Pupils are equal and reactive. Extraocular movements are intact. NECK: Supple. No JVD. No thyromegaly. No submental, submandibular, pre- /postauricular, occipital or supraclavicular lymphadenopathy. CHEST: Normal chest expansion. No Telemetry. LUNGS: Sounds clear CARDIOVASCULAR: Regular rate and rhythm. S1 and S2 normal. No appreciable rubs, murmurs or gallops. ABDOMEN: Soft, nontender, and nondistended. There is no rebound, voluntary guarding, or rigidity. : Deferred. No [place]. EXTREMITIES: 2+edema to bilateral lower extremities SKIN: Draining Wound ulcers to right lower extremity Vital Signs (last 8hr) Date Time Temp Pulse Resp B/P (MAP) Pulse Ox O2 Delivery O2 Flow Rate FiO2 06/30/25 11:49 98.6 79 20 106/77 95 Room Air 06/30/25 08:00 95 Room Air* 0 21 06/30/25 07:46 98.1 94 20 91/67 95 Room Air LABS: Laboratory: Test 06/30/25 11:14 06/30/25 08:22 06/30/25 04:38 06/29/25 16:14 Range/Units Whole Blood Glucose 259 #H 70-110 MG/DL Vancomycin Level 15.9 #L 20.0-30.0 mcg/mL White Blood Count 11.8 H 4.8-10.8 K/uL Red Blood Count 4.24 L 4.50-6.20 MIL/uL Hemoglobin 13.7 L 14.0-18.0 g/dL Hematocrit 40.4 L 42-54 % Mean Corpuscular Volume 95.3 79-99 fL Mean Corpuscular Hemoglobin 32.3 27.0-33.0 pg Mean Corpuscular Hemoglobin Concent 33.9 32.0-36.0 g/dL Red Cell Distribution Width 15.3 11.0-15.5 % Platelet Count 195 130-400 K/uL Mean Platelet Volume 10.9 H 7.5-10.5 fL Nucleated Red Blood Cells 0.0 0.0-0.19 % Sodium Level 135 L 136-145 mmol/L Potassium Level 3.4 L 3.5-5.1 mmol/L Chloride Level 95 L 101-111 mmol/L Carbon Dioxide Level 30 21-32 mmol/L Blood Urea Nitrogen 51 H 7-18 mg/dL Creatinine 1.8 H 0.5-1.3 mg/dL Glomerular Filtration Rate Calc 42 >90 mL/min Random Glucose 135 H 70-105 mg/dL Lactic Acid Level 2.0 0.8-2.5 mmol/L Total Calcium 9.2 8.5-10.1 mg/dL Total Bilirubin 1.4 H 0.2-1.0 mg/dL Aspartate Amino Transf (AST/SGOT) 63 H 10-37 U/L Alanine Aminotransferase (ALT/SGPT) 152 H 12-78 U/L Alkaline Phosphatase 137 H 50-136 U/L B-Type Natriuretic Peptide 2060 H 0-100 pg/mL Total Protein 6.5 6.0-8.3 g/dL Albumin 2.8 L 3.5-5.0 g/dL Bedside Glucose Comment Notified Nurse Test 06/29/25 04:30 06/28/25 20:00 Range/Units Immature Granulocyte % (Auto) 2.2 H 0-1 % Neutrophils (%) (Auto) 78.6 H 40.0-77.0 % Lymphocytes (%) (Auto) 7.5 L 21.0-51.0 % Monocytes (%) (Auto) 9.8 3.0-13.0 % Eosinophils (%) (Auto) 1.3 0.0-8.0 % Basophils (%) (Auto) 0.6 0.0-5.0 % Neutrophils # (Auto) 9.4 H 1.8-7.7 K/uL Lymphocytes # (Auto) 0.9 L 1.0-4.8 K/uL Monocytes # (Auto) 1.2 H 0.1-1.0 K/uL Eosinophils # (Auto) 0.16 0.00-0.70 K/uL Basophils # (Auto) 0.07 0.00-0.20 K/uL Absolute Immature Granulocyte (auto 0.27 0-1 K/uL Vancomycin Level Trough 24.3 #H 10.0-20.0 UG/ML Current Medications Medications (Trade) Dose Ordered Sig/Da Route PRN Reason Start Time Stop Time Status Last Admin Dose Admin Acetaminophen (TYLenol 325MG TAB) 650 mg Q4H PRN PO MILD PAIN (1-3) 06/23/25 03:30 07/23/25 03:29 Acetaminophen (TYLenol 325MG TAB) 650 mg Q6H PRN PO TEMPERATURE GREATER THAN 101.5 06/23/25 03:30 07/23/25 03:29 Apixaban (EliquIS) 5 mg BID PO 06/23/25 09:00 07/23/25 08:59 06/30/25 08:58 5 MG Bumetanide (Bumex 1mg Tab) 1 mg BID PO 06/23/25 09:00 06/25/25 08:32 DC 06/24/25 21:13 1 MG Bumetanide (Bumex 1mg Vial) 1 mg BID IVP 06/25/25 09:00 06/25/25 08:41 DC Bumetanide (Bumex 1mg Vial) 1 mg TID IVP 06/25/25 09:00 06/26/25 08:34 DC 06/25/25 21:29 1 MG Bumetanide (Bumex 1mg Vial) 2 mg BID IVP 06/26/25 09:00 06/29/25 18:14 DC 06/29/25 08:55 2 MG Cefepime HCl (MAXipime 1 GM vial) 1 gm ONCE IVPB 06/23/25 02:00 06/23/25 04:01 DC 06/23/25 02:19 1 GM Cefepime HCl (MAXipime 1 GM vial) 1 gm Q12H IVPB 06/23/25 10:00 07/03/25 09:59 06/30/25 08:57 1 GM Dextrose (D50w) 50 ml AD PRN IV HYPOGLYCEMIA PROTOCOL 06/23/25 03:30 07/23/25 03:29 Dobutamine HCl/ Dextrose 250 ml @ 0 mls/hr PROTOCOL IV 06/24/25 16:00 06/27/25 15:00 DC Doxycycline Hyclate 250 ml @ 125 mls/hr Q12H IV 06/24/25 16:00 06/27/25 13:35 DC 06/27/25 03:55 125 MLS/HR Empaglifozin (Jardiance 10mg) 5 mg BID PO 06/24/25 21:00 07/24/25 20:59 06/30/25 08:58 5 MG Famotidine (Pepcid 20mg Tab) 20 mg DAILY PO 06/23/25 09:00 07/23/25 08:59 06/30/25 08:59 20 MG Gentamicin Sulfate (GENTAmicin SULFate 15 gm cream) APPLY DIRECTED DAILY18 TP 06/26/25 18:00 07/10/25 17:59 06/29/25 11:16 1 APPL Glucagon (Glucagon 1mg Kit) 1 mg AD PRN IM HYPOGLYCEMIA PROTOCOL 06/23/25 03:30 07/23/25 03:29 Insulin Human Regular (humuLIN R 100 UNIT/ML 3ML) INSULIN SLIDING SCAL... ACHS SQ 06/23/25 07:30 07/23/25 07:29 06/30/25 11:57 5 UNIT Leptospermum Honey ([facility]) 1 APPL DAILY17 TP 06/23/25 17:00 07/23/25 16:59 06/29/25 11:16 1 APPL Magnesium Sulfate 50 ml @ 0 mls/hr PROTOCOL PRN IV OTHER [SEE ORDER COMMENTS] 06/23/25 03:30 07/23/25 03:29 Metoprolol Succinate (TopROL XL) 25 mg DAILY PO 06/23/25 09:00 07/23/25 08:59 06/30/25 08:57 25 MG Milrinone Lactate/ Dextrose 100 ml @ 0 mls/hr PROTOCOL IV 06/27/25 16:00 06/29/25 18:14 DC 06/29/25 10:42 8.65 MLS/HR Morphine Sulfate (morPHINE 2MG SYG) 2 mg Q6H6 PRN IVP PAIN LEVEL 7 TO 10 06/23/25 11:00 06/28/25 13:59 DC 06/24/25 16:03 2 MG Multivitamins Therapeutic (Multivitamin Tablet) 1 tab DAILY PO 06/25/25 09:00 07/25/25 08:59 06/30/25 08:57 1 TAB Mupirocin (Bactroban Oint) apply to bilateral lo... DAILY17 TP 06/23/25 17:00 06/26/25 16:51 DC 06/26/25 16:15 1 APPL Ondansetron HCl (zoFRAN 4MG INJ) 4 mg Q6H PRN IV NAUSEA/VOMITING 06/23/25 03:30 07/23/25 03:29 Oxycodone HCl (ROXicoDONE) 10 mg Q8H PRN PO SEVERE PAIN (7-10) 06/25/25 11:00 06/30/25 10:59 DC 06/26/25 16:01 10 MG Potassium Chloride 100 ml @ 100 mls/hr AD PRN IV POTASSIUM PROTOCOL 06/23/25 03:30 07/23/25 03:29 Potassium Chloride (K-Dur/Klor-Con 20meq) 20 meq AD PRN PO POTASSIUM PROTOCOL 06/23/25 03:30 07/23/25 03:29 06/30/25 08:58 20 MEQ Potassium Chloride (KCl 10% Elixir 20meq/15ml) 20 meq AD PRN PO POTASSIUM PROTOCOL 06/23/25 03:30 07/23/25 03:29 Sodium Chloride 1,000 ml @ 50 mls/hr Q20H IV 06/23/25 17:30 06/24/25 09:35 DC 06/23/25 17:19 50 MLS/HR Vancomycin HCl 250 ml @ 125 mls/hr HS IV 06/26/25 21:00 06/28/25 20:59 DC 06/27/25 20:35 125 MLS/HR Vancomycin HCl 250 ml @ 125 mls/hr ONCE IV 06/23/25 03:30 06/23/25 03:44 DC Vancomycin HCl 250 ml @ 125 mls/hr Q24H IV 06/24/25 05:00 06/26/25 20:09 DC 06/25/25 05:21 125 MLS/HR Vancomycin HCl (Vancomycin 750mg) 750 mg Q24H IVPB 06/29/25 09:00 06/29/25 09:07 DC Vancomycin HCl (Vancomycin 750mg) 750 mg Q24H IVPB 06/30/25 09:00 07/10/25 08:59 06/30/25 09:44 750 MG DIAGNOSTICS / RADIOLOGY: [place] [address] IMAGING REPORT Signed PATIENT: LILI HUFF MR#: [id number] : 1965 SEX: M AGE: 59 LOCATION: 2DH ORDER 99 STATUS: ADM IN REPORT#: [id number] SERVICE 06 REASON: chf ORDERING PHYSICIAN: EMBER SORIANO MD PROCEDURE: CXR1VW - CHEST 1VW EXAM: CR Chest, 1 View. CLINICAL HISTORY: chf COMPARISON: None provided. FINDINGS: LUNGS: There is no mass, infiltrate, or acute pulmonary abnormality. PLEURAL SPACES: No evidence of pleural effusion or pneumothorax. MEDIASTINUM: Cardiomegaly. BONES: No acute osseous abnormality. MISCELLANEOUS: Left-sided PICC IMPRESSION: 1. Cardiomegaly. 2. Left-sided PICC line in place. /[place] DICTATED BY: TRISTIN JI MD DATE: 06/30/25942 ELECTRONICALLY SIGNED BY: TRISTIN JI MD DATE: 06/30/25942 ASSESSMENT: Severe sepsis POA UTI, POA Infected stasis ulcer of right lower extremity POA Acute kidney injury on chronic kidney disease POA Acute on chronic systolic CHF with cardiomyopathy POA Acute leukocytosis POA Lactic Acidosis POA Transaminases elevated Lumbar spondylosis/degenerative changes Hyponatremia POA Hypochloremia POA Uncontrolled diabetes POA Hypertension POA Hyperlipidemia POA History of Left lower extremity DVT on Eliquis POA History of pulmonary embolism on chronic anticoagulation POA PLAN: Severe sepsis POA: * Continue patient on vancomycin and cefepime * Patient's lactic acid improved to 2.0., WBC at 11.8 * Blood culture negative, urine culture positive for Klebsiella pneumoniae, Wound culture came back positive for Serratia marcescens * Infectious disease and wound care consult appreciated and will follow their recommendations. Infected stasis ulcer of right lower extremity POA: * ultrasound came back negative for DVT bilaterally * Wound culture came back positive for Serratia marcescens a Gram-negative bacteria susceptible to most antibiotics * We will follow their recommendations for further treatment * Infectious disease recommended to continue IV cefepime and vancomycin. Acute kidney injury on chronic kidney disease POA: * Placed on daily weight and strict I&O * BUN 46, creatinine 1.7. * Avoid NSAIDs or nephrotoxic agents. Acute on chronic systolic CHF with cardiomyopathy POA: * Cardiology stopped patient's bumetanide and Milrinone drip, Continue slow gradual diuresis. Will resume in AM pending urine output and Cr * Cardiology consult placed, who ordered an 2D echo which showed severely reduced LVEF of less than 20% * Cardiology also recommended to hold losartan, Jardiance half tablet 5 mg b.i.d. and continue with Eliquis 5 mg b.i.d. * Follow the recommendations for further treatment, restrict fluid 1500 ml per day per cardiology UTI, POA: * Patient's urine culture came back positive for Gram-negative rods * Sensitivity and specificity showed Klebsiella pneumoniae sensitive to most antibiotics * Continuing the patient on vancomycin and cefepime * Infectious disease is on the case Lumbar spondylosis/degenerative changes : * CT lumbar showed lumbar degerative disc disease with reduced disc space and vacuum phenomenon at L5-S1 and T12-L1 levels with minimal retrolisthesis of L5 on S1. * Continue with PRN pain medications. We will request labs in am Further orders to follow depending on above results ATTESTATION BY PHYSICIAN I have seen and examined the patient. I reviewed the documentation, medical decision making, and treatment plan as noted by the resident provider above. I agree with the findings and plan of care. Piter Lora MD, ABHINAV MD Jun 30, 2025 14:21
--- NOTE | 2025-06-30 14:32 | NUR ---
[facility] Follow-up: Patient re-assessed by wound healing team. See wound assessment. Assessment and recommendations provided to primary nurse. Venous wound and treatment education provided to patient. Wound care done. Addendum: 07/01/25 at 1401 by PHOENIX VILLAFANA RN RN/ Amended: Links added.
--- NOTE | 2025-06-30 15:42 | NUR ---
Patient found with BP 90/69, symptomatic, reporting dizziness and lightheadedness. Dr. Cartwright notified. Orders received for orthostatic vital signs; patient refused, stating he prefers to wait until the physician rounds.
--- NOTE | 2025-06-30 16:46 | PN ---
PROGRESS NOTE Date of Service: Jun 30, 2025 Time of Service: 16:46 SUBJECTIVE: [ ] REVIEW OF SYSTEMS CONSTITUTIONAL: Denies fever, chills, or fatigue. HEAD/FACE: No signs of trauma. EENT: Denies eye pain, blurred vision, double vision, or light sensitivity. RESPIRATORY: Denies shortness of breath, cough, wheezing CARDIOVASCULAR: Denies chest pain, palpitation, syncope GASTROINTESTINAL/ABDOMINAL: Denies abdominal pain, constipation, diarrhea, nausea or vomiting GENITOURINARY: Denies dysuria or hematuria. MUSCULOSKELETAL: Denies joint pain, tenderness, or trauma. INTEGUMENTARY: Denies rash or itchiness NEUROLOGICAL/PSYCH: Denies anxiety, depression, heat or cold intolerance. PHYSICAL EXAM EYES: Anicteric. Pupils equal and reactive. HENT: No oral thrush seen, moist Oral mucosa NECK: Supple, no JVD or thyromegaly. LUNGS: Good air entry. No rales, no rhonchi. CARDIOVASCULAR: S1, S2 regular. No murmur heard. ABDOMEN: Soft, non tender, bowel sounds present, no organomegaly CENTRAL NERVOUS SYSTEM: Awake, alert, oriented x 3. No focal deficits. SKIN: No rashes, no swelling. LYMPHATICS: No peripheral lymphadenopathy MUSCULOSKELETAL: No joint swelling, erythema or tenderness. EXTREMITIES: No cyanosis or clubbing BACK: No deformity, no pressure ulcer. GENITOURINARY: No dysuria or hematuria Vital Signs (last 8hr) Date Time Temp Pulse Resp B/P (MAP) Pulse Ox O2 Delivery O2 Flow Rate FiO2 06/30/25 11:49 98.6 79 20 106/77 95 Room Air LABS: Laboratory: Test 06/30/25 16:11 06/30/25 08:22 06/30/25 04:38 06/29/25 16:14 Range/Units Whole Blood Glucose 206 H 70-110 MG/DL Vancomycin Level 15.9 #L 20.0-30.0 mcg/mL White Blood Count 11.8 H 4.8-10.8 K/uL Red Blood Count 4.24 L 4.50-6.20 MIL/uL Hemoglobin 13.7 L 14.0-18.0 g/dL Hematocrit 40.4 L 42-54 % Mean Corpuscular Volume 95.3 79-99 fL Mean Corpuscular Hemoglobin 32.3 27.0-33.0 pg Mean Corpuscular Hemoglobin Concent 33.9 32.0-36.0 g/dL Red Cell Distribution Width 15.3 11.0-15.5 % Platelet Count 195 130-400 K/uL Mean Platelet Volume 10.9 H 7.5-10.5 fL Nucleated Red Blood Cells 0.0 0.0-0.19 % Sodium Level 135 L 136-145 mmol/L Potassium Level 3.4 L 3.5-5.1 mmol/L Chloride Level 95 L 101-111 mmol/L Carbon Dioxide Level 30 21-32 mmol/L Blood Urea Nitrogen 51 H 7-18 mg/dL Creatinine 1.8 H 0.5-1.3 mg/dL Glomerular Filtration Rate Calc 42 >90 mL/min Random Glucose 135 H 70-105 mg/dL Lactic Acid Level 2.0 0.8-2.5 mmol/L Total Calcium 9.2 8.5-10.1 mg/dL Total Bilirubin 1.4 H 0.2-1.0 mg/dL Aspartate Amino Transf (AST/SGOT) 63 H 10-37 U/L Alanine Aminotransferase (ALT/SGPT) 152 H 12-78 U/L Alkaline Phosphatase 137 H 50-136 U/L B-Type Natriuretic Peptide 2060 H 0-100 pg/mL Total Protein 6.5 6.0-8.3 g/dL Albumin 2.8 L 3.5-5.0 g/dL Bedside Glucose Comment Notified Nurse Test 06/29/25 04:30 06/28/25 20:00 Range/Units Immature Granulocyte % (Auto) 2.2 H 0-1 % Neutrophils (%) (Auto) 78.6 H 40.0-77.0 % Lymphocytes (%) (Auto) 7.5 L 21.0-51.0 % Monocytes (%) (Auto) 9.8 3.0-13.0 % Eosinophils (%) (Auto) 1.3 0.0-8.0 % Basophils (%) (Auto) 0.6 0.0-5.0 % Neutrophils # (Auto) 9.4 H 1.8-7.7 K/uL Lymphocytes # (Auto) 0.9 L 1.0-4.8 K/uL Monocytes # (Auto) 1.2 H 0.1-1.0 K/uL Eosinophils # (Auto) 0.16 0.00-0.70 K/uL Basophils # (Auto) 0.07 0.00-0.20 K/uL Absolute Immature Granulocyte (auto 0.27 0-1 K/uL Vancomycin Level Trough 24.3 #H 10.0-20.0 UG/ML DIAGNOSTICS / RADIOLOGY: [ ] PROBLEM LIST : Medical Problems: Chronic venous hypertension with ulcer to bilateral lower extremities Non pressure chronic ulcer to right lower extremity Non pressure chronic ulcer to left lower extremity PLAN: Wound care to Bilateral lower extremities: Cleanse with normal saline, pat dry, apply medihoney and gentamicin 1:1, cover with adaptic/vaseline gauze, gauze, wrap with kerlix secure with tape change daily and prn Keep wounds clean and dry Offloading/reposition q 2 hours Continue IV antibiotics per ID Comorbidities per primary care team Further Management per hospital course. Thank You for the consult and allowing us to participate in the care of this patient. CHUNG TITUS NP Jun 30, 2025 16:46
--- NOTE | 2025-06-30 21:44 | PN ---
INFECTIOUS DISEASE PROGRESS NOTE Date of Service: Jun 30, 2025 SUBJECTIVE: Patient was seen in room 227. Patient is awake, alert and oriented x3. Still having some edema to bilateral lower extremities. Continues on Bumex IV. No dyspnea. No fever. We will continue on cefepime and vancomycin. No other issues reported by nursing. PHYSICAL EXAM EYES: Anicteric. Pupils equal and reactive. HENT: No oral thrush seen, moist Oral mucosa. NECK: Supple, no JVD or thyromegaly. LUNGS: Good air entry. No rales, no rhonchi. CARDIOVASCULAR: S1, S2 regular. No murmur heard. ABDOMEN: Soft, non tender, bowel sounds present, no organomegaly. CENTRAL NERVOUS SYSTEM: Awake, alert, oriented x 3. SKIN: Bilateral lower extremity wounds. LYMPHATICS: No peripheral lymphadenopathy. MUSCULOSKELETAL: No joint swelling, erythema or tenderness. EXTREMITIES: No cyanosis or clubbing. Bilateral lower extremity edema. BACK: No deformity, no pressure ulcer. GENITOURINARY: No dysuria or hematuria. Vital Sign (Last 12 Hours) 06/30/25 06/30/25 11:49 16:00 Temp 98.6 98.8 Pulse 79 66 Resp 20 20 B/P (MAP) 106/77 90/69 98/70 Pulse Ox 95 96 O2 Delivery Room Air Room Air Intake & Output (last 24hrs) 06/29/25 06/29/25 06/30/25 15:00 23:00 07:00 Intake Total 340.0 ml 240 ml Output Total 2650 ml 2175 ml 1050 ml Balance -2310.0 ml -1935 ml -1050 ml LABS: Laboratory: Test 06/30/25 20:33 06/30/25 08:22 06/30/25 04:38 06/29/25 16:14 Range/Units Whole Blood Glucose 281 H 70-110 MG/DL Vancomycin Level 15.9 #L 20.0-30.0 mcg/mL White Blood Count 11.8 H 4.8-10.8 K/uL Red Blood Count 4.24 L 4.50-6.20 MIL/uL Hemoglobin 13.7 L 14.0-18.0 g/dL Hematocrit 40.4 L 42-54 % Mean Corpuscular Volume 95.3 79-99 fL Mean Corpuscular Hemoglobin 32.3 27.0-33.0 pg Mean Corpuscular Hemoglobin Concent 33.9 32.0-36.0 g/dL Red Cell Distribution Width 15.3 11.0-15.5 % Platelet Count 195 130-400 K/uL Mean Platelet Volume 10.9 H 7.5-10.5 fL Nucleated Red Blood Cells 0.0 0.0-0.19 % Sodium Level 135 L 136-145 mmol/L Potassium Level 3.4 L 3.5-5.1 mmol/L Chloride Level 95 L 101-111 mmol/L Carbon Dioxide Level 30 21-32 mmol/L Blood Urea Nitrogen 51 H 7-18 mg/dL Creatinine 1.8 H 0.5-1.3 mg/dL Glomerular Filtration Rate Calc 42 >90 mL/min Random Glucose 135 H 70-105 mg/dL Lactic Acid Level 2.0 0.8-2.5 mmol/L Total Calcium 9.2 8.5-10.1 mg/dL Total Bilirubin 1.4 H 0.2-1.0 mg/dL Aspartate Amino Transf (AST/SGOT) 63 H 10-37 U/L Alanine Aminotransferase (ALT/SGPT) 152 H 12-78 U/L Alkaline Phosphatase 137 H 50-136 U/L B-Type Natriuretic Peptide 2060 H 0-100 pg/mL Total Protein 6.5 6.0-8.3 g/dL Albumin 2.8 L 3.5-5.0 g/dL Bedside Glucose Comment Notified Nurse Test 06/29/25 04:30 Range/Units Immature Granulocyte % (Auto) 2.2 H 0-1 % Neutrophils (%) (Auto) 78.6 H 40.0-77.0 % Lymphocytes (%) (Auto) 7.5 L 21.0-51.0 % Monocytes (%) (Auto) 9.8 3.0-13.0 % Eosinophils (%) (Auto) 1.3 0.0-8.0 % Basophils (%) (Auto) 0.6 0.0-5.0 % Neutrophils # (Auto) 9.4 H 1.8-7.7 K/uL Lymphocytes # (Auto) 0.9 L 1.0-4.8 K/uL Monocytes # (Auto) 1.2 H 0.1-1.0 K/uL Eosinophils # (Auto) 0.16 0.00-0.70 K/uL Basophils # (Auto) 0.07 0.00-0.20 K/uL Absolute Immature Granulocyte (auto 0.27 0-1 K/uL ASSESSMENT: Acute hypoxic respiratory failure. Urinary tract infection with Klebsiella pneumoniae. Right lower extremity ulcer infection with Serratia marcescens.. Bilateral lower extremities cellulitis. Sepsis. Leukocytosis. Acute on chronic renal failure. Diabetes mellitus. Acute on chronic heart failure. Generalized debility. PLAN: Continue cefepime. Continue doxycycline. Continue pain management. Continues on diuretics. Continue GI prophylaxis. Continue wound care. Continue oxygen support as needed. This case was reviewed and discussed with my supervising physician Dr. Frankel and the above assessment and plan was formulated and agreed upon. ATTESTATION BY PHYSICIAN I have seen and examined the patient. I reviewed the documentation, medical decision making, and treatment plan as noted by the mid-level provider above. I agree with the findings and plan of care. CLAUDIA FRANKEL MD, [facility] Jun 30, 2025 21:44
[2025-07-01] VITALS (10 sets, daily range): BP systolic 94–124; BP diastolic 54–79; PULSE 80–99; RESP 16–20; TEMP 97.5–98.6; O2SAT 96–97
[2025-07-01 04:19] LABS: NUCLEATED RED BLOOD CELLS 0.0 % (0.0-0.19); PLATELET COUNT (AUTO) 204.0 K/uL (130-400); RED BLOOD CELL COUNT(AUTO) 4.27 MIL/uL (4.50-6.20); RED CELL DISTRIBUTION WIDTH 15.5 % (11.0-15.5); WHITE BLOOD COUNT (AUTO) 11.7 K/uL (4.8-10.8)
[2025-07-01 04:36] LABS: ASPARTATE AMINOTRANSFERASE 51.0 U/L (10-37); CREATININE 1.6 mg/dL (0.5-1.3); GLOMERULAR FILTR. RATE CALC 49.0 mL/min (>90); GLUCOSE,RANDOM 157.0 mg/dL (70-105); SODIUM SERUM 133.0 mmol/L (136-145); TOTAL PROTEIN, SERUM 6.7 g/dL (6.0-8.3); UREA NITROGEN, BLOOD 52.0 mg/dL (7-18)
[2025-07-01] MEDS: BUMETANIDE 1 MG TAB PO SCH (09:00)
[2025-07-01] MEDS: BUMETANIDE 1MG/4ML VIAL IVP SCH (09:21)
--- NOTE | 2025-07-01 12:52 | NUR ---
wound care to BLE done as per MD order.
--- NOTE | 2025-07-01 15:10 | PN ---
[facility] PROGRESS NOTE Date of Service: Jul 01, 2025 Time of Service: 14:58 SUBJECTIVE: This is a 59 year old male,a reliable historian with past medical history of hypertension, diabetes, hyperlipidemia, CHF with advanced ischemic cardiomyopathy EF 20% stage 3 CKD multivessel obstructive CAD ,DVT to left leg and pulmonary embolism on chronic Eliquis ,chronic back pain,bilateral lower extremity ulcers and morbid obesity who presents to the ED for complaints of feeling dizzy,shortness of breath and patient has a chronic lower extremity that has ulcers and it has been swollen and oozing fluids.Patient also reports chills and rigors which started today while changing his wound dressing and he first though he was having parkinson's tremors so he decided to come to the ED for evaluation.Patient states he was fairly doing fine unitl 8 days ago last Sunday he stopped taking his Spironolactone and Losartan because it was discontinued byher his ice cream freezer assistant due to severe hyperkalemia .Patient reports he was seen by a ice cream freezer assistant from [place] by the name of and he told the ice cream freezer assistant that he is not voiding much than what he used to ,before he approximately voided 1600 and now it is only 500 and he noticed that his legs are becoming swollen ever since he stopped taking his Spironolactone and Losartan he feels he is gaining more weight and he was advised to take a dose of Spironolactone for today and he did after a few hours he said he felt dizzy and lightheaded and as he was changing his wound dressing he feels the chills and rigors so he decided to come to the ED for evaluation.Upon ER arrival V/SA T102.4,HR 128,BP 122/87 Sat 100% RA RR 24.ECG result revealed Sinus ectopic or atrial Tachycardia HR 120 Prob left atrial enlargement,inferior infarct old,anterior infarct old,nonspecific T abnormalities ,lateral leads prolonged QT interval. Seen and examined patient in the ER awake,alert and coherent,appears comfortable,in no apparent distress.Patient denies cough,shortness of breath,chest pain,palpitation,abdominal pain,nausea,vomiting and syncope.Labs WBC 20 with negative left shift of neutrophils 88,Hgb 15,Hct 45,platelet 209.Na 135,K4.6,K4.6,Chloride 96,BUN47,Creat 1.9,GFR 40,Glucose 174 ,lactic acid 6.3,BNP 1550.Urinalysis remarkable for protein 30,glucose more than 1000,small hematuria and urine RBC 2-5 .Serology test for influenza Type A&B negative SARS COV_2 negative and Group A strep negative.CXR result revealed interval development of mild cardiomegaly.No acute infiltrate ,effusion or pneumothorax.While in the ER patient received Fluid resuscitation of 30ml/kg over 3 hours ,Tylenol 1000 mg po,Morphine 4mg IV, Cefepime and Vancomycin IV.Will admit patient for further medical management. 06/23/25: Patient is seen at bedside in ER 5. Patient denies cough, chest pain, palpitation, abdominal pain, chills. Patient is started on nasal cannula due to shortness of breath. Patient's remaining vitals stable with temperature at 98.4, pulse at 98, respiratory rate of 22, blood pressure 109/79. Patient's labs showed an increase in WBC to 24.5, hemoglobin at 13.9, sodium at 135, lactic acid improved to 4.3. Continue the patient on vancomycin and cefepime IV. Cardiology and Infectious Disease have been consulted, along with critical care. Patient's BNP has improved to 851. Patient has no new complaints. Patient started on soft hydration. Cardiology ordered a 2D echo and venous Doppler ultrasound bilaterally to rule out DVT. 06/24/25: Patient is seen at bedside in ER 5. Patient is doing much better, off of nasal cannula and breathing room air. Patient denies cough, chest pain, palpitations, abdominal pain, chills. Patient's temperature currently at 98.8, pulse at 89 respiratory rate at 18, blood pressure 102/58. Patient's labs have improved with his WBC trending down to 18.4, his creatinine remains around 1.9, his lactic acid has trended down to 2.7. He does have an increase in his liver function tests with AST going up to 254 and ALT increasing to 152. His BNP has also increased to to 2110. Cardiology recommended to hold losartan, start him on Bumex 1 mg b.i.d., Jardiance half tablet 5 mg b.i.d. and continue with Eliquis 5 mg b.i.d. His venous Doppler study showed no DVTs bilaterally. Patient's urine culture came back positive for Gram-negative rods, going to wait for specificity and sensitivity to change his medication. He is currently on vancomycin and cefepime. 06/25/25: Patient is seen at bedside now in room 227. Patient is seen by infectious disease doctor who recommended to continue vancomycin follow up with wound culture. Cardiology increase the patient's Bumex to t.i.d. patient's lactic acid remained at 2.7 His BNP increased to 2206. An ankle-brachial index test has been ordered. Patient's urine culture showed Klebsiella pneumoniae sensitive to most antibiotics. His preliminary wound care results show Gram- negative rods. Blood culture still no growth after 48 hours. Continuing the patient's vancomycin and cefepime. Patient's WBC went down to 16.2 today. He continues to have an increase in his liver function tests with AST going up to 367 and ALT increasing to 302. His alkaline phosphatase also increased to 142 today. We will keep an eye on his liver functions. : Patient is seen and examined at bedside in room 227. Patient stable breathing comfortably on room air. Patient still complains of orthopnea, dyspnea on exertion, paroxysmal nocturnal dyspnea. Cardiology followed up with the patient and increased his Bumex to 2 mg b.i.d. Patient is on a strict in and out of 1.5 L. patient's wound culture came back positive for Serratia marcescens susceptible to most antibiotics. We will let Infectious Disease decide if they want to change antibiotics. Ankle-brachial index test has been ordered yesterday waiting on results. Chest x-ray has been ordered along with thoracic and lumbar spine CT. Patient's liver functions have improved with AST dropping to 201 and ALT dropping to 284. Patient's BNP is high at 3330. 06/27/25: Patient seen and examined today morning at bedside. The patient exp ressed concern about gaining extra weight and his clothes won't even fit him well. Intake 2590. Patient says his breathing is better when he is sitting or lying in bed at 45 degrees. Labs showed decreased in WBC from 13 to 11.6, platelets 187, BUN 52 and creatinine 1.8. Total bilirubin 1.3, AST came down to 168 from 201, ALT 263 from 284, ALP 178. BNP is down to 2700 from 3330. Lactic acid went up from 2.3-2.7. Infectious Disease recommended to continue vanco and cefepime. Cardio recommended to continue Bumex IV 2 mg b.i.d. 06/28/25: Patient is seen and examined today at bedside in room 227. Patient is improving he is now able to lie back on the bed without any shortness of breath, his leg edema has also improved. His BNP is down to 2130 from 2700. His lactic acid has also gone down to 2.0 from 2.7, AST came down to 117 from 168, ALT 225 from 265, his total bilirubin did go up to 1.6 from 1.3. He had a short episode where his potassium went down to 3.0 but patient already on potassium protocol so was given potassium. Patient given metolazone and also started Milrinone drip yesterday. He is already on Bumex 2 mg b.i.d. He has diuresed 6 L overnight with continues to have anasarca to the lower abdomen and upper thighs and lower extremity edema. Continuing the patient on vancomycin and cefepime. 06/29/25: Patient is seen and examined at bedside in room 227. Patient continues to improve, his leg edema has gone down. His BP is down to 1530 from 2130. His WBCs trending down to 12.0 today. His potassium is low at 3.2 but he is on potassium protocol. Patient's liver functions have improved his AST today is at 90, ALT at 191, alkaline phosphatase at 145. His lactic acid remains at 2. Patient is currently on bumetanide 2 mg and Milrinone drip. He has negative balance today is in is around 4000 ml. He is on vancomycin and cefepime for his UTI and bilateral leg wound infection. 06/30/25: Patient is seen and examined at bedside in room 227. Patient continues to improve, his leg edema has gone down. His WBCs trending down to 11.8 today. Patient's BNP has gone up to 2060 today. Patient has a negative output of about 5000 mL. Patient's weight is at 107.4 kg down from 109.8 yesterday. Patient is improving clinically. Patient off Bumetanide and Milrinone drip per Cardiology. Bumetanide might be restarted tomorrow if his creatinine improves. Patient has chronic kidney disease stage 3 so his creatinine might be baseline. We will talk to Cardiology regarding this tomorrow. Patient continues to be on vancomycin and cefepime for his UTI and bilateral leg wound infection. 07/01/25: Patient is seen and examined at bedside in room 227. Patient blood pressure went below 90 systolic yesterday. Patient denied taking orthostatic vitals, got pickle juice from home which he mentioned he takes usually at home and it helped him get his blood pressure back within normal limits. Today patient is started retaining fluid again and his BNP went up to 2930. So his given Bumex1 mg t.i.d. IV for today and then he is going to be started on Bumex p.o. medication from tomorrow. His metoprolol medication has also been put on hold because of the drop in his blood pressure. Care saw the patient yesterday and recommended Cleanse with normal saline, pat dry, apply medihoney and gentamicin 1:1, cover with adaptic/vaseline gauze, gauze, wrap with kerlix secure with tape change daily and prn. REVIEW OF SYSTEMS CONSTITUTIONAL: Denies chills, fever and night sweats. unintentional weight gain reported. Complains of back pain which is chronic. Patient is now losing weight. NEUROLOGICAL: Denies headache, gait abnormalities, or tremors. ENT: No hearing loss, otalgia, otorrhea, rhinitis, rhinorrhea, hoarseness, or sore throat. CARDIOVASCULAR: dyspnea on exertion, orthopnea, paroxysmal nocturnal dyspnea, improving. Denies any exertional angina, palpitations, life-threatening arrhythmias. PULMONARY: Shortness of breath improved. denies cough, phlegm/sputum, hemoptysis, pleuritic chest pain. GASTROINTESTINAL: Denies any type of dysphagia to either liquids or solids. Denies nausea, vomiting, abdominal pain, diarrhea, constipation, or changes in s tool consistency or caliber. GENITOURINARY: Denies frequency, urgency, nocturia, hematuria or incontinence ENDOCRINOLOGIC: Denies polyuria, polydipsia, polyphagia or heat/cold intolerances. ONCOLOGIC: Denies personal history of malignancy. DERMATOLOGIC: chronic wound ulcer to right lower extremity Denies rashes or pruritus. PHYSICAL EXAM GENERAL APPEARANCE: The patient is awake, alert, and oriented, in no acute cardiopulmonary distress. NEUROLOGICAL: Cranial nerves II-XII grossly intact. Motor is 5/5 in bilateral upper and lower extremities proximal to distal. No sensory deficits. HEENT: Face is symmetric. Pupils are equal and reactive. Extraocular movements are intact. NECK: Supple. No JVD. No thyromegaly. No submental, submandibular, pre- /postauricular, occipital or supraclavicular lymphadenopathy. CHEST: Normal chest expansion. No Telemetry. LUNGS: Sounds clear CARDIOVASCULAR: Regular rate and rhythm. S1 and S2 normal. No appreciable rubs, murmurs or gallops. ABDOMEN: Soft, nontender, and nondistended. There is no rebound, voluntary guarding, or rigidity. : Deferred. No [place]. EXTREMITIES: 2+edema to bilateral lower extremities SKIN: Draining Wound ulcers to right lower extremity Vital Signs (last 8hr) Date Time Temp Pulse Resp B/P (MAP) Pulse Ox O2 Delivery O2 Flow Rate FiO2 07/01/25 13:41 93 94/65 07/01/25 11:00 97.5 99 20 100/74 99 Room Air 07/01/25 08:00 96 Room Air* 0 21 07/01/25 07:00 97.7 95 16 124/79 96 Room Air LABS: Laboratory: Test 07/01/25 10:55 07/01/25 04:02 06/30/25 08:22 06/30/25 04:38 Range/Units Whole Blood Glucose 235 #H 70-110 MG/DL Bedside Glucose Comment Notified Nurse White Blood Count 11.7 H 4.8-10.8 K/uL Red Blood Count 4.27 L 4.50-6.20 MIL/uL Hemoglobin 13.7 L 14.0-18.0 g/dL Hematocrit 41.2 L 42-54 % Mean Corpuscular Volume 96.5 79-99 fL Mean Corpuscular Hemoglobin 32.1 27.0-33.0 pg Mean Corpuscular Hemoglobin Concent 33.3 32.0-36.0 g/dL Red Cell Distribution Width 15.5 11.0-15.5 % Platelet Count 204 130-400 K/uL Mean Platelet Volume 10.9 H 7.5-10.5 fL Nucleated Red Blood Cells 0.0 0.0-0.19 % Sodium Level 133 L 136-145 mmol/L Potassium Level 3.7 3.5-5.1 mmol/L Chloride Level 95 L 101-111 mmol/L Carbon Dioxide Level 29 21-32 mmol/L Blood Urea Nitrogen 52 H 7-18 mg/dL Creatinine 1.6 H 0.5-1.3 mg/dL Glomerular Filtration Rate Calc 49 >90 mL/min Random Glucose 157 H 70-105 mg/dL Total Calcium 9.1 8.5-10.1 mg/dL Total Bilirubin 1.1 #H 0.2-1.0 mg/dL Aspartate Amino Transf (AST/SGOT) 51 H 10-37 U/L Alanine Aminotransferase (ALT/SGPT) 125 H 12-78 U/L Alkaline Phosphatase 127 50-136 U/L B-Type Natriuretic Peptide 2930 H 0-100 pg/mL Total Protein 6.7 6.0-8.3 g/dL Albumin 2.8 L 3.5-5.0 g/dL Vancomycin Level 15.9 #L 20.0-30.0 mcg/mL Lactic Acid Level 2.0 0.8-2.5 mmol/L Current Medications Medications (Trade) Dose Ordered Sig/Da Route PRN Reason Start Time Stop Time Status Last Admin Dose Admin Acetaminophen (TYLenol 325MG TAB) 650 mg Q4H PRN PO MILD PAIN (1-3) 06/23/25 03:30 07/23/25 03:29 Acetaminophen (TYLenol 325MG TAB) 650 mg Q6H PRN PO TEMPERATURE GREATER THAN 101.5 06/23/25 03:30 07/23/25 03:29 Apixaban (EliquIS) 5 mg BID PO 06/23/25 09:00 07/23/25 08:59 07/01/25 09:06 5 MG Bumetanide (Bumex 1mg Tab) 1 mg BID PO 06/23/25 09:00 06/25/25 08:32 DC 06/24/25 21:13 1 MG Bumetanide (Bumex 1mg Tab) 1 mg BID PO 07/01/25 09:00 07/01/25 09:13 DC Bumetanide (Bumex 1mg Tab) 1 mg BID PO 07/02/25 09:00 08/01/25 08:59 Bumetanide (Bumex 1mg Vial) 1 mg BID IVP 06/25/25 09:00 06/25/25 08:41 DC Bumetanide (Bumex 1mg Vial) 1 mg TID IVP 06/25/25 09:00 06/26/25 08:34 DC 06/25/25 21:29 1 MG Bumetanide (Bumex 1mg Vial) 1 mg TID IVP 07/01/25 09:30 07/01/25 21:01 07/01/25 09:21 1 MG Bumetanide (Bumex 1mg Vial) 2 mg BID IVP 06/26/25 09:00 06/29/25 18:14 DC 06/29/25 08:55 2 MG Cefepime HCl (MAXipime 1 GM vial) 1 gm ONCE IVPB 06/23/25 02:00 06/23/25 04:01 DC 06/23/25 02:19 1 GM Cefepime HCl (MAXipime 1 GM vial) 1 gm Q12H IVPB 06/23/25 10:00 07/03/25 09:59 07/01/25 10:47 1 GM Dextrose (D50w) 50 ml AD PRN IV HYPOGLYCEMIA PROTOCOL 06/23/25 03:30 07/23/25 03:29 Dobutamine HCl/ Dextrose 250 ml @ 0 mls/hr PROTOCOL IV 06/24/25 16:00 06/27/25 15:00 DC Doxycycline Hyclate 250 ml @ 125 mls/hr Q12H IV 06/24/25 16:00 06/27/25 13:35 DC 06/27/25 03:55 125 MLS/HR Empaglifozin (Jardiance 10mg) 5 mg BID PO 06/24/25 21:00 07/24/25 20:59 07/01/25 09:07 5 MG Famotidine (Pepcid 20mg Tab) 20 mg DAILY PO 06/23/25 09:00 07/23/25 08:59 07/01/25 09:07 20 MG Gentamicin Sulfate (GENTAmicin SULFate 15 gm cream) APPLY DIRECTED DAILY18 TP 06/26/25 18:00 07/10/25 17:59 07/01/25 12:31 1 APPL Glucagon (Glucagon 1mg Kit) 1 mg AD PRN IM HYPOGLYCEMIA PROTOCOL 06/23/25 03:30 07/23/25 03:29 Insulin Human Regular (humuLIN R 100 UNIT/ML 3ML) INSULIN SLIDING SCAL... ACHS SQ 06/23/25 07:30 07/23/25 07:29 07/01/25 12:00 4 UNIT Leptospermum Honey (Medihoney) 1 APPL DAILY17 TP 06/23/25 17:00 07/23/25 16:59 07/01/25 12:31 1 APPL Magnesium Sulfate 50 ml @ 0 mls/hr PROTOCOL PRN IV OTHER [SEE ORDER COMMENTS] 06/23/25 03:30 07/23/25 03:29 Metoprolol Succinate (TopROL XL) 25 mg DAILY PO 06/23/25 09:00 07/23/25 08:59 06/30/25 08:57 25 MG Milrinone Lactate/ Dextrose 100 ml @ 0 mls/hr PROTOCOL IV 06/27/25 16:00 06/29/25 18:14 DC 06/29/25 10:42 8.65 MLS/HR Morphine Sulfate (morPHINE 2MG SYG) 2 mg Q6H6 PRN IVP PAIN LEVEL 7 TO 10 06/23/25 11:00 06/28/25 13:59 DC 06/24/25 16:03 2 MG Multivitamins Therapeutic (Multivitamin Tablet) 1 tab DAILY PO 06/25/25 09:00 07/25/25 08:59 07/01/25 09:06 1 TAB Mupirocin (Bactroban Oint) apply to bilateral lo... DAILY17 TP 06/23/25 17:00 06/26/25 16:51 DC 06/26/25 16:15 1 APPL Ondansetron HCl (zoFRAN 4MG INJ) 4 mg Q6H PRN IV NAUSEA/VOMITING 06/23/25 03:30 07/23/25 03:29 Oxycodone HCl (OXYconTIN) 10 mg Q8H PRN PO PAIN LEVEL 7 TO 10 07/01/25 11:00 07/01/25 10:51 DC Oxycodone HCl (ROXicoDONE) 10 mg Q8H PRN PO SEVERE PAIN (7-10) 06/25/25 11:00 06/30/25 10:59 DC 06/26/25 16:01 10 MG Oxycodone HCl (ROXicoDONE) 10 mg Q8H PRN PO SEVERE PAIN (7-10) 07/01/25 11:00 07/08/25 10:59 07/01/25 10:55 10 MG Potassium Chloride 100 ml @ 100 mls/hr AD PRN IV POTASSIUM PROTOCOL 06/23/25 03:30 07/23/25 03:29 Potassium Chloride (K-Dur/Klor-Con 20meq) 20 meq AD PRN PO POTASSIUM PROTOCOL 06/23/25 03:30 07/23/25 03:29 07/01/25 10:47 20 MEQ Potassium Chloride (KCl 10% Elixir 20meq/15ml) 20 meq AD PRN PO POTASSIUM PROTOCOL 06/23/25 03:30 07/23/25 03:29 Sodium Chloride 1,000 ml @ 50 mls/hr Q20H IV 06/23/25 17:30 06/24/25 09:35 DC 06/23/25 17:19 50 MLS/HR Vancomycin HCl 250 ml @ 125 mls/hr HS IV 06/26/25 21:00 06/28/25 20:59 DC 06/27/25 20:35 125 MLS/HR Vancomycin HCl 250 ml @ 125 mls/hr ONCE IV 06/23/25 03:30 06/23/25 03:44 DC Vancomycin HCl 250 ml @ 125 mls/hr Q24H IV 06/24/25 05:00 06/26/25 20:09 DC 06/25/25 05:21 125 MLS/HR Vancomycin HCl (Vancomycin 750mg) 750 mg Q24H IVPB 06/29/25 09:00 06/29/25 09:07 DC Vancomycin HCl (Vancomycin 750mg) 750 mg Q24H IVPB 06/30/25 09:00 07/10/25 08:59 07/01/25 09:06 750 MG DIAGNOSTICS / RADIOLOGY: [ ] ASSESSMENT: Severe sepsis POA UTI, POA Infected stasis ulcer of right lower extremity POA Acute kidney injury on chronic kidney disease POA Acute on chronic systolic CHF with cardiomyopathy POA Acute leukocytosis POA Lactic Acidosis POA Transaminases elevated Lumbar spondylosis/degenerative changes Hyponatremia POA Hypochloremia POA Uncontrolled diabetes POA Hypertension POA Hyperlipidemia POA History of Left lower extremity DVT on Eliquis POA History of pulmonary embolism on chronic anticoagulation POA PLAN: Severe sepsis POA: * Continue patient on vancomycin and cefepime * Blood culture negative, urine culture positive for Klebsiella pneumoniae, Wound culture came back positive for Serratia marcescens * Infectious disease and wound care consult appreciated and will follow their recommendations. Infected stasis ulcer of right lower extremity POA: * ultrasound came back negative for DVT bilaterally * Wound culture came back positive for Serratia marcescens a Gram-negative bacteria susceptible to most antibiotics * We will follow their recommendations for further treatment * Infectious disease recommended to continue IV cefepime and vancomycin. * Wound care gave the following recommendation Cleanse with normal saline, pat dry, apply medihoney and gentamicin 1:1, cover with adaptic/vaseline gauze, gauze, wrap with kerlix secure with tape change daily and prn Acute kidney injury on chronic kidney disease POA: * Placed on daily weight and strict I&O * BUN 46, creatinine 1.7. * Avoid NSAIDs or nephrotoxic agents. Acute on chronic systolic CHF with cardiomyopathy POA: * Cardiology stopped patient's bumetanide and Milrinone drip, Continue slow gradual diuresis. Will resume in AM pending urine output and Cr * Cardiology consult placed, who ordered an 2D echo which showed severely reduced LVEF of less than 20% * Cardiology also recommended to hold losartan, Jardiance half tablet 5 mg b.i.d. and continue with Eliquis 5 mg b.i.d. * Follow the recommendations for further treatment, restrict fluid 1500 ml per day per cardiology UTI, POA: * Patient's urine culture came back positive for Gram-negative rods * Sensitivity and specificity showed Klebsiella pneumoniae sensitive to most antibiotics * Continuing the patient on vancomycin and cefepime * Infectious disease is on the case Lumbar spondylosis/degenerative changes : * CT lumbar showed lumbar degerative disc disease with reduced disc space and vacuum phenomenon at L5-S1 and T12-L1 levels with minimal retrolisthesis of L5 on S1. * Continue with PRN pain medications. We will request labs in am Further orders to follow depending on above results ATTESTATION BY PHYSICIAN I have seen and examined the patient. I reviewed the documentation, medical decision making, and treatment plan as noted by the resident provider above. I agree with the findings and plan of care. Piter Lora MD, ABHINAV MD Jul 01, 2025 15:10
--- NOTE | 2025-07-01 17:38 | PN ---
[facility] CARDIOLOGY PROGRESS NOTE Date Patient Seen: Jul 01, 2025 Time of Visit: 17:38 Interval History: [ Cr improved however he has 3+ pitting edema overnight that worsened] Physical Examination: GENERAL: [No acute distress.] HEAD: [Normal with no signs of head trauma.] EYES: [PERRLA, EOMI, conjunctiva and sclera normal.] ENT: [Hearing grossly intact, normal oropharynx.] NECK: [Supple without JVD. There is no tenderness, lymphadenopathy, or masses. No thyromegaly. Normal carotid upstrokes without bruits.] LUNGS: [Clear breath sounds bilaterally. There are right basilar rales one third of the way up the chest. No wheezes, or rhonchi.] HEART: [Normal rate and rhythm. Normal S1 and S2 without mumurs, gallop or rub.] VASC: [Peripheral pulses +2 bilaterally.] ABD: [Bowel sounds normal, soft, nontender, no masses, no organomegaly. No audible bruits.] : [Not examined] LYMPH: [No lymphadenopathy noted.] EXT: [bilateral lower extremity edema, stable wounds.] NEURO: [Awake, alert, and oriented x3. No focal sensory or strength deficits noted.] Laboratory: [ ] Hematology Labs: Test 07/01/25 04:02 Range/Units White Blood Count 11.7 H 4.8-10.8 K/uL Red Blood Count 4.27 L 4.50-6.20 MIL/uL Hemoglobin 13.7 L 14.0-18.0 g/dL Hematocrit 41.2 L 42-54 % Mean Corpuscular Volume 96.5 79-99 fL Mean Corpuscular Hemoglobin 32.1 27.0-33.0 pg Mean Corpuscular Hemoglobin Concent 33.3 32.0-36.0 g/dL Red Cell Distribution Width 15.5 11.0-15.5 % Platelet Count 204 130-400 K/uL Mean Platelet Volume 10.9 H 7.5-10.5 fL Nucleated Red Blood Cells 0.0 0.0-0.19 % Chemistry Labs: Test 07/01/25 16:24 07/01/25 04:02 06/30/25 04:38 Range/Units Whole Blood Glucose 196 H 70-110 MG/DL Bedside Glucose Comment Notified Nurse Sodium Level 133 L 136-145 mmol/L Potassium Level 3.7 3.5-5.1 mmol/L Chloride Level 95 L 101-111 mmol/L Carbon Dioxide Level 29 21-32 mmol/L Blood Urea Nitrogen 52 H 7-18 mg/dL Creatinine 1.6 H 0.5-1.3 mg/dL Glomerular Filtration Rate Calc 49 >90 mL/min Random Glucose 157 H 70-105 mg/dL Total Calcium 9.1 8.5-10.1 mg/dL Total Bilirubin 1.1 #H 0.2-1.0 mg/dL Aspartate Amino Transf (AST/SGOT) 51 H 10-37 U/L Alanine Aminotransferase (ALT/SGPT) 125 H 12-78 U/L Alkaline Phosphatase 127 50-136 U/L B-Type Natriuretic Peptide 2930 H 0-100 pg/mL Total Protein 6.7 6.0-8.3 g/dL Albumin 2.8 L 3.5-5.0 g/dL Lactic Acid Level 2.0 0.8-2.5 mmol/L Diagnostics / Radiology: [Copy/Paste Echos/Imaging Report here] Impression and Plan: [Sepsis: Bilateral lower extremity cellulitis: Right lower extremity ulcer infection with Serratia marcescens: -continue antibiotic therapy Acute on chronic HFrEF (LVEF of less than 20%): End-stage ischemic cardiomyopathy with an LVEF of less than 20% by follow-up 2D echocardiogram 06/24/2025, followed by Dr. Chalino Shaw (advanced heart failure management program): -06/29: I have stopped Milrinone infusion at 0.25 mcg/kg per minute, LFTs improved -no further metolazone at this time. Continue slow gradual diuresis. -07/01 started bumex 1 mg tid -continue with daily weights and intake and output -has refused LifeVest in the past -we will trend basic metabolic panel and consider resumption of Entresto in 24- 48 hours but we will hold on resumption of spironolactone given concern for prior hyperkalemia -trend CMP Multivessel coronary artery disease felt not amendable to revascularization: -continue beta-anastasiia therapy -has continued on long-term anticoagulation with Eliquis for prior history of DVT and PE -statin therapy on hold given elevated LFTs Transaminitis likely secondary to acute on chronic HFrEF: -continue to trend, improving with management of his heart failure 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
--- NOTE | 2025-07-01 22:29 | PN ---
INFECTIOUS DISEASE PROGRESS NOTE Date of Service: Jul 01, 2025 SUBJECTIVE: Patient was seen in room 227. Patient is awake, alert and oriented x3. Per report patient has remained on Bumex IV for 24 more hours and then convert to p.o. No dyspnea observe during visit today. Patient reported feeling much better. No nausea or vomiting. Continues on cefepime and vancomycin. PHYSICAL EXAM EYES: Anicteric. Pupils equal and reactive. HENT: No oral thrush seen, moist Oral mucosa. NECK: Supple, no JVD or thyromegaly. LUNGS: Good air entry. No rales, no rhonchi. CARDIOVASCULAR: S1, S2 regular. No murmur heard. ABDOMEN: Soft, non tender, bowel sounds present, no organomegaly. CENTRAL NERVOUS SYSTEM: Awake, alert, oriented x 3. SKIN: Bilateral lower extremity wounds. LYMPHATICS: No peripheral lymphadenopathy. MUSCULOSKELETAL: No joint swelling, erythema or tenderness. EXTREMITIES: No cyanosis or clubbing. Bilateral lower extremity edema. BACK: No deformity, no pressure ulcer. GENITOURINARY: No dysuria or hematuria. Vital Sign (Last 12 Hours) 07/01/25 07/01/25 07/01/25 07/01/25 11:00 13:41 16:00 16:37 Temp 97.5 97.7 Pulse 99 93 89 90 Resp 20 20 B/P (MAP) 100/74 94/65 100/75 97/70 Pulse Ox 99 99 O2 Delivery Room Air Room Air 07/01/25 20:00 Temp 97.5 Pulse 93 Resp 18 B/P (MAP) 97/54 Pulse Ox 93 O2 Delivery Room Air Intake & Output (last 24hrs) 06/30/25 06/30/25 07/01/25 14:59 22:59 06:59 Intake Total 300.0 ml 425.0 ml Balance 300.0 ml 425.0 ml LABS: Laboratory: Test 07/01/25 21:52 07/01/25 16:24 07/01/25 04:02 06/30/25 08:22 Range/Units Whole Blood Glucose 140 H 70-110 MG/DL Bedside Glucose Comment Notified Nurse White Blood Count 11.7 H 4.8-10.8 K/uL Red Blood Count 4.27 L 4.50-6.20 MIL/uL Hemoglobin 13.7 L 14.0-18.0 g/dL Hematocrit 41.2 L 42-54 % Mean Corpuscular Volume 96.5 79-99 fL Mean Corpuscular Hemoglobin 32.1 27.0-33.0 pg Mean Corpuscular Hemoglobin Concent 33.3 32.0-36.0 g/dL Red Cell Distribution Width 15.5 11.0-15.5 % Platelet Count 204 130-400 K/uL Mean Platelet Volume 10.9 H 7.5-10.5 fL Nucleated Red Blood Cells 0.0 0.0-0.19 % Sodium Level 133 L 136-145 mmol/L Potassium Level 3.7 3.5-5.1 mmol/L Chloride Level 95 L 101-111 mmol/L Carbon Dioxide Level 29 21-32 mmol/L Blood Urea Nitrogen 52 H 7-18 mg/dL Creatinine 1.6 H 0.5-1.3 mg/dL Glomerular Filtration Rate Calc 49 >90 mL/min Random Glucose 157 H 70-105 mg/dL Total Calcium 9.1 8.5-10.1 mg/dL Total Bilirubin 1.1 #H 0.2-1.0 mg/dL Aspartate Amino Transf (AST/SGOT) 51 H 10-37 U/L Alanine Aminotransferase (ALT/SGPT) 125 H 12-78 U/L Alkaline Phosphatase 127 50-136 U/L B-Type Natriuretic Peptide 2930 H 0-100 pg/mL Total Protein 6.7 6.0-8.3 g/dL Albumin 2.8 L 3.5-5.0 g/dL Vancomycin Level 15.9 #L 20.0-30.0 mcg/mL Test 06/30/25 04:38 Range/Units Lactic Acid Level 2.0 0.8-2.5 mmol/L ASSESSMENT: Acute hypoxic respiratory failure. Urinary tract infection with Klebsiella pneumoniae. Right lower extremity ulcer infection with Serratia marcescens.. Bilateral lower extremities cellulitis. Sepsis. Leukocytosis. Acute on chronic renal failure. Diabetes mellitus. Acute on chronic heart failure. Generalized debility. PLAN: Continue cefepime. Continue doxycycline. Continue pain management. Continues on IV Bumex. Continue GI prophylaxis. Continue wound care. Continue oxygen support as needed. This case was reviewed and discussed with my supervising physician Dr. Frankel and the above assessment and plan was formulated and agreed upon. ATTESTATION BY PHYSICIAN I have seen and examined the patient. I reviewed the documentation, medical decision making, and treatment plan as noted by the mid-level provider above. I agree with the findings and plan of care. CLAUDIA FRANKEL MD, MIRTA L [facility] Jul 01, 2025 22:29
[2025-07-01] MEDS: BUMETANIDE 1MG/4ML VIAL ONE (23:18)
[2025-07-02] VITALS (11 sets, daily range): BP systolic 98–116; BP diastolic 70–85; PULSE 82–107; RESP 18–20; TEMP 97.6–98.4; O2SAT 95–100
[2025-07-02 04:28] LABS: NUCLEATED RED BLOOD CELLS 0.0 % (0.0-0.19); PLATELET COUNT (AUTO) 181.0 K/uL (130-400); RED BLOOD CELL COUNT(AUTO) 4.37 MIL/uL (4.50-6.20); RED CELL DISTRIBUTION WIDTH 15.4 % (11.0-15.5); WHITE BLOOD COUNT (AUTO) 10.8 K/uL (4.8-10.8)
[2025-07-02 04:56] LABS: ASPARTATE AMINOTRANSFERASE 45.0 U/L (10-37); CREATININE 1.8 mg/dL (0.5-1.3); GLOMERULAR FILTR. RATE CALC 42.0 mL/min (>90); GLUCOSE,RANDOM 151.0 mg/dL (70-105); SODIUM SERUM 131.0 mmol/L (136-145); TOTAL PROTEIN, SERUM 6.9 g/dL (6.0-8.3); UREA NITROGEN, BLOOD 54.0 mg/dL (7-18)
--- NOTE | 2025-07-02 07:30 | NUR ---
DR. Jocelyn SORIANO ROUNDED. ORDERED ASPIRIN 81MG PO DAILY, ATORVASTATIN 40MG PO QHS, CXR IN AM.
--- NOTE | 2025-07-02 07:46 | NUR ---
@0630AM DID WOUND CARE TO BILATERAL LOWER EXTREMITIES WOUND PER MD ORDERS. PICTURES TAKEN. PATIENT TOLERATED WELL.
[2025-07-02] MEDS: ASPIRIN 81 MG EC TAB PO SCH (09:19)
[2025-07-02] MEDS: BUMETANIDE 1 MG TAB PO SCH (09:20)
--- NOTE | 2025-07-02 10:16 | HMCIMG ---
EXAM: CR Chest, 1 View. CLINICAL HISTORY: chf COMPARISON: 06/30/25 FINDINGS: LUNGS: There is no mass, infiltrate, or acute pulmonary abnormality. PLEURAL SPACES: No evidence of pleural effusion or pneumothorax. MEDIASTINUM: Cardiomegaly. BONES: No acute osseous abnormality. MISCELLANEOUS: Left-sided PICC within superior vena cava. IMPRESSION: 1. No acute cardiopulmonary findings. 2. Cardiomegaly. 3. Left-sided PICC within superior vena cava. /[place]
--- NOTE | 2025-07-02 10:55 | NUR ---
[facility] Follow-up: Patient re-assessed by wound healing team. Wound care dressing done by primary nurse in AM with no changes in wound status. Recommendations provided. Addendum: 07/03/25 at 1407 by PHOENIX VILLAFANA RN RN/ Amended: Links added.
--- NOTE | 2025-07-02 11:57 | PN ---
[facility] CARDIOLOGY PROGRESS NOTE Date Patient Seen: Jul 02, 2025 Time of Visit: 11:51 Interval History: [ No acute events overnight ,m the patient is endorsing improvement with shortness of breath , urine output 1.7 lts , no cardiac symptoms or anginal equi valents. Physical Examination: GENERAL: [No acute distress.] HEAD: [Normal with no signs of head trauma.] EYES: [PERRLA, EOMI, conjunctiva and sclera normal.] ENT: [Hearing grossly intact, normal oropharynx.] NECK: [Supple without JVD. There is no tenderness, lymphadenopathy, or masses. No thyromegaly. Normal carotid upstrokes without bruits.] LUNGS: [Clear breath sounds bilaterally.. No wheezes, or rhonchi.] HEART: [Normal rate and rhythm. Normal S1 and S2 without mumurs, gallop or rub.] VASC: [Peripheral pulses +2 bilaterally.] ABD: [Bowel sounds normal, soft, nontender, no masses, no organomegaly. No audible bruits.] : [Not examined] LYMPH: [No lymphadenopathy noted.] EXT: [bilateral lower extremity edema, stable wounds.] NEURO: [Awake, alert, and oriented x3. No focal sensory or strength deficits noted.] Laboratory: [ ] Hematology Labs: Test 07/02/25 03:48 Range/Units White Blood Count 10.8 4.8-10.8 K/uL Red Blood Count 4.37 L 4.50-6.20 MIL/uL Hemoglobin 13.9 L 14.0-18.0 g/dL Hematocrit 43.0 42-54 % Mean Corpuscular Volume 98.4 79-99 fL Mean Corpuscular Hemoglobin 31.8 27.0-33.0 pg Mean Corpuscular Hemoglobin Concent 32.3 32.0-36.0 g/dL Red Cell Distribution Width 15.4 11.0-15.5 % Platelet Count 181 130-400 K/uL Mean Platelet Volume 11.0 H 7.5-10.5 fL Nucleated Red Blood Cells 0.0 0.0-0.19 % Chemistry Labs: Test 07/02/25 11:12 07/02/25 03:48 07/01/25 16:24 Range/Units Whole Blood Glucose 206 H 70-110 MG/DL Sodium Level 131 L 136-145 mmol/L Potassium Level 3.7 3.5-5.1 mmol/L Chloride Level 92 L 101-111 mmol/L Carbon Dioxide Level 26 21-32 mmol/L Blood Urea Nitrogen 54 H 7-18 mg/dL Creatinine 1.8 H 0.5-1.3 mg/dL Glomerular Filtration Rate Calc 42 >90 mL/min Random Glucose 151 H 70-105 mg/dL Total Calcium 9.4 8.5-10.1 mg/dL Total Bilirubin 1.3 H 0.2-1.0 mg/dL Aspartate Amino Transf (AST/SGOT) 45 H 10-37 U/L Alanine Aminotransferase (ALT/SGPT) 105 H 12-78 U/L Alkaline Phosphatase 130 50-136 U/L B-Type Natriuretic Peptide 2680 H 0-100 pg/mL Total Protein 6.9 6.0-8.3 g/dL Albumin 2.9 L 3.5-5.0 g/dL Bedside Glucose Comment Notified Nurse Diagnostics / Radiology: [Copy/Paste Echos/Imaging Report here] Impression and Plan: [Sepsis: Bilateral lower extremity cellulitis: Right lower extremity ulcer infection with Serratia marcescens: -continue antibiotic therapy Acute on chronic HFrEF (LVEF of less than 20%): End-stage ischemic cardiomyopathy - Stage D with an LVEF of less than 20% by follow-up 2D echocardiogram 06/24/2025, followed by Dr. Chalino Shaw (advanced heart failure management program): -no further metolazone at this time. Continue slow gradual diuresis. -continue with daily weights and intake and output -has refused LifeVest in the past -Unable to further aoptimze GDMT due to soft blood pressures -Continue Toprol 25 mg daily and jardiance 10 mg daily -Start Bumex 1 mg every 12 hrs PO , urine output 1.7 lts . 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 MD BO Johnson JAMES R MD Jul 02, 2025 11:57
--- NOTE | 2025-07-02 14:23 | PN ---
[facility] PROGRESS NOTE Date of Service: Jul 02, 2025 Time of Service: 14:23 SUBJECTIVE: This is a 59 year old male,a reliable historian with past medical history of hypertension, diabetes, hyperlipidemia, CHF with advanced ischemic cardiomyopathy EF 20% stage 3 CKD multivessel obstructive CAD ,DVT to left leg and pulmonary embolism on chronic Eliquis ,chronic back pain,bilateral lower extremity ulcers and morbid obesity who presents to the ED for complaints of feeling dizzy,shortness of breath and patient has a chronic lower extremity that has ulcers and it has been swollen and oozing fluids.Patient also reports chills and rigors which started today while changing his wound dressing and he first though he was having parkinson's tremors so he decided to come to the ED for evaluation.Patient states he was fairly doing fine unitl 8 days ago last Sunday he stopped taking his Spironolactone and Losartan because it was discontinued byher his can striper due to severe hyperkalemia .Patient reports he was seen by a can striper from [place] by the name of and he told the can striper that he is not voiding much than what he used to ,before he approximately voided 1600 and now it is only 500 and he noticed that his legs are becoming swollen ever since he stopped taking his Spironolactone and Losartan he feels he is gaining more weight and he was advised to take a dose of Spironolactone for today and he did after a few hours he said he felt dizzy and lightheaded and as he was changing his wound dressing he feels the chills and rigors so he decided to come to the ED for evaluation.Upon ER arrival V/SA T102.4,HR 128,BP 122/87 Sat 100% RA RR 24.ECG result revealed Sinus ectopic or atrial Tachycardia HR 120 Prob left atrial enlargement,inferior infarct old,anterior infarct old,nonspecific T abnormalities ,lateral leads prolonged QT interval. Seen and examined patient in the ER awake,alert and coherent,appears comfortable,in no apparent distress.Patient denies cough,shortness of breath,chest pain,palpitation,abdominal pain,nausea,vomiting and syncope.Labs WBC 20 with negative left shift of neutrophils 88,Hgb 15,Hct 45,platelet 209.Na 135,K4.6,K4.6,Chloride 96,BUN47,Creat 1.9,GFR 40,Glucose 174 ,lactic acid 6.3,BNP 1550.Urinalysis remarkable for protein 30,glucose more than 1000,small hematuria and urine RBC 2-5 .Serology test for influenza Type A&B negative SARS COV_2 negative and Group A strep negative.CXR result revealed interval development of mild cardiomegaly.No acute infiltrate ,effusion or pneumothorax.While in the ER patient received Fluid resuscitation of 30ml/kg over 3 hours ,Tylenol 1000 mg po,Morphine 4mg IV, Cefepime and Vancomycin IV.Will admit patient for further medical management. 06/23/25: Patient is seen at bedside in ER 5. Patient denies cough, chest pain, palpitation, abdominal pain, chills. Patient is started on nasal cannula due to shortness of breath. Patient's remaining vitals stable with temperature at 98.4, pulse at 98, respiratory rate of 22, blood pressure 109/79. Patient's labs showed an increase in WBC to 24.5, hemoglobin at 13.9, sodium at 135, lactic acid improved to 4.3. Continue the patient on vancomycin and cefepime IV. Cardiology and Infectious Disease have been consulted, along with critical care. Patient's BNP has improved to 851. Patient has no new complaints. Patient started on soft hydration. Cardiology ordered a 2D echo and venous Doppler ultrasound bilaterally to rule out DVT. 06/24/25: Patient is seen at bedside in ER 5. Patient is doing much better, off of nasal cannula and breathing room air. Patient denies cough, chest pain, palpitations, abdominal pain, chills. Patient's temperature currently at 98.8, pulse at 89 respiratory rate at 18, blood pressure 102/58. Patient's labs have improved with his WBC trending down to 18.4, his creatinine remains around 1.9, his lactic acid has trended down to 2.7. He does have an increase in his liver function tests with AST going up to 254 and ALT increasing to 152. His BNP has also increased to to 2110. Cardiology recommended to hold losartan, start him on Bumex 1 mg b.i.d., Jardiance half tablet 5 mg b.i.d. and continue with Eliquis 5 mg b.i.d. His venous Doppler study showed no DVTs bilaterally. Patient's urine culture came back positive for Gram-negative rods, going to wait for specificity and sensitivity to change his medication. He is currently on vancomycin and cefepime. 06/25/25: Patient is seen at bedside now in room 227. Patient is seen by infectious disease doctor who recommended to continue vancomycin follow up with wound culture. Cardiology increase the patient's Bumex to t.i.d. patient's lactic acid remained at 2.7 His BNP increased to 2206. An ankle-brachial index test has been ordered. Patient's urine culture showed Klebsiella pneumoniae sensitive to most antibiotics. His preliminary wound care results show Gram- negative rods. Blood culture still no growth after 48 hours. Continuing the patient's vancomycin and cefepime. Patient's WBC went down to 16.2 today. He continues to have an increase in his liver function tests with AST going up to 367 and ALT increasing to 302. His alkaline phosphatase also increased to 142 today. We will keep an eye on his liver functions. : Patient is seen and examined at bedside in room 227. Patient stable breathing comfortably on room air. Patient still complains of orthopnea, dyspnea on exertion, paroxysmal nocturnal dyspnea. Cardiology followed up with the patient and increased his Bumex to 2 mg b.i.d. Patient is on a strict in and out of 1.5 L. patient's wound culture came back positive for Serratia marcescens susceptible to most antibiotics. We will let Infectious Disease decide if they want to change antibiotics. Ankle-brachial index test has been ordered yesterday waiting on results. Chest x-ray has been ordered along with thoracic and lumbar spine CT. Patient's liver functions have improved with AST dropping to 201 and ALT dropping to 284. Patient's BNP is high at 3330. 06/27/25: Patient seen and examined today morning at bedside. The patient exp ressed concern about gaining extra weight and his clothes won't even fit him well. Intake 2590. Patient says his breathing is better when he is sitting or lying in bed at 45 degrees. Labs showed decreased in WBC from 13 to 11.6, platelets 187, BUN 52 and creatinine 1.8. Total bilirubin 1.3, AST came down to 168 from 201, ALT 263 from 284, ALP 178. BNP is down to 2700 from 3330. Lactic acid went up from 2.3-2.7. Infectious Disease recommended to continue vanco and cefepime. Cardio recommended to continue Bumex IV 2 mg b.i.d. 06/28/25: Patient is seen and examined today at bedside in room 227. Patient is improving he is now able to lie back on the bed without any shortness of breath, his leg edema has also improved. His BNP is down to 2130 from 2700. His lactic acid has also gone down to 2.0 from 2.7, AST came down to 117 from 168, ALT 225 from 265, his total bilirubin did go up to 1.6 from 1.3. He had a short episode where his potassium went down to 3.0 but patient already on potassium protocol so was given potassium. Patient given metolazone and also started Milrinone drip yesterday. He is already on Bumex 2 mg b.i.d. He has diuresed 6 L overnight with continues to have anasarca to the lower abdomen and upper thighs and lower extremity edema. Continuing the patient on vancomycin and cefepime. 06/29/25: Patient is seen and examined at bedside in room 227. Patient continues to improve, his leg edema has gone down. His BP is down to 1530 from 2130. His WBCs trending down to 12.0 today. His potassium is low at 3.2 but he is on potassium protocol. Patient's liver functions have improved his AST today is at 90, ALT at 191, alkaline phosphatase at 145. His lactic acid remains at 2. Patient is currently on bumetanide 2 mg and Milrinone drip. He has negative balance today is in is around 4000 ml. He is on vancomycin and cefepime for his UTI and bilateral leg wound infection. 06/30/25: Patient is seen and examined at bedside in room 227. Patient continues to improve, his leg edema has gone down. His WBCs trending down to 11.8 today. Patient's BNP has gone up to 2060 today. Patient has a negative output of about 5000 mL. Patient's weight is at 107.4 kg down from 109.8 yesterday. Patient is improving clinically. Patient off Bumetanide and Milrinone drip per Cardiology. Bumetanide might be restarted tomorrow if his creatinine improves. Patient has chronic kidney disease stage 3 so his creatinine might be baseline. We will talk to Cardiology regarding this tomorrow. Patient continues to be on vancomycin and cefepime for his UTI and bilateral leg wound infection. 07/01/25: Patient is seen and examined at bedside in room 227. Patient blood pressure went below 90 systolic yesterday. Patient denied taking orthostatic vitals, got pickle juice from home which he mentioned he takes usually at home and it helped him get his blood pressure back within normal limits. Today patient is started retaining fluid again and his BNP went up to 2930. So his given Bumex1 mg t.i.d. IV for today and then he is going to be started on Bumex p.o. medication from tomorrow. His metoprolol medication has also been put on hold because of the drop in his blood pressure. Care saw the patient yesterday and recommended Cleanse with normal saline, pat dry, apply medihoney and gentamicin 1:1, cover with adaptic/vaseline gauze, gauze, wrap with kerlix secure with tape change daily and prn. REVIEW OF SYSTEMS CONSTITUTIONAL: Denies chills, fever and night sweats. unintentional weight gain reported. Complains of back pain which is chronic. Patient is now losing weight. NEUROLOGICAL: Denies headache, gait abnormalities, or tremors. ENT: No hearing loss, otalgia, otorrhea, rhinitis, rhinorrhea, hoarseness, or sore throat. CARDIOVASCULAR: dyspnea on exertion, orthopnea, paroxysmal nocturnal dyspnea, improving. Denies any exertional angina, palpitations, life-threatening arrhythmias. PULMONARY: Shortness of breath improved. denies cough, phlegm/sputum, hemoptysis, pleuritic chest pain. GASTROINTESTINAL: Denies any type of dysphagia to either liquids or solids. Denies nausea, vomiting, abdominal pain, diarrhea, constipation, or changes in s tool consistency or caliber. GENITOURINARY: Denies frequency, urgency, nocturia, hematuria or incontinence ENDOCRINOLOGIC: Denies polyuria, polydipsia, polyphagia or heat/cold intolerances. ONCOLOGIC: Denies personal history of malignancy. DERMATOLOGIC: chronic wound ulcer to right lower extremity Denies rashes or pruritus. PHYSICAL EXAM GENERAL APPEARANCE: The patient is awake, alert, and oriented, in no acute cardiopulmonary distress. NEUROLOGICAL: Cranial nerves II-XII grossly intact. Motor is 5/5 in bilateral upper and lower extremities proximal to distal. No sensory deficits. HEENT: Face is symmetric. Pupils are equal and reactive. Extraocular movements are intact. NECK: Supple. No JVD. No thyromegaly. No submental, submandibular, pre- /postauricular, occipital or supraclavicular lymphadenopathy. CHEST: Normal chest expansion. No Telemetry. LUNGS: Sounds clear CARDIOVASCULAR: Regular rate and rhythm. S1 and S2 normal. No appreciable rubs, murmurs or gallops. ABDOMEN: Soft, nontender, and nondistended. There is no rebound, voluntary guarding, or rigidity. : Deferred. No [place]. EXTREMITIES: 2+edema to bilateral lower extremities SKIN: Draining Wound ulcers to right lower extremity Vital Signs (last 8hr) Date Time Temp Pulse Resp B/P (MAP) Pulse Ox O2 Delivery O2 Flow Rate FiO2 07/02/25 13:35 99 114/82 07/02/25 13:32 104 111/74 07/02/25 13:30 95 101/79 07/02/25 12:40 101 20 105/81 98 Room Air 07/02/25 11:00 97.5 107 20 107/85 100 Room Air 07/02/25 08:00 100 Room Air* 0 21 07/02/25 07:00 97.7 100 20 102/78 100 Room Air LABS: Laboratory: Test 07/02/25 11:12 07/02/25 03:48 07/01/25 16:24 Range/Units Whole Blood Glucose 206 H 70-110 MG/DL White Blood Count 10.8 4.8-10.8 K/uL Red Blood Count 4.37 L 4.50-6.20 MIL/uL Hemoglobin 13.9 L 14.0-18.0 g/dL Hematocrit 43.0 42-54 % Mean Corpuscular Volume 98.4 79-99 fL Mean Corpuscular Hemoglobin 31.8 27.0-33.0 pg Mean Corpuscular Hemoglobin Concent 32.3 32.0-36.0 g/dL Red Cell Distribution Width 15.4 11.0-15.5 % Platelet Count 181 130-400 K/uL Mean Platelet Volume 11.0 H 7.5-10.5 fL Nucleated Red Blood Cells 0.0 0.0-0.19 % Sodium Level 131 L 136-145 mmol/L Potassium Level 3.7 3.5-5.1 mmol/L Chloride Level 92 L 101-111 mmol/L Carbon Dioxide Level 26 21-32 mmol/L Blood Urea Nitrogen 54 H 7-18 mg/dL Creatinine 1.8 H 0.5-1.3 mg/dL Glomerular Filtration Rate Calc 42 >90 mL/min Random Glucose 151 H 70-105 mg/dL Total Calcium 9.4 8.5-10.1 mg/dL Magnesium Level 2.20 1.80-2.40 mg/dL Total Bilirubin 1.3 H 0.2-1.0 mg/dL Aspartate Amino Transf (AST/SGOT) 45 H 10-37 U/L Alanine Aminotransferase (ALT/SGPT) 105 H 12-78 U/L Alkaline Phosphatase 130 50-136 U/L B-Type Natriuretic Peptide 2680 H 0-100 pg/mL Total Protein 6.9 6.0-8.3 g/dL Albumin 2.9 L 3.5-5.0 g/dL Bedside Glucose Comment Notified Nurse Current Medications Medications (Trade) Dose Ordered Sig/Da Route PRN Reason Start Time Stop Time Status Last Admin Dose Admin Acetaminophen (TYLenol 325MG TAB) 650 mg Q4H PRN PO MILD PAIN (1-3) 06/23/25 03:30 07/23/25 03:29 Acetaminophen (TYLenol 325MG TAB) 650 mg Q6H PRN PO TEMPERATURE GREATER THAN 101.5 06/23/25 03:30 07/23/25 03:29 Apixaban (EliquIS) 5 mg BID PO 06/23/25 09:00 07/23/25 08:59 07/02/25 09:21 5 MG Aspirin (Aspirin 81mg Ec Tab) 81 mg DAILY PO 07/02/25 09:00 08/01/25 08:59 07/02/25 09:19 81 MG Atorvastatin Calcium (LIPItor 40MG) 40 mg HS PO 07/02/25 21:00 08/01/25 20:59 Bumetanide (Bumex 1mg Tab) 1 mg BID PO 06/23/25 09:00 06/25/25 08:32 DC 06/24/25 21:13 1 MG Bumetanide (Bumex 1mg Tab) 1 mg BID PO 07/01/25 09:00 07/01/25 09:13 DC Bumetanide (Bumex 1mg Tab) 1 mg BID PO 07/02/25 09:00 08/01/25 08:59 07/02/25 09:20 1 MG Bumetanide (Bumex 1mg Vial) 1 mg BID IVP 06/25/25 09:00 06/25/25 08:41 DC Bumetanide (Bumex 1mg Vial) 1 mg TID IVP 06/25/25 09:00 06/26/25 08:34 DC 06/25/25 21:29 1 MG Bumetanide (Bumex 1mg Vial) 1 mg TID IVP 07/01/25 09:30 07/01/25 21:01 DC 07/01/25 23:17 1 MG Bumetanide (Bumex 1mg Vial) 2 mg BID IVP 06/26/25 09:00 06/29/25 18:14 DC 06/29/25 08:55 2 MG Cefepime HCl (MAXipime 1 GM vial) 1 gm ONCE IVPB 06/23/25 02:00 06/23/25 04:01 DC 06/23/25 02:19 1 GM Cefepime HCl (MAXipime 1 GM vial) 1 gm Q12H IVPB 06/23/25 10:00 07/03/25 09:59 07/02/25 11:19 1 GM Dextrose (D50w) 50 ml AD PRN IV HYPOGLYCEMIA PROTOCOL 06/23/25 03:30 07/23/25 03:29 Dobutamine HCl/ Dextrose 250 ml @ 0 mls/hr PROTOCOL IV 06/24/25 16:00 06/27/25 15:00 DC Doxycycline Hyclate 250 ml @ 125 mls/hr Q12H IV 06/24/25 16:00 06/27/25 13:35 DC 06/27/25 03:55 125 MLS/HR Empaglifozin (Jardiance 10mg) 5 mg BID PO 06/24/25 21:00 07/24/25 20:59 07/02/25 09:20 5 MG Famotidine (Pepcid 20mg Tab) 20 mg DAILY PO 06/23/25 09:00 07/23/25 08:59 07/02/25 09:21 20 MG Gentamicin Sulfate (GENTAmicin SULFate 15 gm cream) APPLY DIRECTED DAILY18 TP 06/26/25 18:00 07/10/25 17:59 07/02/25 09:23 1 APPL Glucagon (Glucagon 1mg Kit) 1 mg AD PRN IM HYPOGLYCEMIA PROTOCOL 06/23/25 03:30 07/23/25 03:29 Insulin Human Regular (humuLIN R 100 UNIT/ML 3ML) INSULIN SLIDING SCAL... ACHS SQ 06/23/25 07:30 07/23/25 07:29 07/02/25 11:25 3 UNIT Leptospermum Honey (Medihoney) 1 APPL DAILY17 TP 06/23/25 17:00 07/23/25 16:59 07/02/25 09:23 1 APPL Magnesium Sulfate 50 ml @ 0 mls/hr PROTOCOL PRN IV OTHER [SEE ORDER COMMENTS] 06/23/25 03:30 07/23/25 03:29 Metoprolol Succinate (TopROL XL) 25 mg DAILY PO 06/23/25 09:00 07/23/25 08:59 07/02/25 11:19 25 MG Milrinone Lactate/ Dextrose 100 ml @ 0 mls/hr PROTOCOL IV 06/27/25 16:00 06/29/25 18:14 DC 06/29/25 10:42 8.65 MLS/HR Morphine Sulfate (morPHINE 2MG SYG) 2 mg Q6H6 PRN IVP PAIN LEVEL 7 TO 10 06/23/25 11:00 06/28/25 13:59 DC 06/24/25 16:03 2 MG Multivitamins Therapeutic (Multivitamin Tablet) 1 tab DAILY PO 06/25/25 09:00 07/25/25 08:59 07/02/25 09:20 1 TAB Mupirocin (Bactroban Oint) apply to bilateral lo... DAILY17 TP 06/23/25 17:00 06/26/25 16:51 DC 06/26/25 16:15 1 APPL Ondansetron HCl (zoFRAN 4MG INJ) 4 mg Q6H PRN IV NAUSEA/VOMITING 06/23/25 03:30 07/23/25 03:29 Oxycodone HCl (OXYconTIN) 10 mg Q8H PRN PO PAIN LEVEL 7 TO 10 07/01/25 11:00 07/01/25 10:51 DC Oxycodone HCl (ROXicoDONE) 10 mg Q8H PRN PO SEVERE PAIN (7-10) 06/25/25 11:00 06/30/25 10:59 DC 06/26/25 16:01 10 MG Oxycodone HCl (ROXicoDONE) 10 mg Q8H PRN PO SEVERE PAIN (7-10) 07/01/25 11:00 07/08/25 10:59 07/01/25 10:55 10 MG Potassium Chloride 100 ml @ 100 mls/hr AD PRN IV POTASSIUM PROTOCOL 06/23/25 03:30 07/23/25 03:29 Potassium Chloride (K-Dur/Klor-Con 20meq) 20 meq AD PRN PO POTASSIUM PROTOCOL 06/23/25 03:30 07/23/25 03:29 07/02/25 09:20 20 MEQ Potassium Chloride (KCl 10% Elixir 20meq/15ml) 20 meq AD PRN PO POTASSIUM PROTOCOL 06/23/25 03:30 07/23/25 03:29 Sodium Chloride 1,000 ml @ 50 mls/hr Q20H IV 06/23/25 17:30 06/24/25 09:35 DC 06/23/25 17:19 50 MLS/HR Vancomycin HCl 250 ml @ 125 mls/hr HS IV 06/26/25 21:00 06/28/25 20:59 DC 06/27/25 20:35 125 MLS/HR Vancomycin HCl 250 ml @ 125 mls/hr ONCE IV 06/23/25 03:30 06/23/25 03:44 DC Vancomycin HCl 250 ml @ 125 mls/hr Q24H IV 06/24/25 05:00 06/26/25 20:09 DC 06/25/25 05:21 125 MLS/HR Vancomycin HCl (Vancomycin 750mg) 750 mg Q24H IVPB 06/29/25 09:00 06/29/25 09:07 DC Vancomycin HCl (Vancomycin 750mg) 750 mg Q24H IVPB 06/30/25 09:00 07/10/25 08:59 07/02/25 09:19 750 MG DIAGNOSTICS / RADIOLOGY: [ ] ASSESSMENT: Severe sepsis POA UTI, POA Infected stasis ulcer of right lower extremity POA Acute kidney injury on chronic kidney disease POA Acute on chronic systolic CHF with cardiomyopathy POA Acute leukocytosis POA Lactic Acidosis POA Transaminases elevated Lumbar spondylosis/degenerative changes Hyponatremia POA Hypochloremia POA Uncontrolled diabetes POA Hypertension POA Hyperlipidemia POA History of Left lower extremity DVT on Eliquis POA History of pulmonary embolism on chronic anticoagulation POA PLAN: Severe sepsis POA: * Continue patient on vancomycin and cefepime * Blood culture negative, urine culture positive for Klebsiella pneumoniae, Wound culture came back positive for Serratia marcescens * Infectious disease and wound care consult appreciated and will follow their recommendations. Infected stasis ulcer of right lower extremity POA: * ultrasound came back negative for DVT bilaterally * Wound culture came back positive for Serratia marcescens a Gram-negative bacteria susceptible to most antibiotics * We will follow their recommendations for further treatment * Infectious disease recommended to continue IV cefepime and vancomycin. * Wound care gave the following recommendation Cleanse with normal saline, pat dry, apply medihoney and gentamicin 1:1, cover with adaptic/vaseline gauze, gauze, wrap with kerlix secure with tape change daily and prn Acute kidney injury on chronic kidney disease POA: * Placed on daily weight and strict I&O * BUN 46, creatinine 1.7. * Avoid NSAIDs or nephrotoxic agents. Acute on chronic systolic CHF with cardiomyopathy POA: * Cardiology stopped patient's bumetanide and Milrinone drip, Continue slow gradual diuresis. Will resume in AM pending urine output and Cr * Cardiology consult placed, who ordered an 2D echo which showed severely reduced LVEF of less than 20% * Cardiology also recommended to hold losartan, Jardiance half tablet 5 mg b.i.d. and continue with Eliquis 5 mg b.i.d. * Follow the recommendations for further treatment, restrict fluid 1500 ml per day per cardiology UTI, POA: * Patient's urine culture came back positive for Gram-negative rods * Sensitivity and specificity showed Klebsiella pneumoniae sensitive to most antibiotics * Continuing the patient on vancomycin and cefepime * Infectious disease is on the case Lumbar spondylosis/degenerative changes : * CT lumbar showed lumbar degerative disc disease with reduced disc space and vacuum phenomenon at L5-S1 and T12-L1 levels with minimal retrolisthesis of L5 on S1. * Continue with PRN pain medications. We will request labs in am Further orders to follow depending on above results LISS MANN MD Jul 02, 2025 14:23
--- NOTE | 2025-07-02 16:15 | PN ---
PROGRESS NOTE Date of Service: Jul 02, 2025 Time of Service: 16:15 SUBJECTIVE: Patient is being evaluated at bedside in room 227 for wound care evaluation of chronic wounds to bilateral lower extremities. Patient is awake, alert, and oriented. Patient denies any complaints at this time. No signs of distress noted. Wound culture of right lower leg positive for serratia marcescens. REVIEW OF SYSTEMS CONSTITUTIONAL: Denies fever, chills, or fatigue. HEAD/FACE: No signs of trauma. EENT: Denies eye pain, blurred vision, double vision, or light sensitivity. RESPIRATORY: Denies shortness of breath, cough, wheezing CARDIOVASCULAR: Denies chest pain, palpitation, syncope, + 2 edema to bilateral lower legs GASTROINTESTINAL/ABDOMINAL: Denies abdominal pain, constipation, diarrhea, nausea or vomiting GENITOURINARY: Denies dysuria or hematuria. MUSCULOSKELETAL: Denies joint pain, tenderness, or trauma. INTEGUMENTARY: Denies rash or itchiness NEUROLOGICAL/PSYCH: Denies anxiety, depression, heat or cold intolerance. PHYSICAL EXAM EYES: Anicteric. Pupils equal and reactive. HENT: No oral thrush seen, moist Oral mucosa NECK: Supple, no JVD or thyromegaly. LUNGS: Good air entry. No rales, no rhonchi. CARDIOVASCULAR: S1, S2 regular. No murmur heard. ABDOMEN: Soft, non tender, bowel sounds present, no organomegaly CENTRAL NERVOUS SYSTEM: Awake, alert, oriented x 3. No focal deficits. SKIN: Right lower leg noted with ulceration to pretibial, latera, and medial leg noted with 100% granulation with moderate amount of serous drainage, no foul odor noted. Left lower leg noted with ulceration to pretibial region with 100% granulation with minimal drainage. LYMPHATICS: No peripheral lymphadenopathy MUSCULOSKELETAL: No joint swelling, erythema or tenderness. EXTREMITIES: + 2 edema noted to bilateral lower legs. BACK: No deformity, no pressure ulcer. GENITOURINARY: No dysuria or hematuria Vital Signs (last 8hr) Date Time Temp Pulse Resp B/P (MAP) Pulse Ox O2 Delivery O2 Flow Rate FiO2 07/02/25 13:35 99 114/82 07/02/25 13:32 104 111/74 07/02/25 13:30 95 101/79 07/02/25 12:40 101 20 105/81 98 Room Air 07/02/25 11:00 97.5 107 20 107/85 100 Room Air LABS: Laboratory: Test 07/02/25 15:39 07/02/25 03:48 07/01/25 16:24 Range/Units Whole Blood Glucose 196 H 70-110 MG/DL White Blood Count 10.8 4.8-10.8 K/uL Red Blood Count 4.37 L 4.50-6.20 MIL/uL Hemoglobin 13.9 L 14.0-18.0 g/dL Hematocrit 43.0 42-54 % Mean Corpuscular Volume 98.4 79-99 fL Mean Corpuscular Hemoglobin 31.8 27.0-33.0 pg Mean Corpuscular Hemoglobin Concent 32.3 32.0-36.0 g/dL Red Cell Distribution Width 15.4 11.0-15.5 % Platelet Count 181 130-400 K/uL Mean Platelet Volume 11.0 H 7.5-10.5 fL Nucleated Red Blood Cells 0.0 0.0-0.19 % Sodium Level 131 L 136-145 mmol/L Potassium Level 3.7 3.5-5.1 mmol/L Chloride Level 92 L 101-111 mmol/L Carbon Dioxide Level 26 21-32 mmol/L Blood Urea Nitrogen 54 H 7-18 mg/dL Creatinine 1.8 H 0.5-1.3 mg/dL Glomerular Filtration Rate Calc 42 >90 mL/min Random Glucose 151 H 70-105 mg/dL Total Calcium 9.4 8.5-10.1 mg/dL Magnesium Level 2.20 1.80-2.40 mg/dL Total Bilirubin 1.3 H 0.2-1.0 mg/dL Aspartate Amino Transf (AST/SGOT) 45 H 10-37 U/L Alanine Aminotransferase (ALT/SGPT) 105 H 12-78 U/L Alkaline Phosphatase 130 50-136 U/L B-Type Natriuretic Peptide 2680 H 0-100 pg/mL Total Protein 6.9 6.0-8.3 g/dL Albumin 2.9 L 3.5-5.0 g/dL Bedside Glucose Comment Notified Nurse PROBLEM LIST : Medical Problems: Chronic venous hypertension with ulcer to bilateral lower extremities Non pressure chronic ulcer to right lower extremity Non pressure chronic ulcer to left lower extremity Bilateral lower extremities cellulitis. PLAN: Change Wound care to Bilateral lower extremities: Cleanse with normal saline, pat dry, apply medihoney and gentamicin 1:1, cover with adaptic/vaseline gauze, gauze, wrap with kerlix secure with tape change daily and prn Keep wounds clean and dry Offloading/reposition q 2 hours Continue IV antibiotics per ID Comorbidities per primary care team Further Management per hospital course. Thank You for the consult and allowing us to participate in the care of this patient. [employer] Jul 02, 2025 16:15
--- NOTE | 2025-07-02 17:35 | PN ---
INFECTIOUS DISEASE PROGRESS NOTE Date of Service: Jul 02, 2025 SUBJECTIVE: Patient was seen in room 227. Patient is awake, alert and oriented x3. Patient able to ambulate in the room without getting short of breaths. Continues on oral diuretics. No fever, temperature is 97.7. Continues on cefepime and vancomycin. No other issues reported by nursing. PHYSICAL EXAM EYES: Anicteric. Pupils equal and reactive. HENT: No oral thrush seen, moist Oral mucosa. NECK: Supple, no JVD or thyromegaly. LUNGS: Good air entry. No rales, no rhonchi. CARDIOVASCULAR: S1, S2 regular. No murmur heard. ABDOMEN: Soft, non tender, bowel sounds present, no organomegaly. CENTRAL NERVOUS SYSTEM: Awake, alert, oriented x 3. SKIN: Bilateral lower extremity wounds. LYMPHATICS: No peripheral lymphadenopathy. MUSCULOSKELETAL: No joint swelling, erythema or tenderness. EXTREMITIES: No cyanosis or clubbing. History of right 2nd toe amputation. Bilateral lower extremity edema. BACK: No deformity, no pressure ulcer. GENITOURINARY: No dysuria or hematuria. Vital Sign (Last 12 Hours) 07/02/25 07/02/25 07/02/25 07/02/25 07:00 08:00 11:00 12:40 Temp 97.7 97.5 Pulse 100 107 101 Resp 20 20 20 B/P (MAP) 102/78 107/85 105/81 Pulse Ox 100 100 100 98 O2 Delivery Room Air Room Air* Room Air Room Air O2 Flow Rate 0 FiO2 21 07/02/25 07/02/25 07/02/25 07/02/25 13:30 13:32 13:35 16:00 Temp 97.5 Pulse 95 104 99 91 Resp 20 B/P (MAP) 101/79 111/74 114/82 98/70 Pulse Ox 100 O2 Delivery Room Air Intake & Output (last 24hrs) 07/01/25 07/01/25 07/02/25 15:00 23:00 07:00 Intake Total 540.0 ml 50.0 ml Output Total 450 ml 1400 ml 1375 ml Balance 90.0 ml -1400 ml -1325.0 ml LABS: Laboratory: Test 07/02/25 15:39 07/02/25 03:48 07/01/25 16:24 Range/Units Whole Blood Glucose 196 H 70-110 MG/DL White Blood Count 10.8 4.8-10.8 K/uL Red Blood Count 4.37 L 4.50-6.20 MIL/uL Hemoglobin 13.9 L 14.0-18.0 g/dL Hematocrit 43.0 42-54 % Mean Corpuscular Volume 98.4 79-99 fL Mean Corpuscular Hemoglobin 31.8 27.0-33.0 pg Mean Corpuscular Hemoglobin Concent 32.3 32.0-36.0 g/dL Red Cell Distribution Width 15.4 11.0-15.5 % Platelet Count 181 130-400 K/uL Mean Platelet Volume 11.0 H 7.5-10.5 fL Nucleated Red Blood Cells 0.0 0.0-0.19 % Sodium Level 131 L 136-145 mmol/L Potassium Level 3.7 3.5-5.1 mmol/L Chloride Level 92 L 101-111 mmol/L Carbon Dioxide Level 26 21-32 mmol/L Blood Urea Nitrogen 54 H 7-18 mg/dL Creatinine 1.8 H 0.5-1.3 mg/dL Glomerular Filtration Rate Calc 42 >90 mL/min Random Glucose 151 H 70-105 mg/dL Total Calcium 9.4 8.5-10.1 mg/dL Magnesium Level 2.20 1.80-2.40 mg/dL Total Bilirubin 1.3 H 0.2-1.0 mg/dL Aspartate Amino Transf (AST/SGOT) 45 H 10-37 U/L Alanine Aminotransferase (ALT/SGPT) 105 H 12-78 U/L Alkaline Phosphatase 130 50-136 U/L B-Type Natriuretic Peptide 2680 H 0-100 pg/mL Total Protein 6.9 6.0-8.3 g/dL Albumin 2.9 L 3.5-5.0 g/dL Bedside Glucose Comment Notified Nurse ASSESSMENT: Acute hypoxic respiratory failure. Urinary tract infection with Klebsiella pneumoniae. Right lower extremity ulcer infection with Serratia marcescens.. Bilateral lower extremities cellulitis. Sepsis. Leukocytosis. Acute on chronic renal failure. Diabetes mellitus. Acute on chronic heart failure. Generalized debility. PLAN: Continue cefepime. Continue doxycycline. Continue pain management. Continues on diuretics. Continue GI prophylaxis. Continue wound care. Continue nutritional support. This case was reviewed and discussed with my supervising physician Dr. Frankel and the above assessment and plan was formulated and agreed upon. ATTESTATION BY PHYSICIAN I have seen and examined the patient. I reviewed the documentation, medical decision making, and treatment plan as noted by the mid-level provider above. I agree with the findings and plan of care. CLAUDIA FRANKEL MD, [facility] Jul 02, 2025 17:35
--- NOTE | 2025-07-02 18:20 | PN ---
[facility] PROGRESS NOTE Date of Service: Jul 02, 2025 Time of Service: 18:11 SUBJECTIVE: This is a 59 year old male,a reliable historian with past medical history of hypertension, diabetes, hyperlipidemia, CHF with advanced ischemic cardiomyopathy EF 20% stage 3 CKD multivessel obstructive CAD ,DVT to left leg and pulmonary embolism on chronic Eliquis ,chronic back pain,bilateral lower extremity ulcers and morbid obesity who presents to the ED for complaints of feeling dizzy,shortness of breath and patient has a chronic lower extremity that has ulcers and it has been swollen and oozing fluids.Patient also reports chills and rigors which started today while changing his wound dressing and he first though he was having parkinson's tremors so he decided to come to the ED for evaluation.Patient states he was fairly doing fine unitl 8 days ago last Sunday he stopped taking his Spironolactone and Losartan because it was discontinued byher his apparel rental clerk due to severe hyperkalemia .Patient reports he was seen by a apparel rental clerk from [place] by the name of and he told the apparel rental clerk that he is not voiding much than what he used to ,before he approximately voided 1600 and now it is only 500 and he noticed that his legs are becoming swollen ever since he stopped taking his Spironolactone and Losartan he feels he is gaining more weight and he was advised to take a dose of Spironolactone for today and he did after a few hours he said he felt dizzy and lightheaded and as he was changing his wound dressing he feels the chills and rigors so he decided to come to the ED for evaluation.Upon ER arrival V/SA T102.4,HR 128,BP 122/87 Sat 100% RA RR 24.ECG result revealed Sinus ectopic or atrial Tachycardia HR 120 Prob left atrial enlargement,inferior infarct old,anterior infarct old,nonspecific T abnormalities ,lateral leads prolonged QT interval. Seen and examined patient in the ER awake,alert and coherent,appears comfortable,in no apparent distress.Patient denies cough,shortness of breath,chest pain,palpitation,abdominal pain,nausea,vomiting and syncope.Labs WBC 20 with negative left shift of neutrophils 88,Hgb 15,Hct 45,platelet 209.Na 135,K4.6,K4.6,Chloride 96,BUN47,Creat 1.9,GFR 40,Glucose 174 ,lactic acid 6.3,BNP 1550.Urinalysis remarkable for protein 30,glucose more than 1000,small hematuria and urine RBC 2-5 .Serology test for influenza Type A&B negative SARS COV_2 negative and Group A strep negative.CXR result revealed interval development of mild cardiomegaly.No acute infiltrate ,effusion or pneumothorax.While in the ER patient received Fluid resuscitation of 30ml/kg over 3 hours ,Tylenol 1000 mg po,Morphine 4mg IV, Cefepime and Vancomycin IV.Will admit patient for further medical management. 06/23/25: Patient is seen at bedside in ER 5. Patient denies cough, chest pain, palpitation, abdominal pain, chills. Patient is started on nasal cannula due to shortness of breath. Patient's remaining vitals stable with temperature at 98.4, pulse at 98, respiratory rate of 22, blood pressure 109/79. Patient's labs showed an increase in WBC to 24.5, hemoglobin at 13.9, sodium at 135, lactic acid improved to 4.3. Continue the patient on vancomycin and cefepime IV. Cardiology and Infectious Disease have been consulted, along with critical care. Patient's BNP has improved to 851. Patient has no new complaints. Patient started on soft hydration. Cardiology ordered a 2D echo and venous Doppler ultrasound bilaterally to rule out DVT. 06/24/25: Patient is seen at bedside in ER 5. Patient is doing much better, off of nasal cannula and breathing room air. Patient denies cough, chest pain, palpitations, abdominal pain, chills. Patient's temperature currently at 98.8, pulse at 89 respiratory rate at 18, blood pressure 102/58. Patient's labs have improved with his WBC trending down to 18.4, his creatinine remains around 1.9, his lactic acid has trended down to 2.7. He does have an increase in his liver function tests with AST going up to 254 and ALT increasing to 152. His BNP has also increased to to 2110. Cardiology recommended to hold losartan, start him on Bumex 1 mg b.i.d., Jardiance half tablet 5 mg b.i.d. and continue with Eliquis 5 mg b.i.d. His venous Doppler study showed no DVTs bilaterally. Patient's urine culture came back positive for Gram-negative rods, going to wait for specificity and sensitivity to change his medication. He is currently on vancomycin and cefepime. 06/25/25: Patient is seen at bedside now in room 227. Patient is seen by infectious disease doctor who recommended to continue vancomycin follow up with wound culture. Cardiology increase the patient's Bumex to t.i.d. patient's lactic acid remained at 2.7 His BNP increased to 2206. An ankle-brachial index test has been ordered. Patient's urine culture showed Klebsiella pneumoniae sensitive to most antibiotics. His preliminary wound care results show Gram- negative rods. Blood culture still no growth after 48 hours. Continuing the patient's vancomycin and cefepime. Patient's WBC went down to 16.2 today. He continues to have an increase in his liver function tests with AST going up to 367 and ALT increasing to 302. His alkaline phosphatase also increased to 142 today. We will keep an eye on his liver functions. : Patient is seen and examined at bedside in room 227. Patient stable breathing comfortably on room air. Patient still complains of orthopnea, dyspnea on exertion, paroxysmal nocturnal dyspnea. Cardiology followed up with the patient and increased his Bumex to 2 mg b.i.d. Patient is on a strict in and out of 1.5 L. patient's wound culture came back positive for Serratia marcescens susceptible to most antibiotics. We will let Infectious Disease decide if they want to change antibiotics. Ankle-brachial index test has been ordered yesterday waiting on results. Chest x-ray has been ordered along with thoracic and lumbar spine CT. Patient's liver functions have improved with AST dropping to 201 and ALT dropping to 284. Patient's BNP is high at 3330. 06/27/25: Patient seen and examined today morning at bedside. The patient exp ressed concern about gaining extra weight and his clothes won't even fit him well. Intake 2590. Patient says his breathing is better when he is sitting or lying in bed at 45 degrees. Labs showed decreased in WBC from 13 to 11.6, platelets 187, BUN 52 and creatinine 1.8. Total bilirubin 1.3, AST came down to 168 from 201, ALT 263 from 284, ALP 178. BNP is down to 2700 from 3330. Lactic acid went up from 2.3-2.7. Infectious Disease recommended to continue vanco and cefepime. Cardio recommended to continue Bumex IV 2 mg b.i.d. 06/28/25: Patient is seen and examined today at bedside in room 227. Patient is improving he is now able to lie back on the bed without any shortness of breath, his leg edema has also improved. His BNP is down to 2130 from 2700. His lactic acid has also gone down to 2.0 from 2.7, AST came down to 117 from 168, ALT 225 from 265, his total bilirubin did go up to 1.6 from 1.3. He had a short episode where his potassium went down to 3.0 but patient already on potassium protocol so was given potassium. Patient given metolazone and also started Milrinone drip yesterday. He is already on Bumex 2 mg b.i.d. He has diuresed 6 L overnight with continues to have anasarca to the lower abdomen and upper thighs and lower extremity edema. Continuing the patient on vancomycin and cefepime. 06/29/25: Patient is seen and examined at bedside in room 227. Patient continues to improve, his leg edema has gone down. His BP is down to 1530 from 2130. His WBCs trending down to 12.0 today. His potassium is low at 3.2 but he is on potassium protocol. Patient's liver functions have improved his AST today is at 90, ALT at 191, alkaline phosphatase at 145. His lactic acid remains at 2. Patient is currently on bumetanide 2 mg and Milrinone drip. He has negative balance today is in is around 4000 ml. He is on vancomycin and cefepime for his UTI and bilateral leg wound infection. 06/30/25: Patient is seen and examined at bedside in room 227. Patient continues to improve, his leg edema has gone down. His WBCs trending down to 11.8 today. Patient's BNP has gone up to 2060 today. Patient has a negative output of about 5000 mL. Patient's weight is at 107.4 kg down from 109.8 yesterday. Patient is improving clinically. Patient off Bumetanide and Milrinone drip per Cardiology. Bumetanide might be restarted tomorrow if his creatinine improves. Patient has chronic kidney disease stage 3 so his creatinine might be baseline. We will talk to Cardiology regarding this tomorrow. Patient continues to be on vancomycin and cefepime for his UTI and bilateral leg wound infection. 07/01/25: Patient is seen and examined at bedside in room 227. Patient blood pressure went below 90 systolic yesterday. Patient denied taking orthostatic vitals, got pickle juice from home which he mentioned he takes usually at home and it helped him get his blood pressure back within normal limits. Today patient is started retaining fluid again and his BNP went up to 2930. So his given Bumex1 mg t.i.d. IV for today and then he is going to be started on Bumex p.o. medication from tomorrow. His metoprolol medication has also been put on hold because of the drop in his blood pressure. Care saw the patient yesterday and recommended Cleanse with normal saline, pat dry, apply medihoney and gentamicin 1:1, cover with adaptic/vaseline gauze, gauze, wrap with kerlix secure with tape change daily and prn. 07/02/25: Patient is seen and examined at bedside in room 227. Patient continues to improve. Patient's 24 hour in and out reported at negative 3085. Patient's WBC today at 10.8. Cardiology left a note saying Unable to further aoptimze GDMT due to soft blood pressures. Continue Toprol 25 mg daily and jardiance 10 mg daily. Start Bumex 1 mg every 12 hrs PO, urine output 1.7 L. continue beta-anastasiia therapy, has continued on long-term anticoagulation with Eliquis for prior history of DVT and PE. LFTs improved, start Atorvastatin and ASA 81 mg daily. We will make further changes to his treatment based on Cardiology recommendation. Continue patient on cefepime and vancomycin. REVIEW OF SYSTEMS CONSTITUTIONAL: Denies chills, fever and night sweats. unintentional weight gain reported. Complains of back pain which is chronic. Patient is now losing weight. NEUROLOGICAL: Denies headache, gait abnormalities, or tremors. ENT: No hearing loss, otalgia, otorrhea, rhinitis, rhinorrhea, hoarseness, or sore throat. CARDIOVASCULAR: dyspnea on exertion, orthopnea, paroxysmal nocturnal dyspnea, improving. Denies any exertional angina, palpitations, life-threatening a rrhythmias. PULMONARY: Shortness of breath improved. denies cough, phlegm/sputum, hemoptysis, pleuritic chest pain. GASTROINTESTINAL: Denies any type of dysphagia to either liquids or solids. Denies nausea, vomiting, abdominal pain, diarrhea, constipation, or changes in stool consistency or caliber. GENITOURINARY: Denies frequency, urgency, nocturia, hematuria or incontinence ENDOCRINOLOGIC: Denies polyuria, polydipsia, polyphagia or heat/cold intolerances. ONCOLOGIC: Denies personal history of malignancy. DERMATOLOGIC: chronic wound ulcer to right lower extremity Denies rashes or pruritus. PHYSICAL EXAM GENERAL APPEARANCE: The patient is awake, alert, and oriented, in no acute cardiopulmonary distress. NEUROLOGICAL: Cranial nerves II-XII grossly intact. Motor is 5/5 in bilateral upper and lower extremities proximal to distal. No sensory deficits. HEENT: Face is symmetric. Pupils are equal and reactive. Extraocular movements are intact. NECK: Supple. No JVD. No thyromegaly. No submental, submandibular, pre- /postauricular, occipital or supraclavicular lymphadenopathy. CHEST: Normal chest expansion. No Telemetry. LUNGS: Sounds clear CARDIOVASCULAR: Regular rate and rhythm. S1 and S2 normal. No appreciable rubs, murmurs or gallops. ABDOMEN: Soft, nontender, and nondistended. There is no rebound, voluntary guarding, or rigidity. : Deferred. No [place]. EXTREMITIES: 2+edema to bilateral lower extremities SKIN: Draining Wound ulcers to right lower extremity Vital Signs (last 8hr) Date Time Temp Pulse Resp B/P (MAP) Pulse Ox O2 Delivery O2 Flow Rate FiO2 07/02/25 16:00 97.5 91 20 98/70 100 Room Air 07/02/25 13:35 99 114/82 07/02/25 13:32 104 111/74 07/02/25 13:30 95 101/79 07/02/25 12:40 101 20 105/81 98 Room Air 07/02/25 11:00 97.5 107 20 107/85 100 Room Air LABS: Laboratory: Test 07/02/25 15:39 07/02/25 03:48 07/01/25 16:24 Range/Units Whole Blood Glucose 196 H 70-110 MG/DL White Blood Count 10.8 4.8-10.8 K/uL Red Blood Count 4.37 L 4.50-6.20 MIL/uL Hemoglobin 13.9 L 14.0-18.0 g/dL Hematocrit 43.0 42-54 % Mean Corpuscular Volume 98.4 79-99 fL Mean Corpuscular Hemoglobin 31.8 27.0-33.0 pg Mean Corpuscular Hemoglobin Concent 32.3 32.0-36.0 g/dL Red Cell Distribution Width 15.4 11.0-15.5 % Platelet Count 181 130-400 K/uL Mean Platelet Volume 11.0 H 7.5-10.5 fL Nucleated Red Blood Cells 0.0 0.0-0.19 % Sodium Level 131 L 136-145 mmol/L Potassium Level 3.7 3.5-5.1 mmol/L Chloride Level 92 L 101-111 mmol/L Carbon Dioxide Level 26 21-32 mmol/L Blood Urea Nitrogen 54 H 7-18 mg/dL Creatinine 1.8 H 0.5-1.3 mg/dL Glomerular Filtration Rate Calc 42 >90 mL/min Random Glucose 151 H 70-105 mg/dL Total Calcium 9.4 8.5-10.1 mg/dL Magnesium Level 2.20 1.80-2.40 mg/dL Total Bilirubin 1.3 H 0.2-1.0 mg/dL Aspartate Amino Transf (AST/SGOT) 45 H 10-37 U/L Alanine Aminotransferase (ALT/SGPT) 105 H 12-78 U/L Alkaline Phosphatase 130 50-136 U/L B-Type Natriuretic Peptide 2680 H 0-100 pg/mL Total Protein 6.9 6.0-8.3 g/dL Albumin 2.9 L 3.5-5.0 g/dL Bedside Glucose Comment Notified Nurse Current Medications Medications (Trade) Dose Ordered Sig/Da Route PRN Reason Start Time Stop Time Status Last Admin Dose Admin Acetaminophen (TYLenol 325MG TAB) 650 mg Q4H PRN PO MILD PAIN (1-3) 06/23/25 03:30 07/23/25 03:29 Acetaminophen (TYLenol 325MG TAB) 650 mg Q6H PRN PO TEMPERATURE GREATER THAN 101.5 06/23/25 03:30 07/23/25 03:29 Apixaban (EliquIS) 5 mg BID PO 06/23/25 09:00 07/23/25 08:59 07/02/25 09:21 5 MG Aspirin (Aspirin 81mg Ec Tab) 81 mg DAILY PO 07/02/25 09:00 08/01/25 08:59 07/02/25 09:19 81 MG Atorvastatin Calcium (LIPItor 40MG) 40 mg HS PO 07/02/25 21:00 08/01/25 20:59 Bumetanide (Bumex 1mg Tab) 1 mg BID PO 06/23/25 09:00 06/25/25 08:32 DC 06/24/25 21:13 1 MG Bumetanide (Bumex 1mg Tab) 1 mg BID PO 07/01/25 09:00 07/01/25 09:13 DC Bumetanide (Bumex 1mg Tab) 1 mg BID PO 07/02/25 09:00 08/01/25 08:59 07/02/25 09:20 1 MG Bumetanide (Bumex 1mg Vial) 1 mg BID IVP 06/25/25 09:00 06/25/25 08:41 DC Bumetanide (Bumex 1mg Vial) 1 mg TID IVP 06/25/25 09:00 06/26/25 08:34 DC 06/25/25 21:29 1 MG Bumetanide (Bumex 1mg Vial) 1 mg TID IVP 07/01/25 09:30 07/01/25 21:01 DC 07/01/25 23:17 1 MG Bumetanide (Bumex 1mg Vial) 2 mg BID IVP 06/26/25 09:00 06/29/25 18:14 DC 06/29/25 08:55 2 MG Cefepime HCl (MAXipime 1 GM vial) 1 gm ONCE IVPB 06/23/25 02:00 06/23/25 04:01 DC 06/23/25 02:19 1 GM Cefepime HCl (MAXipime 1 GM vial) 1 gm Q12H IVPB 06/23/25 10:00 07/03/25 09:59 07/02/25 11:19 1 GM Dextrose (D50w) 50 ml AD PRN IV HYPOGLYCEMIA PROTOCOL 06/23/25 03:30 07/23/25 03:29 Dobutamine HCl/ Dextrose 250 ml @ 0 mls/hr PROTOCOL IV 06/24/25 16:00 06/27/25 15:00 DC Doxycycline Hyclate 250 ml @ 125 mls/hr Q12H IV 06/24/25 16:00 06/27/25 13:35 DC 06/27/25 03:55 125 MLS/HR Empaglifozin (Jardiance 10mg) 5 mg BID PO 06/24/25 21:00 07/24/25 20:59 07/02/25 09:20 5 MG Famotidine (Pepcid 20mg Tab) 20 mg DAILY PO 06/23/25 09:00 07/23/25 08:59 07/02/25 09:21 20 MG Gentamicin Sulfate (GENTAmicin SULFate 15 gm cream) APPLY DIRECTED DAILY18 TP 06/26/25 18:00 07/10/25 17:59 07/02/25 09:23 1 APPL Glucagon (Glucagon 1mg Kit) 1 mg AD PRN IM HYPOGLYCEMIA PROTOCOL 06/23/25 03:30 07/23/25 03:29 Insulin Human Regular (humuLIN R 100 UNIT/ML 3ML) INSULIN SLIDING SCAL... ACHS SQ 06/23/25 07:30 07/23/25 07:29 07/02/25 16:39 2 UNIT Leptospermum Honey (InLive Interactivehoney) 1 APPL DAILY17 TP 06/23/25 17:00 07/23/25 16:59 07/02/25 09:23 1 APPL Magnesium Sulfate 50 ml @ 0 mls/hr PROTOCOL PRN IV OTHER [SEE ORDER COMMENTS] 06/23/25 03:30 07/23/25 03:29 Metoprolol Succinate (TopROL XL) 25 mg DAILY PO 06/23/25 09:00 07/23/25 08:59 07/02/25 11:19 25 MG Milrinone Lactate/ Dextrose 100 ml @ 0 mls/hr PROTOCOL IV 06/27/25 16:00 06/29/25 18:14 DC 06/29/25 10:42 8.65 MLS/HR Morphine Sulfate (morPHINE 2MG SYG) 2 mg Q6H6 PRN IVP PAIN LEVEL 7 TO 10 06/23/25 11:00 06/28/25 13:59 DC 06/24/25 16:03 2 MG Multivitamins Therapeutic (Multivitamin Tablet) 1 tab DAILY PO 06/25/25 09:00 07/25/25 08:59 07/02/25 09:20 1 TAB Mupirocin (Bactroban Oint) apply to bilateral lo... DAILY17 TP 06/23/25 17:00 06/26/25 16:51 DC 06/26/25 16:15 1 APPL Ondansetron HCl (zoFRAN 4MG INJ) 4 mg Q6H PRN IV NAUSEA/VOMITING 06/23/25 03:30 07/23/25 03:29 Oxycodone HCl (OXYconTIN) 10 mg Q8H PRN PO PAIN LEVEL 7 TO 10 07/01/25 11:00 07/01/25 10:51 DC Oxycodone HCl (ROXicoDONE) 10 mg Q8H PRN PO SEVERE PAIN (7-10) 06/25/25 11:00 06/30/25 10:59 DC 06/26/25 16:01 10 MG Oxycodone HCl (ROXicoDONE) 10 mg Q8H PRN PO SEVERE PAIN (7-10) 07/01/25 11:00 07/08/25 10:59 07/01/25 10:55 10 MG Potassium Chloride 100 ml @ 100 mls/hr AD PRN IV POTASSIUM PROTOCOL 06/23/25 03:30 07/23/25 03:29 Potassium Chloride (K-Dur/Klor-Con 20meq) 20 meq AD PRN PO POTASSIUM PROTOCOL 06/23/25 03:30 07/23/25 03:29 07/02/25 09:20 20 MEQ Potassium Chloride (KCl 10% Elixir 20meq/15ml) 20 meq AD PRN PO POTASSIUM PROTOCOL 06/23/25 03:30 07/23/25 03:29 Sodium Chloride 1,000 ml @ 50 mls/hr Q20H IV 06/23/25 17:30 06/24/25 09:35 DC 06/23/25 17:19 50 MLS/HR Vancomycin HCl 250 ml @ 125 mls/hr HS IV 06/26/25 21:00 06/28/25 20:59 DC 06/27/25 20:35 125 MLS/HR Vancomycin HCl 250 ml @ 125 mls/hr ONCE IV 06/23/25 03:30 06/23/25 03:44 DC Vancomycin HCl 250 ml @ 125 mls/hr Q24H IV 06/24/25 05:00 06/26/25 20:09 DC 06/25/25 05:21 125 MLS/HR Vancomycin HCl (Vancomycin 750mg) 750 mg Q24H IVPB 06/29/25 09:00 06/29/25 09:07 DC Vancomycin HCl (Vancomycin 750mg) 750 mg Q24H IVPB 06/30/25 09:00 07/10/25 08:59 07/02/25 09:19 750 MG DIAGNOSTICS / RADIOLOGY: [place] [id number] [address] IMAGING REPORT Signed PATIENT: LILI HUFF MR#: [id number] : 1965 SEX: M AGE: 59 LOCATION: 2DH ORDER 6 STATUS: ADM IN REPORT#: [id number] SERVICE REASON: chf ORDERING PHYSICIAN: NELSON SORIANO MD PROCEDURE: CXR1VW - CHEST 1VW EXAM: CR Chest, 1 View. CLINICAL HISTORY: chf COMPARISON: 06/30/25 FINDINGS: LUNGS: There is no mass, infiltrate, or acute pulmonary abnormality. PLEURAL SPACES: No evidence of pleural effusion or pneumothorax. MEDIASTINUM: Cardiomegaly. BONES: No acute osseous abnormality. MISCELLANEOUS: Left-sided PICC within superior vena cava. IMPRESSION: 1. No acute cardiopulmonary findings. 2. Cardiomegaly. 3. Left-sided PICC within superior vena cava. /[place] DICTATED BY: TRISTIN JI MD DATE: 07/02/251114 ELECTRONICALLY SIGNED BY: TRISTIN JI MD DATE: 07/02/251114 ASSESSMENT: Severe sepsis POA UTI, POA Infected stasis ulcer of right lower extremity POA Acute kidney injury on chronic kidney disease POA Acute on chronic systolic CHF with cardiomyopathy POA Acute leukocytosis POA Lactic Acidosis POA Transaminases elevated Lumbar spondylosis/degenerative changes Hyponatremia POA Hypochloremia POA Uncontrolled diabetes POA Hypertension POA Hyperlipidemia POA History of Left lower extremity DVT on Eliquis POA History of pulmonary embolism on chronic anticoagulation POA PLAN: Severe sepsis POA: * Continue patient on vancomycin and cefepime * Blood culture negative, urine culture positive for Klebsiella pneumoniae, Wound culture came back positive for Serratia marcescens * Infectious disease and wound care consult appreciated and will follow their recommendations. Infected stasis ulcer of right lower extremity POA: * ultrasound came back negative for DVT bilaterally * Wound culture came back positive for Serratia marcescens a Gram-negative bacteria susceptible to most antibiotics * We will follow their recommendations for further treatment * Infectious disease recommended to continue IV cefepime and vancomycin. * Wound care gave the following recommendation Cleanse with normal saline, pat dry, apply medihoney and gentamicin 1:1, cover with adaptic/vaseline gauze, gauze, wrap with kerlix secure with tape change daily and prn Acute kidney injury on chronic kidney disease POA: * Placed on daily weight and strict I&O * BUN 54, creatinine 1.8. * Avoid NSAIDs or nephrotoxic agents. Acute on chronic systolic CHF with cardiomyopathy POA: * Cardiology stopped patient's metolazone and Milrinone drip, Continue Bumex p.o. * 2D echo shows severely reduced LVEF of less than 20% * Cardiology also recommended to hold losartan, Jardiance half tablet 5 mg b.i.d. and continue with Eliquis 5 mg b.i.d. * Follow the recommendations for further treatment, restrict fluid 1500 ml per day per cardiology UTI, POA: * Patient's urine culture came back positive for Gram-negative rods * Sensitivity and specificity showed Klebsiella pneumoniae sensitive to most antibiotics * Continuing the patient on vancomycin and cefepime * Infectious disease is on the case Lumbar spondylosis/degenerative changes : * CT lumbar showed lumbar degerative disc disease with reduced disc space and vacuum phenomenon at L5-S1 and T12-L1 levels with minimal retrolisthesis of L5 on S1. * Continue with PRN pain medications. We will request labs in am Further orders to follow depending on above results ATTESTATION BY PHYSICIAN I have seen and examined the patient. I reviewed the documentation, medical decision making, and treatment plan as noted by the resident provider above. I a gree with the findings and plan of care. ISIDRO BROWN MD, ABHINAV MD Jul 02, 2025 18:20
[2025-07-03] VITALS: BP 118/82; PULSE 88; RESP 18; TEMP 98
[2025-07-03 03:55] LABS: NUCLEATED RED BLOOD CELLS 0.0 % (0.0-0.19); PLATELET COUNT (AUTO) 188.0 K/uL (130-400); RED BLOOD CELL COUNT(AUTO) 4.4 MIL/uL (4.50-6.20); RED CELL DISTRIBUTION WIDTH 15.3 % (11.0-15.5); WHITE BLOOD COUNT (AUTO) 11.5 K/uL (4.8-10.8)
[2025-07-03 04:00] VITALS: BP 114/82; PULSE 85; RESP 18; TEMP 97.8
[2025-07-03 04:07] LABS: CREATININE 1.7 mg/dL (0.5-1.3); GLOMERULAR FILTR. RATE CALC 45.0 mL/min (>90); GLUCOSE,RANDOM 126.0 mg/dL (70-105); SODIUM SERUM 133.0 mmol/L (136-145); UREA NITROGEN, BLOOD 57.0 mg/dL (7-18)
--- NOTE | 2025-07-03 07:17 | PN ---
[facility] CARDIOLOGY PROGRESS NOTE Date Patient Seen: Jul 03, 2025 Time of Visit: 07:16 Interval History: [ No acute events overnight ,m the patient is endorsing improvement with shortness of breath , urine output 1.7 lts , no cardiac symptoms or anginal equi valents. Physical Examination: GENERAL: [No acute distress.] HEAD: [Normal with no signs of head trauma.] EYES: [PERRLA, EOMI, conjunctiva and sclera normal.] ENT: [Hearing grossly intact, normal oropharynx.] NECK: [Supple without JVD. There is no tenderness, lymphadenopathy, or masses. No thyromegaly. Normal carotid upstrokes without bruits.] LUNGS: [Clear breath sounds bilaterally.. No wheezes, or rhonchi.] HEART: [Normal rate and rhythm. Normal S1 and S2 without mumurs, gallop or rub.] VASC: [Peripheral pulses +2 bilaterally.] ABD: [Bowel sounds normal, soft, nontender, no masses, no organomegaly. No audible bruits.] : [Not examined] LYMPH: [No lymphadenopathy noted.] EXT: [bilateral lower extremity edema, stable wounds.] NEURO: [Awake, alert, and oriented x3. No focal sensory or strength deficits noted.] Laboratory: [ ] Hematology Labs: Test 07/03/25 03:30 Range/Units White Blood Count 11.5 H 4.8-10.8 K/uL Red Blood Count 4.40 L 4.50-6.20 MIL/uL Hemoglobin 14.1 14.0-18.0 g/dL Hematocrit 43.2 42-54 % Mean Corpuscular Volume 98.2 79-99 fL Mean Corpuscular Hemoglobin 32.0 27.0-33.0 pg Mean Corpuscular Hemoglobin Concent 32.6 32.0-36.0 g/dL Red Cell Distribution Width 15.3 11.0-15.5 % Platelet Count 188 130-400 K/uL Mean Platelet Volume 10.8 H 7.5-10.5 fL Nucleated Red Blood Cells 0.0 0.0-0.19 % Chemistry Labs: Test 07/03/25 06:19 07/03/25 03:30 07/02/25 03:48 07/01/25 16:24 Range/Units Whole Blood Glucose 121 H 70-110 MG/DL Sodium Level 133 L 136-145 mmol/L Potassium Level 4.0 3.5-5.1 mmol/L Chloride Level 97 L 101-111 mmol/L Carbon Dioxide Level 30 21-32 mmol/L Blood Urea Nitrogen 57 H 7-18 mg/dL Creatinine 1.7 H 0.5-1.3 mg/dL Glomerular Filtration Rate Calc 45 >90 mL/min Random Glucose 126 H 70-105 mg/dL Total Calcium 8.9 8.5-10.1 mg/dL B-Type Natriuretic Peptide 2570 H 0-100 pg/mL Magnesium Level 2.20 1.80-2.40 mg/dL Total Bilirubin 1.3 H 0.2-1.0 mg/dL Aspartate Amino Transf (AST/SGOT) 45 H 10-37 U/L Alanine Aminotransferase (ALT/SGPT) 105 H 12-78 U/L Alkaline Phosphatase 130 50-136 U/L Total Protein 6.9 6.0-8.3 g/dL Albumin 2.9 L 3.5-5.0 g/dL Bedside Glucose Comment Notified Nurse Diagnostics / Radiology: [Copy/Paste Echos/Imaging Report here] Impression and Plan: [Sepsis: Bilateral lower extremity cellulitis: Right lower extremity ulcer infection with Serratia marcescens: -continue antibiotic therapy Acute on chronic HFrEF (LVEF of less than 20%): End-stage ischemic cardiomyopathy - Stage D with an LVEF of less than 20% by follow-up 2D echocardiogram 06/24/2025, followed by Dr. Chalino Shaw (advanced heart failure management program): -no further metolazone at this time. Continue slow gradual diuresis. -continue with daily weights and intake and output -has refused LifeVest in the past -Unable to further optimze GDMT due to soft blood pressures -Continue Toprol 25 mg daily and jardiance 10 mg daily -will be discharged today, giving bumex 2 mg IV once and he will continue 2 mg po bid Multivessel coronary artery disease felt not amendable to revascularization: -continue beta-anastasiia therapy -has continued on long-term anticoagulation with Eliquis for prior history of DVT and PE -LFTs improved , start Atorvastatin and ASA 81 mg daily Transaminitis likely secondary to acute on chronic HFrEF: -continue to trend, improving with management of his heart failure -stopped statin 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 He may follow up in one week after discharge. Comorbidities: Chronic kidney disease stage 3 Type 2 diabetes mellitus Hypertension Hyperlipidemia Chronic back pain EMBER SORIANO MD Jul 03, 2025 07:17
[2025-07-03 08:00] VITALS: BP 119/83; PULSE 99; RESP 20; TEMP 97.7; O2SAT 100
[2025-07-03] MEDS: BUMETANIDE 1MG/4ML VIAL IVP ONE (08:37)
[2025-07-03 11:53] VITALS: BP 116/71; PULSE 88; RESP 20; TEMP 97.8
[2025-07-03] MEDS ORDERED: AEC81 PO (12:12)
[2025-07-03] MEDS ORDERED: HONE44PA TP (12:12)
[2025-07-03] MEDS ORDERED: GENT15CR7 TP (12:12)
[2025-07-03] MEDS ORDERED: BUME2TAB5 PO (12:12)
[2025-07-03] MEDS ORDERED: ATOR40TA71 PO (12:13)
--- NOTE | 2025-07-03 12:58 | NUR ---
WOUND CARE TO BLE DONE PER MD ORDER. PATIENT TOLERATED WELL.
--- NOTE | 2025-07-03 13:09 | DS ---
Discharge Summary Hospital Course Summary: Patient is Assessment/Plan: ASSESSMENT: Severe sepsis POA UTI, POA Infected stasis ulcer of right lower extremity POA Acute kidney injury on chronic kidney disease POA Acute on chronic systolic CHF with cardiomyopathy POA Acute leukocytosis POA Lactic Acidosis POA Transaminases elevated Lumbar spondylosis/degenerative changes Hyponatremia POA Hypochloremia POA Uncontrolled diabetes POA Hypertension POA Hyperlipidemia POA History of Left lower extremity DVT on Eliquis POA History of pulmonary embolism on chronic anticoagulation POA PLAN: Severe sepsis POA: * Continue patient on vancomycin and cefepime * Blood culture negative, urine culture positive for Klebsiella pneumoniae, Wound culture came back positive for Serratia marcescens * Infectious disease and wound care consult appreciated and will follow their recommendations. Infected stasis ulcer of right lower extremity POA: * ultrasound came back negative for DVT bilaterally * Wound culture came back positive for Serratia marcescens a Gram-negative bacteria susceptible to most antibiotics * We will follow their recommendations for further treatment * Infectious disease recommended to continue IV cefepime and vancomycin. * Wound care gave the following recommendation Cleanse with normal saline, pat dry, apply medihoney and gentamicin 1:1, cover with adaptic/vaseline gauze, gauze, wrap with kerlix secure with tape change daily and prn Acute kidney injury on chronic kidney disease POA: * Placed on daily weight and strict I&O * BUN 54, creatinine 1.8. * Avoid NSAIDs or nephrotoxic agents. Acute on chronic systolic CHF with cardiomyopathy POA: * Cardiology stopped patient's metolazone and Milrinone drip, Continue Bumex p. o. * 2D echo shows severely reduced LVEF of less than 20% * Cardiology also recommended to hold losartan, Jardiance half tablet 5 mg b.i.d. and continue with Eliquis 5 mg b.i.d. * Follow the recommendations for further treatment, restrict fluid 1500 ml per day per cardiology UTI, POA: * Patient's urine culture came back positive for Gram-negative rods * Sensitivity and specificity showed Klebsiella pneumoniae sensitive to most antibiotics * Continuing the patient on vancomycin and cefepime * Infectious disease is on the case Lumbar spondylosis/degenerative changes : * CT lumbar showed lumbar degerative disc disease with reduced disc space and vacuum phenomenon at L5-S1 and T12-L1 levels with minimal retrolisthesis of L5 on S1. * Continue with PRN pain medications. We will request labs in am Further orders to follow depending on above results Home Medications: Active Scripts Metoprolol Succinate (Toprol Xl) 25 Mg Tab.er.24h, 25 MG PO DAILY, #30 TAB Prov:ISIDRO BROWN MD 02/27/25 Bumetanide (Bumetanide) 1 Mg Tablet, 1 MG PO BID, #60 TAB Prov:JUHI DEL CID GLASS CRUSHER 02/19/25 Reported Medications Metformin HCl (Metformin HCl) 500 Mg Tablet, 500 MG PO PM, TAB 06/23/25 Losartan Potassium (Losartan Potassium) 25 Mg Tablet, 12.5 MG PO HS, TAB 06/23/25 Empagliflozin (Jardiance) 10 Mg Tablet, 5 MG PO BID, TAB 06/23/25 Glipizide/Metformin HCl (Glipizide-Metformin 2.5-500 mg) 2.5 Mg-500 Mg Tablet, 1 EACH PO DAILY, TAB 06/23/25 Multivitamin (Multi Vitamin Daily) 1 Each Tablet, 1 EACH PO DAILY, TAB 06/23/25 Apixaban (Eliquis) 5 Mg Tablet, 5 MG PO BID, TAB 02/15/25 Time spent arranging discharge: 31-60 minutes LISS MANN MD Jul 03, 2025 13:09
--- NOTE | 2025-07-03 14:17 | NUR ---
RANDA PICC REMOVED WITHOUT COMPLICATIONS. VALSALVA MANEUVER APPLIED, NO RESISTANCE, TIP INTACT REMOVED AT 51CM. ASEPTIC TECHNIQUE USED, HEMOSTASIS ACHIEVED, OCCLUSIVE DRESSING APPLIED. PATIENT TOLERATED WELL.
--- NOTE | 2025-07-03 15:22 | PN ---
INFECTIOUS DISEASE PROGRESS NOTE Date of Service: Jul 03, 2025 SUBJECTIVE: This 59 year old male patient is being seen today at bedside. NO fever or chills. Denies chest pain or shortness of breath. Patient states he feel well. No dysuria or hematuria. Patient will be d/c with oral antibiotics. PHYSICAL EXAM EYES: Anicteric. Pupils equal and reactive. HENT: No oral thrush seen, moist Oral mucosa. NECK: Supple, no JVD or thyromegaly. LUNGS: Good air entry. No rales, no rhonchi. CARDIOVASCULAR: S1, S2 regular. No murmur heard. ABDOMEN: Soft, non tender, bowel sounds present, no organomegaly. CENTRAL NERVOUS SYSTEM: Awake, alert, oriented x 3. SKIN: Bilateral lower extremity wounds. LYMPHATICS: No peripheral lymphadenopathy. MUSCULOSKELETAL: No joint swelling, erythema or tenderness. EXTREMITIES: No cyanosis or clubbing. History of right 2nd toe amputation. Bilateral lower extremity edema. BACK: No deformity, no pressure ulcer. GENITOURINARY: No dysuria or hematuria. Vital Sign (Last 12 Hours) 07/03/25 07/03/25 07/03/25 07/03/25 04:00 08:00 08:00 11:53 Temp 97.9 97.7 97.9 Pulse 85 99 88 Resp 18 20 20 B/P (MAP) 114/82 119/83 116/71 Pulse Ox 95 100 100 98 O2 Delivery Room Air Room Air* Room Air Room Air O2 Flow Rate 0 FiO2 21 Intake & Output (last 24hrs) 07/02/25 07/02/25 07/03/25 15:00 23:00 07:00 Intake Total 480 ml 390.0 ml Output Total 650 ml 500 ml 350 ml Balance -170 ml -110.0 ml -350 ml LABS: Laboratory: Test 07/03/25 11:16 07/03/25 07:23 07/03/25 03:30 07/02/25 03:48 Range/Units Whole Blood Glucose 173 H 70-110 MG/DL Vancomycin Level Trough 19.2 # 10.0-20.0 UG/ML White Blood Count 11.5 H 4.8-10.8 K/uL Red Blood Count 4.40 L 4.50-6.20 MIL/uL Hemoglobin 14.1 14.0-18.0 g/dL Hematocrit 43.2 42-54 % Mean Corpuscular Volume 98.2 79-99 fL Mean Corpuscular Hemoglobin 32.0 27.0-33.0 pg Mean Corpuscular Hemoglobin Concent 32.6 32.0-36.0 g/dL Red Cell Distribution Width 15.3 11.0-15.5 % Platelet Count 188 130-400 K/uL Mean Platelet Volume 10.8 H 7.5-10.5 fL Nucleated Red Blood Cells 0.0 0.0-0.19 % Sodium Level 133 L 136-145 mmol/L Potassium Level 4.0 3.5-5.1 mmol/L Chloride Level 97 L 101-111 mmol/L Carbon Dioxide Level 30 21-32 mmol/L Blood Urea Nitrogen 57 H 7-18 mg/dL Creatinine 1.7 H 0.5-1.3 mg/dL Glomerular Filtration Rate Calc 45 >90 mL/min Random Glucose 126 H 70-105 mg/dL Total Calcium 8.9 8.5-10.1 mg/dL B-Type Natriuretic Peptide 2570 H 0-100 pg/mL Magnesium Level 2.20 1.80-2.40 mg/dL Total Bilirubin 1.3 H 0.2-1.0 mg/dL Aspartate Amino Transf (AST/SGOT) 45 H 10-37 U/L Alanine Aminotransferase (ALT/SGPT) 105 H 12-78 U/L Alkaline Phosphatase 130 50-136 U/L Total Protein 6.9 6.0-8.3 g/dL Albumin 2.9 L 3.5-5.0 g/dL Test 07/01/25 16:24 Range/Units Bedside Glucose Comment Notified Nurse ASSESSMENT: Acute hypoxic respiratory failure. Urinary tract infection with Klebsiella pneumoniae. Right lower extremity ulcer infection with Serratia marcescens.. Bilateral lower extremities cellulitis. Sepsis. Leukocytosis. Acute on chronic renal failure. Diabetes mellitus. Acute on chronic heart failure. Generalized debility. PLAN: Continue cefepime. Continue doxycycline. Continue pain management. Continues on diuretics. Continue GI prophylaxis. Continue wound care. Continue nutritional support. d/c with vantin BID for 10 days. This case was reviewed and discussed with my supervising physician Dr. Perry and the above assessment and plan was formulated and agreed upon. DAYNE CALI [facility] Jul 03, 2025 15:22
--- NOTE | 2025-07-03 15:50 | NUR ---
PATIENT ALERT AND ORIENTED X4 BEING DISCHARGED HOME. DR. SORIANO PERSONALLY MADE THE HORACE FOR THE PATIENT ON JULY 13. PATIENT EDUCATED TO FOLLOW UP WITH DR. SORIANO PER SCHEDULED HORACE AND PCP. EDUCATED ON NEW MEDICATIONS LIST, EDUCATED TO BIOLOGICAL SCIENCE TECHNICIAN MEDICATIONS FROM PHARMACY. ALL QUESTIONS ANSWERED, PATIENT VERBALIZED UNDERSTANDING. PATIENT TO CONTINUE WITH UTR WOUND CARE AND CONTINUE WITH DAILY DRESSING CHANGES. PATIENT GATHERED ALL BELONGINGS AND AWAITING TO PICK HIM UP.
[2025-07-03 16:00] VITALS: BP 95/69; PULSE 89; RESP 20; TEMP 98.6
[2025-07-03 16:15] VITALS: BP 109/73; PULSE 86
--- NOTE | 2025-07-03 16:24 | NUR ---
picked up patient at this time.
== END 2025-07-03 16:30 | disposition home or self-care (01) | DRG 871 ==
LOC: EDH 00:47 → EDHIP 03:19 → 2DH 06-24 22:20
PROVIDERS: ADMIT Hospitalist; ATTEND Hospitalist
PROC: 02HV33Z Insertion of Infusion Device into Superior Vena Cava, Percutaneous Approach (ICD-10-PCS; principal; 2025-06-28)
PROC: B548ZZA Ultrasonography of Superior Vena Cava, Guidance (ICD-10-PCS; 2025-06-28)
DX: A41.9 Sepsis, unspecified organism (principal); I50.23 Acute on chronic systolic (congestive) heart failure; J96.01 Acute respiratory failure with hypoxia; E87.1 Hypo-osmolality and hyponatremia; E87.20 Acidosis, unspecified; I13.0 Hypertensive heart and chronic kidney disease with heart failure and stage 1 through stage 4 chronic kidney disease, or unspecified chronic kidney disease; I47.19 Other supraventricular tachycardia; L03.115 Cellulitis of right lower limb; L03.116 Cellulitis of left lower limb; N17.9 Acute kidney failure, unspecified; N39.0 Urinary tract infection, site not specified; L97.918 Non-pressure chronic ulcer of unspecified part of right lower leg with other specified severity; L97.928 Non-pressure chronic ulcer of unspecified part of left lower leg with other specified severity; E11.65 Type 2 diabetes mellitus with hyperglycemia; E66.01 Morbid (severe) obesity due to excess calories; E11.22 Type 2 diabetes mellitus with diabetic chronic kidney disease; E78.5 Hyperlipidemia, unspecified; I25.10 Atherosclerotic heart disease of native coronary artery without angina pectoris; R65.20 Severe sepsis without septic shock; B96.1 Klebsiella pneumoniae [K. pneumoniae] as the cause of diseases classified elsewhere; E87.8 Other disorders of electrolyte and fluid balance, not elsewhere classified; E87.5 Hyperkalemia; N18.30 Chronic kidney disease, stage 3 unspecified; M47.816 Spondylosis without myelopathy or radiculopathy, lumbar region; Z86.711 Personal history of pulmonary embolism; Z86.718 Personal history of other venous thrombosis and embolism; Z79.01 Long term (current) use of anticoagulants; Z79.82 Long term (current) use of aspirin; Z79.84 Long term (current) use of oral hypoglycemic drugs; Z82.0 Family history of epilepsy and other diseases of the nervous system; Z82.3 Family history of stroke; Z82.49 Family history of ischemic heart disease and other diseases of the circulatory system; Z82.5 Family history of asthma and other chronic lower respiratory diseases; Z83.3 Family history of diabetes mellitus; I25.2 Old myocardial infarction; Z68.37 Body mass index [BMI] 37.0-37.9, adult; I25.5 Ischemic cardiomyopathy
CPT/HCPCS: 36415; 71045; 72128; 72131; 80048; 80053; 80202; 81001; 82550; 82948; 83605; 83735; 83880; 84132; 84145; 84484; 85025; 85027; 85610; 85730; 87040; 87070; 87076; 87086; 87186; 87426; 87804; 87880; 93005; 93306; 93356; 93970; 96372; 96374; 96375; 99291; G0378; J0692; J1815; J2260; J2270; J3373; J3490; J7030; J7120; J3370